=== PATIENT | male | born 1980 | race Caucasian/White ===

== ENCOUNTER → 2018-03-29 12:57 | Outpatient (REF) | payer OTHER, MEDICAID, SELFPAY | LOC: LAB 12:57 | PROVIDERS: Visit Provider Internal Medicine | DX: L08.9 Local infection of the skin and subcutaneous tissue, unspecified (principal) | CPT/HCPCS: 87070; 87075; 87186; 87205 ==

== ENCOUNTER → 2018-03-29 13:23 | Outpatient (CLI) | payer OTHER, MEDICAID, SELFPAY | PROVIDERS: Visit Provider Internal Medicine | DX: E11.621 Type 2 diabetes mellitus with foot ulcer (principal); L97.522 Non-pressure chronic ulcer of other part of left foot with fat layer exposed; L03.032 Cellulitis of left toe | CPT/HCPCS: 11042; 87070; 87186; 87205 ==

== ENCOUNTER → 2018-04-12 13:34 | Outpatient (CLI) | payer OTHER, MEDICAID, SELFPAY | PROVIDERS: Visit Provider Internal Medicine | DX: E11.621 Type 2 diabetes mellitus with foot ulcer (principal); L97.522 Non-pressure chronic ulcer of other part of left foot with fat layer exposed | CPT/HCPCS: 11042 ==

== ENCOUNTER → 2018-04-19 13:18 | Outpatient (CLI) | payer OTHER, MEDICAID, SELFPAY | PROVIDERS: Visit Provider Internal Medicine | DX: E11.621 Type 2 diabetes mellitus with foot ulcer (principal); L97.522 Non-pressure chronic ulcer of other part of left foot with fat layer exposed; L03.116 Cellulitis of left lower limb | CPT/HCPCS: 11042; 87070; 87075; 87077; 87186; 87205 ==

== ENCOUNTER → 2018-04-19 13:41 | Outpatient (REF) | payer OTHER, MEDICAID, SELFPAY | LOC: LAB 13:41 | PROVIDERS: Visit Provider Internal Medicine | DX: L08.9 Local infection of the skin and subcutaneous tissue, unspecified (principal) ==

== ENCOUNTER → 2018-04-26 10:44 | Outpatient (CLI) | payer OTHER, SELFPAY | PROVIDERS: PCP Student in an Organized Health Care Education/Training Program; Visit Provider Internal Medicine | DX: E11.621 Type 2 diabetes mellitus with foot ulcer (principal); L97.522 Non-pressure chronic ulcer of other part of left foot with fat layer exposed; L84 Corns and callosities; A49.01 Methicillin susceptible Staphylococcus aureus infection, unspecified site; Z91.19 Patient's noncompliance with other medical treatment and regimen | CPT/HCPCS: 11042 ==

== ENCOUNTER → 2018-05-03 14:38 | Outpatient (CLI) | payer OTHER, SELFPAY ==
--- NOTE | 2018-05-03 | OV.WND_ITS ---
Progress Note Details Patient Name: Baljit Mckay Patient Number: [id number] PatientPatientDate: 05/03/2018 Clinician: Yareli De León Clinician Cosigner: Geeta Mullins Physician / Basket Bottom Machine Operator: Rakesh Weathers SUBJECTIVE Chief Complaint This information was obtained from the patient Diabetic ulcer to left great toe. Allergies [facility] This information was obtained from the patient 05/03/18. Seen by Dr. Weathers. The patient states he was at a conference this past weekend and forgot his left lower leg stocking that protects from his FLANDREAU boot rubbing the short. He started to notice an abrasion so stopped wearing the FLANDREAU boot and now feels the left 1st toe diabetic ulcer may have deteriorated and also it got wet in the shower this morning. He also notes some drainage at the site of the recently healed left 1st toe diabetic ulcer. He does not report pain at either site and his blood sugars are historically well controlled over the past 6 months. 04/26/18. Seen by Dr. Weathers. The patient reports being on his feet a lot over the past week at work but he'll be taking the next week off. 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 His culture last week grew MSSA and he's completed a course of doxycycline as of yesterday. He's also not been wearing this FLANDREAU boot or using a knee scooter due to his working more. 04/19/18. Seen by Dr. Weathers. The patient does not report pain associated with the chronic left 1st toe diabetic ulcer since his last visit however he was more active on it over the holiday weekend. The staff however report drainage on the dressing and a significant increase in callus from his last visit. His blood sugars continue to be well controlled around 120 and he's been advised to use his FLANDREAU boot when mobilizing and knee scooter as much as possible. 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 04/12/18. Seen by Dr. Weathers. The patient does not report drainage or pain associated with the great left foot diabetic ulcers since his last visit. 04/05/2018. Seen by Dr. Weathers. The patient is wearing his FLANDREAU boot on the left foot as much as possible to help offload the recurrent and chronic left 1st toe diabetic ulcer. He'll complete his course of doxycycline today that was started at his last for cellulitis of the toe and he's applying topical gentamicin as well. He does not report fevers or feeling unwell nor side effects of the antibiotics. 03/29/2018. Seen by Dr. Weathers. The patient reports some pain and increased drainage as well as redness and swelling of the left 1st toe over the past few days. He does not report fevers however nor other acute issues at this time. 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 03/22/2018. Seen by Dr. Weathers. The patient does not report drainage or pain associated with the great left foot diabetic ulcers since his last visit. He states however that he is not wearing his FLANDREAU boot to offload the sites on alternate days despite my recommendations last week. 03/15/18. Seen by Dr. Weathers. The patient has returned to full-time work schedule and feels may not be wearing his FLANDREAU boots as much as she should noting a significant increase in callus associated with bilateral first toe diabetic ulcers and associated pain. He does not report drainage associated with the ulcers however and we'll extended his visits out to 10 days. . Seen by Dr. Weathers. The patient does not report significant drainage associated with chronic left and right first toe diabetic ulcers since his last visit. He's not wearing his FLANDREAU boot currently to offload the left foot and has started using new orthotic inserts for his diabetic shoe noting the heavy callus may be due to the old othotics wearing down. 02/25/18. Seen by Dr. Weathers. The patient does not report significant drainage associated with chronic left first toe diabetic ulcer since his last visit. 02/18/18. Seen by Dr. Weathers. The patient does not report drainage associated with chronic right or left first toe diabetic ulcers since his last visit and he's applying topical gentamicin as recommended to treat the left 1st toe MSSA positive wound culture taken at the last visit. 02/11/18. Seen by Dr. Weathers. The patient returns due to recurrence of the left 1st toe diabetic ulcer that he states started about 1 week ago when he developing callus fell off and the toe started to drain. He was seen by Dr. Son, podiatry, who subsequently referred the patient back to our clinic. He does not report pain in the toe or fevers and he's wearing his FLANDREAU boot to help offload the site. He's also on Keflex but states a wound culture was not drawn. Of note, he reports callus has reformed over the recently healed right 1st toe diabetic ulcer also. His blood sugars continue to be well controlled with most below 150. 01/17/18. Seen by Flaco Henley PA-C. The patient reports no drainage from his right 1st toe diabetic ulcer since his last dressing change. 01/05/18. Seen by Dr. Weathers. 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 Of note, he also has a new wound over the dorsum of the right foot that occurred following a dog fight that occurred at home where he was stepped on and the dog's claws scratch the foot. He does not report significant pain or drainage associated with this wound. 12/29/17. Seen by Dr. Weathers. The patient does not report drainage or pain associated with the right first toe diabetic ulcers since his last visit. He is wearing his FLANDREAU boot as recommended and is asking if he will be able to return to work soon. 12/22/17. Seen by Dr. Weathers. The patient does not report increased drainage associated with a chronic right first toe diabetic ulcers since his last visit. 12/14/17. Seen by Dr. Weathers. The patient does not report increased drainage associated with a chronic right first toe diabetic ulcers since his last visit and he's wearing his FLANDREAU boot as recommended to offload the ulcer. 12/08/17. Seen by Dr. Weathers. The patient does not report increased drainage associated with a chronic right first toe diabetic ulcers since his last visit. Of note, he states he accidentally wore his left shoe with a sock in the end of the which may result in some bruising at the site of the recently healed first toe diabetic ulcer. 12/01/17. Seen by Dr. Weathers. The patient does not report significant drainage or pain associated with right first toe diabetic ulcer since his last visit. Of note, he 's also stopped applying Kersal to the callus surrounding the recently healed left 1st toe diabetic ulcer despite our recommendations to do so. 11/17/17. Seen by Dr. Waethers. The patient does not report significant drainage or pain associated with right first toe diabetic ulcer since his last visit. 11/10/17. Seen by Dr. Weathers. The patient does not report significant drainage or pain associated with bilateral first toe diabetic ulcers since his last visit. He's been offloading as recommended with both his FLANDREAU boots and a knee scooter. 11/03/17. Seen by Dr. Weathers. The patient does not report increased drainage or pain associated with bilateral first toe diabetic ulcers since last visit. 10/27/17. Seen by Dr. Weathers. The patient reports some increased pain and redness associated with the chronic right first toe diabetic ulcer. 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 He is also offloading with a new scooter as recommended 10/20/17. Seen by Dr. Weathers. The patient does not report increased drainage or pain associated with bilateral first toe diabetic ulcers since last visit. 10/13/17. Seen by Dr. Weathers. The patient does not report increased drainage or pain associated with bilateral first toe diabetic ulcers since last visit. Of note, he now has a knee scooter and his left FLANDREAU boot and feels the left 1st toe ulcer has improved significantly with the added offloading measures. 10/06/17. Seen by Dr. Weathers. The patient does not report increased drainage or pain associated with bilateral first toe diabetic ulcers since last visit. Of note, he now has a knee scooter that he's been using to offload the left foot for the past 2 days and he will receive his FLANDREAU boot on Wednesday. 09/29/17. Seen by Dr. Weathers. The patient states that while wearing his left foot offloading shoe he took a fall and feels that it may have traumatized the chronic left first toe diabetic ulcer. He does not report increased pain or drainage from the site nor the right first toe diabetic ulcers since his last visit and states his blood sugars continue to be mostly below 150. He is also awaiting delivery of the left foot lower brule boot as well as his diabetic shoes. Of note, he also admits to being more active that he should be despite our recommendations to maximally offload both ulcers and has not been able to locate an offloading knee scooter as we've recommended. 09/22/17. Seen by Dr. Weathers. The patient does not report increased drainage associated with the bilateral 1st toe diabetic ulcers since his last visit and he's completed his course of doxycycline without reporting adverse side effects. He's also not yet seen his orthortist who will be fitting for at FLANDREAU boot to offload the left foot ulcer as well as providing him with a pair of diabetic shoes. 09/15/17. Seen by Dr. Weathers. The patient's on doxycycline to treat a chronic wound infection of the left 1st toe and he does not report adverse side effects. He's wearing his offloading shoe on the foot as recommended and continues to limit his walking as much as possible. He does not report significant drainage or pain associated with either 1st toe diabetic ulcers and states he's going to schedule and appointment with an hotel casino floorperson today as we've been recommending. 09/06/17. Seen by Flaco Henley PA-C. The patient reports increased drainage and continued callous formation from his 1st toe diabetic ulcers. He continues to stay off his feet as much as possible and is working with his insurance company and [facility] [employer] [employer] to obtain a FLANDREAU offloading boot. 08/31/17. Seen by Flaco Henley PA-C. The patient reports he has been staying off his feet and has been away from work as instructed. He reports decreased drainage from his bilateral diabetic toe ulcers. 08/24/17. Seen by Dr. Weathers. The patient reports being more active over the past week despite being advised to limit his walking considerably to offload the bilateral first toe diabetic ulcers. He does not report increased drainage or pain associated with these ulcers. He also states he will be able to take another month off of work to further facilitate offloading of the ulcers. 08/17/17. Seen by Dr. Weathers. The patient has been offloading both left and right first toe diabetic ulcers for the past week and has taken the entire month of July off of work to better facilitate offloading. 08/10/17. Seen by Dr. Weathers. The patient has been offloading both left and right first toe diabetic ulcers for the past week as recommended and he does not report significant associated pain or drainage from either site. 08/03/17. Seen by Dr. Weathers. The patient has been offloading both left and right first toe diabetic ulcers for the past week and has taken the entire month of July off of work to better facilitate offloading. 07/23/17. Seen by Dr. Weathers. The patient does not report significant drainage associated with chronic bilateral left and right first toe diabetic ulcers since his last visit. He does not report any drainage associated with the left 1st MTPJ diabetic ulcer. 07/20/17. Seen by Dr. Weathers. The patient does not report pain nor significant drainage associated with chronic bilateral left and right first toe diabetic ulcers since his last visit. He is applying topical gentamicin as recommended to the ulcer bases to treat the recent wound infection. He does not report any drainage associated with the left 1st MTPJ diabetic ulcer. 07/16/17. Seen by Dr. Weathers. The patient states that he had a very busy past week in terms of festival and he was on his feet for extended periods. He has increased drainage and callus formation associated with both first toe diabetic ulcers since we last saw him however he does not report any increased drainage or problems regarding the left mid plantar foot diabetic ulcer. He does not report pain in the toes nor fever or feeling unwell. His blood sugars continue to be well controlled consistently below 150. 07/06/17. Seen by Dr. Weathers. The patient does not report pain nor significant drainage associated with chronic bilateral left and right first toe diabetic ulcers since his last visit. He is applying topical gentamicin as recommended in his recent wound culture grew MSSA. He also does not report pain nor drainage associated with the chronic left plantar foot diabetic ulcer. 06/29/17. Seen by Dr. Weathers. The patient reports some pain associated with both first toe diabetic ulcers since his last visit. He does not report increased drainage associated with these nor the left plantar foot diabetic ulcer. He's been seeing us every 2 weeks and feels that the callus formation in the interim has been quite significant. 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 He states his blood sugars are well controlled with most below 150. 7. Seen by Dr. Weathers. The patient does not report pain nor significant drainage associated with the chronic bilateral first toe diabetic ulcers nor the left plantar foot diabetic ulcer since his last visit. 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 His blood sugars he states are well-controlled with most below 150. 06/01/17. Seen by Dr. Weathers. The patient does not report pain or increased drainage associated with the bilateral, chronic 1st toe diabetic ulcers since his last visit and he continues on doxycycline for the left 1st toe infection noted at his last visit. He does not report adverse side effects and states his blood sugars are mostly below 150. 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 Of note, he reports a new wound over the plantar surface of the left foot that started when he tried to remove a callus earlier this week. 05/18/17. Seen by Dr. Weathers. The patient reports some discomfort associated with the chronic left first toe diabetic ulcer over the past few days however he does not report pain nor increased drainage with the chronic right first toe diabetic ulcer. He continues to work an active job and is on his feet for extended periods however states that he may be able to decrease hours later in the summer. His blood sugars continue to be well controlled with most below 150. 05/12/17. Seen by Flaco Henley PA-C. The patient reports that his neuropathy is worse today with stabbing-type pains occurring in the arches of both feet and radiating to the lateral edges of his feet. He reports that walking on his feet exacerbate the pain and his recent medication change to Cymbalta has helped decrease the pain. He reports no increase in drainage from his bilateral 1st toe diabetic ulcers of the right and left feet. 05/05/17. Seen by Flaco Henley PA-C. The patient reports no increase in drainage from his bilateral 1st toe diabetic ulcers. 04/20/17. Seen by Dr. Weathers. The patient reports pain and drainage associated with the bilateral first toe diabetic ulcers is minimal over the past week and he'll complete his course of moxifloxacin today that's been treating a recent left 1st toe cellulitis. He continues to work a heavy schedule as on his feet for extended periods. He states his blood sugars continue to be mostly below 200. 04/14/17. Seen by Dr. Weathers. The patient feels the pain and drainage associated with the bilateral first toe diabetic ulcers has improved since starting on antibiotics last week. He continues to work a heavy schedule as on his feet for extended periods. He states his blood sugars continue to be mostly below 200. 04/07/17. Seen by Dr. Weathers. The patient reports some pain and increased drainage from the bilateral first toe diabetic ulcers over the past week. He's been working on his feet considerably more over the past few weeks and states his blood sugars are mostly below 200. 03/24/17. Seen by Flaco Henley PA-C. The patient reports good compliance with his diabetes footwear but he also notes blood sugars above 150 this week. Drainage has reportedly been decreasing from his diabetic ulcers of the right and left feet. 03/17/17. Seen by Dr. Weathers. The patient states he's stopped taking his SSRI that was treating the bilateral foot diabetic neuropathic pain as he felt it may have been contributing to his intermittent subjective fevers and chills. He does not report increased drainage or pain associated with the bilateral 1st toe diabetic ulcers since his last visit but states he's been on his feet more due to his job and an increase in tourism as the weather's improving. 02/26/17. Seen by Dr. Weathers. The patient reports increased pain and drainage associated with the left first toe diabetic ulcer but none with the right first toe diabetic ulcer. He's had some subjective fevers and chills for the last 2 weeks but states blood sugars continue to be well controlled with most below 150. 02/19/17. Seen by Dr. Weathers.The patient reports fatigue and intermittent chills but no documented fevers over the past few days. He does not report fevers nor other specific symptoms. He states that there has been no increase in drainage or pain associated with bilateral first diabetic ulcers since his last visit. His blood sugars continue to be mostly below 200. 02/05/17. Seen by Dr. Weathers. The patient does not report pain nor significant drainage associated with the chronic bilateral first toe diabetic ulcers over the past week. He continues applying topical gentamicin as recommended to treat the chronic and recurrent superficial staph infection. 01/29/17. Seen by Dr. Weathers. The patient reports minimal drainage and no pain associated with bilateral first toe diabetic ulcers since his last visit. He has completed his course of Keflex and does not report adverse side effects. He states blood sugars are mostly between 100 and 200.He continues to apply gentamicin ointment also as recommended. 01/22/17. Seen by Dr. Weathers. The patient returns to clinic for bilateral 1st toe diabetic ulcers that have become infected about a week ago and he was placed on Keflex by his PCP. He feels the drainage and redness are improving and he does not report pain in the toes. His blood sugars remain mostly below 150 and he continues to work on his feet a full-time schedule and states he wears his diabetic shoes at all times. 01/05/17. Seen by Flaco Henley PA-C. The patient reports some blood sugars this week above 150. No increase in ulcer drainage is reported today. 12/29/16 Seen by Flaco Henley PA-C. The patient reports stable drainage from his left foot non- pressure ulcer since his last evaluation. 12/22/16 Seen by Flaco Henley PA-C. The patient reports no increase in ulcer drainage from his left foot diabetic ulcer since his last visit. In addition he reports well controlled blood sugars. 12/15/16 Seen by Flaco Henley PA-C. The patient reports no increase in drainage from his left foot diabetic ulcer. His blood sugars have reportedly been below 150 this week but today is blood sugar is noted to be 152. 12/08/16. Seen by Dr. Weathers. The patient's now taking Augmentin for his recent Staph and E. coli positive wound culture taken from the chronic left 1st toe diabetic ulcer. The culture sensitivities however show intermediate sensitivity of the E. coli to Augmentin. The patient feels the toe pain and ulcer drainage have decreased considerably and he states his blood sugars are mostly below 150. He does not report fevers or adverse side effects from the Augmentin. Regarding the right 1st toe diabetic ulcer he does not report pain or significant drainage. 12/01/16 Seen by Flaco Henley PA-C. The patient reports that his left foot diabetic ulcer is much worse with a strong odor reported. 11/17/16 Seen by Flaco Henley PA-C. The patient reports that his blood sugar is likely elevated due to the holidays. He reports no increase in drainage from his DMII ulcers of the right or left 1st toes. 11/03/16. Seen by Dr. Weathers. The patient reports a new ulcer on the right 1st toe that started about one week ago following his attempt at removing a callus from the site. He states about 3 days ago the ulcer started draining fluid and the toe swelled and turned red. He 's not on antibiotics and does not report fevers or feeling unwell. Regarding his left 1st toe diabetic ulcer, he does not report significant drainage or pain. He states his blood sugars are improving with most below 150 now. 10/20/16. Seen by Dr. Weathers. The patient does not report significant drainage associated with the chronic left 1st toe diabetic ulcer since his last visit. He also states his blood sugars still tend to be over 150 and sometimes in the 200's.He also continues to apply gentamcin for the MSSA positive wound culture taken from the ulcer recently. 10/13/16. Seen by Dr. Weathers. The patient does not report significant drainage associated with the chronic left 1st toe diabetic ulcer since his last visit and he continues applyin gentamcin for the MSSA positive wound culture taken from the ulcer. His blood sugars continue to be above 150 fairly frequently however he notes since decreasing his chronic alcohol intake his glucose seems to be easier to control. 10/06/16 Seen by Flaco Henley PA-C. The patient reports that his neuropathy is severe today. It is described as an intermittent burning/shooting pain, that comes and goes but does not radiate and is centered on his left lateral foot. He does not report any associated changes to his chronic left 1st toe diabetic ulcer such as increased drainage. 09/29/16. Seen by Dr. Weathers. The patient does not report significant drainage associated with the chronic left 1st toe diabetic ulcer since his last visit and he continues on doxycycline for the MSSA positive wound culture taken from the ulcer. He feels the toe redness and swelling have improved since starting antibiotics. He also reports significant improvement in the left foot neuropathic pain since starting on a new antidepressant. 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 His blood sugar is over 200 today and he states its typically been between 100 and 200 although he's not been checking it for the past few days since his glucometer is no working. 09/15/16 Seen by Flaco Henley PA-C. The patient reports decreased neuropathic pain in his LLE and has recently started a new antidepressant medication for this issue though he does not recall the name of the medication. His ulcer drainage has been stable since his last evaluation. 09/01/16. Seen by Dr. Weathers. The patient does not report significant drainage associated with the chronic left 1st toe diabetic ulcer. He does state however his left lateral foot neuropathic pain is increasing and he's working with GAMAL Carter, pain specialist, to address this issue. He also states his blood sugars are typically between 100 to 200. 08/25/16 Seen by Flaco Henley PA-C. The patient reports continued left foot neuropathic pain. He has a pending appointment with Jethro Meehan at the pain clinic for this. His diabetic foot ulcer has resumed draining in the past few days after being closed. 08/18/16 Seen by Flaco Henley PA-C. The patient reports that he has had no drainage from his left 1st toe ulcer since his last evaluation. 08/11/16 Seen by Flaco Henley PA-C. The patient reports that he now has a prescription for lyrica and a schedule to taper off his gabapentin. He has not started taking lyrica though notes that his neuropathic pain is improved this week. His ulcer has had decreased drainage. 08/03/16 Seen by Flaco Henley PA-C. The patient reports that his left leg neuropathic pain, which has been present for months, has decreased in severity recently but still reaches 6/10. It is described as intermittent, non-radiating and stabbing/burning. His left 1st toe ulcer has had stable drainage by his report. 07/28/16 Seen by Flaco Henley PA-C. The patient reports very little drainage from his left 1st toe diabetic ulcer. He does report that his neuropathic pain has worsened and he is using alcohol at times as a painkiller. He has an upcoming appointment with Dr. Son, who has been addressing this issue and he asks about the referral to Jethro Meehan. 07/20/16. Seen by Dr. Weathers. The patient does not report significant drainage associated with the chronic left 1st toe diabetic ulcer over the past week. He states he's seen Dr. Son regarding his diabetic neuropathy in the past but has not discussed the recurrent toe ulcer. He also states he 'walks on this toes' and has been told by other providers in the past his Achilles tendon is 'short'. 07/13/[address] Weathers. The patient states he's been more active over the past few weeks with his job however does not report increased drainage or pain associated with the chronic left 1st toe diabetic ulcer. He's wearing his diabetic shoes as recommended and states his blood sugars have been a bit elevated between 150 and 200 over the past week due to non- compliance with his routine diabetic meal plan. 06/22/[address] Weathers. The patient feels the drainage and left 1st toe erythema have improved considerably since his last visit and he continues on Zyvox that was started during his recent admission for cellulitis associated with the toe ulcer. He states his blood sugars are now mostly below 150 and he's wearing diabetic shoes but not necessarily offloading the toe. 09/12/[address] Weathers. The patient has had his TCC off for the past week and he does not report drainage from the left 1st toe diabetic foot ulcer. His blood sugars are also mostly between 150 and 180. 09/06/[address] Weathers. The patient does not report any problems regarding his left diabetic foot ulcer nor the TCC he's worn since his last visit. His blood sugars are typically between 150 and 200 which is an improvement historically. 06/18/15 Seen by Flaco Henley PA-C. The patient has had no drainage from his wounds since his last visit. 06/11/15 Seen by Flaco Henley PA-C. The patient has had a particularly long work week and has been on his feet a lot. He has been using his diabetic shoes and recently modified inserts. 06/07/[address] Weathers. The patient has two new ulcers on the plantar surface of the right foot and on the left toe that were first noticed about 3 days ago after being on his feet at work for an extended period. He feels they may have occurred as a result of his orthotics not fitting properly. He does not report pain or swelling but does note some redness with clear yellow drainage from the right ulcer. He states his blood sugars are mostly below 150 with a few around 180 and he continues to try to loose weight to help manage his diabetes. 05/20/[address] Weathers. The patient does not report drainage from the left toe ulcer and tolerated the TCC without difficulties. 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 05/08/15 Seen by Flaco Henley PA-C. The patient is here today to have a TCC placed. He continues to try and stay off his feet and has not yet returned to work. 05/06/15 Seen by Flaco Henley PA-C. The patient has been off loading his feet using his off loading boots and sitting at home as well as not working. He continues on his antibiotics. 05/02/15 Seen by Flaco Henley PA-C. The patient continues to take time off work and be sedentary in order to offload his feet. He has been applying kerisol to the callouses on his right and left great toes and hydrogel to the wounds. He took his last dose of Augmentin today and reports decreased drainage from the left great toe diabetic ulcer and minimal drainage from the right great toe diabetic ulcer. His feet are sometimes painful but this has decreased since last visit. Blood sugars are running 150-180s in the AM. 04/26/[address] Weathers. The patient does not report increased drainage associated with the bilateral 1st toe diabetic ulcers. He feels the right leg cellulitis is much improved since starting Augmentin and he's been offloading with a cane and my taking time off of work to stay off his feet. His blood sugars are below 150 and he takes only metformin for diabetes. Past Medical History This information was obtained from the patient Patient has a medical history of: Type II Diabetes Diabetic foot ulcers (bilateral 1st toes; Hector grade II) Hyperlipidemia Chronic pain (neuropathic; left lateral foot) Depression Complaints and Symptoms This information was obtained from the patient Patient complains of: General Notes: I have reviewed and concur with the Review of Systems and Past Family Social History documents completed by the clinician, I have reviewed and concur with the Wound Assessment document completed by the clinician Integumentary (Hair/Skin/Nails): Open Sore Musculoskeletal: Assistive Devices, Deformities Neurological: Abnormal Gait, Loss of Protective Sensation Prior Wound History: Drainage, Erythema, Pain Patient denies complaints or symptoms related to: Cardiovascular (Central/Peripheral): Intermittent Claudication, Lower extremity (leg) resting pain, Lower extremity (leg) swelling Constitutional Symptoms (General Health): Chills, Fever Ear/Nose/Mouth/Throat: Hearing Loss / Aid Gastrointestinal (GI): Nausea / Vomiting, Stomach/abdominal pain Hematologic/Lymphatic: Bleeding / Clotting Disorders, Bleeding Tendency Prior Wound History: Bleeding, Malodor Respiratory: Oxygen Use, Shortness of Breath OBJECTIVE Constitutional Vital signs reviewed and noted. Well developed. Alert. Clean appearing.. Height/ Length: 76 in (193.04 cm), Weight: 267 lbs (121.36 kgs), BMI: 32.5, Temperature: 98.4 ?F ( 36.89 ?C), Pulse: 84 bpm, Respiratory Rate: 18 breaths/min, Blood Pressure: 121/72 mmHg, Capillary Blood Glucose: 127 mg/dl, Pulse Oximetry: 100 %. Vital Signs Notes: Glucose per patient. Ears, Nose, Mouth, and Throat: No clinically significant hearing loss on informal examination. Respiratory: No respiratory distress. Even respirations and without use of accessory muscles.. Cardiovascular: Pedal pulses 2+ on affected limb. Affected extremity exhibits no peripheral edema or cyanosis, is warm, and is well perfused. Capillary refill is less than 2 seconds. Gastrointestinal (GI): Obese. Nondistended.. Integumentary (Hair, Skin) Mild left 1st toe periwound erythema with warmth. Refer to appropriate clinician wound documentation for this visit; right and left foot ulcers extend to subcut with bases partially covered with pink granulation, remainder fibrin and slough. Maceration and callus present in the periwound areas. Wound #9 Left Great Toe is a chronic Hector Grade 2 Diabetic Ulcer and has received a status of Not Healed. Subsequent wound encounter measurements are 1cm length x 0.1cm width x 0.3cm depth, with an area of 0.1 sq cm and a volume of 0.03 cubic cm. No tunneling has been noted. No sinus tract has been noted. No undermining has been noted. There is a moderate amount of sero-sanguineous drainage noted which has no odor. The patient reports a wound pain of level 0/10. The wound margin is callus. Wound bed has Yes epithelialization, No eschar, No slough, No granulation. The periwound skin color is normal. The periwound skin exhibited: Callus, Moist. The periwound skin did not exhibit: Brawny Induration, Edema, Excoriation, Induration, Crepitus, Fluctuance, Friable, Rash, Dry/Scaly, Maceration. The temperature of the periwound skin is WNL. Periwound skin does not exhibit signs or symptoms of infection. Local Pulse is Palpable. Wound #10 Right Great Toe is a chronic Hector Grade 2 Diabetic Ulcer and has received a status of Not Healed. Initial wound encounter measurements are 0.1cm length x 0.1cm width with no measurable depth, with an area of 0.01 sq cm . No tunneling has been noted. No sinus tract has been noted. No undermining has been noted. There was no drainage noted. The patient reports a wound pain of level 0/10. The wound margin is callus. Wound bed has No epithelialization, No eschar, No slough, No granulation. The periwound skin texture is normal. The periwound skin moisture is normal. The periwound skin color is normal. The temperature of the periwound skin is WNL. Periwound skin does not exhibit signs or symptoms of infection. Local Pulse is Palpable. Neurological: Cranial nerves grossly intact with symmetric function normal by informal observation.. ASSESSMENT Active Problems ICD-10 (Encounter Diagnosis) E11.621 - Type 2 diabetes mellitus with foot ulcer (Encounter Diagnosis) L97.522 - Non-pressure chronic ulcer of other part of left foot with fat layer exposed (Encounter Diagnosis) Z91.19 - Patient's noncompliance with other medical treatment and regimen (Encounter Diagnosis) L08.9 - Local infection of the skin and subcutaneous tissue, unspecified (Encounter Diagnosis) L97.511 - Non-pressure chronic ulcer of other part of right foot limited to breakdown of skin PROCEDURES Wound #9 Wound #9 (Diabetic Ulcer) is located on the left great toe. A skin/subcutaneous tissue level surgical debridement with a total area debrided of 0.2 sq cm was performed by Rakesh Weathers MD. Subcutaneous was removed along with devitalized tissue: callus, exudate , and slough. The following instrument(s) were used: curette. Pain control was achieved using 4% Lido. A time out was conducted prior to the start of the procedure. A minimal amount of bleeding was controlled with n/a. The procedure was tolerated well with a pain level of 0 throughout and a pain level of 0 following the procedure. Post Debridement Measurements: 1cm length x 0.2cm width x 0.4cm depth; with an area of 0.2 sq cm and a volume of 0.08 cubic cm; Wound #10 Wound #10 (Diabetic Ulcer) is located on the right great toe. A skin/ subcutaneous tissue level surgical debridement with a total area debrided of 0.06 sq cm was performed by Rakesh Weathers MD. Subcutaneous was removed along with devitalized tissue: callus, exudate , and slough. The following instrument(s) were used: curette. Pain control was achieved using 4% Lido. A time out was conducted prior to the start of the procedure. A minimal amount of bleeding was controlled with n/a. The procedure was tolerated well with a pain level of 0 throughout and a pain level of 0 following the procedure. Post Debridement Measurements: 0.2cm length x 0.3cm width x 0.1cm depth; with an area of 0.06 sq cm and a volume of 0.006 cubic cm; Additional Information Muscle fascia or bone removed and sent to pathology?: No Muscle fascia or bone removed and sent to pathology?: No PLAN Wound Orders: Wound #9 Left Great Toe Anesthetic Topical Xylocaine to wound bed. - In clinic only. Cleanser Cleanse Wound: - Normal saline and gauze. May Shower. - Please cover in shower, may use cast protector or plastic bag and tape. Topical Treatments Antibiotic/Antimicrobial Ointment/Cream. - Gentamicin Dressings Cover and secure with: - Foam secured with tape. Change Dressing: - Daily. Wound #10 Right Great Toe Anesthetic Topical Xylocaine to wound bed. - In clinic only. Cleanser Cleanse Wound: - Normal saline and gauze. May Shower. - Please cover in shower, may use cast protector or plastic bag and tape. Topical Treatments Antibiotic/Antimicrobial Ointment/Cream. - Gentamicin Dressings Cover and secure with: - Foam secured with tape. Change Dressing: - Daily. Additional Orders: Off-Loading Keep weight off: - Left foot as much as possible. Use/Wear when Walking: - [place] boot, Knee scooter. Follow-Up Appointments Return Appointment: - - One week. Other information: If you develop fever, chills, increased pain, drainage, redness or swelling please call our office. If after hours, respond to the ER. Should you experience any significant changes in your wound(s) or have any questions regarding your home care instructions please contact the wound center @ [phone]. If after hours, contact your primary care physician or go to the hospital emergency room. Scribing Attestation I attest, as the nurse, that I scribed these orders for the physician. Laboratory: Bacteria identified in Wound by Culture I've reviewed the clinician's documentation and agree with the evaluation and plan as written. In addition the patient's ulcers demonstrate evidence of non-viable devitalized tissue and they will continue to benefit from sharp debridement to help promote granulation and expedite healing. Also, both 1st toe ulcers are now draining so taken a culture and started treating with topical gentamicin ointment. He'll start wearing his left [place] boot at all times again and states his work schedule will not be as busy over the next few weeks so he should be better able to offload the ulcers. Electronic Signature(s) Signed By: Date: Rakesh Weathers MD 05/03/2018 14:23:23 Entered By: Rakesh Weathers on 05/03/2018 12:22:24
== END ==
PROVIDERS: PCP Student in an Organized Health Care Education/Training Program; Visit Provider Internal Medicine
DX: E11.621 Type 2 diabetes mellitus with foot ulcer (principal); L97.522 Non-pressure chronic ulcer of other part of left foot with fat layer exposed; L97.512 Non-pressure chronic ulcer of other part of right foot with fat layer exposed; Z91.19 Patient's noncompliance with other medical treatment and regimen; L08.9 Local infection of the skin and subcutaneous tissue, unspecified
CPT/HCPCS: 11042

== ENCOUNTER → 2018-05-10 11:08 | Outpatient (CLI) | payer OTHER, SELFPAY ==
--- NOTE | 2018-05-10 | OV.WND_ITS ---
Progress Note Details Patient Name: Baljit Mckay Patient Number: [id number] PatientPatientDate: 05/10/2018 Clinician: Ryann Sultana Clinician Cosigner: Geeta Mullins Physician / Varnish Filterer: Jax Henley SUBJECTIVE Chief Complaint This information was obtained from the patient Diabetic ulcer to left great toe. Allergies NKDA HPI This information was obtained from the patient 05/10/18. Seen by Flaco Henley PA-C. The patient reports a rash has developed on his leg under his GALENA boot, but the rash has improved in the past few days as he has not been wearing the GALENA boot. Drainage from his diabetic foot ulcers has not increased. 05/03/18. Seen by Dr. Weathers. The patient states he was at a conference this past weekend and forgot his left lower leg stocking that protects from his GALENA boot rubbing the short. He started to notice an abrasion so stopped wearing the GALENA boot and now feels the left 1st toe diabetic ulcer may have deteriorated and also it got wet in the shower this morning. He also notes some drainage at the site of the recently healed left 1st toe diabetic ulcer. He does not report pain at either site and his blood sugars are historically well controlled over the past 6 months. 04/26/18. Seen by Dr. Weathers. The patient reports being on his feet a lot over the past week at work but he'll be taking the next week off. 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 His culture last week grew MSSA and he's completed a course of doxycycline as of yesterday. He's also not been wearing this GALENA boot or using a knee scooter due to his working more. 04/19/18. Seen by Dr. Weathers. The patient does not report pain associated with the chronic left 1st toe diabetic ulcer since his last visit however he was more active on it over the holiday weekend. The staff however report drainage on the dressing and a significant increase in callus from his last visit. His blood sugars continue to be well controlled around 120 and he's been advised to use his GALENA boot when mobilizing and knee scooter as much as possible. 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 04/12/18. Seen by Dr. Weathers. The patient does not report drainage or pain associated with the great left foot diabetic ulcers since his last visit. 04/05/2018. Seen by Dr. Weathers. The patient is wearing his GALENA boot on the left foot as much as possible to help offload the recurrent and chronic left 1st toe diabetic ulcer. He'll complete his course of doxycycline today that was started at his last for cellulitis of the toe and he's applying topical gentamicin as well. He does not report fevers or feeling unwell nor side effects of the antibiotics. 03/29/2018. Seen by Dr. Weathers. The patient reports some pain and increased drainage as well as redness and swelling of the left 1st toe over the past few days. He does not report fevers however nor other acute issues at this time. 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 03/22/2018. Seen by Dr. Weathers. The patient does not report drainage or pain associated with the great left foot diabetic ulcers since his last visit. He states however that he is not wearing his GALENA boot to offload the sites on alternate days despite my recommendations last week. 03/15/18. Seen by Dr. Weathers. The patient has returned to full-time work schedule and feels may not be wearing his GALENA boots as much as she should noting a significant increase in callus associated with bilateral first toe diabetic ulcers and associated pain. He does not report drainage associated with the ulcers however and we'll extended his visits out to 10 days. . Seen by Dr. Weathers. The patient does not report significant drainage associated with chronic left and right first toe diabetic ulcers since his last visit. He's not wearing his GALENA boot currently to offload the left foot and has started using new orthotic inserts for his diabetic shoe noting the heavy callus may be due to the old othotics wearing down. 02/25/18. Seen by Dr. Weathers. The patient does not report significant drainage associated with chronic left first toe diabetic ulcer since his last visit. 02/18/18. Seen by Dr. Weathers. The patient does not report drainage associated with chronic right or left first toe diabetic ulcers since his last visit and he's applying topical gentamicin as recommended to treat the left 1st toe MSSA positive wound culture taken at the last visit. 02/11/18. Seen by Dr. Weathers. The patient returns due to recurrence of the left 1st toe diabetic ulcer that he states started about 1 week ago when he developing callus fell off and the toe started to drain. He was seen by Dr. Son, podiatry, who subsequently referred the patient back to our clinic. He does not report pain in the toe or fevers and he's wearing his GALENA boot to help offload the site. He's also on Keflex but states a wound culture was not drawn. Of note, he reports callus has reformed over the recently healed right 1st toe diabetic ulcer also. His blood sugars continue to be well controlled with most below 150. 01/17/18. Seen by Flaco Henley PA-C. The patient reports no drainage from his right 1st toe diabetic ulcer since his last dressing change. 01/05/18. Seen by Dr. Weathers. 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 Of note, he also has a new wound over the dorsum of the right foot that occurred following a dog fight that occurred at home where he was stepped on and the dog's claws scratch the foot. He does not report significant pain or drainage associated with this wound. 12/29/17. Seen by Dr. Weathers. The patient does not report drainage or pain associated with the right first toe diabetic ulcers since his last visit. He is wearing his GALENA boot as recommended and is asking if he will be able to return to work soon. 12/22/17. Seen by Dr. Weathers. The patient does not report increased drainage associated with a chronic right first toe diabetic ulcers since his last visit. 12/14/17. Seen by Dr. Weathers. The patient does not report increased drainage associated with a chronic right first toe diabetic ulcers since his last visit and he's wearing his GALENA boot as recommended to offload the ulcer. 12/08/17. Seen by Dr. Weathers. The patient does not report increased drainage associated with a chronic right first toe diabetic ulcers since his last visit. Of note, he states he accidentally wore his left shoe with a sock in the end of the which may result in some bruising at the site of the recently healed first toe diabetic ulcer. 12/01/17. Seen by Dr. Weathers. The patient does not report significant drainage or pain associated with right first toe diabetic ulcer since his last visit. Of note, he 's also stopped applying Kersal to the callus surrounding the recently healed left 1st toe diabetic ulcer despite our recommendations to do so. 11/17/17. Seen by Dr. Weathers. The patient does not report significant drainage or pain associated with right first toe diabetic ulcer since his last visit. 11/10/17. Seen by Dr. Weathers. The patient does not report significant drainage or pain associated with bilateral first toe diabetic ulcers since his last visit. He's been offloading as recommended with both his GALENA boots and a knee scooter. 11/03/17. Seen by Dr. Weathers. The patient does not report increased drainage or pain associated with bilateral first toe diabetic ulcers since last visit. 10/27/17. Seen by Dr. Weathers. The patient reports some increased pain and redness associated with the chronic right first toe diabetic ulcer. He does not report any new issues regarding the left of a foot ulcer and will tile picker his right foot [place] boot in the near future. He is also offloading with a new scooter as recommended 10/20/17. Seen by Dr. Weathers. The patient does not report increased drainage or pain associated with bilateral first toe diabetic ulcers since last visit. 10/13/17. Seen by Dr. Weathers. The patient does not report increased drainage or pain associated with bilateral first toe diabetic ulcers since last visit. Of note, he now has a knee scooter and his left GALENA boot and feels the left 1st toe ulcer has improved significantly with the added offloading measures. 10/06/17. Seen by Dr. Weathers. The patient does not report increased drainage or pain associated with bilateral first toe diabetic ulcers since last visit. Of note, he now has a knee scooter that he's been using to offload the left foot for the past 2 days and he will receive his GALENA boot on Wednesday. 09/29/17. Seen by Dr. Weathers. The patient states that while wearing his left foot offloading shoe he took a fall and feels that it may have traumatized the chronic left first toe diabetic ulcer. He does not report increased pain or drainage from the site nor the right first toe diabetic ulcers since his last visit and states his blood sugars continue to be mostly below 150. He is also awaiting delivery of the left foot [place] boot as well as his diabetic shoes. Of note, he also admits to being more active that he should be despite our recommendations to maximally offload both ulcers and has not been able to locate an offloading knee scooter as we've recommended. 09/22/17. Seen by Dr. Weathers. The patient does not report increased drainage associated with the bilateral 1st toe diabetic ulcers since his last visit and he's completed his course of doxycycline without reporting adverse side effects. He's also not yet seen his orthortist who will be fitting for at GALENA boot to offload the left foot ulcer as well as providing him with a pair of diabetic shoes. 09/15/17. Seen by Dr. Weathers. The patient's on doxycycline to treat a chronic wound infection of the left 1st toe and he does not report adverse side effects. He's wearing his offloading shoe on the foot as recommended and continues to limit his walking as much as possible. He does not report significant drainage or pain associated with either 1st toe diabetic ulcers and states he's going to schedule and appointment with an senior sous chef today as we've been recommending. 09/06/17. Seen by Flaco Henley PA-C. The patient reports increased drainage and continued callous formation from his 1st toe diabetic ulcers. He continues to stay off his feet as much as possible and is working with his insurance company and [employer] to obtain a GALENA offloading boot. 08/31/17. Seen by Flaco Henley PA-C. The patient reports he has been staying off his feet and has been away from work as instructed. He reports decreased drainage from his bilateral diabetic toe ulcers. 08/24/17. Seen by Dr. Weathers. The patient reports being more active over the past week despite being advised to limit his walking considerably to offload the bilateral first toe diabetic ulcers. He does not report increased drainage or pain associated with these ulcers. He also states he will be able to take another month off of work to further facilitate offloading of the ulcers. 08/17/17. Seen by Dr. Weathers. The patient has been offloading both left and right first toe diabetic ulcers for the past week and has taken the entire month of July off of work to better facilitate offloading. 08/10/17. Seen by Dr. Weathers. The patient has been offloading both left and right first toe diabetic ulcers for the past week as recommended and he does not report significant associated pain or drainage from either site. 08/03/17. Seen by Dr. Weathers. The patient has been offloading both left and right first toe diabetic ulcers for the past week and has taken the entire month of July off of work to better facilitate offloading. 07/23/17. Seen by Dr. Weathers. The patient does not report significant drainage associated with chronic bilateral left and right first toe diabetic ulcers since his last visit. He does not report any drainage associated with the left 1st MTPJ diabetic ulcer. 07/20/17. Seen by Dr. Weathers. The patient does not report pain nor significant drainage associated with chronic bilateral left and right first toe diabetic ulcers since his last visit. He is applying topical gentamicin as recommended to the ulcer bases to treat the recent wound infection. He does not report any drainage associated with the left 1st MTPJ diabetic ulcer. 07/16/17. Seen by Dr. Weathers. The patient states that he had a very busy past week in terms of festival and he was on his feet for extended periods. He has increased drainage and callus formation associated with both first toe diabetic ulcers since we last saw him however he does not report any increased drainage or problems regarding the left mid plantar foot diabetic ulcer. He does not report pain in the toes nor fever or feeling unwell. His blood sugars continue to be well controlled consistently below 150. 07/06/17. Seen by Dr. Weathers. The patient does not report pain nor significant drainage associated with chronic bilateral left and right first toe diabetic ulcers since his last visit. He is applying topical gentamicin as recommended in his recent wound culture grew MSSA. He also does not report pain nor drainage associated with the chronic left plantar foot diabetic ulcer. 06/29/17. Seen by Dr. Weathers. The patient reports some pain associated with both first toe diabetic ulcers since his last visit. He does not report increased drainage associated with these nor the left plantar foot diabetic ulcer. He's been seeing us every 2 weeks and feels that the callus formation in the interim has been quite significant. 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 He states his blood sugars are well controlled with most below 150. 7. Seen by Dr. Weathers. The patient does not report pain nor significant drainage associated with the chronic bilateral first toe diabetic ulcers nor the left plantar foot diabetic ulcer since his last visit. 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 His blood sugars he states are well-controlled with most below 150. 06/01/17. Seen by Dr. Weathers. The patient does not report pain or increased drainage associated with the bilateral, chronic 1st toe diabetic ulcers since his last visit and he continues on doxycycline for the left 1st toe infection noted at his last visit. He does not report adverse side effects and states his blood sugars are mostly below 150. 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 Of note, he reports a new wound over the plantar surface of the left foot that started when he tried to remove a callus earlier this week. 05/18/17. Seen by Dr. Weathers. The patient reports some discomfort associated with the chronic left first toe diabetic ulcer over the past few days however he does not report pain nor increased drainage with the chronic right first toe diabetic ulcer. He continues to work an active job and is on his feet for extended periods however states that he may be able to decrease hours later in the summer. His blood sugars continue to be well controlled with most below 150. 05/12/17. Seen by Flaco Henley PA-C. The patient reports that his neuropathy is worse today with stabbing-type pains occurring in the arches of both feet and radiating to the lateral edges of his feet. He reports that walking on his feet exacerbate the pain and his recent medication change to Cymbalta has helped decrease the pain. He reports no increase in drainage from his bilateral 1st toe diabetic ulcers of the right and left feet. 05/05/17. Seen by Flaco Henley PA-C. The patient reports no increase in drainage from his bilateral 1st toe diabetic ulcers. 04/20/17. Seen by Dr. Weathers. The patient reports pain and drainage associated with the bilateral first toe diabetic ulcers is minimal over the past week and he'll complete his course of moxifloxacin today that's been treating a recent left 1st toe cellulitis. He continues to work a heavy schedule as on his feet for extended periods. He states his blood sugars continue to be mostly below 200. 04/14/17. Seen by Dr. Weathers. The patient feels the pain and drainage associated with the bilateral first toe diabetic ulcers has improved since starting on antibiotics last week. He continues to work a heavy schedule as on his feet for extended periods. He states his blood sugars continue to be mostly below 200. 04/07/17. Seen by Dr. Weathers. The patient reports some pain and increased drainage from the bilateral first toe diabetic ulcers over the past week. He's been working on his feet considerably more over the past few weeks and states his blood sugars are mostly below 200. 5. Seen by Flaco Henley PA-C. The patient reports good compliance with his diabetes footwear but he also notes blood sugars above 150 this week. Drainage has reportedly been decreasing from his diabetic ulcers of the right and left feet. 03/17/17. Seen by Dr. Weathers. The patient states he's stopped taking his SSRI that was treating the bilateral foot diabetic neuropathic pain as he felt it may have been contributing to his intermittent subjective fevers and chills. He does not report increased drainage or pain associated with the bilateral 1st toe diabetic ulcers since his last visit but states he's been on his feet more due to his job and an increase in tourism as the weather's improving. 02/26/17. Seen by Dr. Weathers. The patient reports increased pain and drainage associated with the left first toe diabetic ulcer but none with the right first toe diabetic ulcer. He's had some subjective fevers and chills for the last 2 weeks but states blood sugars continue to be well controlled with most below 150. 02/19/17. Seen by Dr. Weathers.The patient reports fatigue and intermittent chills but no documented fevers over the past few days. He does not report fevers nor other specific symptoms. He states that there has been no increase in drainage or pain associated with bilateral first diabetic ulcers since his last visit. His blood sugars continue to be mostly below 200. 3. Seen by Dr. Weathers. The patient does not report pain nor significant drainage associated with the chronic bilateral first toe diabetic ulcers over the past week. He continues applying topical gentamicin as recommended to treat the chronic and recurrent superficial staph infection. 01/29/17. Seen by Dr. Weathers. The patient reports minimal drainage and no pain associated with bilateral first toe diabetic ulcers since his last visit. He has completed his course of Keflex and does not report adverse side effects. He states blood sugars are mostly between 100 and 200.He continues to apply gentamicin ointment also as recommended. 01/22/17. Seen by Dr. Weathers. The patient returns to clinic for bilateral 1st toe diabetic ulcers that have become infected about a week ago and he was placed on Keflex by his PCP. He feels the drainage and redness are improving and he does not report pain in the toes. His blood sugars remain mostly below 150 and he continues to work on his feet a full-time schedule and states he wears his diabetic shoes at all times. 01/05/17. Seen by Flaco Henley PA-C. The patient reports some blood sugars this week above 150. No increase in ulcer drainage is reported today. 12/29/16 Seen by Flaco Henley PA-C. The patient reports stable drainage from his left foot non- pressure ulcer since his last evaluation. 12/22/16 Seen by Flaco Henley PA-C. The patient reports no increase in ulcer drainage from his left foot diabetic ulcer since his last visit. In addition he reports well controlled blood sugars. 12/15/16 Seen by Flaco Henley PA-C. The patient reports no increase in drainage from his left foot diabetic ulcer. His blood sugars have reportedly been below 150 this week but today is blood sugar is noted to be 152. 12/08/16. Seen by Dr. Weathers. The patient's now taking Augmentin for his recent Staph and E. coli positive wound culture taken from the chronic left 1st toe diabetic ulcer. The culture sensitivities however show intermediate sensitivity of the E. coli to Augmentin. The patient feels the toe pain and ulcer drainage have decreased considerably and he states his blood sugars are mostly below 150. He does not report fevers or adverse side effects from the Augmentin. Regarding the right 1st toe diabetic ulcer he does not report pain or significant drainage. 12/01/16 Seen by Flaco Henley PA-C. The patient reports that his left foot diabetic ulcer is much worse with a strong odor reported. 11/17/16 Seen by Flaco Henley PA-C. The patient reports that his blood sugar is likely elevated due to the holidays. He reports no increase in drainage from his DMII ulcers of the right or left 1st toes. 11/03/16. Seen by Dr. Weathers. The patient reports a new ulcer on the right 1st toe that started about one week ago following his attempt at removing a callus from the site. He states about 3 days ago the ulcer started draining fluid and the toe swelled and turned red. He 's not on antibiotics and does not report fevers or feeling unwell. Regarding his left 1st toe diabetic ulcer, he does not report significant drainage or pain. He states his blood sugars are improving with most below 150 now. 10/20/16. Seen by Dr. Weathers. The patient does not report significant drainage associated with the chronic left 1st toe diabetic ulcer since his last visit. He also states his blood sugars still tend to be over 150 and sometimes in the 200's.He also continues to apply gentamcin for the MSSA positive wound culture taken from the ulcer recently. 10/13/16. Seen by Dr. Weathers. The patient does not report significant drainage associated with the chronic left 1st toe diabetic ulcer since his last visit and he continues applyin gentamcin for the MSSA positive wound culture taken from the ulcer. His blood sugars continue to be above 150 fairly frequently however he notes since decreasing his chronic alcohol intake his glucose seems to be easier to control. 10/06/16 Seen by Flaco Henley PA-C. The patient reports that his neuropathy is severe today. It is described as an intermittent burning/shooting pain, that comes and goes but does not radiate and is centered on his left lateral foot. He does not report any associated changes to his chronic left 1st toe diabetic ulcer such as increased drainage. 09/29/16. Seen by Dr. Weathers. The patient does not report significant drainage associated with the chronic left 1st toe diabetic ulcer since his last visit and he continues on doxycycline for the MSSA positive wound culture taken from the ulcer. He feels the toe redness and swelling have improved since starting antibiotics. He also reports significant improvement in the left foot neuropathic pain since starting on a new antidepressant. 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 His blood sugar is over 200 today and he states its typically been between 100 and 200 although he's not been checking it for the past few days since his glucometer is no working. 09/15/16 Seen by Flaco Henley PA-C. The patient reports decreased neuropathic pain in his LLE and has recently started a new antidepressant medication for this issue though he does not recall the name of the medication. His ulcer drainage has been stable since his last evaluation. 09/01/16. Seen by Dr. Weathers. The patient does not report significant drainage associated with the chronic left 1st toe diabetic ulcer. He does state however his left lateral foot neuropathic pain is increasing and he's working with GAMAL Carter, pain specialist, to address this issue. He also states his blood sugars are typically between 100 to 200. 08/25/16 Seen by Flaco Henley PA-C. The patient reports continued left foot neuropathic pain. He has a pending appointment with Jethro Meehan at the pain clinic for this. His diabetic foot ulcer has resumed draining in the past few days after being closed. 08/18/16 Seen by Flaco Henley PA-C. The patient reports that he has had no drainage from his left 1st toe ulcer since his last evaluation. 08/11/16 Seen by Flaco Henley PA-C. The patient reports that he now has a prescription for lyrica and a schedule to taper off his gabapentin. He has not started taking lyrica though notes that his neuropathic pain is improved this week. His ulcer has had decreased drainage. 08/03/16 Seen by Flaco Henley PA-C. The patient reports that his left leg neuropathic pain, which has been present for months, has decreased in severity recently but still reaches 6/10. It is described as intermittent, non-radiating and stabbing/burning. His left 1st toe ulcer has had stable drainage by his report. 07/28/16 Seen by Flaco Henley PA-C. The patient reports very little drainage from his left 1st toe diabetic ulcer. He does report that his neuropathic pain has worsened and he is using alcohol at times as a painkiller. He has an upcoming appointment with Dr. Son, who has been addressing this issue and he asks about the referral to Jethro Meehan. 07/20/16. Seen by Dr. Weathers. The patient does not report significant drainage associated with the chronic left 1st toe diabetic ulcer over the past week. He states he's seen Dr. Son regarding his diabetic neuropathy in the past but has not discussed the recurrent toe ulcer. He also states he 'walks on this toes' and has been told by other providers in the past his Achilles tendon is 'short'. 07/13/[address] Weathers. The patient states he's been more active over the past few weeks with his job however does not report increased drainage or pain associated with the chronic left 1st toe diabetic ulcer. He's wearing his diabetic shoes as recommended and states his blood sugars have been a bit elevated between 150 and 200 over the past week due to non- compliance with his routine diabetic meal plan. 06/22/[address] Weathers. The patient feels the drainage and left 1st toe erythema have improved considerably since his last visit and he continues on Zyvox that was started during his recent admission for cellulitis associated with the toe ulcer. He states his blood sugars are now mostly below 150 and he's wearing diabetic shoes but not necessarily offloading the toe. 09/12/[address] Weathers. The patient has had his TCC off for the past week and he does not report drainage from the left 1st toe diabetic foot ulcer. His blood sugars are also mostly between 150 and 180. 09/06/[address] Weathers. The patient does not report any problems regarding his left diabetic foot ulcer nor the TCC he's worn since his last visit. His blood sugars are typically between 150 and 200 which is an improvement historically. 06/18/15 Seen by Flaco Henley PA-C. The patient has had no drainage from his wounds since his last visit. 06/11/15 Seen by Flaco Henley PA-C. The patient has had a particularly long work week and has been on his feet a lot. He has been using his diabetic shoes and recently modified inserts. 06/07/[address] Weathers. The patient has two new ulcers on the plantar surface of the right foot and on the left toe that were first noticed about 3 days ago after being on his feet at work for an extended period. He feels they may have occurred as a result of his orthotics not fitting properly. He does not report pain or swelling but does note some redness with clear yellow drainage from the right ulcer. He states his blood sugars are mostly below 150 with a few around 180 and he continues to try to loose weight to help manage his diabetes. 05/20/[address] Weathers. The patient does not report drainage from the left toe ulcer and tolerated the TCC without difficulties. 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 05/08/15 Seen by Flaco Henley PA-C. The patient is here today to have a TCC placed. He continues to try and stay off his feet and has not yet returned to work. 05/06/15 Seen by Flaco Henley PA-C. The patient has been off loading his feet using his off loading boots and sitting at home as well as not working. He continues on his antibiotics. 05/02/15 Seen by Flaco Henley PA-C. The patient continues to take time off work and be sedentary in order to offload his feet. He has been applying kerisol to the callouses on his right and left great toes and hydrogel to the wounds. He took his last dose of Augmentin today and reports decreased drainage from the left great toe diabetic ulcer and minimal drainage from the right great toe diabetic ulcer. His feet are sometimes painful but this has decreased since last visit. Blood sugars are running 150-180s in the AM. 04/26/[address] Weathers. The patient does not report increased drainage associated with the bilateral 1st toe diabetic ulcers. He feels the right leg cellulitis is much improved since starting Augmentin and he's been offloading with a cane and my taking time off of work to stay off his feet. His blood sugars are below 150 and he takes only metformin for diabetes. 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[employer] Past Medical History This information was obtained from the patient Patient has a medical history of: Type II Diabetes Diabetic foot ulcers (bilateral 1st toes; Hector grade II) Hyperlipidemia Chronic pain (neuropathic; left lateral foot) Depression Complaints and Symptoms This information was obtained from the patient Patient complains of: General Notes: I have reviewed and concur with the Review of Systems and Past Family Social History documents completed by the clinician, I have reviewed and concur with the Wound Assessment document completed by the clinician Integumentary (Hair/Skin/Nails): Open Sore Musculoskeletal: Assistive Devices, Deformities Neurological: Abnormal Gait, Loss of Protective Sensation Prior Wound History: Drainage, Erythema, Pain Patient denies complaints or symptoms related to: Cardiovascular (Central/Peripheral): Intermittent Claudication, Lower extremity (leg) resting pain, Lower extremity (leg) swelling Constitutional Symptoms (General Health): Chills, Fever Ear/Nose/Mouth/Throat: Hearing Loss / Aid Gastrointestinal (GI): Nausea / Vomiting, Stomach/abdominal pain Hematologic/Lymphatic: Bleeding / Clotting Disorders, Bleeding Tendency Prior Wound History: Bleeding, Malodor Respiratory: Oxygen Use, Shortness of Breath OBJECTIVE Constitutional Vital signs reviewed and noted. Well developed, lucid, and in no acute distress. . Height/Length: 76 in (193.04 cm), Weight: 271.9 lbs (123.59 kgs), BMI: 33.1, Temperature: 98.4 ?F (36.89 ?C), Pulse: 71 bpm, Respiratory Rate: 18 breaths/min, Blood Pressure: 113/75 mmHg, Capillary Blood Glucose: 119 mg/dl, Pulse Oximetry: 98 %. Vital Signs Notes: Glucose per patient. Eyes: Conjunctiva clear and without icterus. Pupils are equal and round; EOM's intact. Ears, Nose, Mouth, and Throat: Grossly intact. Respiratory: No respiratory distress. Even respirations and without use of accessory muscles.. Integumentary (Hair, Skin) Mild erythema in the periwound area/s without warmth. Refer to appropriate clinician wound documentation for this visit; ulcer extends to subcutaneous fat layer. . Wound #9 Left Great Toe is a chronic Hector Grade 2 Diabetic Ulcer and has received a status of Not Healed. Subsequent wound encounter measurements are 1.3cm length x 0.3cm width x 0.4cm depth, with an area of 0.39 sq cm and a volume of 0.156 cubic cm. No tunneling has been noted. No sinus tract has been noted. No undermining has been noted. There is a moderate amount of sanguineous drainage noted which has no odor. The patient reports a wound pain of level 0/10. The wound margin is callus. Wound bed has Yes epithelialization, No eschar, No slough, Yes bright red, pink, firm granulation. The periwound skin color is normal. The periwound skin exhibited: Callus, Moist. The periwound skin did not exhibit: Brawny Induration, Edema, Excoriation, Induration, Crepitus, Fluctuance, Friable, Rash, Dry/Scaly, Maceration. The temperature of the periwound skin is WNL. Periwound skin does not exhibit signs or symptoms of infection. Local Pulse is Palpable. Wound #10 Right Great Toe is a chronic Hector Grade 2 Diabetic Ulcer and has received a status of Not Healed. Subsequent wound encounter measurements are 0.5cm length x 0.5cm width with no measurable depth, with an area of 0.25 sq cm . No tunneling has been noted. No sinus tract has been noted. No undermining has been noted. There was no drainage noted. The patient reports a wound pain of level 0/10. The wound margin is callus. Wound bed has Yes epithelialization, No eschar, No slough, No granulation. The periwound skin moisture is normal. The periwound skin color is normal. The periwound skin exhibited: Callus. The periwound skin did not exhibit: Brawny Induration, Edema, Excoriation, Induration, Crepitus, Fluctuance, Friable, Rash. The temperature of the periwound skin is WNL. Periwound skin does not exhibit signs or symptoms of infection. Local Pulse is Palpable. General Notes: Dark spot under callus measured. Psychiatric: Judgement and insight: Normal affect with normal thought pattern. Alert and oriented 3/3. Memory grossly intact.. Normal affect. Mood appropriate.. ASSESSMENT Active Problems ICD-10 (Encounter Diagnosis) E11.621 - Type 2 diabetes mellitus with foot ulcer (Encounter Diagnosis) L97.522 - Non-pressure chronic ulcer of other part of left foot with fat layer exposed (Encounter Diagnosis) L97.511 - Non-pressure chronic ulcer of other part of right foot limited to breakdown of skin (Encounter Diagnosis) R21 - Rash and other nonspecific skin eruption PROCEDURES Wound #9 Wound #9 (Diabetic Ulcer) is located on the left great toe. A skin/subcutaneous tissue level surgical debridement with a total area debrided of 0.39 sq cm was performed by Jax Henley PA. Subcutaneous was removed along with devitalized tissue: callus and slough. The following instrument(s) were used: curette. Pain control was achieved using 4% Lido. A time out was conducted prior to the start of the procedure. A minimal amount of bleeding was controlled with pressure. The procedure was tolerated well with a pain level of 0 throughout and a pain level of 0 following the procedure. Post Debridement Measurements: 1.3cm length x 0.3cm width x 0.5cm depth; with an area of 0.39 sq cm and a volume of 0.195 cubic cm; Wound #10 Wound #10 (Diabetic Ulcer) is located on the right great toe. A selective debridement with a total area debrided of 0.04 sq cm was performed by Jax Henley PA. to remove devitalized tissue: callus and exudate. The following instrument(s) were used: curette. Pain control was achieved using 4% Lido. A time out was conducted prior to the start of the procedure. No bleeding occurred. The procedure was tolerated well with a pain level of 0 throughout and a pain level of 0 following the procedure. Post Debridement Measurements: 0.2cm length x 0.2cm width x 0.1cm depth; with an area of 0.04 sq cm and a volume of 0.004 cubic cm; Additional Information Muscle fascia or bone removed and sent to pathology?: No PLAN Wound Orders: Wound #9 Left Great Toe Anesthetic Topical Xylocaine to wound bed. - In clinic only. Cleanser Cleanse Wound: - Normal saline and gauze. May Shower. - Please cover in shower, may use cast protector or plastic bag and tape. Topical Treatments Antibiotic/Antimicrobial Ointment/Cream. - Gentamicin. Dressings Cover and secure with: - Foam secured with tape. Change Dressing: - Daily. Wound #10 Right Great Toe Anesthetic Topical Xylocaine to wound bed. - In clinic only. Cleanser Cleanse Wound: - Normal saline and gauze. May Shower. - Please cover in shower, may use cast protector or plastic bag and tape. Topical Treatments Antibiotic/Antimicrobial Ointment/Cream. - Gentamicin. Dressings Cover and secure with: - Foam secured with tape. Change Dressing: - Daily. Additional Orders: Off-Loading Keep weight off: - Left foot as much as possible. Use/Wear when Walking: - [place] boot, Knee scooter. Follow-Up Appointments Return Appointment: - - One week. Other information: If you develop fever, chills, increased pain, drainage, redness or swelling please call our office. If after hours, respond to the ER. Should you experience any significant changes in your wound(s) or have any questions regarding your home care instructions please contact the wound center @ [phone]. If after hours, contact your primary care physician or go to the hospital emergency room. Scribing Attestation I attest, as the nurse, that I scribed these orders for the physician. I've reviewed the clinician's documentation and agree with the evaluation and plan as written. In addition the patient's ulcers demonstrate evidence of non-viable devitalized tissue which benefits from sharp debridement. His rash appears mild at this point and I have recommended he resume use of his GALENA boot to offload his ulcer. Electronic Signature(s) Signed By: Date: Flaco Henley 05/15/2018 13:49:03 Entered By: Flaco Henley on 05/15/2018 13:12:40
== END ==
PROVIDERS: PCP Student in an Organized Health Care Education/Training Program; Visit Provider Physician Assistant
DX: E11.621 Type 2 diabetes mellitus with foot ulcer (principal); L97.522 Non-pressure chronic ulcer of other part of left foot with fat layer exposed; L97.511 Non-pressure chronic ulcer of other part of right foot limited to breakdown of skin; R21 Rash and other nonspecific skin eruption
CPT/HCPCS: 11042; 97597

== ENCOUNTER → 2018-05-20 09:55 | Outpatient (CLI) | payer OTHER, SELFPAY ==
--- NOTE | 2018-05-20 | OV.WND_ITS ---
Progress Note Details Patient Name: Baljit Mckay Patient Number: [id number] PatientPatientDate: 05/20/2018 Clinician: Geeta Mullins Clinician Cosigner: Ryann Sultana Physician / Wool Hat Forming Machine Tender: Rakesh Weathers SUBJECTIVE Chief Complaint This information was obtained from the patient Diabetic ulcer to left great toe. Allergies [facility] This information was obtained from the patient 05/20/18. Seen by Dr. Weathers. The patient does not report increased drainage or pain associated with the bilateral 1st toe diabetic ulcers since his last visit and he continues to be quite active with work and personal activities making it difficult to adequately offload the ulcers. His blood sugars remain well controlled and he's been advised to wear a [place] boot at all times on the left leg but has not been able to do this. 05/10/18. Seen by Flaco Henley PA-C. The patient reports a rash has developed on his leg under his R[place]-SPARKS boot, but the rash has improved in the past few days as he has not been wearing the RENO-SPARKS boot. Drainage from his diabetic foot ulcers has not increased. 05/03/18. Seen by Dr. Weathers. The patient states he was at a conference this past weekend and forgot his left lower leg stocking that protects from his RENO-SPARKS boot rubbing the short. He started to notice an abrasion so stopped wearing the RENO-SPARKS boot and now feels the left 1st toe diabetic ulcer may have deteriorated and also it got wet in the shower this morning. He also notes some drainage at the site of the recently healed left 1st toe diabetic ulcer. He does not report pain at either site and his blood sugars are historically well controlled over the past 6 months. 04/26/18. Seen by Dr. Weathers. The patient reports being on his feet a lot over the past week at work but he'll be taking the next week off. 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 His culture last week grew MSSA and he's completed a course of doxycycline as of yesterday. He's also not been wearing this RENO-SPARKS boot or using a knee scooter due to his working more. 04/19/18. Seen by Dr. Weathers. The patient does not report pain associated with the chronic left 1st toe diabetic ulcer since his last visit however he was more active on it over the holiday weekend. The staff however report drainage on the dressing and a significant increase in callus from his last visit. His blood sugars continue to be well controlled around 120 and he's been advised to use his RENO-SPARKS boot when mobilizing and knee scooter as much as possible. 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 04/12/18. Seen by Dr. Weathers. The patient does not report drainage or pain associated with the great left foot diabetic ulcers since his last visit. 04/05/2018. Seen by Dr. Weathers. The patient is wearing his RENO-SPARKS boot on the left foot as much as possible to help offload the recurrent and chronic left 1st toe diabetic ulcer. He'll complete his course of doxycycline today that was started at his last for cellulitis of the toe and he's applying topical gentamicin as well. He does not report fevers or feeling unwell nor side effects of the antibiotics. 03/29/2018. Seen by Dr. Weathers. The patient reports some pain and increased drainage as well as redness and swelling of the left 1st toe over the past few days. He does not report fevers however nor other acute issues at this time. 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 03/22/2018. Seen by Dr. Weathers. The patient does not report drainage or pain associated with the great left foot diabetic ulcers since his last visit. He states however that he is not wearing his RENO-SPARKS boot to offload the sites on alternate days despite my recommendations last week. 03/15/18. Seen by Dr. Weathers. The patient has returned to full-time work schedule and feels may not be wearing his RENO-SPARKS boots as much as she should noting a significant increase in callus associated with bilateral first toe diabetic ulcers and associated pain. He does not report drainage associated with the ulcers however and we'll extended his visits out to 10 days. . Seen by Dr. Weathers. The patient does not report significant drainage associated with chronic left and right first toe diabetic ulcers since his last visit. He's not wearing his RENO-SPARKS boot currently to offload the left foot and has started using new orthotic inserts for his diabetic shoe noting the heavy callus may be due to the old othotics wearing down. 02/25/18. Seen by Dr. Weathers. The patient does not report significant drainage associated with chronic left first toe diabetic ulcer since his last visit. 02/18/18. Seen by Dr. Weathers. The patient does not report drainage associated with chronic right or left first toe diabetic ulcers since his last visit and he's applying topical gentamicin as recommended to treat the left 1st toe MSSA positive wound culture taken at the last visit. 02/11/18. Seen by Dr. Weathers. The patient returns due to recurrence of the left 1st toe diabetic ulcer that he states started about 1 week ago when he developing callus fell off and the toe started to drain. He was seen by Dr. Son, podiatry, who subsequently referred the patient back to our clinic. He does not report pain in the toe or fevers and he's wearing his RENO-SPARKS boot to help offload the site. He's also on Keflex but states a wound culture was not drawn. Of note, he reports callus has reformed over the recently healed right 1st toe diabetic ulcer also. His blood sugars continue to be well controlled with most below 150. 01/17/18. Seen by Flaco Henley PA-C. The patient reports no drainage from his right 1st toe diabetic ulcer since his last dressing change. 01/05/18. Seen by Dr. Weathers. 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 Of note, he also has a new wound over the dorsum of the right foot that occurred following a dog fight that occurred at home where he was stepped on and the dog's claws scratch the foot. He does not report significant pain or drainage associated with this wound. 12/29/17. Seen by Dr. Weathers. The patient does not report drainage or pain associated with the right first toe diabetic ulcers since his last visit. He is wearing his RENO-SPARKS boot as recommended and is asking if he will be able to return to work soon. 12/22/17. Seen by Dr. Weathers. The patient does not report increased drainage associated with a chronic right first toe diabetic ulcers since his last visit. 12/14/17. Seen by Dr. Weathers. The patient does not report increased drainage associated with a chronic right first toe diabetic ulcers since his last visit and he's wearing his RENO-SPARKS boot as recommended to offload the ulcer. 12/08/17. Seen by Dr. Weathers. The patient does not report increased drainage associated with a chronic right first toe diabetic ulcers since his last visit. Of note, he states he accidentally wore his left shoe with a sock in the end of the which may result in some bruising at the site of the recently healed first toe diabetic ulcer. 12/01/17. Seen by Dr. Weathers. The patient does not report significant drainage or pain associated with right first toe diabetic ulcer since his last visit. Of note, he 's also stopped applying Kersal to the callus surrounding the recently healed left 1st toe diabetic ulcer despite our recommendations to do so. 11/17/17. Seen by Dr. Weathers. The patient does not report significant drainage or pain associated with right first toe diabetic ulcer since his last visit. 11/10/17. Seen by Dr. Weathers. The patient does not report significant drainage or pain associated with bilateral first toe diabetic ulcers since his last visit. He's been offloading as recommended with both his RENO-SPARKS boots and a knee scooter. 11/03/17. Seen by Dr. Weathers. The patient does not report increased drainage or pain associated with bilateral first toe diabetic ulcers since last visit. 10/27/17. Seen by Dr. Weathers. The patient reports some increased pain and redness associated with the chronic right first toe diabetic ulcer. He does not report any new issues regarding the left of a foot ulcer and will case picker his right foot [place] boot in the near future. He is also offloading with a new scooter as recommended 10/20/17. Seen by Dr. Weathers. The patient does not report increased drainage or pain associated with bilateral first toe diabetic ulcers since last visit. 10/13/17. Seen by Dr. Weathers. The patient does not report increased drainage or pain associated with bilateral first toe diabetic ulcers since last visit. Of note, he now has a knee scooter and his left RENO-SPARKS boot and feels the left 1st toe ulcer has improved significantly with the added offloading measures. 10/06/17. Seen by Dr. Weathers. The patient does not report increased drainage or pain associated with bilateral first toe diabetic ulcers since last visit. Of note, he now has a knee scooter that he's been using to offload the left foot for the past 2 days and he will receive his RENO-SPARKS boot on Wednesday. 09/29/17. Seen by Dr. Weathers. The patient states that while wearing his left foot offloading shoe he took a fall and feels that it may have traumatized the chronic left first toe diabetic ulcer. He does not report increased pain or drainage from the site nor the right first toe diabetic ulcers since his last visit and states his blood sugars continue to be mostly below 150. He is also awaiting delivery of the left foot [place] boot as well as his diabetic shoes. Of note, he also admits to being more active that he should be despite our recommendations to maximally offload both ulcers and has not been able to locate an offloading knee scooter as we've recommended. 09/22/17. Seen by Dr. Weathers. The patient does not report increased drainage associated with the bilateral 1st toe diabetic ulcers since his last visit and he's completed his course of doxycycline without reporting adverse side effects. He's also not yet seen his [facility] as well as providing him with a pair of diabetic shoes. 09/15/17. Seen by Dr. Weathers. The patient's on doxycycline to treat a chronic wound infection of the left 1st toe and he does not report adverse side effects. He's wearing his offloading shoe on the foot as recommended and continues to limit his walking as much as possible. He does not report significant drainage or pain associated with either 1st toe diabetic ulcers and states he's going to schedule and appointment with an smoke control supervisor today as we've been recommending. 09/06/17. Seen by Flaco Henley PA-C. The patient reports increased drainage and continued callous formation from his 1st toe diabetic ulcers. He continues to stay off his feet as much as possible and is working with his insurance company and [employer] to obtain a RENO-SPARKS offloading boot. 08/31/17. Seen by Flaco Henley PA-C. The patient reports he has been staying off his feet and has been away from work as instructed. He reports decreased drainage from his bilateral diabetic toe ulcers. 08/24/17. Seen by Dr. Weathers. The patient reports being more active over the past week despite being advised to limit his walking considerably to offload the bilateral first toe diabetic ulcers. He does not report increased drainage or pain associated with these ulcers. He also states he will be able to take another month off of work to further facilitate offloading of the ulcers. 08/17/17. Seen by Dr. Weathers. The patient has been offloading both left and right first toe diabetic ulcers for the past week and has taken the entire month of July off of work to better facilitate offloading. 08/10/17. Seen by Dr. Weathers. The patient has been offloading both left and right first toe diabetic ulcers for the past week as recommended and he does not report significant associated pain or drainage from either site. 08/03/17. Seen by Dr. Weathers. The patient has been offloading both left and right first toe diabetic ulcers for the past week and has taken the entire month of July off of work to better facilitate offloading. 07/23/17. Seen by Dr. Weathers. The patient does not report significant drainage associated with chronic bilateral left and right first toe diabetic ulcers since his last visit. He does not report any drainage associated with the left 1st MTPJ diabetic ulcer. 07/20/17. Seen by Dr. Weathers. The patient does not report pain nor significant drainage associated with chronic bilateral left and right first toe diabetic ulcers since his last visit. He is applying topical gentamicin as recommended to the ulcer bases to treat the recent wound infection. He does not report any drainage associated with the left 1st MTPJ diabetic ulcer. 07/16/17. Seen by Dr. Weathers. The patient states that he had a very busy past week in terms of festival and he was on his feet for extended periods. He has increased drainage and callus formation associated with both first toe diabetic ulcers since we last saw him however he does not report any increased drainage or problems regarding the left mid plantar foot diabetic ulcer. He does not report pain in the toes nor fever or feeling unwell. His blood sugars continue to be well controlled consistently below 150. 07/06/17. Seen by Dr. Weathers. The patient does not report pain nor significant drainage associated with chronic bilateral left and right first toe diabetic ulcers since his last visit. He is applying topical gentamicin as recommended in his recent wound culture grew MSSA. He also does not report pain nor drainage associated with the chronic left plantar foot diabetic ulcer. 06/29/17. Seen by Dr. Weathers. The patient reports some pain associated with both first toe diabetic ulcers since his last visit. He does not report increased drainage associated with these nor the left plantar foot diabetic ulcer. He's been seeing us every 2 weeks and feels that the callus formation in the interim has been quite significant. 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 He states his blood sugars are well controlled with most below 150. 06/15/17. Seen by Dr. Weathers. The patient does not report pain nor significant drainage associated with the chronic bilateral first toe diabetic ulcers nor the left plantar foot diabetic ulcer since his last visit. 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 His blood sugars he states are well-controlled with most below 150. 06/01/17. Seen by Dr. Weathers. The patient does not report pain or increased drainage associated with the bilateral, chronic 1st toe diabetic ulcers since his last visit and he continues on doxycycline for the left 1st toe infection noted at his last visit. He does not report adverse side effects and states his blood sugars are mostly below 150. 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 Of note, he reports a new wound over the plantar surface of the left foot that started when he tried to remove a callus earlier this week. 05/18/17. Seen by Dr. Weathers. The patient reports some discomfort associated with the chronic left first toe diabetic ulcer over the past few days however he does not report pain nor increased drainage with the chronic right first toe diabetic ulcer. He continues to work an active job and is on his feet for extended periods however states that he may be able to decrease hours later in the summer. His blood sugars continue to be well controlled with most below 150. 05/12/17. Seen by lFaco Henley PA-C. The patient reports that his neuropathy is worse today with stabbing-type pains occurring in the arches of both feet and radiating to the lateral edges of his feet. He reports that walking on his feet exacerbate the pain and his recent medication change to Cymbalta has helped decrease the pain. He reports no increase in drainage from his bilateral 1st toe diabetic ulcers of the right and left feet. 05/05/17. Seen by Flaco Henley PA-C. The patient reports no increase in drainage from his bilateral 1st toe diabetic ulcers. 04/20/17. Seen by Dr. Weathers. The patient reports pain and drainage associated with the bilateral first toe diabetic ulcers is minimal over the past week and he'll complete his course of moxifloxacin today that's been treating a recent left 1st toe cellulitis. He continues to work a heavy schedule as on his feet for extended periods. He states his blood sugars continue to be mostly below 200. 04/14/17. Seen by Dr. Weathers. The patient feels the pain and drainage associated with the bilateral first toe diabetic ulcers has improved since starting on antibiotics last week. He continues to work a heavy schedule as on his feet for extended periods. He states his blood sugars continue to be mostly below 200. 04/07/17. Seen by Dr. Weathers. The patient reports some pain and increased drainage from the bilateral first toe diabetic ulcers over the past week. He's been working on his feet considerably more over the past few weeks and states his blood sugars are mostly below 200. 03/24/17. Seen by Flaco Henley PA-C. The patient reports good compliance with his diabetes footwear but he also notes blood sugars above 150 this week. Drainage has reportedly been decreasing from his diabetic ulcers of the right and left feet. 03/17/17. Seen by Dr. Weathers. The patient states he's stopped taking his SSRI that was treating the bilateral foot diabetic neuropathic pain as he felt it may have been contributing to his intermittent subjective fevers and chills. He does not report increased drainage or pain associated with the bilateral 1st toe diabetic ulcers since his last visit but states he's been on his feet more due to his job and an increase in tourism as the weather's improving. 02/26/17. Seen by Dr. Weathers. The patient reports increased pain and drainage associated with the left first toe diabetic ulcer but none with the right first toe diabetic ulcer. He's had some subjective fevers and chills for the last 2 weeks but states blood sugars continue to be well controlled with most below 150. 02/19/17. Seen by Dr. Weathers.The patient reports fatigue and intermittent chills but no documented fevers over the past few days. He does not report fevers nor other specific symptoms. He states that there has been no increase in drainage or pain associated with bilateral first diabetic ulcers since his last visit. His blood sugars continue to be mostly below 200. 02/05/17. Seen by Dr. Weathers. The patient does not report pain nor significant drainage associated with the chronic bilateral first toe diabetic ulcers over the past week. He continues applying topical gentamicin as recommended to treat the chronic and recurrent superficial staph infection. 01/29/17. Seen by Dr. Weathers. The patient reports minimal drainage and no pain associated with bilateral first toe diabetic ulcers since his last visit. He has completed his course of Keflex and does not report adverse side effects. He states blood sugars are mostly between 100 and 200.He continues to apply gentamicin ointment also as recommended. 01/22/17. Seen by Dr. Weathers. The patient returns to clinic for bilateral 1st toe diabetic ulcers that have become infected about a week ago and he was placed on Keflex by his PCP. He feels the drainage and redness are improving and he does not report pain in the toes. His blood sugars remain mostly below 150 and he continues to work on his feet a full-time schedule and states he wears his diabetic shoes at all times. 01/05/17. Seen by Flaco Henley PA-C. The patient reports some blood sugars this week above 150. No increase in ulcer drainage is reported today. 12/29/16 Seen by Flaco Henley PA-C. The patient reports stable drainage from his left foot non- pressure ulcer since his last evaluation. 12/22/16 Seen by Flaco Henley PA-C. The patient reports no increase in ulcer drainage from his left foot diabetic ulcer since his last visit. In addition he reports well controlled blood sugars. 12/15/16 Seen by Flaco Henley PA-C. The patient reports no increase in drainage from his left foot diabetic ulcer. His blood sugars have reportedly been below 150 this week but today is blood sugar is noted to be 152. 12/08/16. Seen by Dr. Weathers. The patient's now taking Augmentin for his recent Staph and E. coli positive wound culture taken from the chronic left 1st toe diabetic ulcer. The culture sensitivities however show intermediate sensitivity of the E. coli to Augmentin. The patient feels the toe pain and ulcer drainage have decreased considerably and he states his blood sugars are mostly below 150. He does not report fevers or adverse side effects from the Augmentin. Regarding the right 1st toe diabetic ulcer he does not report pain or significant drainage. 12/01/16 Seen by Flaco Henley PA-C. The patient reports that his left foot diabetic ulcer is much worse with a strong odor reported. 11/17/16 Seen by Flaco Henley PA-C. The patient reports that his blood sugar is likely elevated due to the holidays. He reports no increase in drainage from his DMII ulcers of the right or left 1st toes. 11/03/16. Seen by Dr. Weathers. The patient reports a new ulcer on the right 1st toe that started about one week ago following his attempt at removing a callus from the site. He states about 3 days ago the ulcer started draining fluid and the toe swelled and turned red. He 's not on antibiotics and does not report fevers or feeling unwell. Regarding his left 1st toe diabetic ulcer, he does not report significant drainage or pain. He states his blood sugars are improving with most below 150 now. 10/20/16. Seen by Dr. Weathers. The patient does not report significant drainage associated with the chronic left 1st toe diabetic ulcer since his last visit. He also states his blood sugars still tend to be over 150 and sometimes in the 200's.He also continues to apply gentamcin for the MSSA positive wound culture taken from the ulcer recently. 10/13/16. Seen by Dr. Weathers. The patient does not report significant drainage associated with the chronic left 1st toe diabetic ulcer since his last visit and he continues applyin gentamcin for the MSSA positive wound culture taken from the ulcer. His blood sugars continue to be above 150 fairly frequently however he notes since decreasing his chronic alcohol intake his glucose seems to be easier to control. 10/06/16 Seen by Flaco Henley PA-C. The patient reports that his neuropathy is severe today. It is described as an intermittent burning/shooting pain, that comes and goes but does not radiate and is centered on his left lateral foot. He does not report any associated changes to his chronic left 1st toe diabetic ulcer such as increased drainage. 09/29/16. Seen by Dr. Weathers. The patient does not report significant drainage associated with the chronic left 1st toe diabetic ulcer since his last visit and he continues on doxycycline for the MSSA positive wound culture taken from the ulcer. He feels the toe redness and swelling have improved since starting antibiotics. He also reports significant improvement in the left foot neuropathic pain since starting on a new antidepressant. 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 His blood sugar is over 200 today and he states its typically been between 100 and 200 although he's not been checking it for the past few days since his glucometer is no working. 09/15/16 Seen by Flaco Henley PA-C. The patient reports decreased neuropathic pain in his LLE and has recently started a new antidepressant medication for this issue though he does not recall the name of the medication. His ulcer drainage has been stable since his last evaluation. 09/01/16. Seen by Dr. Weathers. The patient does not report significant drainage associated with the chronic left 1st toe diabetic ulcer. He does state however his left lateral foot neuropathic pain is increasing and he's working with GAMAL Carter, pain specialist, to address this issue. He also states his blood sugars are typically between 100 to 200. 08/25/16 Seen by Flaco Henley PA-C. The patient reports continued left foot neuropathic pain. He has a pending appointment with Jethro Meehan at the pain clinic for this. His diabetic foot ulcer has resumed draining in the past few days after being closed. 08/18/16 Seen by Flaco Henley PA-C. The patient reports that he has had no drainage from his left 1st toe ulcer since his last evaluation. 08/11/16 Seen by Flaco Henley PA-C. The patient reports that he now has a prescription for lyrica and a schedule to taper off his gabapentin. He has not started taking lyrica though notes that his neuropathic pain is improved this week. His ulcer has had decreased drainage. 08/03/16 Seen by Flaco Henley PA-C. The patient reports that his left leg neuropathic pain, which has been present for months, has decreased in severity recently but still reaches 6/10. It is described as intermittent, non-radiating and stabbing/burning. His left 1st toe ulcer has had stable drainage by his report. 07/28/16 Seen by Flaco Henley PA-C. The patient reports very little drainage from his left 1st toe diabetic ulcer. He does report that his neuropathic pain has worsened and he is using alcohol at times as a painkiller. He has an upcoming appointment with Dr. Son, who has been addressing this issue and he asks about the referral to Jethro Meehan. 07/20/16. Seen by Dr. Weathers. The patient does not report significant drainage associated with the chronic left 1st toe diabetic ulcer over the past week. He states he's seen Dr. Son regarding his diabetic neuropathy in the past but has not discussed the recurrent toe ulcer. He also states he 'walks on this toes' and has been told by other providers in the past his Achilles tendon is 'short'. 07/13/[address] Weathers. The patient states he's been more active over the past few weeks with his job however does not report increased drainage or pain associated with the chronic left 1st toe diabetic ulcer. He's wearing his diabetic shoes as recommended and states his blood sugars have been a bit elevated between 150 and 200 over the past week due to non- compliance with his routine diabetic meal plan. 06/22/[address] Weathers. The patient feels the drainage and left 1st toe erythema have improved considerably since his last visit and he continues on Zyvox that was started during his recent admission for cellulitis associated with the toe ulcer. He states his blood sugars are now mostly below 150 and he's wearing diabetic shoes but not necessarily offloading the toe. 09/12/[address] Weathers. The patient has had his TCC off for the past week and he does not report drainage from the left 1st toe diabetic foot ulcer. His blood sugars are also mostly between 150 and 180. 09/06/[address] Weathers. The patient does not report any problems regarding his left diabetic foot ulcer nor the TCC he's worn since his last visit. His blood sugars are typically between 150 and 200 which is an improvement historically. 06/18/15 Seen by Flaco Henley PA-C. The patient has had no drainage from his wounds since his last visit. 06/11/15 Seen by Flaco Henley PA-C. The patient has had a particularly long work week and has been on his feet a lot. He has been using his diabetic shoes and recently modified inserts. 06/07/[address] Weathers. The patient has two new ulcers on the plantar surface of the right foot and on the left toe that were first noticed about 3 days ago after being on his feet at work for an extended period. He feels they may have occurred as a result of his orthotics not fitting properly. He does not report pain or swelling but does note some redness with clear yellow drainage from the right ulcer. He states his blood sugars are mostly below 150 with a few around 180 and he continues to try to loose weight to help manage his diabetes. 05/20/[address] Weathers. The patient does not report drainage from the left toe ulcer and tolerated the TCC without difficulties. His blood sugars are relatively well controlled below 150 and he's ready to case picker his orthotic today. 05/08/15 Seen by Flaco Henley PA-C. The patient is here today to have a TCC placed. He continues to try and stay off his feet and has not yet returned to work. 05/06/15 Seen by Flaco Henley PA-C. The patient has been off loading his feet using his off loading boots and sitting at home as well as not working. He continues on his antibiotics. 05/02/15 Seen by Flaco Henley PA-C. The patient continues to take time off work and be sedentary in order to offload his feet. He has been applying kerisol to the callouses on his right and left great toes and hydrogel to the wounds. He took his last dose of Augmentin today and reports decreased drainage from the left great toe diabetic ulcer and minimal drainage from the right great toe diabetic ulcer. His feet are sometimes painful but this has decreased since last visit. Blood sugars are running 150-180s in the AM. 04/26/[address] Weathers. The patient does not report increased drainage associated with the bilateral 1st toe diabetic ulcers. He feels the right leg cellulitis is much improved since starting Augmentin and he's been offloading with a cane and my taking time off of work to stay off his feet. His blood sugars are below 150 and he takes only metformin for diabetes. Past Medical History This information was obtained from the patient Patient has a medical history of: Type II Diabetes Diabetic foot ulcers (bilateral 1st toes; Hector grade II) Hyperlipidemia Chronic pain (neuropathic; left lateral foot) Depression Complaints and Symptoms This information was obtained from the patient Patient complains of: General Notes: I have reviewed and concur with the Review of Systems and Past Family Social History documents completed by the clinician, I have reviewed and concur with the Wound Assessment document completed by the clinician Integumentary (Hair/Skin/Nails): Open Sore Musculoskeletal: Assistive Devices, Deformities Neurological: Abnormal Gait, Loss of Protective Sensation Prior Wound History: Drainage, Erythema, Pain Patient denies complaints or symptoms related to: Cardiovascular (Central/Peripheral): Intermittent Claudication, Lower extremity (leg) resting pain, Lower extremity (leg) swelling Constitutional Symptoms (General Health): Chills, Fever Ear/Nose/Mouth/Throat: Hearing Loss / Aid Gastrointestinal (GI): Nausea / Vomiting, Stomach/abdominal pain Hematologic/Lymphatic: Bleeding / Clotting Disorders, Bleeding Tendency Prior Wound History: Bleeding, Malodor Respiratory: Oxygen Use, Shortness of Breath OBJECTIVE Constitutional Vital signs reviewed and noted. Well developed. Alert. Clean appearing.. Height/ Length: 76 in (193.04 cm), Weight: 265.4 lbs (120.64 kgs), BMI: 32.3, Temperature: 97.3 ?F ( 36.28 ?C), Pulse: 72 bpm, Respiratory Rate: 20 breaths/min, Blood Pressure: 118/78 mmHg, Capillary Blood Glucose: 92 mg/dl, Pulse Oximetry: 96 %. Vital Signs Notes: Glucose per patient. Ears, Nose, Mouth, and Throat: No clinically significant hearing loss on informal examination. Respiratory: No respiratory distress. Even respirations and without use of accessory muscles.. Gastrointestinal (GI): Obese. Nondistended.. Integumentary (Hair, Skin) No periwound erythema, warmth, or significant drainage. No periwound rashes appreciated or noted otherwise.. Refer to appropriate clinician wound documentation for this visit; left 1st toe ulcer extends to subcut with base partially covered with pink granulation, remainder fibrin and slough; right 1st toe ulcer extends to dermis. Significant amount of callus in the periulcer areas; maceration present in left periulcer area. Wound #9 Left Great Toe is a chronic Hector Grade 2 Diabetic Ulcer and has received a status of Not Healed. Subsequent wound encounter measurements are 1.5cm length x 0.2cm width x 0.3cm depth, with an area of 0.3 sq cm and a volume of 0.09 cubic cm. No tunneling has been noted. No sinus tract has been noted. No undermining has been noted. There is a moderate amount of sanguineous drainage noted which has no odor. The patient reports a wound pain of level 0/10. The wound margin is callus. Wound bed has Yes epithelialization, No eschar, No slough, Yes bright red, pink, firm granulation. The periwound skin color is normal. The periwound skin exhibited: Callus. The periwound skin did not exhibit: Brawny Induration, Edema, Excoriation, Induration, Crepitus, Fluctuance, Friable, Rash, Dry/Scaly, Moist, Maceration. The temperature of the periwound skin is WNL. Periwound skin does not exhibit signs or symptoms of infection. Local Pulse is Palpable. Wound #10 Right Great Toe is a chronic Hector Grade 2 Diabetic Ulcer and has received a status of Not Healed. Subsequent wound encounter measurements are 0.1cm length x 0.1cm width x 0.1cm depth, with an area of 0.01 sq cm and a volume of 0.001 cubic cm. No tunneling has been noted. No sinus tract has been noted. No undermining has been noted. There was no drainage noted. The patient reports a wound pain of level 0/10. The wound margin is callus. Wound bed has Yes epithelialization, No eschar, No slough, No granulation. The periwound skin moisture is normal. The periwound skin color is normal. The periwound skin exhibited: Callus. The periwound skin did not exhibit: Brawny Induration, Edema, Excoriation, Induration, Crepitus, Fluctuance, Friable, Rash. The temperature of the periwound skin is WNL. Periwound skin does not exhibit signs or symptoms of infection. Local Pulse is Palpable. Neurological: Cranial nerves grossly intact with symmetric function normal by informal observation.. ASSESSMENT Active Problems ICD-10 (Encounter Diagnosis) E11.621 - Type 2 diabetes mellitus with foot ulcer (Encounter Diagnosis) L97.522 - Non-pressure chronic ulcer of other part of left foot with fat layer exposed (Encounter Diagnosis) L97.511 - Non-pressure chronic ulcer of other part of right foot limited to breakdown of skin (Encounter Diagnosis) Z91.19 - Patient's noncompliance with other medical treatment and regimen (Encounter Diagnosis) L84 - Corns and callosities PROCEDURES Wound #9 Wound #9 (Diabetic Ulcer) is located on the left great toe. A skin/subcutaneous tissue level surgical debridement with a total area debrided of 0.45 sq cm was performed by Rakesh Weathers MD. Subcutaneous was removed along with devitalized tissue: callus, exudate , and slough. The following instrument(s) were used: curette. Pain control was achieved using 4% Lido. A time out was conducted prior to the start of the procedure. A minimal amount of bleeding was controlled with pressure. The procedure was tolerated well with a pain level of 0 throughout and a pain level of 0 following the procedure. Post Debridement Measurements: 1.5cm length x 0.3cm width x 0.4cm depth; with an area of 0.45 sq cm and a volume of 0.18 cubic cm; Wound #10 Wound #10 (Diabetic Ulcer) is located on the right great toe. A non-selective mechanical debridement with a total area debrided of 0.01 sq cm was performed by Rakesh Weathers MD. Non-viable tissue was removed.The procedure was tolerated well with a pain level of 0 throughout and a pain level of 0 following the procedure. Post Debridement Measurements: 0.1cm length x 0.1cm width x 0.1cm depth; with an area of 0.01 sq cm and a volume of 0.001 cubic cm; General Notes: Callus removed. PLAN Wound Orders: Wound #9 Left Great Toe Anesthetic Topical Xylocaine to wound bed. - In clinic only. Cleanser Cleanse Wound: - Normal saline and gauze. May Shower. - Please cover in shower, may use cast protector or plastic bag and tape. Topical Treatments Antibiotic/Antimicrobial Ointment/Cream. - Iodosorb to wound base. Dressings Cover and secure with: - Foam secured with tape. Change Dressing: - Daily. Wound #10 Right Great Toe Anesthetic Topical Xylocaine to wound bed. - In clinic only. Cleanser Cleanse Wound: - Normal saline and gauze. May Shower. - Please cover in shower, may use cast protector or plastic bag and tape. Dressings Cover and secure with: - Foam secured with tape. Change Dressing: - Daily. Additional Orders: Off-Loading Keep weight off: - Left foot as much as possible. Use/Wear when Walking: - Knik boot, Knee scooter. Follow-Up Appointments Return Appointment: - - One week. Other information: If you develop fever, chills, increased pain, drainage, redness or swelling please call our office. If after hours, respond to the ER. Should you experience any significant changes in your wound(s) or have any questions regarding your home care instructions please contact the wound center @ [phone]. If after hours, contact your primary care physician or go to the hospital emergency room. Scribing Attestation I attest, as the nurse, that I scribed these orders for the physician. I've reviewed the clinician's documentation and agree with the evaluation and plan as written. In addition, the patient's ulcer demonstrates evidence of non-viable devitalized tissue which will continue to benefit from sharp debridement to help promote granulation and expedite healing. Also, I've reinforced the importance of offloading the diabetic foot ulcers to help minimize callus formation which is significantly impacting the refractory nature of the ulcers. Electronic Signature(s) Signed By: Date: Rakesh Weathers MD 05/22/2018 17:52:31 Entered By: Rakesh Weathers on 05/22/2018 17:47:33
== END ==
PROVIDERS: PCP Student in an Organized Health Care Education/Training Program; Visit Provider Internal Medicine
DX: E11.621 Type 2 diabetes mellitus with foot ulcer (principal); L97.522 Non-pressure chronic ulcer of other part of left foot with fat layer exposed; L97.511 Non-pressure chronic ulcer of other part of right foot limited to breakdown of skin; Z91.19 Patient's noncompliance with other medical treatment and regimen; L84 Corns and callosities
CPT/HCPCS: 11042

== ENCOUNTER → 2018-05-27 10:15 | Outpatient (CLI) | payer OTHER, SELFPAY ==
--- NOTE | 2018-05-27 | OV.WND_ITS ---
Progress Note Details Patient Name: Baljit Mckay Patient Number: [id number] PatientPatientDate: 05/27/2018 Clinician: Yareli De León Physician / Internal Medicine Nurse Practitioner: Rakesh Weathers SUBJECTIVE Chief Complaint This information was obtained from the patient Diabetic ulcer to left great toe. Allergies NKDA HPI This information was obtained from the patient 05/27/18. Seen by Dr. Weathers. The patient does not report increased drainage or pain associated with the bilateral 1st toe diabetic ulcers since his last visit and he continues to be quite active with work making it difficult to adequately offload the ulcers. He also reports a chronic rash over the distal left lower leg that's been present for about one month. 05/20/18. Seen by Dr. Weathers. The patient does not report increased drainage or pain associated with the bilateral 1st toe diabetic ulcers since his last visit and he continues to be quite active with work and personal activities making it difficult to adequately offload the ulcers. His blood sugars remain well controlled and he's been advised to wear a SHOALWATER boot at all times on the left leg but has not been able to do this. 05/10/18. Seen by Flaco Henley PA-C. The patient reports a rash has developed on his leg under his SHOALWATER boot, but the rash has improved in the past few days as he has not been wearing the SHOALWATER boot. Drainage from his diabetic foot ulcers has not increased. 05/03/18. Seen by Dr. Weathers. The patient states he was at a conference this past weekend and forgot his left lower leg stocking that protects from his SHOALWATER boot rubbing the short. He started to notice an abrasion so stopped wearing the SHOALWATER boot and now feels the left 1st toe diabetic ulcer may have deteriorated and also it got wet in the shower this morning. He also notes some drainage at the site of the recently healed left 1st toe diabetic ulcer. He does not report pain at either site and his blood sugars are historically well controlled over the past 6 months. 04/26/18. Seen by Dr. Weathers. The patient reports being on his feet a lot over the past week at work but he'll be taking the next week off. 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 His culture last week grew MSSA and he's completed a course of doxycycline as of yesterday. He's also not been wearing this SHOALWATER boot or using a knee scooter due to his working more. 04/19/18. Seen by Dr. Weathers. The patient does not report pain associated with the chronic left 1st toe diabetic ulcer since his last visit however he was more active on it over the holiday weekend. The staff however report drainage on the dressing and a significant increase in callus from his last visit. His blood sugars continue to be well controlled around 120 and he's been advised to use his SHOALWATER boot when mobilizing and knee scooter as much as possible. 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 04/12/18. Seen by Dr. Weathers. The patient does not report drainage or pain associated with the great left foot diabetic ulcers since his last visit. 04/05/2018. Seen by Dr. Weathers. The patient is wearing his SHOALWATER boot on the left foot as much as possible to help offload the recurrent and chronic left 1st toe diabetic ulcer. He'll complete his course of doxycycline today that was started at his last for cellulitis of the toe and he's applying topical gentamicin as well. He does not report fevers or feeling unwell nor side effects of the antibiotics. 03/29/2018. Seen by Dr. Weathers. The patient reports some pain and increased drainage as well as redness and swelling of the left 1st toe over the past few days. He does not report fevers however nor other acute issues at this time. 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 03/22/2018. Seen by Dr. Weathers. The patient does not report drainage or pain associated with the great left foot diabetic ulcers since his last visit. He states however that he is not wearing his SHOALWATER boot to offload the sites on alternate days despite my recommendations last week. 03/15/18. Seen by Dr. Weathers. The patient has returned to full-time work schedule and feels may not be wearing his SHOALWATER boots as much as she should noting a significant increase in callus associated with bilateral first toe diabetic ulcers and associated pain. He does not report drainage associated with the ulcers however and we'll extended his visits out to 10 days. . Seen by Dr. Weathers. The patient does not report significant drainage associated with chronic left and right first toe diabetic ulcers since his last visit. He's not wearing his SHOALWATER boot currently to offload the left foot and has started using new orthotic inserts for his diabetic shoe noting the heavy callus may be due to the old othotics wearing down. 02/25/18. Seen by Dr. Weathers. The patient does not report significant drainage associated with chronic left first toe diabetic ulcer since his last visit. 02/18/18. Seen by Dr. Weathers. The patient does not report drainage associated with chronic right or left first toe diabetic ulcers since his last visit and he's applying topical gentamicin as recommended to treat the left 1st toe MSSA positive wound culture taken at the last visit. 02/11/18. Seen by Dr. Weathers. The patient returns due to recurrence of the left 1st toe diabetic ulcer that he states started about 1 week ago when he developing callus fell off and the toe started to drain. He was seen by Dr. Son, podiatry, who subsequently referred the patient back to our clinic. He does not report pain in the toe or fevers and he's wearing his SHOALWATER boot to help offload the site. He's also on Keflex but states a wound culture was not drawn. Of note, he reports callus has reformed over the recently healed right 1st toe diabetic ulcer also. His blood sugars continue to be well controlled with most below 150. 01/17/18. Seen by Flaco Henley PA-C. The patient reports no drainage from his right 1st toe diabetic ulcer since his last dressing change. 01/05/18. Seen by Dr. Weathers. 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 Of note, he also has a new wound over the dorsum of the right foot that occurred following a dog fight that occurred at home where he was stepped on and the dog's claws scratch the foot. He does not report significant pain or drainage associated with this wound. 12/29/17. Seen by Dr. Weathers. The patient does not report drainage or pain associated with the right first toe diabetic ulcers since his last visit. He is wearing his SHOALWATER boot as recommended and is asking if he will be able to return to work soon. 12/22/17. Seen by Dr. Weathers. The patient does not report increased drainage associated with a chronic right first toe diabetic ulcers since his last visit. 12/14/17. Seen by Dr. Weathers. The patient does not report increased drainage associated with a chronic right first toe diabetic ulcers since his last visit and he's wearing his SHOALWATER boot as recommended to offload the ulcer. 12/08/17. Seen by Dr. Weathers. The patient does not report increased drainage associated with a chronic right first toe diabetic ulcers since his last visit. Of note, he states he accidentally wore his left shoe with a sock in the end of the which may result in some bruising at the site of the recently healed first toe diabetic ulcer. 12/01/17. Seen by Dr. Weathers. The patient does not report significant drainage or pain associated with right first toe diabetic ulcer since his last visit. Of note, he 's also stopped applying Kersal to the callus surrounding the recently healed left 1st toe diabetic ulcer despite our recommendations to do so. 11/17/17. Seen by Dr. Weathers. The patient does not report significant drainage or pain associated with right first toe diabetic ulcer since his last visit. 11/10/17. Seen by Dr. Weathers. The patient does not report significant drainage or pain associated with bilateral first toe diabetic ulcers since his last visit. He's been offloading as recommended with both his SHOALWATER boots and a knee scooter. 11/03/17. Seen by Dr. Weathers. The patient does not report increased drainage or pain associated with bilateral first toe diabetic ulcers since last visit. 10/27/17. Seen by Dr. Weathers. The patient reports some increased pain and redness associated with the chronic right first toe diabetic ulcer. 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 He is also offloading with a new scooter as recommended 10/20/17. Seen by Dr. Weathers. The patient does not report increased drainage or pain associated with bilateral first toe diabetic ulcers since last visit. 10/13/17. Seen by Dr. Weathers. The patient does not report increased drainage or pain associated with bilateral first toe diabetic ulcers since last visit. Of note, he now has a knee scooter and his left SHOALWATER boot and feels the left 1st toe ulcer has improved significantly with the added offloading measures. 10/06/17. Seen by Dr. Weathers. The patient does not report increased drainage or pain associated with bilateral first toe diabetic ulcers since last visit. Of note, he now has a knee scooter that he's been using to offload the left foot for the past 2 days and he will receive his SHOALWATER boot on Wednesday. 09/29/17. Seen by Dr. Weathers. The patient states that while wearing his left foot offloading shoe he took a fall and feels that it may have traumatized the chronic left first toe diabetic ulcer. He does not report increased pain or drainage from the site nor the right first toe diabetic ulcers since his last visit and states his blood sugars continue to be mostly below 150. He is also awaiting delivery of the left foot tulalip boot as well as his diabetic shoes. Of note, he also admits to being more active that he should be despite our recommendations to maximally offload both ulcers and has not been able to locate an offloading knee scooter as we've recommended. 09/22/17. Seen by Dr. Weathers. The patient does not report increased drainage associated with the bilateral 1st toe diabetic ulcers since his last visit and he's completed his course of doxycycline without reporting adverse side effects. He's also not yet seen his orthortist who will be fitting for at SHOALWATER boot to offload the left foot ulcer as well as providing him with a pair of diabetic shoes. 09/15/17. Seen by Dr. Weathers. The patient's on doxycycline to treat a chronic wound infection of the left 1st toe and he does not report adverse side effects. He's wearing his offloading shoe on the foot as recommended and continues to limit his walking as much as possible. He does not report significant drainage or pain associated with either 1st toe diabetic ulcers and states he's going to schedule and appointment with an shipping technician today as we've been recommending. 09/06/17. Seen by Flaco Henley PA-C. The patient reports increased drainage and continued callous formation from his 1st toe diabetic ulcers. He continues to stay off his feet as much as possible and is working with his insurance company and [facility] [employer] to obtain a SHOALWATER offloading boot. 08/31/17. Seen by Flaco Henley PA-C. The patient reports he has been staying off his feet and has been away from work as instructed. He reports decreased drainage from his bilateral diabetic toe ulcers. 08/24/17. Seen by Dr. Weathers. The patient reports being more active over the past week despite being advised to limit his walking considerably to offload the bilateral first toe diabetic ulcers. He does not report increased drainage or pain associated with these ulcers. He also states he will be able to take another month off of work to further facilitate offloading of the ulcers. 08/17/17. Seen by Dr. Weathers. The patient has been offloading both left and right first toe diabetic ulcers for the past week and has taken the entire month of July off of work to better facilitate offloading. 08/10/17. Seen by Dr. Weathers. The patient has been offloading both left and right first toe diabetic ulcers for the past week as recommended and he does not report significant associated pain or drainage from either site. 08/03/17. Seen by Dr. Weathers. The patient has been offloading both left and right first toe diabetic ulcers for the past week and has taken the entire month of July off of work to better facilitate offloading. 07/23/17. Seen by Dr. Weathers. The patient does not report significant drainage associated with chronic bilateral left and right first toe diabetic ulcers since his last visit. He does not report any drainage associated with the left 1st MTPJ diabetic ulcer. 07/20/17. Seen by Dr. Weathers. The patient does not report pain nor significant drainage associated with chronic bilateral left and right first toe diabetic ulcers since his last visit. He is applying topical gentamicin as recommended to the ulcer bases to treat the recent wound infection. He does not report any drainage associated with the left 1st MTPJ diabetic ulcer. 07/16/17. Seen by Dr. Weathers. The patient states that he had a very busy past week in terms of festival and he was on his feet for extended periods. He has increased drainage and callus formation associated with both first toe diabetic ulcers since we last saw him however he does not report any increased drainage or problems regarding the left mid plantar foot diabetic ulcer. He does not report pain in the toes nor fever or feeling unwell. His blood sugars continue to be well controlled consistently below 150. 07/06/17. Seen by Dr. Weathers. The patient does not report pain nor significant drainage associated with chronic bilateral left and right first toe diabetic ulcers since his last visit. He is applying topical gentamicin as recommended in his recent wound culture grew MSSA. He also does not report pain nor drainage associated with the chronic left plantar foot diabetic ulcer. 06/29/17. Seen by Dr. Weathers. The patient reports some pain associated with both first toe diabetic ulcers since his last visit. He does not report increased drainage associated with these nor the left plantar foot diabetic ulcer. He's been seeing us every 2 weeks and feels that the callus formation in the interim has been quite significant. 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 He states his blood sugars are well controlled with most below 150. 7. Seen by Dr. Weathers. The patient does not report pain nor significant drainage associated with the chronic bilateral first toe diabetic ulcers nor the left plantar foot diabetic ulcer since his last visit. 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 His blood sugars he states are well-controlled with most below 150. 7. Seen by Dr. Weathers. The patient does not report pain or increased drainage associated with the bilateral, chronic 1st toe diabetic ulcers since his last visit and he continues on doxycycline for the left 1st toe infection noted at his last visit. He does not report adverse side effects and states his blood sugars are mostly below 150. 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 Of note, he reports a new wound over the plantar surface of the left foot that started when he tried to remove a callus earlier this week. 05/18/17. Seen by Dr. Weathers. The patient reports some discomfort associated with the chronic left first toe diabetic ulcer over the past few days however he does not report pain nor increased drainage with the chronic right first toe diabetic ulcer. He continues to work an active job and is on his feet for extended periods however states that he may be able to decrease hours later in the summer. His blood sugars continue to be well controlled with most below 150. 05/12/17. Seen by Flaco Henley PA-C. The patient reports that his neuropathy is worse today with stabbing-type pains occurring in the arches of both feet and radiating to the lateral edges of his feet. He reports that walking on his feet exacerbate the pain and his recent medication change to Cymbalta has helped decrease the pain. He reports no increase in drainage from his bilateral 1st toe diabetic ulcers of the right and left feet. 05/05/17. Seen by Flaco Henley PA-C. The patient reports no increase in drainage from his bilateral 1st toe diabetic ulcers. 04/20/17. Seen by Dr. Weathers. The patient reports pain and drainage associated with the bilateral first toe diabetic ulcers is minimal over the past week and he'll complete his course of moxifloxacin today that's been treating a recent left 1st toe cellulitis. He continues to work a heavy schedule as on his feet for extended periods. He states his blood sugars continue to be mostly below 200. 04/14/17. Seen by Dr. Weathers. The patient feels the pain and drainage associated with the bilateral first toe diabetic ulcers has improved since starting on antibiotics last week. He continues to work a heavy schedule as on his feet for extended periods. He states his blood sugars continue to be mostly below 200. 04/07/17. Seen by Dr. Weathers. The patient reports some pain and increased drainage from the bilateral first toe diabetic ulcers over the past week. He's been working on his feet considerably more over the past few weeks and states his blood sugars are mostly below 200. 03/24/17. Seen by Flaco Henley PA-C. The patient reports good compliance with his diabetes footwear but he also notes blood sugars above 150 this week. Drainage has reportedly been decreasing from his diabetic ulcers of the right and left feet. 03/17/17. Seen by Dr. Weathers. The patient states he's stopped taking his SSRI that was treating the bilateral foot diabetic neuropathic pain as he felt it may have been contributing to his intermittent subjective fevers and chills. He does not report increased drainage or pain associated with the bilateral 1st toe diabetic ulcers since his last visit but states he's been on his feet more due to his job and an increase in tourism as the weather's improving. 02/26/17. Seen by Dr. Weathers. The patient reports increased pain and drainage associated with the left first toe diabetic ulcer but none with the right first toe diabetic ulcer. He's had some subjective fevers and chills for the last 2 weeks but states blood sugars continue to be well controlled with most below 150. 02/19/17. Seen by Dr. Weathers.The patient reports fatigue and intermittent chills but no documented fevers over the past few days. He does not report fevers nor other specific symptoms. He states that there has been no increase in drainage or pain associated with bilateral first diabetic ulcers since his last visit. His blood sugars continue to be mostly below 200. 02/05/17. Seen by Dr. Weathers. The patient does not report pain nor significant drainage associated with the chronic bilateral first toe diabetic ulcers over the past week. He continues applying topical gentamicin as recommended to treat the chronic and recurrent superficial staph infection. 01/29/17. Seen by Dr. Weathers. The patient reports minimal drainage and no pain associated with bilateral first toe diabetic ulcers since his last visit. He has completed his course of Keflex and does not report adverse side effects. He states blood sugars are mostly between 100 and 200.He continues to apply gentamicin ointment also as recommended. 01/22/17. Seen by Dr. Weathers. The patient returns to clinic for bilateral 1st toe diabetic ulcers that have become infected about a week ago and he was placed on Keflex by his PCP. He feels the drainage and redness are improving and he does not report pain in the toes. His blood sugars remain mostly below 150 and he continues to work on his feet a full-time schedule and states he wears his diabetic shoes at all times. 01/05/17. Seen by Flaco Henley PA-C. The patient reports some blood sugars this week above 150. No increase in ulcer drainage is reported today. 12/29/16 Seen by Flaco Henley PA-C. The patient reports stable drainage from his left foot non- pressure ulcer since his last evaluation. 12/22/16 Seen by Flaco Henley PA-C. The patient reports no increase in ulcer drainage from his left foot diabetic ulcer since his last visit. In addition he reports well controlled blood sugars. 12/15/16 Seen by Flaco Henley PA-C. The patient reports no increase in drainage from his left foot diabetic ulcer. His blood sugars have reportedly been below 150 this week but today is blood sugar is noted to be 152. 12/08/16. Seen by Dr. Weathers. The patient's now taking Augmentin for his recent Staph and E. coli positive wound culture taken from the chronic left 1st toe diabetic ulcer. The culture sensitivities however show intermediate sensitivity of the E. coli to Augmentin. The patient feels the toe pain and ulcer drainage have decreased considerably and he states his blood sugars are mostly below 150. He does not report fevers or adverse side effects from the Augmentin. Regarding the right 1st toe diabetic ulcer he does not report pain or significant drainage. 12/01/16 Seen by Flaco Henley PA-C. The patient reports that his left foot diabetic ulcer is much worse with a strong odor reported. 11/17/16 Seen by Flaco Henley PA-C. The patient reports that his blood sugar is likely elevated due to the holidays. He reports no increase in drainage from his DMII ulcers of the right or left 1st toes. 11/03/16. Seen by Dr. Weathers. The patient reports a new ulcer on the right 1st toe that started about one week ago following his attempt at removing a callus from the site. He states about 3 days ago the ulcer started draining fluid and the toe swelled and turned red. He 's not on antibiotics and does not report fevers or feeling unwell. Regarding his left 1st toe diabetic ulcer, he does not report significant drainage or pain. He states his blood sugars are improving with most below 150 now. 10/20/16. Seen by Dr. Weathers. The patient does not report significant drainage associated with the chronic left 1st toe diabetic ulcer since his last visit. He also states his blood sugars still tend to be over 150 and sometimes in the 200's.He also continues to apply gentamcin for the MSSA positive wound culture taken from the ulcer recently. 10/13/16. Seen by Dr. Weathers. The patient does not report significant drainage associated with the chronic left 1st toe diabetic ulcer since his last visit and he continues applyin gentamcin for the MSSA positive wound culture taken from the ulcer. His blood sugars continue to be above 150 fairly frequently however he notes since decreasing his chronic alcohol intake his glucose seems to be easier to control. 10/06/16 Seen by Flaco Henley PA-C. The patient reports that his neuropathy is severe today. It is described as an intermittent burning/shooting pain, that comes and goes but does not radiate and is centered on his left lateral foot. He does not report any associated changes to his chronic left 1st toe diabetic ulcer such as increased drainage. 09/29/16. Seen by Dr. Weathers. The patient does not report significant drainage associated with the chronic left 1st toe diabetic ulcer since his last visit and he continues on doxycycline for the MSSA positive wound culture taken from the ulcer. He feels the toe redness and swelling have improved since starting antibiotics. He also reports significant improvement in the left foot neuropathic pain since starting on a new antidepressant. 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 His blood sugar is over 200 today and he states its typically been between 100 and 200 although he's not been checking it for the past few days since his glucometer is no working. 09/15/16 Seen by Flaco Henley PA-C. The patient reports decreased neuropathic pain in his LLE and has recently started a new antidepressant medication for this issue though he does not recall the name of the medication. His ulcer drainage has been stable since his last evaluation. 09/01/16. Seen by Dr. Weathers. The patient does not report significant drainage associated with the chronic left 1st toe diabetic ulcer. He does state however his left lateral foot neuropathic pain is increasing and he's working with GAMAL Carter, pain specialist, to address this issue. He also states his blood sugars are typically between 100 to 200. 08/25/16 Seen by Flaco Henley PA-C. The patient reports continued left foot neuropathic pain. He has a pending appointment with Jethro Meehan at the pain clinic for this. His diabetic foot ulcer has resumed draining in the past few days after being closed. 08/18/16 Seen by Flaco Henley PA-C. The patient reports that he has had no drainage from his left 1st toe ulcer since his last evaluation. 08/11/16 Seen by Flaco Henley PA-C. The patient reports that he now has a prescription for lyrica and a schedule to taper off his gabapentin. He has not started taking lyrica though notes that his neuropathic pain is improved this week. His ulcer has had decreased drainage. 08/03/16 Seen by Flaco Henley PA-C. The patient reports that his left leg neuropathic pain, which has been present for months, has decreased in severity recently but still reaches 6/10. It is described as intermittent, non-radiating and stabbing/burning. His left 1st toe ulcer has had stable drainage by his report. 07/28/16 Seen by Flaco Henley PA-C. The patient reports very little drainage from his left 1st toe diabetic ulcer. He does report that his neuropathic pain has worsened and he is using alcohol at times as a painkiller. He has an upcoming appointment with Dr. Son, who has been addressing this issue and he asks about the referral to Jethro Meehan. 07/20/16. Seen by Dr. Weathers. The patient does not report significant drainage associated with the chronic left 1st toe diabetic ulcer over the past week. He states he's seen Dr. Son regarding his diabetic neuropathy in the past but has not discussed the recurrent toe ulcer. He also states he 'walks on this toes' and has been told by other providers in the past his Achilles tendon is 'short'. 07/13/[address] Weathers. The patient states he's been more active over the past few weeks with his job however does not report increased drainage or pain associated with the chronic left 1st toe diabetic ulcer. He's wearing his diabetic shoes as recommended and states his blood sugars have been a bit elevated between 150 and 200 over the past week due to non- compliance with his routine diabetic meal plan. 06/22/[address] Weathers. The patient feels the drainage and left 1st toe erythema have improved considerably since his last visit and he continues on Zyvox that was started during his recent admission for cellulitis associated with the toe ulcer. He states his blood sugars are now mostly below 150 and he's wearing diabetic shoes but not necessarily offloading the toe. 09/12/[address] Weathers. The patient has had his TCC off for the past week and he does not report drainage from the left 1st toe diabetic foot ulcer. His blood sugars are also mostly between 150 and 180. 09/06/[address] Weathers. The patient does not report any problems regarding his left diabetic foot ulcer nor the TCC he's worn since his last visit. His blood sugars are typically between 150 and 200 which is an improvement historically. 06/18/15 Seen by Flaco Henley PA-C. The patient has had no drainage from his wounds since his last visit. 06/11/15 Seen by Flaco Henley PA-C. The patient has had a particularly long work week and has been on his feet a lot. He has been using his diabetic shoes and recently modified inserts. 06/07/[address] Weathers. The patient has two new ulcers on the plantar surface of the right foot and on the left toe that were first noticed about 3 days ago after being on his feet at work for an extended period. He feels they may have occurred as a result of his orthotics not fitting properly. He does not report pain or swelling but does note some redness with clear yellow drainage from the right ulcer. He states his blood sugars are mostly below 150 with a few around 180 and he continues to try to loose weight to help manage his diabetes. 05/20/[address] Weathers. The patient does not report drainage from the left toe ulcer and tolerated the TCC without difficulties. 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 05/08/15 Seen by Flaco Henley PA-C. The patient is here today to have a TCC placed. He continues to try and stay off his feet and has not yet returned to work. 05/06/15 Seen by Flaco Henley PA-C. The patient has been off loading his feet using his off loading boots and sitting at home as well as not working. He continues on his antibiotics. 05/02/15 Seen by Flaco Henley PA-C. The patient continues to take time off work and be sedentary in order to offload his feet. He has been applying kerisol to the callouses on his right and left great toes and hydrogel to the wounds. He took his last dose of Augmentin today and reports decreased drainage from the left great toe diabetic ulcer and minimal drainage from the right great toe diabetic ulcer. His feet are sometimes painful but this has decreased since last visit. Blood sugars are running 150-180s in the AM. 04/26/[address] Weathers. The patient does not report increased drainage associated with the bilateral 1st toe diabetic ulcers. He feels the right leg cellulitis is much improved since starting Augmentin and he's been offloading with a cane and my taking time off of work to stay off his feet. His blood sugars are below 150 and he takes only metformin for diabetes. Past Medical History This information was obtained from the patient Patient has a medical history of: Type II Diabetes Diabetic foot ulcers (bilateral 1st toes; Hector grade II) Hyperlipidemia Chronic pain (neuropathic; left lateral foot) Depression Complaints and Symptoms This information was obtained from the patient Patient complains of: General Notes: I have reviewed and concur with the Review of Systems and Past Family Social History documents completed by the clinician, I have reviewed and concur with the Wound Assessment document completed by the clinician Integumentary (Hair/Skin/Nails): Open Sore Musculoskeletal: Assistive Devices, Deformities Neurological: Abnormal Gait, Loss of Protective Sensation Prior Wound History: Drainage, Erythema, Pain Patient denies complaints or symptoms related to: Cardiovascular (Central/Peripheral): Intermittent Claudication, Lower extremity (leg) resting pain, Lower extremity (leg) swelling Constitutional Symptoms (General Health): Chills, Fever Ear/Nose/Mouth/Throat: Hearing Loss / Aid Gastrointestinal (GI): Nausea / Vomiting, Stomach/abdominal pain Hematologic/Lymphatic: Bleeding / Clotting Disorders, Bleeding Tendency Prior Wound History: Bleeding, Malodor Respiratory: Oxygen Use, Shortness of Breath OBJECTIVE Constitutional Vital signs reviewed and noted. Well developed. Alert. Clean appearing.. Height/ Length: 76 in (193.04 cm), Weight: 264.8 lbs (120.36 kgs), BMI: 32.2, Temperature: 98.2 ?F ( 36.78 ?C), Pulse: 85 bpm, Respiratory Rate: 18 breaths/min, Blood Pressure: 116/74 mmHg, Capillary Blood Glucose: 105 mg/dl, Pulse Oximetry: 97 %. Integumentary (Hair, Skin) No periwound erythema, warmth, or significant drainage. No periwound rashes appreciated or noted otherwise.. Refer to appropriate clinician wound documentation for this visit; right and left foot ulcers extend to subcut with bases partially covered with pink granulation, remainder fibrin and slough. Significant amount of callus in the periulcer areas. Mild approx 3cm diameter confluent, erythematous rash in the affected area of distal left lower leg without appreciable drainage. Wound #9 Left Great Toe is a chronic Hector Grade 2 Diabetic Ulcer and has received a status of Not Healed. Subsequent wound encounter measurements are 1.4cm length x 0.4cm width x 0.3cm depth, with an area of 0.56 sq cm and a volume of 0.168 cubic cm. No tunneling has been noted. No sinus tract has been noted. No undermining has been noted. There is a moderate amount of sanguineous drainage noted which has no odor. The patient reports a wound pain of level 0/10. The wound margin is callus. Wound bed has Yes epithelialization, No eschar, No slough, Yes bright red, pink, firm granulation. The periwound skin color is normal. The periwound skin exhibited: Callus. The periwound skin did not exhibit: Brawny Induration, Edema, Excoriation, Induration, Crepitus, Fluctuance, Friable, Rash, Dry/Scaly, Moist, Maceration. The temperature of the periwound skin is WNL. Periwound skin does not exhibit signs or symptoms of infection. Local Pulse is Palpable. Wound #10 Right Great Toe is a chronic Hector Grade 2 Diabetic Ulcer and has received a status of Not Healed. Subsequent wound encounter measurements are 0.1cm length x 0.1cm width x 0.1cm depth, with an area of 0.01 sq cm and a volume of 0.001 cubic cm. No tunneling has been noted. No sinus tract has been noted. No undermining has been noted. There was no drainage noted. The patient reports a wound pain of level 0/10. The wound margin is callus. Wound bed has Yes epithelialization, No eschar, No slough, No granulation. The periwound skin moisture is normal. The periwound skin color is normal. The periwound skin exhibited: Callus. The periwound skin did not exhibit: Brawny Induration, Edema, Excoriation, Induration, Crepitus, Fluctuance, Friable, Rash. The temperature of the periwound skin is WNL. Periwound skin does not exhibit signs or symptoms of infection. Local Pulse is Palpable. Neurological: Cranial nerves grossly intact with symmetric function normal by informal observation.. ASSESSMENT Active Problems ICD-10 (Encounter Diagnosis) E11.621 - Type 2 diabetes mellitus with foot ulcer (Encounter Diagnosis) L97.522 - Non-pressure chronic ulcer of other part of left foot with fat layer exposed (Encounter Diagnosis) L97.511 - Non-pressure chronic ulcer of other part of right foot limited to breakdown of skin (Encounter Diagnosis) R21 - Rash and other nonspecific skin eruption PROCEDURES Wound #9 Wound #9 (Diabetic Ulcer) is located on the left great toe. A skin/subcutaneous tissue level surgical debridement with a total area debrided of 0.56 sq cm was performed by Rakesh Weathers MD. Subcutaneous was removed along with devitalized tissue: callus and slough. The following instrument(s) were used: curette. Pain control was achieved using 4% Lido. A time out was conducted prior to the start of the procedure. A minimal amount of bleeding was controlled with silver nitrate. The procedure was tolerated well with a pain level of 0 throughout and a pain level of 0 following the procedure. Post Debridement Measurements: 1.4cm length x 0.4cm width x 0.4cm depth; with an area of 0.56 sq cm and a volume of 0.224 cubic cm; Wound #10 Wound #10 (Diabetic Ulcer) is located on the right great toe. A skin/ subcutaneous tissue level surgical debridement with a total area debrided of 0.04 sq cm was performed by Rakesh Weathers MD. Subcutaneous was removed along with devitalized tissue: callus and slough. The following instrument(s) were used: curette. Pain control was achieved using 4% Lido. A time out was conducted prior to the start of the procedure. A minimal amount of bleeding was controlled with n/a. The procedure was tolerated well with a pain level of 0 throughout and a pain level of 0 following the procedure. Post Debridement Measurements: 0.2cm length x 0.2cm width x 0.2cm depth; with an area of 0.04 sq cm and a volume of 0.008 cubic cm; Additional Information Muscle fascia or bone removed and sent to pathology?: No Muscle fascia or bone removed and sent to pathology?: No PLAN Wound Orders: Wound #9 Left Great Toe Anesthetic Topical Xylocaine to wound bed. - In clinic only. Cleanser Cleanse Wound: - Normal saline and gauze. May Shower. - Please cover in shower, may use cast protector or plastic bag and tape. Topical Treatments Antibiotic/Antimicrobial Ointment/Cream. - Iodosorb to wound base. Dressings Cover and secure with: - Foam secured with tape. Change Dressing: - Daily. Wound #10 Right Great Toe Anesthetic Topical Xylocaine to wound bed. - In clinic only. Cleanser Cleanse Wound: - Normal saline and gauze. May Shower. - Please cover in shower, may use cast protector or plastic bag and tape. Dressings Cover and secure with: - Foam secured with tape. Change Dressing: - Daily. Additional Orders: Off-Loading Keep weight off: - Left foot as much as possible. Use/Wear when Walking: - [place] boot, Knee scooter. Follow-Up Appointments Return Appointment: - - One week. Other information: If you develop fever, chills, increased pain, drainage, redness or swelling please call our office. If after hours, respond to the ER. Should you experience any significant changes in your wound(s) or have any questions regarding your home care instructions please contact the wound center @ [phone]. If after hours, contact your primary care physician or go to the hospital emergency room. Scribing Attestation I attest, as the nurse, that I scribed these orders for the physician. I've reviewed the clinician's documentation and agree with the evaluation and plan as written. In addition the patient's ulcers demonstrate evidence of non-viable devitalized tissue and they will continue to benefit from sharp debridement to help promote granulation and expedite healing. Also, the patient will use an OTC topical antifungal to treat the left lower leg rash and he's been strongly encouraged to use his knee scooter whenever possible to better offload the left 1st toe diabetic ulcer. Electronic Signature(s) Signed By: Date: Rakesh Weathers MD 05/27/2018 15:59:11 Entered By: Rakesh Weathers on 05/27/2018 14:31:02
== END ==
PROVIDERS: PCP Student in an Organized Health Care Education/Training Program; Visit Provider Internal Medicine
DX: E11.621 Type 2 diabetes mellitus with foot ulcer (principal); L97.522 Non-pressure chronic ulcer of other part of left foot with fat layer exposed; L97.512 Non-pressure chronic ulcer of other part of right foot with fat layer exposed; R21 Rash and other nonspecific skin eruption
CPT/HCPCS: 11042

== ENCOUNTER → 2018-05-31 11:01 | Outpatient (CLI) | payer OTHER, SELFPAY ==
--- NOTE | 2018-05-31 | OV.WND_ITS ---
Progress Note Details Patient Name: Baljit Mckay Patient Number: [id number] PatientPatientDate: 05/31/2018 Clinician: Yareli De León Physician / Sterile Tech: Rakesh Weathers SUBJECTIVE Chief Complaint This information was obtained from the patient Diabetic ulcer to left great toe. Allergies NKDA HPI This information was obtained from the patient 05/31/18. Seen by Dr. Weathers. The patient does not report increased drainage or pain associated with the bilateral 1st toe diabetic ulcers since his last visit and he's increased is use of this [employer] boots to better facilitate offloading. 05/27/18. Seen by Dr. Weathers. The patient does not report increased drainage or pain associated with the bilateral 1st toe diabetic ulcers since his last visit and he continues to be quite active with work making it difficult to adequately offload the ulcers. He also reports a chronic rash over the distal left lower leg that's been present for about one month. 05/20/18. Seen by Dr. Weathers. The patient does not report increased drainage or pain associated with the bilateral 1st toe diabetic ulcers since his last visit and he continues to be quite active with work and personal activities making it difficult to adequately offload the ulcers. His blood sugars remain well controlled and he's been advised to wear a [employer] [place] boot at all times on the left leg but has not been able to do this. 05/10/18. Seen by Flaco Helney PA-C. The patient reports a rash has developed on his leg under his [employer] boot, but the rash has improved in the past few days as he has not been wearing the [employer] [place] boot. Drainage from his diabetic foot ulcers has not increased. 05/03/18. Seen by Dr. Weathers. The patient states he was at a conference this past weekend and forgot his left lower leg stocking that protects from his [place] [place] boot rubbing the short. He started to notice an abrasion so stopped wearing the [employer] [place] boot and now feels the left 1st toe diabetic ulcer may have deteriorated and also it got wet in the shower this morning. He also notes some drainage at the site of the recently healed left 1st toe diabetic ulcer. He does not report pain at either site and his blood sugars are historically well controlled over the past 6 months. 04/26/18. Seen by Dr. Weathers. The patient reports being on his feet a lot over the past week at work but he'll be taking the next week off. 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 His culture last week grew MSSA and he's completed a course of doxycycline as of yesterday. He's also not been wearing this [employer] boot or using a knee scooter due to his working more. 04/19/18. Seen by Dr. Weathers. The patient does not report pain associated with the chronic left 1st toe diabetic ulcer since his last visit however he was more active on it over the holiday weekend. The staff however report drainage on the dressing and a significant increase in callus from his last visit. His blood sugars continue to be well controlled around 120 and he's been advised to use his [employer] boot when mobilizing and knee scooter as much as possible. 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 04/12/18. Seen by Dr. Weathers. The patient does not report drainage or pain associated with the great left foot diabetic ulcers since his last visit. 04/05/2018. Seen by Dr. Weathers. The patient is wearing his [employer] [place] boot on the left foot as much as possible to help offload the recurrent and chronic left 1st toe diabetic ulcer. He'll complete his course of doxycycline today that was started at his last for cellulitis of the toe and he's applying topical gentamicin as well. He does not report fevers or feeling unwell nor side effects of the antibiotics. 03/29/2018. Seen by Dr. Weathers. The patient reports some pain and increased drainage as well as redness and swelling of the left 1st toe over the past few days. He does not report fevers however nor other acute issues at this time. 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 03/22/2018. Seen by Dr. Weathers. The patient does not report drainage or pain associated with the great left foot diabetic ulcers since his last visit. He states however that he is not wearing his [employer] [place] boot to offload the sites on alternate days despite my recommendations last week. 03/15/18. Seen by Dr. Weathers. The patient has returned to full-time work schedule and feels may not be wearing his [employer] [place] boots as much as she should noting a significant increase in callus associated with bilateral first toe diabetic ulcers and associated pain. He does not report drainage associated with the ulcers however and we'll extended his visits out to 10 days. . Seen by Dr. Weathers. The patient does not report significant drainage associated with chronic left and right first toe diabetic ulcers since his last visit. He's not wearing his [employer] [place] boot currently to offload the left foot and has started using new orthotic inserts for his diabetic shoe noting the heavy callus may be due to the old othotics wearing down. 02/25/18. Seen by Dr. Weathers. The patient does not report significant drainage associated with chronic left first toe diabetic ulcer since his last visit. 02/18/18. Seen by Dr. Weathers. The patient does not report drainage associated with chronic right or left first toe diabetic ulcers since his last visit and he's applying topical gentamicin as recommended to treat the left 1st toe MSSA positive wound culture taken at the last visit. 02/11/18. Seen by Dr. Weathers. The patient returns due to recurrence of the left 1st toe diabetic ulcer that he states started about 1 week ago when he developing callus fell off and the toe started to drain. He was seen by Dr. Son, podiatry, who subsequently referred the patient back to our clinic. He does not report pain in the toe or fevers and he's wearing his [employer] [place] boot to help offload the site. He's also on Keflex but states a wound culture was not drawn. Of note, he reports callus has reformed over the recently healed right 1st toe diabetic ulcer also. His blood sugars continue to be well controlled with most below 150. 01/17/18. Seen by Flaco Henley PA-C. The patient reports no drainage from his right 1st toe diabetic ulcer since his last dressing change. 01/05/18. Seen by Dr. Weathers. 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 Of note, he also has a new wound over the dorsum of the right foot that occurred following a dog fight that occurred at home where he was stepped on and the dog's claws scratch the foot. He does not report significant pain or drainage associated with this wound. 12/29/17. Seen by Dr. Weathers. The patient does not report drainage or pain associated with the right first toe diabetic ulcers since his last visit. He is wearing his [employer] boot as recommended and is asking if he will be able to return to work soon. 12/22/17. Seen by Dr. Weathers. The patient does not report increased drainage associated with a chronic right first toe diabetic ulcers since his last visit. 12/14/17. Seen by Dr. Weathers. The patient does not report increased drainage associated with a chronic right first toe diabetic ulcers since his last visit and he's wearing his [employer] boot as recommended to offload the ulcer. 12/08/17. Seen by Dr. Weathers. The patient does not report increased drainage associated with a chronic right first toe diabetic ulcers since his last visit. Of note, he states he accidentally wore his left shoe with a sock in the end of the which may result in some bruising at the site of the recently healed first toe diabetic ulcer. 12/01/17. Seen by Dr. Weathers. The patient does not report significant drainage or pain associated with right first toe diabetic ulcer since his last visit. Of note, he 's also stopped applying Kersal to the callus surrounding the recently healed left 1st toe diabetic ulcer despite our recommendations to do so. 11/17/17. Seen by Dr. Weathers. The patient does not report significant drainage or pain associated with right first toe diabetic ulcer since his last visit. 11/10/17. Seen by Dr. Weathers. The patient does not report significant drainage or pain associated with bilateral first toe diabetic ulcers since his last visit. He's been offloading as recommended with both his [employer] boots and a knee scooter. 11/03/17. Seen by Dr. Weathers. The patient does not report increased drainage or pain associated with bilateral first toe diabetic ulcers since last visit. 10/27/17. Seen by Dr. Weathers. The patient reports some increased pain and redness associated with the chronic right first toe diabetic ulcer. He does not report any new issues regarding the left of a foot ulcer and will mushroom picker his right foot kotzebue boot in the near future. He is also offloading with a new scooter as recommended 10/20/17. Seen by Dr. Weathers. The patient does not report increased drainage or pain associated with bilateral first toe diabetic ulcers since last visit. 10/13/17. Seen by Dr. Weathers. The patient does not report increased drainage or pain associated with bilateral first toe diabetic ulcers since last visit. Of note, he now has a knee scooter and his left [employer] [place] boot and feels the left 1st toe ulcer has improved significantly with the added offloading measures. 10/06/17. Seen by Dr. Weathers. The patient does not report increased drainage or pain associated with bilateral first toe diabetic ulcers since last visit. Of note, he now has a knee scooter that he's been using to offload the left foot for the past 2 days and he will receive his [employer] boot on Wednesday. 09/29/17. Seen by Dr. Weathers. The patient states that while wearing his left foot offloading shoe he took a fall and feels that it may have traumatized the chronic left first toe diabetic ulcer. He does not report increased pain or drainage from the site nor the right first toe diabetic ulcers since his last visit and states his blood sugars continue to be mostly below 150. He is also awaiting delivery of the left foot kotzebue boot as well as his diabetic shoes. Of note, he also admits to being more active that he should be despite our recommendations to maximally offload both ulcers and has not been able to locate an offloading knee scooter as we've recommended. 09/22/17. Seen by Dr. Weathers. The patient does not report increased drainage associated with the bilateral 1st toe diabetic ulcers since his last visit and he's completed his course of doxycycline without reporting adverse side effects. He's also not yet seen his orthortist who will be fitting for at [employer] boot to offload the left foot ulcer as well as providing him with a pair of diabetic shoes. 09/15/17. Seen by Dr. Weathers. The patient's on doxycycline to treat a chronic wound infection of the left 1st toe and he does not report adverse side effects. He's wearing his offloading shoe on the foot as recommended and continues to limit his walking as much as possible. He does not report significant drainage or pain associated with either 1st toe diabetic ulcers and states he's going to schedule and appointment with an expert medical writer today as we've been recommending. 09/06/17. Seen by Flaco Henley PA-C. The patient reports increased drainage and continued callous formation from his 1st toe diabetic ulcers. He continues to stay off his feet as much as possible and is working with his insurance company and [employer] to obtain a QU[employer]Z [place] offloading boot. 08/31/17. Seen by Flaco Henley PA-C. The patient reports he has been staying off his feet and has been away from work as instructed. He reports decreased drainage from his bilateral diabetic toe ulcers. 08/24/17. Seen by Dr. Weathers. The patient reports being more active over the past week despite being advised to limit his walking considerably to offload the bilateral first toe diabetic ulcers. He does not report increased drainage or pain associated with these ulcers. He also states he will be able to take another month off of work to further facilitate offloading of the ulcers. 08/17/17. Seen by Dr. Weathers. The patient has been offloading both left and right first toe diabetic ulcers for the past week and has taken the entire month of July off of work to better facilitate offloading. 08/10/17. Seen by Dr. Weathers. The patient has been offloading both left and right first toe diabetic ulcers for the past week as recommended and he does not report significant associated pain or drainage from either site. 08/03/17. Seen by Dr. Weathers. The patient has been offloading both left and right first toe diabetic ulcers for the past week and has taken the entire month of July off of work to better facilitate offloading. 07/23/17. Seen by Dr. Weathers. The patient does not report significant drainage associated with chronic bilateral left and right first toe diabetic ulcers since his last visit. He does not report any drainage associated with the left 1st MTPJ diabetic ulcer. 07/20/17. Seen by Dr. Weathers. The patient does not report pain nor significant drainage associated with chronic bilateral left and right first toe diabetic ulcers since his last visit. He is applying topical gentamicin as recommended to the ulcer bases to treat the recent wound infection. He does not report any drainage associated with the left 1st MTPJ diabetic ulcer. 07/16/17. Seen by Dr. Weathers. The patient states that he had a very busy past week in terms of festival and he was on his feet for extended periods. He has increased drainage and callus formation associated with both first toe diabetic ulcers since we last saw him however he does not report any increased drainage or problems regarding the left mid plantar foot diabetic ulcer. He does not report pain in the toes nor fever or feeling unwell. His blood sugars continue to be well controlled consistently below 150. 07/06/17. Seen by Dr. Weathers. The patient does not report pain nor significant drainage associated with chronic bilateral left and right first toe diabetic ulcers since his last visit. He is applying topical gentamicin as recommended in his recent wound culture grew MSSA. He also does not report pain nor drainage associated with the chronic left plantar foot diabetic ulcer. 06/29/17. Seen by Dr. Weathers. The patient reports some pain associated with both first toe diabetic ulcers since his last visit. He does not report increased drainage associated with these nor the left plantar foot diabetic ulcer. He's been seeing us every 2 weeks and feels that the callus formation in the interim has been quite significant. 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 He states his blood sugars are well controlled with most below 150. 06/15/17. Seen by Dr. Weathers. The patient does not report pain nor significant drainage associated with the chronic bilateral first toe diabetic ulcers nor the left plantar foot diabetic ulcer since his last visit. 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 His blood sugars he states are well-controlled with most below 150. 7. Seen by Dr. Weathers. The patient does not report pain or increased drainage associated with the bilateral, chronic 1st toe diabetic ulcers since his last visit and he continues on doxycycline for the left 1st toe infection noted at his last visit. He does not report adverse side effects and states his blood sugars are mostly below 150. 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 Of note, he reports a new wound over the plantar surface of the left foot that started when he tried to remove a callus earlier this week. 05/18/17. Seen by Dr. Weathers. The patient reports some discomfort associated with the chronic left first toe diabetic ulcer over the past few days however he does not report pain nor increased drainage with the chronic right first toe diabetic ulcer. He continues to work an active job and is on his feet for extended periods however states that he may be able to decrease hours later in the summer. His blood sugars continue to be well controlled with most below 150. 05/12/17. Seen by Flaco Henley PA-C. The patient reports that his neuropathy is worse today with stabbing-type pains occurring in the arches of both feet and radiating to the lateral edges of his feet. He reports that walking on his feet exacerbate the pain and his recent medication change to Cymbalta has helped decrease the pain. He reports no increase in drainage from his bilateral 1st toe diabetic ulcers of the right and left feet. 05/05/17. Seen by Flaco Henley PA-C. The patient reports no increase in drainage from his bilateral 1st toe diabetic ulcers. 04/20/17. Seen by Dr. Weathers. The patient reports pain and drainage associated with the bilateral first toe diabetic ulcers is minimal over the past week and he'll complete his course of moxifloxacin today that's been treating a recent left 1st toe cellulitis. He continues to work a heavy schedule as on his feet for extended periods. He states his blood sugars continue to be mostly below 200. 04/14/17. Seen by Dr. Weathers. The patient feels the pain and drainage associated with the bilateral first toe diabetic ulcers has improved since starting on antibiotics last week. He continues to work a heavy schedule as on his feet for extended periods. He states his blood sugars continue to be mostly below 200. 04/07/17. Seen by Dr. Weathers. The patient reports some pain and increased drainage from the bilateral first toe diabetic ulcers over the past week. He's been working on his feet considerably more over the past few weeks and states his blood sugars are mostly below 200. 5/02/05. Seen by Flaco Henley PA-C. The patient reports good compliance with his diabetes footwear but he also notes blood sugars above 150 this week. Drainage has reportedly been decreasing from his diabetic ulcers of the right and left feet. 03/17/17. Seen by Dr. Weathers. The patient states he's stopped taking his SSRI that was treating the bilateral foot diabetic neuropathic pain as he felt it may have been contributing to his intermittent subjective fevers and chills. He does not report increased drainage or pain associated with the bilateral 1st toe diabetic ulcers since his last visit but states he's been on his feet more due to his job and an increase in tourism as the weather's improving. 02/26/17. Seen by Dr. Weathers. The patient reports increased pain and drainage associated with the left first toe diabetic ulcer but none with the right first toe diabetic ulcer. He's had some subjective fevers and chills for the last 2 weeks but states blood sugars continue to be well controlled with most below 150. 02/19/17. Seen by Dr. Weathers.The patient reports fatigue and intermittent chills but no documented fevers over the past few days. He does not report fevers nor other specific symptoms. He states that there has been no increase in drainage or pain associated with bilateral first diabetic ulcers since his last visit. His blood sugars continue to be mostly below 200. 02/05/17. Seen by Dr. Weathers. The patient does not report pain nor significant drainage associated with the chronic bilateral first toe diabetic ulcers over the past week. He continues applying topical gentamicin as recommended to treat the chronic and recurrent superficial staph infection. 01/29/17. Seen by Dr. Weathers. The patient reports minimal drainage and no pain associated with bilateral first toe diabetic ulcers since his last visit. He has completed his course of Keflex and does not report adverse side effects. He states blood sugars are mostly between 100 and 200.He continues to apply gentamicin ointment also as recommended. 01/22/17. Seen by Dr. Weathers. The patient returns to clinic for bilateral 1st toe diabetic ulcers that have become infected about a week ago and he was placed on Keflex by his PCP. He feels the drainage and redness are improving and he does not report pain in the toes. His blood sugars remain mostly below 150 and he continues to work on his feet a full-time schedule and states he wears his diabetic shoes at all times. 01/05/17. Seen by Flaco Henley PA-C. The patient reports some blood sugars this week above 150. No increase in ulcer drainage is reported today. 12/29/16 Seen by Flaco Henley PA-C. The patient reports stable drainage from his left foot non- pressure ulcer since his last evaluation. 12/22/16 Seen by Flaco Henley PA-C. The patient reports no increase in ulcer drainage from his left foot diabetic ulcer since his last visit. In addition he reports well controlled blood sugars. 12/15/16 Seen by Flaco Henley PA-C. The patient reports no increase in drainage from his left foot diabetic ulcer. His blood sugars have reportedly been below 150 this week but today is blood sugar is noted to be 152. 12/08/16. Seen by Dr. Weathers. The patient's now taking Augmentin for his recent Staph and E. coli positive wound culture taken from the chronic left 1st toe diabetic ulcer. The culture sensitivities however show intermediate sensitivity of the E. coli to Augmentin. The patient feels the toe pain and ulcer drainage have decreased considerably and he states his blood sugars are mostly below 150. He does not report fevers or adverse side effects from the Augmentin. Regarding the right 1st toe diabetic ulcer he does not report pain or significant drainage. 12/01/16 Seen by Flaco Henley PA-C. The patient reports that his left foot diabetic ulcer is much worse with a strong odor reported. 11/17/16 Seen by Flaco Henley PA-C. The patient reports that his blood sugar is likely elevated due to the holidays. He reports no increase in drainage from his DMII ulcers of the right or left 1st toes. 11/03/16. Seen by Dr. Weathers. The patient reports a new ulcer on the right 1st toe that started about one week ago following his attempt at removing a callus from the site. He states about 3 days ago the ulcer started draining fluid and the toe swelled and turned red. He 's not on antibiotics and does not report fevers or feeling unwell. Regarding his left 1st toe diabetic ulcer, he does not report significant drainage or pain. He states his blood sugars are improving with most below 150 now. 10/20/16. Seen by Dr. Weathers. The patient does not report significant drainage associated with the chronic left 1st toe diabetic ulcer since his last visit. He also states his blood sugars still tend to be over 150 and sometimes in the 200's.He also continues to apply gentamcin for the MSSA positive wound culture taken from the ulcer recently. 10/13/16. Seen by Dr. Weathers. The patient does not report significant drainage associated with the chronic left 1st toe diabetic ulcer since his last visit and he continues applyin gentamcin for the MSSA positive wound culture taken from the ulcer. His blood sugars continue to be above 150 fairly frequently however he notes since decreasing his chronic alcohol intake his glucose seems to be easier to control. 10/06/16 Seen by Flaco Henley PA-C. The patient reports that his neuropathy is severe today. It is described as an intermittent burning/shooting pain, that comes and goes but does not radiate and is centered on his left lateral foot. He does not report any associated changes to his chronic left 1st toe diabetic ulcer such as increased drainage. 09/29/16. Seen by Dr. Weathers. The patient does not report significant drainage associated with the chronic left 1st toe diabetic ulcer since his last visit and he continues on doxycycline for the MSSA positive wound culture taken from the ulcer. He feels the toe redness and swelling have improved since starting antibiotics. He also reports significant improvement in the left foot neuropathic pain since starting on a new antidepressant. 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 His blood sugar is over 200 today and he states its typically been between 100 and 200 although he's not been checking it for the past few days since his glucometer is no working. 09/15/16 Seen by Flaco Henley PA-C. The patient reports decreased neuropathic pain in his LLE and has recently started a new antidepressant medication for this issue though he does not recall the name of the medication. His ulcer drainage has been stable since his last evaluation. 09/01/16. Seen by Dr. Weathers. The patient does not report significant drainage associated with the chronic left 1st toe diabetic ulcer. He does state however his left lateral foot neuropathic pain is increasing and he's working with GAMAL Carter, pain specialist, to address this issue. He also states his blood sugars are typically between 100 to 200. 08/25/16 Seen by Flaco Henley PA-C. The patient reports continued left foot neuropathic pain. He has a pending appointment with Jethro Meehan at the pain clinic for this. His diabetic foot ulcer has resumed draining in the past few days after being closed. 08/18/16 Seen by Flaco Henley PA-C. The patient reports that he has had no drainage from his left 1st toe ulcer since his last evaluation. 08/11/16 Seen by Flaco Henley PA-C. The patient reports that he now has a prescription for lyrica and a schedule to taper off his gabapentin. He has not started taking lyrica though notes that his neuropathic pain is improved this week. His ulcer has had decreased drainage. 08/03/16 Seen by Flaco Henley PA-C. The patient reports that his left leg neuropathic pain, which has been present for months, has decreased in severity recently but still reaches 6/10. It is described as intermittent, non-radiating and stabbing/burning. His left 1st toe ulcer has had stable drainage by his report. 07/28/16 Seen by Flaco Henley PA-C. The patient reports very little drainage from his left 1st toe diabetic ulcer. He does report that his neuropathic pain has worsened and he is using alcohol at times as a painkiller. He has an upcoming appointment with Dr. Son, who has been addressing this issue and he asks about the referral to Jethro Meehan. 07/20/16. Seen by Dr. Weathers. The patient does not report significant drainage associated with the chronic left 1st toe diabetic ulcer over the past week. He states he's seen Dr. Son regarding his diabetic neuropathy in the past but has not discussed the recurrent toe ulcer. He also states he 'walks on this toes' and has been told by other providers in the past his Achilles tendon is 'short'. 07/13/[address] Weathers. The patient states he's been more active over the past few weeks with his job however does not report increased drainage or pain associated with the chronic left 1st toe diabetic ulcer. He's wearing his diabetic shoes as recommended and states his blood sugars have been a bit elevated between 150 and 200 over the past week due to non- compliance with his routine diabetic meal plan. 06/22/[address] Weathers. The patient feels the drainage and left 1st toe erythema have improved considerably since his last visit and he continues on Zyvox that was started during his recent admission for cellulitis associated with the toe ulcer. He states his blood sugars are now mostly below 150 and he's wearing diabetic shoes but not necessarily offloading the toe. 09/12/[address] Weathers. The patient has had his TCC off for the past week and he does not report drainage from the left 1st toe diabetic foot ulcer. His blood sugars are also mostly between 150 and 180. 09/06/[address] Weathers. The patient does not report any problems regarding his left diabetic foot ulcer nor the TCC he's worn since his last visit. His blood sugars are typically between 150 and 200 which is an improvement historically. 06/18/15 Seen by Flaco Henley PA-C. The patient has had no drainage from his wounds since his last visit. 06/11/15 Seen by Flaco Henley PA-C. The patient has had a particularly long work week and has been on his feet a lot. He has been using his diabetic shoes and recently modified inserts. 06/07/[address] Weathers. The patient has two new ulcers on the plantar surface of the right foot and on the left toe that were first noticed about 3 days ago after being on his feet at work for an extended period. He feels they may have occurred as a result of his orthotics not fitting properly. He does not report pain or swelling but does note some redness with clear yellow drainage from the right ulcer. He states his blood sugars are mostly below 150 with a few around 180 and he continues to try to loose weight to help manage his diabetes. 05/20/[address] Weathers. The patient does not report drainage from the left toe ulcer and tolerated the TCC without difficulties. His blood sugars are relatively well controlled below 150 and he's ready to mushroom picker his orthotic today. 05/08/15 Seen by Flaco Henley PA-C. The patient is here today to have a TCC placed. He continues to try and stay off his feet and has not yet returned to work. 05/06/15 Seen by Flaco Henley PA-C. The patient has been off loading his feet using his off loading boots and sitting at home as well as not working. He continues on his antibiotics. 05/02/15 Seen by Flaco Henley PA-C. The patient continues to take time off work and be sedentary in order to offload his feet. He has been applying kerisol to the callouses on his right and left great toes and hydrogel to the wounds. He took his last dose of Augmentin today and reports decreased drainage from the left great toe diabetic ulcer and minimal drainage from the right great toe diabetic ulcer. His feet are sometimes painful but this has decreased since last visit. Blood sugars are running 150-180s in the AM. 04/26/[address] Weathers. The patient does not report increased drainage associated with the bilateral 1st toe diabetic ulcers. He feels the right leg cellulitis is much improved since starting Augmentin and he's been offloading with a cane and my taking time off of work to stay off his feet. His blood sugars are below 150 and he takes only metformin for diabetes. Past Medical History This information was obtained from the patient Patient has a medical history of: Type II Diabetes Diabetic foot ulcers (bilateral 1st toes; Hector grade II) Hyperlipidemia Chronic pain (neuropathic; left lateral foot) Depression Complaints and Symptoms This information was obtained from the patient Patient complains of: General Notes: I have reviewed and concur with the Review of Systems and Past Family Social History documents completed by the clinician, I have reviewed and concur with the Wound Assessment document completed by the clinician Integumentary (Hair/Skin/Nails): Open Sore Musculoskeletal: Assistive Devices, Deformities Neurological: Abnormal Gait, Loss of Protective Sensation Prior Wound History: Drainage, Erythema, Pain Patient denies complaints or symptoms related to: Cardiovascular (Central/Peripheral): Intermittent Claudication, Lower extremity (leg) resting pain, Lower extremity (leg) swelling Constitutional Symptoms (General Health): Chills, Fever Ear/Nose/Mouth/Throat: Hearing Loss / Aid Gastrointestinal (GI): Nausea / Vomiting, Stomach/abdominal pain Hematologic/Lymphatic: Bleeding / Clotting Disorders, Bleeding Tendency Prior Wound History: Bleeding, Malodor Respiratory: Oxygen Use, Shortness of Breath OBJECTIVE Constitutional Vital signs reviewed and noted. Well developed. Alert. Clean appearing.. Height/ Length: 76 in (193.04 cm), Weight: 266.9 lbs (121.32 kgs), BMI: 32.5, Temperature: 98.7 ?F ( 37.06 ?C), Pulse: 90 bpm, Respiratory Rate: 18 breaths/min, Blood Pressure: 125/79 mmHg, Capillary Blood Glucose: 102 mg/dl, Pulse Oximetry: 100 %. Ears, Nose, Mouth, and Throat: No clinically significant hearing loss on informal examination. Cardiovascular: Affected extremity exhibits no peripheral edema or cyanosis, is warm, and is well perfused. Capillary refill is less than 2 seconds. Integumentary (Hair, Skin) Refer to appropriate clinician wound documentation for this visit; right and left foot ulcers extend to subcut with bases partially covered with pink granulation, remainder fibrin and slough. Significant amount of callus in the periulcer areas. Wound #9 Left Great Toe is a chronic Hector Grade 2 Diabetic Ulcer and has received a status of Not Healed. Subsequent wound encounter measurements are 1cm length x 0.2cm width x 0.3cm depth, with an area of 0.2 sq cm and a volume of 0.06 cubic cm. No tunneling has been noted. No sinus tract has been noted. No undermining has been noted. There is a moderate amount of sanguineous drainage noted which has no odor. The patient reports a wound pain of level 0/10. The wound margin is callus. Wound bed has Yes epithelialization, No eschar, No slough, Yes bright red, pink, firm granulation. The periwound skin color is normal. The periwound skin exhibited: Callus. The periwound skin did not exhibit: Brawny Induration, Edema, Excoriation, Induration, Crepitus, Fluctuance, Friable, Rash, Dry/Scaly, Moist, Maceration. The temperature of the periwound skin is WNL. Periwound skin does not exhibit signs or symptoms of infection. Local Pulse is Palpable. Wound #10 Right Great Toe is a chronic Hector Grade 2 Diabetic Ulcer and has received a status of Not Healed. Subsequent wound encounter measurements are 0.1cm length x 0.1cm width x 0.1cm depth, with an area of 0.01 sq cm and a volume of 0.001 cubic cm. No tunneling has been noted. No sinus tract has been noted. No undermining has been noted. There was no drainage noted. The patient reports a wound pain of level 0/10. The wound margin is callus. Wound bed has Yes epithelialization, No eschar, No slough, No granulation. The periwound skin moisture is normal. The periwound skin color is normal. The periwound skin exhibited: Callus. The periwound skin did not exhibit: Brawny Induration, Edema, Excoriation, Induration, Crepitus, Fluctuance, Friable, Rash. The temperature of the periwound skin is WNL. Periwound skin does not exhibit signs or symptoms of infection. Local Pulse is Palpable. Neurological: Cranial nerves grossly intact with symmetric function normal by informal observation.. ASSESSMENT Active Problems ICD-10 (Encounter Diagnosis) E11.621 - Type 2 diabetes mellitus with foot ulcer (Encounter Diagnosis) L97.522 - Non-pressure chronic ulcer of other part of left foot with fat layer exposed (Encounter Diagnosis) L97.511 - Non-pressure chronic ulcer of other part of right foot limited to breakdown of skin PROCEDURES Wound #9 Wound #9 (Diabetic Ulcer) is located on the left great toe. A skin/subcutaneous tissue level surgical debridement with a total area debrided of 0.2 sq cm was performed by Rakesh Weathers MD. Subcutaneous was removed along with devitalized tissue: callus, exudate , and slough. The following instrument(s) were used: curette. Pain control was achieved using 4% Lido. A time out was conducted prior to the start of the procedure. A minimal amount of bleeding was controlled with n/a. The procedure was tolerated well with a pain level of 0 throughout and a pain level of 0 following the procedure. Post Debridement Measurements: 1cm length x 0.2cm width x 0.4cm depth; with an area of 0.2 sq cm and a volume of 0.08 cubic cm; Wound #10 Wound #10 (Diabetic Ulcer) is located on the right great toe. A selective debridement with a total area debrided of 0.04 sq cm was performed by Rakesh Weathers MD. Dermis and Epidermis were removed along with devitalized tissue: callus and exudate. The following instrument(s) were used: curette. Pain control was achieved using 4% Lido. A time out was conducted prior to the start of the procedure. A minimal amount of bleeding was controlled with n/a. The procedure was tolerated well with a pain level of 0 throughout and a pain level of 0 following the procedure. Post Debridement Measurements: 0.2cm length x 0.2cm width x 0.2cm depth; with an area of 0.04 sq cm and a volume of 0.008 cubic cm; Additional Information Muscle fascia or bone removed and sent to pathology?: No PLAN Wound Orders: Wound #9 Left Great Toe Anesthetic Topical Xylocaine to wound bed. - In clinic only. Cleanser Cleanse Wound: - Normal saline and gauze. May Shower. - Please cover in shower, may use cast protector or plastic bag and tape. Topical Treatments Antibiotic/Antimicrobial Ointment/Cream. - Iodosorb to wound base. Dressings Cover and secure with: - Foam secured with tape. Change Dressing: - Daily. Wound #10 Right Great Toe Anesthetic Topical Xylocaine to wound bed. - In clinic only. Cleanser Cleanse Wound: - Normal saline and gauze. May Shower. - Please cover in shower, may use cast protector or plastic bag and tape. Dressings Cover and secure with: - Foam secured with tape. Change Dressing: - Daily. Additional Orders: Off-Loading Keep weight off: - Left foot as much as possible. Use/Wear when Walking: - [place] boot, Knee scooter. Follow-Up Appointments Return Appointment: - - Wednesday Other information: If you develop fever, chills, increased pain, drainage, redness or swelling please call our office. If after hours, respond to the ER. Should you experience any significant changes in your wound(s) or have any questions regarding your home care instructions please contact the wound center @ [phone]. If after hours, contact your primary care physician or go to the hospital emergency room. Scribing Attestation I attest, as the nurse, that I scribed these orders for the physician. I've reviewed the clinician's documentation and agree with the evaluation and plan as written. In addition the patient's ulcers demonstrate evidence of non-viable devitalized tissue and they will continue to benefit from sharp debridement to help promote granulation and expedite healing. Electronic Signature(s) Signed By: Date: Rakesh Weathers MD 06/01/2018 06:43:39 Entered By: Rakesh Weathers on 05/31/2018 12:38:31
== END ==
PROVIDERS: PCP Student in an Organized Health Care Education/Training Program; Visit Provider Internal Medicine
DX: E11.621 Type 2 diabetes mellitus with foot ulcer (principal); L97.522 Non-pressure chronic ulcer of other part of left foot with fat layer exposed; L97.512 Non-pressure chronic ulcer of other part of right foot with fat layer exposed; L84 Corns and callosities
CPT/HCPCS: 11042; 97597

== ENCOUNTER → 2018-06-07 10:42 | Outpatient (CLI) | payer OTHER, SELFPAY ==
--- NOTE | 2018-06-07 | OV.WND_ITS ---
Progress Note Details Patient Name: Baljit Mckay Patient Number: [id number] PatientPatientDate: 06/07/2018 Clinician: Geeta Mullins Physician / Healthcare Liaison: Rakesh Weathers SUBJECTIVE Chief Complaint This information was obtained from the patient Diabetic ulcer to left great toe. Allergies NKDA HPI This information was obtained from the patient 06/07/18. Seen by Dr. Weathers. The patient reports he was more active over the past week at work and of note he experienced some pain in the right 1st toe upon removal of his dressing today. Otherwise he does not report increased drainage from either 1st toe diabetic ulcer and states his blood sugars continue to be well controlled. 05/31/18. Seen by Dr. Weathers. The patient does not report increased drainage or pain associated with the bilateral 1st toe diabetic ulcers since his last visit and he's increased is use of this SOUTH NAKNEK boots to better facilitate offloading. 05/27/18. Seen by Dr. Weathers. The patient does not report increased drainage or pain associated with the bilateral 1st toe diabetic ulcers since his last visit and he continues to be quite active with work making it difficult to adequately offload the ulcers. He also reports a chronic rash over the distal left lower leg that's been present for about one month. 05/20/18. Seen by Dr. Weathers. The patient does not report increased drainage or pain associated with the bilateral 1st toe diabetic ulcers since his last visit and he continues to be quite active with work and personal activities making it difficult to adequately offload the ulcers. His blood sugars remain well controlled and he's been advised to wear a SOUTH NAKNEK boot at all times on the left leg but has not been able to do this. 05/10/18. Seen by Flaco Henley PA-C. The patient reports a rash has developed on his leg under his SOUTH NAKNEK boot, but the rash has improved in the past few days as he has not been wearing the SOUTH NAKNEK boot. Drainage from his diabetic foot ulcers has not increased. 05/03/18. Seen by Dr. Weathers. The patient states he was at a conference this past weekend and forgot his left lower leg stocking that protects from his SOUTH NAKNEK boot rubbing the short. He started to notice an abrasion so stopped wearing the SOUTH NAKNEK boot and now feels the left 1st toe diabetic ulcer may have deteriorated and also it got wet in the shower this morning. He also notes some drainage at the site of the recently healed left 1st toe diabetic ulcer. He does not report pain at either site and his blood sugars are historically well controlled over the past 6 months. 04/26/18. Seen by Dr. Weathers. The patient reports being on his feet a lot over the past week at work but he'll be taking the next week off. 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 His culture last week grew MSSA and he's completed a course of doxycycline as of yesterday. He's also not been wearing this SOUTH NAKNEK boot or using a knee scooter due to his working more. 04/19/18. Seen by Dr. Weathers. The patient does not report pain associated with the chronic left 1st toe diabetic ulcer since his last visit however he was more active on it over the holiday weekend. The staff however report drainage on the dressing and a significant increase in callus from his last visit. His blood sugars continue to be well controlled around 120 and he's been advised to use his SOUTH NAKNEK boot when mobilizing and knee scooter as much as possible. 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 04/12/18. Seen by Dr. Weathers. The patient does not report drainage or pain associated with the great left foot diabetic ulcers since his last visit. 04/05/2018. Seen by Dr. Weathers. The patient is wearing his SOUTH NAKNEK boot on the left foot as much as possible to help offload the recurrent and chronic left 1st toe diabetic ulcer. He'll complete his course of doxycycline today that was started at his last for cellulitis of the toe and he's applying topical gentamicin as well. He does not report fevers or feeling unwell nor side effects of the antibiotics. 03/29/2018. Seen by Dr. Weathers. The patient reports some pain and increased drainage as well as redness and swelling of the left 1st toe over the past few days. He does not report fevers however nor other acute issues at this time. 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 03/22/2018. Seen by Dr. Weathers. The patient does not report drainage or pain associated with the great left foot diabetic ulcers since his last visit. He states however that he is not wearing his SOUTH NAKNEK boot to offload the sites on alternate days despite my recommendations last week. 03/15/18. Seen by Dr. Weathers. The patient has returned to full-time work schedule and feels may not be wearing his SOUTH NAKNEK boots as much as she should noting a significant increase in callus associated with bilateral first toe diabetic ulcers and associated pain. He does not report drainage associated with the ulcers however and we'll extended his visits out to 10 days. . Seen by Dr. Weathers. The patient does not report significant drainage associated with chronic left and right first toe diabetic ulcers since his last visit. He's not wearing his SOUTH NAKNEK boot currently to offload the left foot and has started using new orthotic inserts for his diabetic shoe noting the heavy callus may be due to the old othotics wearing down. 02/25/18. Seen by Dr. Weathers. The patient does not report significant drainage associated with chronic left first toe diabetic ulcer since his last visit. 02/18/18. Seen by Dr. Weathers. The patient does not report drainage associated with chronic right or left first toe diabetic ulcers since his last visit and he's applying topical gentamicin as recommended to treat the left 1st toe MSSA positive wound culture taken at the last visit. 02/11/18. Seen by Dr. Weathers. The patient returns due to recurrence of the left 1st toe diabetic ulcer that he states started about 1 week ago when he developing callus fell off and the toe started to drain. He was seen by Dr. Son, podiatry, who subsequently referred the patient back to our clinic. He does not report pain in the toe or fevers and he's wearing his SOUTH NAKNEK boot to help offload the site. He's also on Keflex but states a wound culture was not drawn. Of note, he reports callus has reformed over the recently healed right 1st toe diabetic ulcer also. His blood sugars continue to be well controlled with most below 150. 01/17/18. Seen by Flaco Henley PA-C. The patient reports no drainage from his right 1st toe diabetic ulcer since his last dressing change. 01/05/18. Seen by Dr. Weathers. 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 Of note, he also has a new wound over the dorsum of the right foot that occurred following a dog fight that occurred at home where he was stepped on and the dog's claws scratch the foot. He does not report significant pain or drainage associated with this wound. 12/29/17. Seen by Dr. Weathers. The patient does not report drainage or pain associated with the right first toe diabetic ulcers since his last visit. He is wearing his SOUTH NAKNEK boot as recommended and is asking if he will be able to return to work soon. 12/22/17. Seen by Dr. Weathers. The patient does not report increased drainage associated with a chronic right first toe diabetic ulcers since his last visit. 12/14/17. Seen by Dr. Weathers. The patient does not report increased drainage associated with a chronic right first toe diabetic ulcers since his last visit and he's wearing his SOUTH NAKNEK boot as recommended to offload the ulcer. 12/08/17. Seen by Dr. Weathers. The patient does not report increased drainage associated with a chronic right first toe diabetic ulcers since his last visit. Of note, he states he accidentally wore his left shoe with a sock in the end of the which may result in some bruising at the site of the recently healed first toe diabetic ulcer. 12/01/17. Seen by Dr. Weathers. The patient does not report significant drainage or pain associated with right first toe diabetic ulcer since his last visit. Of note, he 's also stopped applying Kersal to the callus surrounding the recently healed left 1st toe diabetic ulcer despite our recommendations to do so. 11/17/17. Seen by Dr. Weathers. The patient does not report significant drainage or pain associated with right first toe diabetic ulcer since his last visit. 11/10/17. Seen by Dr. Weathers. The patient does not report significant drainage or pain associated with bilateral first toe diabetic ulcers since his last visit. He's been offloading as recommended with both his SOUTH NAKNEK boots and a knee scooter. 11/03/17. Seen by Dr. Weathers. The patient does not report increased drainage or pain associated with bilateral first toe diabetic ulcers since last visit. 10/27/17. Seen by Dr. Weathers. The patient reports some increased pain and redness associated with the chronic right first toe diabetic ulcer. He does not report any new issues regarding the left of a foot ulcer and will pick pack worker his right foot point lay ira boot in the near future. He is also offloading with a new scooter as recommended 10/20/17. Seen by Dr. Weathers. The patient does not report increased drainage or pain associated with bilateral first toe diabetic ulcers since last visit. 10/13/17. Seen by Dr. Weathers. The patient does not report increased drainage or pain associated with bilateral first toe diabetic ulcers since last visit. Of note, he now has a knee scooter and his left SOUTH NAKNEK boot and feels the left 1st toe ulcer has improved significantly with the added offloading measures. 10/06/17. Seen by Dr. Weathers. The patient does not report increased drainage or pain associated with bilateral first toe diabetic ulcers since last visit. Of note, he now has a knee scooter that he's been using to offload the left foot for the past 2 days and he will receive his SOUTH NAKNEK boot on Wednesday. 09/29/17. Seen by Dr. Weathers. The patient states that while wearing his left foot offloading shoe he took a fall and feels that it may have traumatized the chronic left first toe diabetic ulcer. He does not report increased pain or drainage from the site nor the right first toe diabetic ulcers since his last visit and states his blood sugars continue to be mostly below 150. He is also awaiting delivery of the left foot point lay ira boot as well as his diabetic shoes. Of note, he also admits to being more active that he should be despite our recommendations to maximally offload both ulcers and has not been able to locate an offloading knee scooter as we've recommended. 09/22/17. Seen by Dr. Weathers. The patient does not report increased drainage associated with the bilateral 1st toe diabetic ulcers since his last visit and he's completed his course of doxycycline without reporting adverse side effects. He's also not yet seen his orthortist who will be fitting for at [employer] to offload the left foot ulcer as well as providing him with a pair of diabetic shoes. 09/15/17. Seen by Dr. Weathers. The patient's on doxycycline to treat a chronic wound infection of the left 1st toe and he does not report adverse side effects. He's wearing his offloading shoe on the foot as recommended and continues to limit his walking as much as possible. He does not report significant drainage or pain associated with either 1st toe diabetic ulcers and states he's going to schedule and appointment with an resizer operator today as we've been recommending. 09/06/17. Seen by Flaco Henley PA-C. The patient reports increased drainage and continued callous formation from his 1st toe diabetic ulcers. He continues to stay off his feet as much as possible and is working with his insurance company and [employer] to obtain a SOUTH NAKNEK offloading boot. 08/31/17. Seen by Flaco Henley PA-C. The patient reports he has been staying off his feet and has been away from work as instructed. He reports decreased drainage from his bilateral diabetic toe ulcers. 08/24/17. Seen by Dr. Weathers. The patient reports being more active over the past week despite being advised to limit his walking considerably to offload the bilateral first toe diabetic ulcers. He does not report increased drainage or pain associated with these ulcers. He also states he will be able to take another month off of work to further facilitate offloading of the ulcers. 08/17/17. Seen by Dr. Weathers. The patient has been offloading both left and right first toe diabetic ulcers for the past week and has taken the entire month of July off of work to better facilitate offloading. 08/10/17. Seen by Dr. Weathers. The patient has been offloading both left and right first toe diabetic ulcers for the past week as recommended and he does not report significant associated pain or drainage from either site. 08/03/17. Seen by Dr. Weathers. The patient has been offloading both left and right first toe diabetic ulcers for the past week and has taken the entire month of July off of work to better facilitate offloading. 07/23/17. Seen by Dr. Weathers. The patient does not report significant drainage associated with chronic bilateral left and right first toe diabetic ulcers since his last visit. He does not report any drainage associated with the left 1st MTPJ diabetic ulcer. 07/20/17. Seen by Dr. Weathers. The patient does not report pain nor significant drainage associated with chronic bilateral left and right first toe diabetic ulcers since his last visit. He is applying topical gentamicin as recommended to the ulcer bases to treat the recent wound infection. He does not report any drainage associated with the left 1st MTPJ diabetic ulcer. 07/16/17. Seen by Dr. Weathers. The patient states that he had a very busy past week in terms of festival and he was on his feet for extended periods. He has increased drainage and callus formation associated with both first toe diabetic ulcers since we last saw him however he does not report any increased drainage or problems regarding the left mid plantar foot diabetic ulcer. He does not report pain in the toes nor fever or feeling unwell. His blood sugars continue to be well controlled consistently below 150. 07/06/17. Seen by Dr. Weathers. The patient does not report pain nor significant drainage associated with chronic bilateral left and right first toe diabetic ulcers since his last visit. He is applying topical gentamicin as recommended in his recent wound culture grew MSSA. He also does not report pain nor drainage associated with the chronic left plantar foot diabetic ulcer. 06/29/17. Seen by Dr. Weathers. The patient reports some pain associated with both first toe diabetic ulcers since his last visit. He does not report increased drainage associated with these nor the left plantar foot diabetic ulcer. He's been seeing us every 2 weeks and feels that the callus formation in the interim has been quite significant. 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 He states his blood sugars are well controlled with most below 150. 7/. Seen by Dr. Weathers. The patient does not report pain nor significant drainage associated with the chronic bilateral first toe diabetic ulcers nor the left plantar foot diabetic ulcer since his last visit. 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 His blood sugars he states are well-controlled with most below 150. 7/10/08. Seen by Dr. Weathers. The patient does not report pain or increased drainage associated with the bilateral, chronic 1st toe diabetic ulcers since his last visit and he continues on doxycycline for the left 1st toe infection noted at his last visit. He does not report adverse side effects and states his blood sugars are mostly below 150. 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 Of note, he reports a new wound over the plantar surface of the left foot that started when he tried to remove a callus earlier this week. 05/18/17. Seen by Dr. Weathers. The patient reports some discomfort associated with the chronic left first toe diabetic ulcer over the past few days however he does not report pain nor increased drainage with the chronic right first toe diabetic ulcer. He continues to work an active job and is on his feet for extended periods however states that he may be able to decrease hours later in the summer. His blood sugars continue to be well controlled with most below 150. 05/12/17. Seen by Flaco Henley PA-C. The patient reports that his neuropathy is worse today with stabbing-type pains occurring in the arches of both feet and radiating to the lateral edges of his feet. He reports that walking on his feet exacerbate the pain and his recent medication change to Cymbalta has helped decrease the pain. He reports no increase in drainage from his bilateral 1st toe diabetic ulcers of the right and left feet. 05/05/17. Seen by Flaco Henley PA-C. The patient reports no increase in drainage from his bilateral 1st toe diabetic ulcers. 04/20/17. Seen by Dr. Weathers. The patient reports pain and drainage associated with the bilateral first toe diabetic ulcers is minimal over the past week and he'll complete his course of moxifloxacin today that's been treating a recent left 1st toe cellulitis. He continues to work a heavy schedule as on his feet for extended periods. He states his blood sugars continue to be mostly below 200. 5/. Seen by Dr. Weathers. The patient feels the pain and drainage associated with the bilateral first toe diabetic ulcers has improved since starting on antibiotics last week. He continues to work a heavy schedule as on his feet for extended periods. He states his blood sugars continue to be mostly below 200. 5/. Seen by Dr. Weathers. The patient reports some pain and increased drainage from the bilateral first toe diabetic ulcers over the past week. He's been working on his feet considerably more over the past few weeks and states his blood sugars are mostly below 200. 5/02/05. Seen by Flaco Henley PA-C. The patient reports good compliance with his diabetes footwear but he also notes blood sugars above 150 this week. Drainage has reportedly been decreasing from his diabetic ulcers of the right and left feet. 03/17/17. Seen by Dr. Weathers. The patient states he's stopped taking his SSRI that was treating the bilateral foot diabetic neuropathic pain as he felt it may have been contributing to his intermittent subjective fevers and chills. He does not report increased drainage or pain associated with the bilateral 1st toe diabetic ulcers since his last visit but states he's been on his feet more due to his job and an increase in tourism as the weather's improving. 02/26/17. Seen by Dr. Weathers. The patient reports increased pain and drainage associated with the left first toe diabetic ulcer but none with the right first toe diabetic ulcer. He's had some subjective fevers and chills for the last 2 weeks but states blood sugars continue to be well controlled with most below 150. 02/19/17. Seen by Dr. Weathers.The patient reports fatigue and intermittent chills but no documented fevers over the past few days. He does not report fevers nor other specific symptoms. He states that there has been no increase in drainage or pain associated with bilateral first diabetic ulcers since his last visit. His blood sugars continue to be mostly below 200. 02/05/17. Seen by Dr. Weathers. The patient does not report pain nor significant drainage associated with the chronic bilateral first toe diabetic ulcers over the past week. He continues applying topical gentamicin as recommended to treat the chronic and recurrent superficial staph infection. 01/29/17. Seen by Dr. Weathers. The patient reports minimal drainage and no pain associated with bilateral first toe diabetic ulcers since his last visit. He has completed his course of Keflex and does not report adverse side effects. He states blood sugars are mostly between 100 and 200.He continues to apply gentamicin ointment also as recommended. 01/22/17. Seen by Dr. Weathers. The patient returns to clinic for bilateral 1st toe diabetic ulcers that have become infected about a week ago and he was placed on Keflex by his PCP. He feels the drainage and redness are improving and he does not report pain in the toes. His blood sugars remain mostly below 150 and he continues to work on his feet a full-time schedule and states he wears his diabetic shoes at all times. 01/05/17. Seen by Flaco Henley PA-C. The patient reports some blood sugars this week above 150. No increase in ulcer drainage is reported today. 12/29/16 Seen by Flaco Henley PA-C. The patient reports stable drainage from his left foot non- pressure ulcer since his last evaluation. 12/22/16 Seen by Flaco Henley PA-C. The patient reports no increase in ulcer drainage from his left foot diabetic ulcer since his last visit. In addition he reports well controlled blood sugars. 12/15/16 Seen by Flaco Henley PA-C. The patient reports no increase in drainage from his left foot diabetic ulcer. His blood sugars have reportedly been below 150 this week but today is blood sugar is noted to be 152. 12/08/16. Seen by Dr. Weathers. The patient's now taking Augmentin for his recent Staph and E. coli positive wound culture taken from the chronic left 1st toe diabetic ulcer. The culture sensitivities however show intermediate sensitivity of the E. coli to Augmentin. The patient feels the toe pain and ulcer drainage have decreased considerably and he states his blood sugars are mostly below 150. He does not report fevers or adverse side effects from the Augmentin. Regarding the right 1st toe diabetic ulcer he does not report pain or significant drainage. 12/01/16 Seen by Flaco Henley PA-C. The patient reports that his left foot diabetic ulcer is much worse with a strong odor reported. 11/17/16 Seen by Flaco Henley PA-C. The patient reports that his blood sugar is likely elevated due to the holidays. He reports no increase in drainage from his DMII ulcers of the right or left 1st toes. 11/03/16. Seen by Dr. Weathers. The patient reports a new ulcer on the right 1st toe that started about one week ago following his attempt at removing a callus from the site. He states about 3 days ago the ulcer started draining fluid and the toe swelled and turned red. He 's not on antibiotics and does not report fevers or feeling unwell. Regarding his left 1st toe diabetic ulcer, he does not report significant drainage or pain. He states his blood sugars are improving with most below 150 now. 10/20/16. Seen by Dr. Weathers. The patient does not report significant drainage associated with the chronic left 1st toe diabetic ulcer since his last visit. He also states his blood sugars still tend to be over 150 and sometimes in the 200's.He also continues to apply gentamcin for the MSSA positive wound culture taken from the ulcer recently. 10/13/16. Seen by Dr. Weathers. The patient does not report significant drainage associated with the chronic left 1st toe diabetic ulcer since his last visit and he continues applyin gentamcin for the MSSA positive wound culture taken from the ulcer. His blood sugars continue to be above 150 fairly frequently however he notes since decreasing his chronic alcohol intake his glucose seems to be easier to control. 10/06/16 Seen by Flaco Henley PA-C. The patient reports that his neuropathy is severe today. It is described as an intermittent burning/shooting pain, that comes and goes but does not radiate and is centered on his left lateral foot. He does not report any associated changes to his chronic left 1st toe diabetic ulcer such as increased drainage. 09/29/16. Seen by Dr. Weathers. The patient does not report significant drainage associated with the chronic left 1st toe diabetic ulcer since his last visit and he continues on doxycycline for the MSSA positive wound culture taken from the ulcer. He feels the toe redness and swelling have improved since starting antibiotics. He also reports significant improvement in the left foot neuropathic pain since starting on a new antidepressant. 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 His blood sugar is over 200 today and he states its typically been between 100 and 200 although he's not been checking it for the past few days since his glucometer is no working. 09/15/16 Seen by Flaco Henley PA-C. The patient reports decreased neuropathic pain in his LLE and has recently started a new antidepressant medication for this issue though he does not recall the name of the medication. His ulcer drainage has been stable since his last evaluation. 09/01/16. Seen by Dr. Weathers. The patient does not report significant drainage associated with the chronic left 1st toe diabetic ulcer. He does state however his left lateral foot neuropathic pain is increasing and he's working with GAMAL Carter, pain specialist, to address this issue. He also states his blood sugars are typically between 100 to 200. 08/25/16 Seen by Flaco Henley PA-C. The patient reports continued left foot neuropathic pain. He has a pending appointment with Jethro Meehan at the pain clinic for this. His diabetic foot ulcer has resumed draining in the past few days after being closed. 08/18/16 Seen by Flaco Henley PA-C. The patient reports that he has had no drainage from his left 1st toe ulcer since his last evaluation. 08/11/16 Seen by Flaco Henley PA-C. The patient reports that he now has a prescription for lyrica and a schedule to taper off his gabapentin. He has not started taking lyrica though notes that his neuropathic pain is improved this week. His ulcer has had decreased drainage. 08/03/16 Seen by Flaco Henley PA-C. The patient reports that his left leg neuropathic pain, which has been present for months, has decreased in severity recently but still reaches 6/10. It is described as intermittent, non-radiating and stabbing/burning. His left 1st toe ulcer has had stable drainage by his report. 07/28/16 Seen by Flaco Henley PA-C. The patient reports very little drainage from his left 1st toe diabetic ulcer. He does report that his neuropathic pain has worsened and he is using alcohol at times as a painkiller. He has an upcoming appointment with Dr. Son, who has been addressing this issue and he asks about the referral to Jethro Meehan. 07/20/16. Seen by Dr. Weathers. The patient does not report significant drainage associated with the chronic left 1st toe diabetic ulcer over the past week. He states he's seen Dr. Son regarding his diabetic neuropathy in the past but has not discussed the recurrent toe ulcer. He also states he 'walks on this toes' and has been told by other providers in the past his Achilles tendon is 'short'. 07/13/[address] Weathers. The patient states he's been more active over the past few weeks with his job however does not report increased drainage or pain associated with the chronic left 1st toe diabetic ulcer. He's wearing his diabetic shoes as recommended and states his blood sugars have been a bit elevated between 150 and 200 over the past week due to non- compliance with his routine diabetic meal plan. 06/22/[address] Weathers. The patient feels the drainage and left 1st toe erythema have improved considerably since his last visit and he continues on Zyvox that was started during his recent admission for cellulitis associated with the toe ulcer. He states his blood sugars are now mostly below 150 and he's wearing diabetic shoes but not necessarily offloading the toe. 09/12/[address] Weathers. The patient has had his TCC off for the past week and he does not report drainage from the left 1st toe diabetic foot ulcer. His blood sugars are also mostly between 150 and 180. 09/06/[address] Weathers. The patient does not report any problems regarding his left diabetic foot ulcer nor the TCC he's worn since his last visit. His blood sugars are typically between 150 and 200 which is an improvement historically. 06/18/15 Seen by Flaco Henley PA-C. The patient has had no drainage from his wounds since his last visit. 06/11/15 Seen by Flaco Henley PA-C. The patient has had a particularly long work week and has been on his feet a lot. He has been using his diabetic shoes and recently modified inserts. 06/07/[address] Weathers. The patient has two new ulcers on the plantar surface of the right foot and on the left toe that were first noticed about 3 days ago after being on his feet at work for an extended period. He feels they may have occurred as a result of his orthotics not fitting properly. He does not report pain or swelling but does note some redness with clear yellow drainage from the right ulcer. He states his blood sugars are mostly below 150 with a few around 180 and he continues to try to loose weight to help manage his diabetes. 05/20/[address] Weathers. The patient does not report drainage from the left toe ulcer and tolerated the TCC without difficulties. 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 05/08/15 Seen by Flaco Henley PA-C. The patient is here today to have a TCC placed. He continues to try and stay off his feet and has not yet returned to work. 05/06/15 Seen by Flaco Henley PA-C. The patient has been off loading his feet using his off loading boots and sitting at home as well as not working. He continues on his antibiotics. 05/02/15 Seen by Flaco Henley PA-C. The patient continues to take time off work and be sedentary in order to offload his feet. He has been applying kerisol to the callouses on his right and left great toes and hydrogel to the wounds. He took his last dose of Augmentin today and reports decreased drainage from the left great toe diabetic ulcer and minimal drainage from the right great toe diabetic ulcer. His feet are sometimes painful but this has decreased since last visit. Blood sugars are running 150-180s in the AM. 04/26/[address] Weathers. The patient does not report increased drainage associated with the bilateral 1st toe diabetic ulcers. He feels the right leg cellulitis is much improved since starting Augmentin and he's been offloading with a cane and my taking time off of work to stay off his feet. His blood sugars are below 150 and he takes only metformin for diabetes. Past Medical History This information was obtained from the patient Patient has a medical history of: Type II Diabetes Diabetic foot ulcers (bilateral 1st toes; Hector grade II) Hyperlipidemia Chronic pain (neuropathic; left lateral foot) Depression Complaints and Symptoms This information was obtained from the patient Patient complains of: General Notes: I have reviewed and concur with the Review of Systems and Past Family Social History documents completed by the clinician, I have reviewed and concur with the Wound Assessment document completed by the clinician Integumentary (Hair/Skin/Nails): Open Sore Musculoskeletal: Assistive Devices, Deformities Neurological: Abnormal Gait, Loss of Protective Sensation Prior Wound History: Drainage, Erythema, Pain Patient denies complaints or symptoms related to: Cardiovascular (Central/Peripheral): Intermittent Claudication, Lower extremity (leg) resting pain, Lower extremity (leg) swelling Constitutional Symptoms (General Health): Chills, Fever Ear/Nose/Mouth/Throat: Hearing Loss / Aid Gastrointestinal (GI): Nausea / Vomiting, Stomach/abdominal pain Hematologic/Lymphatic: Bleeding / Clotting Disorders, Bleeding Tendency Prior Wound History: Bleeding, Malodor Respiratory: Oxygen Use, Shortness of Breath OBJECTIVE Constitutional Vital signs reviewed and noted. Well developed. Alert. Clean appearing.. Height/ Length: 76 in (193.04 cm), Weight: 263.5 lbs (119.77 kgs), BMI: 32.1, Temperature: 97.4 ?F ( 36.33 ?C), Pulse: 77 bpm, Respiratory Rate: 18 breaths/min, Blood Pressure: 118/79 mmHg, Capillary Blood Glucose: 107 mg/dl, Pulse Oximetry: 97 %. Vital Signs Notes: Glucose per patient. Ears, Nose, Mouth, and Throat: No clinically significant hearing loss on informal examination. Respiratory: No respiratory distress. Even respirations and without use of accessory muscles.. Cardiovascular: Affected extremity exhibits no peripheral edema or cyanosis, is warm, and is well perfused. Capillary refill is less than 2 seconds. Gastrointestinal (GI): Obese. Nondistended.. Integumentary (Hair, Skin) Mild periwound erythema without warmth. Refer to appropriate clinician wound documentation for this visit; right and left foot ulcers extend to subcut with bases partially covered with pink granulation, remainder fibrin and slough. Maceration and callus present in the periwound areas. Wound #9 Left Great Toe is a chronic Hector Grade 2 Diabetic Ulcer and has received a status of Not Healed. Subsequent wound encounter measurements are 1cm length x 0.2cm width x 0.3cm depth, with an area of 0.2 sq cm and a volume of 0.06 cubic cm. No tunneling has been noted. No sinus tract has been noted. No undermining has been noted. There is a moderate amount of sanguineous drainage noted which has no odor. The patient reports a wound pain of level 0/10. The wound margin is callus. Wound bed has No epithelialization, No eschar, No slough, Yes bright red, pink, firm granulation. The periwound skin color is normal. The periwound skin exhibited: Callus. The periwound skin did not exhibit: Brawny Induration, Edema, Excoriation, Induration, Crepitus, Fluctuance, Friable, Rash, Dry/Scaly, Moist, Maceration. The temperature of the periwound skin is WNL. Periwound skin does not exhibit signs or symptoms of infection. Local Pulse is Palpable. Wound #10 Right Great Toe is a chronic Hector Grade 2 Diabetic Ulcer and has received a status of Not Healed. Subsequent wound encounter measurements are 1.5cm length x 1cm width x 0.1cm depth, with an area of 1.5 sq cm and a volume of 0.15 cubic cm. No tunneling has been noted. No sinus tract has been noted. No undermining has been noted. There is a moderate amount of serous drainage noted which has no odor. The patient reports a wound pain of level 0/10. The wound margin is callus. Wound bed has No epithelialization, No eschar, Yes slough, No granulation. The periwound skin moisture is normal. The periwound skin color is normal. The periwound skin exhibited: Callus. The periwound skin did not exhibit: Brawny Induration, Edema, Excoriation, Induration, Crepitus, Fluctuance, Friable, Rash. The temperature of the periwound skin is WNL. Periwound skin does not exhibit signs or symptoms of infection. Local Pulse is Palpable. General Notes: Dark area of callus measured. Neurological: Cranial nerves grossly intact with symmetric function normal by informal observation.. ASSESSMENT Active Problems ICD-10 (Encounter Diagnosis) E11.621 - Type 2 diabetes mellitus with foot ulcer (Encounter Diagnosis) L97.522 - Non-pressure chronic ulcer of other part of left foot with fat layer exposed (Encounter Diagnosis) L97.511 - Non-pressure chronic ulcer of other part of right foot limited to breakdown of skin PROCEDURES Wound #9 Wound #9 (Diabetic Ulcer) is located on the left great toe. A skin/subcutaneous tissue level surgical debridement with a total area debrided of 0.2 sq cm was performed by Rakesh Weathers MD. Subcutaneous was removed along with devitalized tissue: callus and slough. The following instrument(s) were used: curette. Pain control was achieved using 4% Lido. A time out was conducted prior to the start of the procedure. A minimal amount of bleeding was controlled with silver nitrate. The procedure was tolerated well with a pain level of 0 throughout and a pain level of 0 following the procedure. Post Debridement Measurements: 1cm length x 0.2cm width x 0.4cm depth; with an area of 0.2 sq cm and a volume of 0.08 cubic cm; Wound #10 Wound #10 (Diabetic Ulcer) is located on the right great toe. A selective debridement with a total area debrided of 1.1 sq cm was performed by Rakesh Weathers MD. to remove devitalized tissue: callus and exudate. The following instrument(s) were used: curette. Pain control was achieved using 4% Lido. A time out was conducted prior to the start of the procedure. No bleeding occurred. The procedure was tolerated well with a pain level of 0 throughout and a pain level of 0 following the procedure. Post Debridement Measurements: 1cm length x 1.1cm width x 0.1cm depth; with an area of 1.1 sq cm and a volume of 0.11 cubic cm; PLAN Wound Orders: Wound #9 Left Great Toe Anesthetic Topical Xylocaine to wound bed. - In clinic only. Cleanser Cleanse Wound: - Normal saline and gauze. May Shower. - Please cover in shower, may use cast protector or plastic bag and tape. Topical Treatments Antibiotic/Antimicrobial Ointment/Cream. - Gentamicin to wound base. Dressings Cover and secure with: - Foam secured with tape. Change Dressing: - Daily. Wound #10 Right Great Toe Anesthetic Topical Xylocaine to wound bed. - In clinic only. Cleanser Cleanse Wound: - Normal saline and gauze. May Shower. - Please cover in shower, may use cast protector or plastic bag and tape. Dressings Cover and secure with: - Foam secured with tape. Change Dressing: - Daily. Additional Orders: Dressings Cover and secure with: - Foam secured with tape. Change Dressing: - Daily. Off-Loading Keep weight off: - Left foot as much as possible. Use/Wear when Walking: - Hopi boot, Knee scooter. Follow-Up Appointments Return Appointment: - - One week. Other information: If you develop fever, chills, increased pain, drainage, redness or swelling please call our office. If after hours, respond to the ER. Should you experience any significant changes in your wound(s) or have any questions regarding your home care instructions please contact the wound center @ [phone]. If after hours, contact your primary care physician or go to the hospital emergency room. Scribing Attestation I attest, as the nurse, that I scribed these orders for the physician. I've reviewed the clinician's documentation and agree with the evaluation and plan as written. In addition the patient's ulcers demonstrate evidence of non-viable devitalized tissue and they will continue to benefit from sharp debridement to help promote granulation and expedite healing. Electronic Signature(s) Signed By: Date: Rakesh Weathers MD 06/08/2018 07:05:31 Entered By: Rakesh Weathers on 06/07/2018 13:12:45
== END ==
PROVIDERS: PCP Student in an Organized Health Care Education/Training Program; Visit Provider Internal Medicine
DX: E11.621 Type 2 diabetes mellitus with foot ulcer (principal); L97.522 Non-pressure chronic ulcer of other part of left foot with fat layer exposed; L97.511 Non-pressure chronic ulcer of other part of right foot limited to breakdown of skin
CPT/HCPCS: 11042; 87070; 87075; 87077; 87147; 87186; 87205; 97597

== ENCOUNTER → 2018-06-14 10:12 | Outpatient (CLI) | payer OTHER, SELFPAY ==
--- NOTE | 2018-06-14 | OV.WND_ITS ---
Progress Note Details Patient Name: Baljit Mckay Patient Number: [id number] PatientPatientDate: 06/14/2018 Clinician: Yareli De León Clinician Cosigner: Geeta Mullins Physician / Field Insurance Sales Manager: Rakesh Weathers SUBJECTIVE Chief Complaint This information was obtained from the patient Diabetic ulcer to left great toe. Allergies [facility] This information was obtained from the patient 06/14/18. Seen by Dr. Weathers. The patient does not report increased drainage or significant pain associated with the bilateral 1st toe diabetic ulcers since his last visit. 06/07/18. Seen by Dr. Weathers. The patient reports he was more active over the past week at work and of note he experienced some pain in the right 1st toe upon removal of his dressing today. Otherwise he does not report increased drainage from either 1st toe diabetic ulcer and states his blood sugars continue to be well controlled. 05/31/18. Seen by Dr. Weathers. The patient does not report increased drainage or pain associated with the bilateral 1st toe diabetic ulcers since his last visit and he's increased is use of this POARCH boots to better facilitate offloading. 05/27/18. Seen by Dr. Weathers. The patient does not report increased drainage or pain associated with the bilateral 1st toe diabetic ulcers since his last visit and he continues to be quite active with work making it difficult to adequately offload the ulcers. He also reports a chronic rash over the distal left lower leg that's been present for about one month. 05/20/18. Seen by Dr. Weathers. The patient does not report increased drainage or pain associated with the bilateral 1st toe diabetic ulcers since his last visit and he continues to be quite active with work and personal activities making it difficult to adequately offload the ulcers. His blood sugars remain well controlled and he's been advised to wear a POARCH boot at all times on the left leg but has not been able to do this. 05/10/18. Seen by Flaco York PA-C. The patient reports a rash has developed on his leg under his POARCH boot, but the rash has improved in the past few days as he has not been wearing the POARCH boot. Drainage from his diabetic foot ulcers has not increased. 05/03/18. Seen by Dr. Weathers. The patient states he was at a conference this past weekend and forgot his left lower leg stocking that protects from his POARCH boot rubbing the short. He started to notice an abrasion so stopped wearing the POARCH boot and now feels the left 1st toe diabetic ulcer may have deteriorated and also it got wet in the shower this morning. He also notes some drainage at the site of the recently healed left 1st toe diabetic ulcer. He does not report pain at either site and his blood sugars are historically well controlled over the past 6 months. 04/26/18. Seen by Dr. Weathers. The patient reports being on his feet a lot over the past week at work but he'll be taking the next week off. 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 His culture last week grew MSSA and he's completed a course of doxycycline as of yesterday. He's also not been wearing this POARCH boot or using a knee scooter due to his working more. 04/19/18. Seen by Dr. Weathers. The patient does not report pain associated with the chronic left 1st toe diabetic ulcer since his last visit however he was more active on it over the holiday weekend. The staff however report drainage on the dressing and a significant increase in callus from his last visit. His blood sugars continue to be well controlled around 120 and he's been advised to use his POARCH boot when mobilizing and knee scooter as much as possible. 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 04/12/18. Seen by Dr. Weathers. The patient does not report drainage or pain associated with the great left foot diabetic ulcers since his last visit. 04/05/2018. Seen by Dr. Weathers. The patient is wearing his POARCH boot on the left foot as much as possible to help offload the recurrent and chronic left 1st toe diabetic ulcer. He'll complete his course of doxycycline today that was started at his last for cellulitis of the toe and he's applying topical gentamicin as well. He does not report fevers or feeling unwell nor side effects of the antibiotics. 03/29/2018. Seen by Dr. Weathers. The patient reports some pain and increased drainage as well as redness and swelling of the left 1st toe over the past few days. He does not report fevers however nor other acute issues at this time. 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 03/22/2018. Seen by Dr. Weathers. The patient does not report drainage or pain associated with the great left foot diabetic ulcers since his last visit. He states however that he is not wearing his POARCH boot to offload the sites on alternate days despite my recommendations last week. 03/15/18. Seen by Dr. Weathers. The patient has returned to full-time work schedule and feels may not be wearing his POARCH boots as much as she should noting a significant increase in callus associated with bilateral first toe diabetic ulcers and associated pain. He does not report drainage associated with the ulcers however and we'll extended his visits out to 10 days. . Seen by Dr. Weathers. The patient does not report significant drainage associated with chronic left and right first toe diabetic ulcers since his last visit. He's not wearing his POARCH boot currently to offload the left foot and has started using new orthotic inserts for his diabetic shoe noting the heavy callus may be due to the old othotics wearing down. 02/25/18. Seen by Dr. Weathers. The patient does not report significant drainage associated with chronic left first toe diabetic ulcer since his last visit. 02/18/18. Seen by Dr. Weathers. The patient does not report drainage associated with chronic right or left first toe diabetic ulcers since his last visit and he's applying topical gentamicin as recommended to treat the left 1st toe MSSA positive wound culture taken at the last visit. 02/11/18. Seen by Dr. Weathers. The patient returns due to recurrence of the left 1st toe diabetic ulcer that he states started about 1 week ago when he developing callus fell off and the toe started to drain. He was seen by Dr. Son, podiatry, who subsequently referred the patient back to our clinic. He does not report pain in the toe or fevers and he's wearing his POARCH boot to help offload the site. He's also on Keflex but states a wound culture was not drawn. Of note, he reports callus has reformed over the recently healed right 1st toe diabetic ulcer also. His blood sugars continue to be well controlled with most below 150. 01/17/18. Seen by Flaco Henley PA-C. The patient reports no drainage from his right 1st toe diabetic ulcer since his last dressing change. 01/05/18. Seen by Dr. Weathers. 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 Of note, he also has a new wound over the dorsum of the right foot that occurred following a dog fight that occurred at home where he was stepped on and the dog's claws scratch the foot. He does not report significant pain or drainage associated with this wound. 12/29/17. Seen by Dr. Weathers. The patient does not report drainage or pain associated with the right first toe diabetic ulcers since his last visit. He is wearing his POARCH boot as recommended and is asking if he will be able to return to work soon. 12/22/17. Seen by Dr. Weathers. The patient does not report increased drainage associated with a chronic right first toe diabetic ulcers since his last visit. 12/14/17. Seen by Dr. Weathers. The patient does not report increased drainage associated with a chronic right first toe diabetic ulcers since his last visit and he's wearing his POARCH boot as recommended to offload the ulcer. 12/08/17. Seen by Dr. Weathers. The patient does not report increased drainage associated with a chronic right first toe diabetic ulcers since his last visit. Of note, he states he accidentally wore his left shoe with a sock in the end of the which may result in some bruising at the site of the recently healed first toe diabetic ulcer. 12/01/17. Seen by Dr. Weathers. The patient does not report significant drainage or pain associated with right first toe diabetic ulcer since his last visit. Of note, he 's also stopped applying Kersal to the callus surrounding the recently healed left 1st toe diabetic ulcer despite our recommendations to do so. 11/17/17. Seen by Dr. Weathers. The patient does not report significant drainage or pain associated with right first toe diabetic ulcer since his last visit. 11/10/17. Seen by Dr. Weathers. The patient does not report significant drainage or pain associated with bilateral first toe diabetic ulcers since his last visit. He's been offloading as recommended with both his POARCH boots and a knee scooter. 11/03/17. Seen by Dr. Weathers. The patient does not report increased drainage or pain associated with bilateral first toe diabetic ulcers since last visit. 10/27/17. Seen by Dr. Weathers. The patient reports some increased pain and redness associated with the chronic right first toe diabetic ulcer. He does not report any new issues regarding the left of a foot ulcer and will bulk picker his right foot lac vieux boot in the near future. He is also offloading with a new scooter as recommended 10/20/17. Seen by Dr. Weathers. The patient does not report increased drainage or pain associated with bilateral first toe diabetic ulcers since last visit. 10/13/17. Seen by Dr. Weathers. The patient does not report increased drainage or pain associated with bilateral first toe diabetic ulcers since last visit. Of note, he now has a knee scooter and his left POARCH boot and feels the left 1st toe ulcer has improved significantly with the added offloading measures. 10/06/17. Seen by Dr. Weathers. The patient does not report increased drainage or pain associated with bilateral first toe diabetic ulcers since last visit. Of note, he now has a knee scooter that he's been using to offload the left foot for the past 2 days and he will receive his POARCH boot on Wednesday. 09/29/17. Seen by Dr. Weathers. The patient states that while wearing his left foot offloading shoe he took a fall and feels that it may have traumatized the chronic left first toe diabetic ulcer. He does not report increased pain or drainage from the site nor the right first toe diabetic ulcers since his last visit and states his blood sugars continue to be mostly below 150. He is also awaiting delivery of the left foot lac vieux boot as well as his diabetic shoes. Of note, he also admits to being more active that he should be despite our recommendations to maximally offload both ulcers and has not been able to locate an offloading knee scooter as we've recommended. 09/22/17. Seen by Dr. Weathers. The patient does not report increased drainage associated with the bilateral 1st toe diabetic ulcers since his last visit and he's completed his course of doxycycline without reporting adverse side effects. He's also not yet seen his orthortist who will be fitting for at POARCH boot to offload the left foot ulcer as well as providing him with a pair of diabetic shoes. 09/15/17. Seen by Dr. Weathers. The patient's on doxycycline to treat a chronic wound infection of the left 1st toe and he does not report adverse side effects. He's wearing his offloading shoe on the foot as recommended and continues to limit his walking as much as possible. He does not report significant drainage or pain associated with either 1st toe diabetic ulcers and states he's going to schedule and appointment with an hand sewer today as we've been recommending. 09/06/17. Seen by Flaco Henley PA-C. The patient reports increased drainage and continued callous formation from his 1st toe diabetic ulcers. He continues to stay off his feet as much as possible and is working with his insurance company and [employer] to obtain a POARCH offloading boot. 08/31/17. Seen by Flaco Henley PA-C. The patient reports he has been staying off his feet and has been away from work as instructed. He reports decreased drainage from his bilateral diabetic toe ulcers. 08/24/17. Seen by Dr. Weathers. The patient reports being more active over the past week despite being advised to limit his walking considerably to offload the bilateral first toe diabetic ulcers. He does not report increased drainage or pain associated with these ulcers. He also states he will be able to take another month off of work to further facilitate offloading of the ulcers. 08/17/17. Seen by Dr. Weathers. The patient has been offloading both left and right first toe diabetic ulcers for the past week and has taken the entire month of July off of work to better facilitate offloading. 08/10/17. Seen by Dr. Weathers. The patient has been offloading both left and right first toe diabetic ulcers for the past week as recommended and he does not report significant associated pain or drainage from either site. 08/03/17. Seen by Dr. Weathers. The patient has been offloading both left and right first toe diabetic ulcers for the past week and has taken the entire month of July off of work to better facilitate offloading. 07/23/17. Seen by Dr. Weathers. The patient does not report significant drainage associated with chronic bilateral left and right first toe diabetic ulcers since his last visit. He does not report any drainage associated with the left 1st MTPJ diabetic ulcer. 07/20/17. Seen by Dr. Weathers. The patient does not report pain nor significant drainage associated with chronic bilateral left and right first toe diabetic ulcers since his last visit. He is applying topical gentamicin as recommended to the ulcer bases to treat the recent wound infection. He does not report any drainage associated with the left 1st MTPJ diabetic ulcer. 07/16/17. Seen by Dr. Weathers. The patient states that he had a very busy past week in terms of festival and he was on his feet for extended periods. He has increased drainage and callus formation associated with both first toe diabetic ulcers since we last saw him however he does not report any increased drainage or problems regarding the left mid plantar foot diabetic ulcer. He does not report pain in the toes nor fever or feeling unwell. His blood sugars continue to be well controlled consistently below 150. 07/06/17. Seen by Dr. Weathers. The patient does not report pain nor significant drainage associated with chronic bilateral left and right first toe diabetic ulcers since his last visit. He is applying topical gentamicin as recommended in his recent wound culture grew MSSA. He also does not report pain nor drainage associated with the chronic left plantar foot diabetic ulcer. 06/29/17. Seen by Dr. Weathers. The patient reports some pain associated with both first toe diabetic ulcers since his last visit. He does not report increased drainage associated with these nor the left plantar foot diabetic ulcer. He's been seeing us every 2 weeks and feels that the callus formation in the interim has been quite significant. 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 He states his blood sugars are well controlled with most below 150. 7/. Seen by Dr. Weathers. The patient does not report pain nor significant drainage associated with the chronic bilateral first toe diabetic ulcers nor the left plantar foot diabetic ulcer since his last visit. 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 His blood sugars he states are well-controlled with most below 150. 7/10/08. Seen by Dr. Weathers. The patient does not report pain or increased drainage associated with the bilateral, chronic 1st toe diabetic ulcers since his last visit and he continues on doxycycline for the left 1st toe infection noted at his last visit. He does not report adverse side effects and states his blood sugars are mostly below 150. 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 Of note, he reports a new wound over the plantar surface of the left foot that started when he tried to remove a callus earlier this week. 05/18/17. Seen by Dr. Weathers. The patient reports some discomfort associated with the chronic left first toe diabetic ulcer over the past few days however he does not report pain nor increased drainage with the chronic right first toe diabetic ulcer. He continues to work an active job and is on his feet for extended periods however states that he may be able to decrease hours later in the summer. His blood sugars continue to be well controlled with most below 150. 05/12/17. Seen by Flaco Henley PA-C. The patient reports that his neuropathy is worse today with stabbing-type pains occurring in the arches of both feet and radiating to the lateral edges of his feet. He reports that walking on his feet exacerbate the pain and his recent medication change to Cymbalta has helped decrease the pain. He reports no increase in drainage from his bilateral 1st toe diabetic ulcers of the right and left feet. 05/05/17. Seen by Flaco Henley PA-C. The patient reports no increase in drainage from his bilateral 1st toe diabetic ulcers. 04/20/17. Seen by Dr. Weathers. The patient reports pain and drainage associated with the bilateral first toe diabetic ulcers is minimal over the past week and he'll complete his course of moxifloxacin today that's been treating a recent left 1st toe cellulitis. He continues to work a heavy schedule as on his feet for extended periods. He states his blood sugars continue to be mostly below 200. 04/14/17. Seen by Dr. Weathers. The patient feels the pain and drainage associated with the bilateral first toe diabetic ulcers has improved since starting on antibiotics last week. He continues to work a heavy schedule as on his feet for extended periods. He states his blood sugars continue to be mostly below 200. 04/07/17. Seen by Dr. Weathers. The patient reports some pain and increased drainage from the bilateral first toe diabetic ulcers over the past week. He's been working on his feet considerably more over the past few weeks and states his blood sugars are mostly below 200. 03/24/17. Seen by Flaco Henley PA-C. The patient reports good compliance with his diabetes footwear but he also notes blood sugars above 150 this week. Drainage has reportedly been decreasing from his diabetic ulcers of the right and left feet. 03/17/17. Seen by Dr. Weathers. The patient states he's stopped taking his SSRI that was treating the bilateral foot diabetic neuropathic pain as he felt it may have been contributing to his intermittent subjective fevers and chills. He does not report increased drainage or pain associated with the bilateral 1st toe diabetic ulcers since his last visit but states he's been on his feet more due to his job and an increase in tourism as the weather's improving. 02/26/17. Seen by Dr. Weathers. The patient reports increased pain and drainage associated with the left first toe diabetic ulcer but none with the right first toe diabetic ulcer. He's had some subjective fevers and chills for the last 2 weeks but states blood sugars continue to be well controlled with most below 150. 02/19/17. Seen by Dr. Weathers.The patient reports fatigue and intermittent chills but no documented fevers over the past few days. He does not report fevers nor other specific symptoms. He states that there has been no increase in drainage or pain associated with bilateral first diabetic ulcers since his last visit. His blood sugars continue to be mostly below 200. 02/05/17. Seen by Dr. Weathers. The patient does not report pain nor significant drainage associated with the chronic bilateral first toe diabetic ulcers over the past week. He continues applying topical gentamicin as recommended to treat the chronic and recurrent superficial staph infection. 01/29/17. Seen by Dr. Weathers. The patient reports minimal drainage and no pain associated with bilateral first toe diabetic ulcers since his last visit. He has completed his course of Keflex and does not report adverse side effects. He states blood sugars are mostly between 100 and 200.He continues to apply gentamicin ointment also as recommended. 01/22/17. Seen by Dr. Weathers. The patient returns to clinic for bilateral 1st toe diabetic ulcers that have become infected about a week ago and he was placed on Keflex by his PCP. He feels the drainage and redness are improving and he does not report pain in the toes. His blood sugars remain mostly below 150 and he continues to work on his feet a full-time schedule and states he wears his diabetic shoes at all times. 01/05/17. Seen by Flaco Henley PA-C. The patient reports some blood sugars this week above 150. No increase in ulcer drainage is reported today. 12/29/16 Seen by Flaco Henley PA-C. The patient reports stable drainage from his left foot non- pressure ulcer since his last evaluation. 12/22/16 Seen by Flaco Henley PA-C. The patient reports no increase in ulcer drainage from his left foot diabetic ulcer since his last visit. In addition he reports well controlled blood sugars. 12/15/16 Seen by Flaco Henley PA-C. The patient reports no increase in drainage from his left foot diabetic ulcer. His blood sugars have reportedly been below 150 this week but today is blood sugar is noted to be 152. 12/08/16. Seen by Dr. Weathers. The patient's now taking Augmentin for his recent Staph and E. coli positive wound culture taken from the chronic left 1st toe diabetic ulcer. The culture sensitivities however show intermediate sensitivity of the E. coli to Augmentin. The patient feels the toe pain and ulcer drainage have decreased considerably and he states his blood sugars are mostly below 150. He does not report fevers or adverse side effects from the Augmentin. Regarding the right 1st toe diabetic ulcer he does not report pain or significant drainage. 12/01/16 Seen by Flaco Henley PA-C. The patient reports that his left foot diabetic ulcer is much worse with a strong odor reported. 11/17/16 Seen by Flaco Henley PA-C. The patient reports that his blood sugar is likely elevated due to the holidays. He reports no increase in drainage from his DMII ulcers of the right or left 1st toes. 11/03/16. Seen by Dr. Weathers. The patient reports a new ulcer on the right 1st toe that started about one week ago following his attempt at removing a callus from the site. He states about 3 days ago the ulcer started draining fluid and the toe swelled and turned red. He 's not on antibiotics and does not report fevers or feeling unwell. Regarding his left 1st toe diabetic ulcer, he does not report significant drainage or pain. He states his blood sugars are improving with most below 150 now. 10/20/16. Seen by Dr. Weathers. The patient does not report significant drainage associated with the chronic left 1st toe diabetic ulcer since his last visit. He also states his blood sugars still tend to be over 150 and sometimes in the 200's.He also continues to apply gentamcin for the MSSA positive wound culture taken from the ulcer recently. 10/13/16. Seen by Dr. Weathers. The patient does not report significant drainage associated with the chronic left 1st toe diabetic ulcer since his last visit and he continues applyin gentamcin for the MSSA positive wound culture taken from the ulcer. His blood sugars continue to be above 150 fairly frequently however he notes since decreasing his chronic alcohol intake his glucose seems to be easier to control. 10/06/16 Seen by Flaco Henley PA-C. The patient reports that his neuropathy is severe today. It is described as an intermittent burning/shooting pain, that comes and goes but does not radiate and is centered on his left lateral foot. He does not report any associated changes to his chronic left 1st toe diabetic ulcer such as increased drainage. 09/29/16. Seen by Dr. Weathers. The patient does not report significant drainage associated with the chronic left 1st toe diabetic ulcer since his last visit and he continues on doxycycline for the MSSA positive wound culture taken from the ulcer. He feels the toe redness and swelling have improved since starting antibiotics. He also reports significant improvement in the left foot neuropathic pain since starting on a new antidepressant. 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 His blood sugar is over 200 today and he states its typically been between 100 and 200 although he's not been checking it for the past few days since his glucometer is no working. 09/15/16 Seen by Flaco Henley PA-C. The patient reports decreased neuropathic pain in his LLE and has recently started a new antidepressant medication for this issue though he does not recall the name of the medication. His ulcer drainage has been stable since his last evaluation. 09/01/16. Seen by Dr. Weathers. The patient does not report significant drainage associated with the chronic left 1st toe diabetic ulcer. He does state however his left lateral foot neuropathic pain is increasing and he's working with GAMAL Carter, pain specialist, to address this issue. He also states his blood sugars are typically between 100 to 200. 08/25/16 Seen by Flaco Henley PA-C. The patient reports continued left foot neuropathic pain. He has a pending appointment with Jethro Meehan at the pain clinic for this. His diabetic foot ulcer has resumed draining in the past few days after being closed. 08/18/16 Seen by Flaco Henley PA-C. The patient reports that he has had no drainage from his left 1st toe ulcer since his last evaluation. 08/11/16 Seen by Flaco Henley PA-C. The patient reports that he now has a prescription for lyrica and a schedule to taper off his gabapentin. He has not started taking lyrica though notes that his neuropathic pain is improved this week. His ulcer has had decreased drainage. 08/03/16 Seen by Flaco Henley PA-C. The patient reports that his left leg neuropathic pain, which has been present for months, has decreased in severity recently but still reaches 6/10. It is described as intermittent, non-radiating and stabbing/burning. His left 1st toe ulcer has had stable drainage by his report. 07/28/16 Seen by Flaco Henley PA-C. The patient reports very little drainage from his left 1st toe diabetic ulcer. He does report that his neuropathic pain has worsened and he is using alcohol at times as a painkiller. He has an upcoming appointment with Dr. Son, who has been addressing this issue and he asks about the referral to Jethro Meehan. 07/20/16. Seen by Dr. Weathers. The patient does not report significant drainage associated with the chronic left 1st toe diabetic ulcer over the past week. He states he's seen Dr. Son regarding his diabetic neuropathy in the past but has not discussed the recurrent toe ulcer. He also states he 'walks on this toes' and has been told by other providers in the past his Achilles tendon is 'short'. 07/13/[address] Weathers. The patient states he's been more active over the past few weeks with his job however does not report increased drainage or pain associated with the chronic left 1st toe diabetic ulcer. He's wearing his diabetic shoes as recommended and states his blood sugars have been a bit elevated between 150 and 200 over the past week due to non- compliance with his routine diabetic meal plan. 06/22/[address] Weathers. The patient feels the drainage and left 1st toe erythema have improved considerably since his last visit and he continues on Zyvox that was started during his recent admission for cellulitis associated with the toe ulcer. He states his blood sugars are now mostly below 150 and he's wearing diabetic shoes but not necessarily offloading the toe. 09/12/[address] Weathers. The patient has had his TCC off for the past week and he does not report drainage from the left 1st toe diabetic foot ulcer. His blood sugars are also mostly between 150 and 180. 09/06/[address] Weathers. The patient does not report any problems regarding his left diabetic foot ulcer nor the TCC he's worn since his last visit. His blood sugars are typically between 150 and 200 which is an improvement historically. 06/18/15 Seen by Flaco Henley PA-C. The patient has had no drainage from his wounds since his last visit. 06/11/15 Seen by Flaco Henley PA-C. The patient has had a particularly long work week and has been on his feet a lot. He has been using his diabetic shoes and recently modified inserts. 06/07/[address] Weathers. The patient has two new ulcers on the plantar surface of the right foot and on the left toe that were first noticed about 3 days ago after being on his feet at work for an extended period. He feels they may have occurred as a result of his orthotics not fitting properly. He does not report pain or swelling but does note some redness with clear yellow drainage from the right ulcer. He states his blood sugars are mostly below 150 with a few around 180 and he continues to try to loose weight to help manage his diabetes. 05/20/[address] Weathers. The patient does not report drainage from the left toe ulcer and tolerated the TCC without difficulties. His blood sugars are relatively well controlled below 150 and he's ready to bulk picker his orthotic today. 05/08/15 Seen by Flaco Henley PA-C. The patient is here today to have a TCC placed. He continues to try and stay off his feet and has not yet returned to work. 05/06/15 Seen by Flaco Henley PA-C. The patient has been off loading his feet using his off loading boots and sitting at home as well as not working. He continues on his antibiotics. 05/02/15 Seen by Flaco Henley PA-C. The patient continues to take time off work and be sedentary in order to offload his feet. He has been applying kerisol to the callouses on his right and left great toes and hydrogel to the wounds. He took his last dose of Augmentin today and reports decreased drainage from the left great toe diabetic ulcer and minimal drainage from the right great toe diabetic ulcer. His feet are sometimes painful but this has decreased since last visit. Blood sugars are running 150-180s in the AM. 04/26/[address] Weathers. The patient does not report increased drainage associated with the bilateral 1st toe diabetic ulcers. He feels the right leg cellulitis is much improved since starting Augmentin and he's been offloading with a cane and my taking time off of work to stay off his feet. His blood sugars are below 150 and he takes only metformin for diabetes. Past Medical History This information was obtained from the patient Patient has a medical history of: Type II Diabetes Diabetic foot ulcers (bilateral 1st toes; Hector grade II) Hyperlipidemia Chronic pain (neuropathic; left lateral foot) Depression Complaints and Symptoms This information was obtained from the patient Patient complains of: General Notes: I have reviewed and concur with the Review of Systems and Past Family Social History documents completed by the clinician, I have reviewed and concur with the Wound Assessment document completed by the clinician Integumentary (Hair/Skin/Nails): Open Sore Musculoskeletal: Assistive Devices, Deformities Neurological: Abnormal Gait, Loss of Protective Sensation Prior Wound History: Drainage, Erythema, Pain Patient denies complaints or symptoms related to: Cardiovascular (Central/Peripheral): Intermittent Claudication, Lower extremity (leg) resting pain, Lower extremity (leg) swelling Constitutional Symptoms (General Health): Chills, Fever Ear/Nose/Mouth/Throat: Hearing Loss / Aid Gastrointestinal (GI): Nausea / Vomiting, Stomach/abdominal pain Hematologic/Lymphatic: Bleeding / Clotting Disorders, Bleeding Tendency Prior Wound History: Bleeding, Malodor Respiratory: Oxygen Use, Shortness of Breath OBJECTIVE Constitutional Vital signs reviewed and noted. Well developed. Alert. Clean appearing.. Height/ Length: 76 in (193.04 cm), Weight: 258.3 lbs (117.41 kgs), BMI: 31.4, Temperature: 98.2 ?F ( 36.78 ?C), Pulse: 87 bpm, Respiratory Rate: 18 breaths/min, Blood Pressure: 123/76 mmHg, Capillary Blood Glucose: 109 mg/dl, Pulse Oximetry: 97 %. Ears, Nose, Mouth, and Throat: No clinically significant hearing loss on informal examination. Integumentary (Hair, Skin) No periwound erythema, warmth, or significant drainage. No periwound rashes appreciated or noted otherwise.. Refer to appropriate clinician wound documentation for this visit; right and left foot ulcers extend to subcut with bases partially covered with pink granulation, remainder fibrin and slough. Significant amount of callus in the periulcer areas. Wound #9 Left Great Toe is a chronic Hector Grade 2 Diabetic Ulcer and has received a status of Not Healed. Subsequent wound encounter measurements are 1cm length x 0.5cm width x 0.3cm depth, with an area of 0.5 sq cm and a volume of 0.15 cubic cm. No tunneling has been noted. No sinus tract has been noted. No undermining has been noted. There is a scant amount of sanguineous drainage noted which has no odor. The patient reports a wound pain of level 0/10. The wound margin is callus. Wound bed has No epithelialization, No eschar, No slough, Yes bright red, pink, firm granulation. The periwound skin color is normal. The periwound skin exhibited: Callus. The periwound skin did not exhibit: Brawny Induration, Edema, Excoriation, Induration, Crepitus, Fluctuance, Friable, Rash, Dry/Scaly, Moist, Maceration. The temperature of the periwound skin is WNL. Periwound skin does not exhibit signs or symptoms of infection. Local Pulse is Palpable. Wound #10 Right Great Toe is a chronic Hector Grade 2 Diabetic Ulcer and has received a status of Not Healed. Subsequent wound encounter measurements are 0.1cm length x 0.1cm width x 0.1cm depth, with an area of 0.01 sq cm and a volume of 0.001 cubic cm. No tunneling has been noted. No sinus tract has been noted. No undermining has been noted. There was no drainage noted. The patient reports a wound pain of level 0/10. The wound margin is callus. Wound bed has No epithelialization, No eschar, Yes slough, No granulation. The periwound skin moisture is normal. The periwound skin color is normal. The periwound skin exhibited: Callus. The periwound skin did not exhibit: Brawny Induration, Edema, Excoriation, Induration, Crepitus, Fluctuance, Friable, Rash. The temperature of the periwound skin is WNL. Periwound skin does not exhibit signs or symptoms of infection. Local Pulse is Palpable. Neurological: Cranial nerves grossly intact with symmetric function normal by informal observation.. ASSESSMENT Active Problems ICD-10 (Encounter Diagnosis) E11.621 - Type 2 diabetes mellitus with foot ulcer (Encounter Diagnosis) L97.522 - Non-pressure chronic ulcer of other part of left foot with fat layer exposed (Encounter Diagnosis) L97.511 - Non-pressure chronic ulcer of other part of right foot limited to breakdown of skin PROCEDURES Wound #9 Wound #9 (Diabetic Ulcer) is located on the left great toe. A skin/subcutaneous tissue level surgical debridement with a total area debrided of 0.5 sq cm was performed by Rakesh Weathers MD. Subcutaneous was removed along with devitalized tissue: callus and slough. The following instrument(s) were used: curette. Pain control was achieved using 4% Lido. A time out was conducted prior to the start of the procedure. A minimal amount of bleeding was controlled with n/a. The procedure was tolerated well with a pain level of 0 throughout and a pain level of 0 following the procedure. Post Debridement Measurements: 1cm length x 0.5cm width x 0.4cm depth; with an area of 0.5 sq cm and a volume of 0.2 cubic cm; Wound #10 Wound #10 (Diabetic Ulcer) is located on the right great toe. A skin/ subcutaneous tissue level surgical debridement with a total area debrided of 0.04 sq cm was performed by Rakesh Weathers MD. Subcutaneous was removed along with devitalized tissue: callus and slough. The following instrument(s) were used: curette. Pain control was achieved using 4% Lido. A time out was conducted prior to the start of the procedure. A minimal amount of bleeding was controlled with n/a. The procedure was tolerated well with a pain level of 0 throughout and a pain level of 0 following the procedure. Post Debridement Measurements: 0.2cm length x 0.2cm width x 0.2cm depth; with an area of 0.04 sq cm and a volume of 0.008 cubic cm; Additional Information Muscle fascia or bone removed and sent to pathology?: No Muscle fascia or bone removed and sent to pathology?: No PLAN Wound Orders: Wound #9 Left Great Toe Anesthetic Topical Xylocaine to wound bed. - In clinic only. Cleanser Cleanse Wound: - Normal saline and gauze. May Shower. - Please cover in shower, may use cast protector or plastic bag and tape. Topical Treatments Moisturizing lotion to surround skin. - Kerasal Dressings Cover and secure with: - Foam secured with tape. Change Dressing: - Daily. Wound #10 Right Great Toe Anesthetic Topical Xylocaine to wound bed. - In clinic only. Cleanser Cleanse Wound: - Normal saline and gauze. May Shower. - Please cover in shower, may use cast protector or plastic bag and tape. Topical Treatments Moisturizing lotion to surround skin. - Kerasal Dressings Cover and secure with: - Foam secured with tape. Change Dressing: - Daily. Additional Orders: Dressings Cover and secure with: - Foam secured with tape. Change Dressing: - Daily. Off-Loading Keep weight off: - Left foot as much as possible. Use/Wear when Walking: - [place] boot, Knee scooter. Follow-Up Appointments Return Appointment: - - One week. Other information: If you develop fever, chills, increased pain, drainage, redness or swelling please call our office. If after hours, respond to the ER. Should you experience any significant changes in your wound(s) or have any questions regarding your home care instructions please contact the wound center @ [phone]. If after hours, contact your primary care physician or go to the hospital emergency room. Scribing Attestation I attest, as the nurse, that I scribed these orders for the physician. I've reviewed the clinician's documentation and agree with the evaluation and plan as written. In addition the patient's ulcers demonstrate evidence of non-viable devitalized tissue and they will continue to benefit from sharp debridement to help promote granulation and expedite healing. Electronic Signature(s) Signed By: Date: Rakesh Weathers MD 06/15/2018 07:31:07 Entered By: Rakesh Weathers on 06/14/2018 13:15:39
== END ==
PROVIDERS: PCP Student in an Organized Health Care Education/Training Program; Visit Provider Internal Medicine
DX: E11.621 Type 2 diabetes mellitus with foot ulcer (principal); L97.522 Non-pressure chronic ulcer of other part of left foot with fat layer exposed; L97.512 Non-pressure chronic ulcer of other part of right foot with fat layer exposed
CPT/HCPCS: 11042

== ENCOUNTER → 2018-06-21 10:55 | Outpatient (CLI) | payer OTHER, SELFPAY ==
--- NOTE | 2018-06-21 | OV.WND_ITS ---
Progress Note Details Patient Name: Baljit Mckay Patient Number: [id number] PatientPatientDate: 06/21/2018 Clinician: Yareli De León Clinician Cosigner: Geeta Mullins Physician / [employer]ating [employer]: Rakesh Weathers SUBJECTIVE Chief Complaint This information was obtained from the patient Diabetic ulcer to left great toe. Allergies NKDA HPI This information was obtained from the patient 06/21/18. Seen by Dr. Weathers. The patient does not report increased drainage or significant pain associated with the bilateral 1st toe diabetic ulcers since his last visit. 06/14/18. Seen by Dr. Weathers. The patient does not report increased drainage or significant pain associated with the bilateral 1st toe diabetic ulcers since his last visit. 06/07/18. Seen by Dr. Weathers. The patient reports he was more active over the past week at work and of note he experienced some pain in the right 1st toe upon removal of his dressing today. Otherwise he does not report increased drainage from either 1st toe diabetic ulcer and states his blood sugars continue to be well controlled. 05/31/18. Seen by Dr. Weathers. The patient does not report increased drainage or pain associated with the bilateral 1st toe diabetic ulcers since his last visit and he's increased is use of this PILOT STATION boots to better facilitate offloading. 05/27/18. Seen by Dr. Weathers. The patient does not report increased drainage or pain associated with the bilateral 1st toe diabetic ulcers since his last visit and he continues to be quite active with work making it difficult to adequately offload the ulcers. He also reports a chronic rash over the distal left lower leg that's been present for about one month. 05/20/18. Seen by Dr. Weathers. The patient does not report increased drainage or pain associated with the bilateral 1st toe diabetic ulcers since his last visit and he continues to be quite active with work and personal activities making it difficult to adequately offload the ulcers. His blood sugars remain well controlled and he's been advised to wear a PILOT STATION boot at all times on the left leg but has not been able to do this. 05/10/18. Seen by Flaco Henley PA-C. The patient reports a rash has developed on his leg under his PILOT STATION boot, but the rash has improved in the past few days as he has not been wearing the PILOT STATION boot. Drainage from his diabetic foot ulcers has not increased. 05/03/18. Seen by Dr. Weathers. The patient states he was at a conference this past weekend and forgot his left lower leg stocking that protects from his PILOT STATION boot rubbing the short. He started to notice an abrasion so stopped wearing the PILOT STATION boot and now feels the left 1st toe diabetic ulcer may have deteriorated and also it got wet in the shower this morning. He also notes some drainage at the site of the recently healed left 1st toe diabetic ulcer. He does not report pain at either site and his blood sugars are historically well controlled over the past 6 months. 04/26/18. Seen by Dr. Weathers. The patient reports being on his feet a lot over the past week at work but he'll be taking the next week off. 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 His culture last week grew MSSA and he's completed a course of doxycycline as of yesterday. He's also not been wearing this PILOT STATION boot or using a knee scooter due to his working more. 04/19/18. Seen by Dr. Weathers. The patient does not report pain associated with the chronic left 1st toe diabetic ulcer since his last visit however he was more active on it over the holiday weekend. The staff however report drainage on the dressing and a significant increase in callus from his last visit. His blood sugars continue to be well controlled around 120 and he's been advised to use his PILOT STATION boot when mobilizing and knee scooter as much as possible. 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 04/12/18. Seen by Dr. Weathers. The patient does not report drainage or pain associated with the great left foot diabetic ulcers since his last visit. 04/05/2018. Seen by Dr. Weathers. The patient is wearing his PILOT STATION boot on the left foot as much as possible to help offload the recurrent and chronic left 1st toe diabetic ulcer. He'll complete his course of doxycycline today that was started at his last for cellulitis of the toe and he's applying topical gentamicin as well. He does not report fevers or feeling unwell nor side effects of the antibiotics. 03/29/2018. Seen by Dr. Weathers. The patient reports some pain and increased drainage as well as redness and swelling of the left 1st toe over the past few days. He does not report fevers however nor other acute issues at this time. 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 03/22/2018. Seen by Dr. Weathers. The patient does not report drainage or pain associated with the great left foot diabetic ulcers since his last visit. He states however that he is not wearing his PILOT STATION boot to offload the sites on alternate days despite my recommendations last week. 03/15/18. Seen by Dr. Weathers. The patient has returned to full-time work schedule and feels may not be wearing his PILOT STATION boots as much as she should noting a significant increase in callus associated with bilateral first toe diabetic ulcers and associated pain. He does not report drainage associated with the ulcers however and we'll extended his visits out to 10 days. . Seen by Dr. Weathers. The patient does not report significant drainage associated with chronic left and right first toe diabetic ulcers since his last visit. He's not wearing his PILOT STATION boot currently to offload the left foot and has started using new orthotic inserts for his diabetic shoe noting the heavy callus may be due to the old othotics wearing down. 02/25/18. Seen by Dr. Weathers. The patient does not report significant drainage associated with chronic left first toe diabetic ulcer since his last visit. 02/18/18. Seen by Dr. Weathers. The patient does not report drainage associated with chronic right or left first toe diabetic ulcers since his last visit and he's applying topical gentamicin as recommended to treat the left 1st toe MSSA positive wound culture taken at the last visit. 02/11/18. Seen by Dr. Weathers. The patient returns due to recurrence of the left 1st toe diabetic ulcer that he states started about 1 week ago when he developing callus fell off and the toe started to drain. He was seen by Dr. Son, podiatry, who subsequently referred the patient back to our clinic. He does not report pain in the toe or fevers and he's wearing his PILOT STATION boot to help offload the site. He's also on Keflex but states a wound culture was not drawn. Of note, he reports callus has reformed over the recently healed right 1st toe diabetic ulcer also. His blood sugars continue to be well controlled with most below 150. 01/17/18. Seen by Flaco Henley PA-C. The patient reports no drainage from his right 1st toe diabetic ulcer since his last dressing change. 01/05/18. Seen by Dr. Weathers. 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 Of note, he also has a new wound over the dorsum of the right foot that occurred following a dog fight that occurred at home where he was stepped on and the dog's claws scratch the foot. He does not report significant pain or drainage associated with this wound. 12/29/17. Seen by Dr. Weathers. The patient does not report drainage or pain associated with the right first toe diabetic ulcers since his last visit. He is wearing his PILOT STATION boot as recommended and is asking if he will be able to return to work soon. 12/22/17. Seen by Dr. Weathers. The patient does not report increased drainage associated with a chronic right first toe diabetic ulcers since his last visit. 12/14/17. Seen by Dr. Weathers. The patient does not report increased drainage associated with a chronic right first toe diabetic ulcers since his last visit and he's wearing his PILOT STATION boot as recommended to offload the ulcer. 12/08/17. Seen by Dr. Weathers. The patient does not report increased drainage associated with a chronic right first toe diabetic ulcers since his last visit. Of note, he states he accidentally wore his left shoe with a sock in the end of the which may result in some bruising at the site of the recently healed first toe diabetic ulcer. 12/01/17. Seen by Dr. Weathers. The patient does not report significant drainage or pain associated with right first toe diabetic ulcer since his last visit. Of note, he 's also stopped applying Kersal to the callus surrounding the recently healed left 1st toe diabetic ulcer despite our recommendations to do so. 11/17/17. Seen by Dr. Weathers. The patient does not report significant drainage or pain associated with right first toe diabetic ulcer since his last visit. 11/10/17. Seen by Dr. Weathers. The patient does not report significant drainage or pain associated with bilateral first toe diabetic ulcers since his last visit. He's been offloading as recommended with both his PILOT STATION boots and a knee scooter. 11/03/17. Seen by Dr. Weathers. The patient does not report increased drainage or pain associated with bilateral first toe diabetic ulcers since last visit. 10/27/17. Seen by Dr. Weathers. The patient reports some increased pain and redness associated with the chronic right first toe diabetic ulcer. He does not report any new issues regarding the left of a foot ulcer and will pick pulling machine tender his right foot hoopa boot in the near future. He is also offloading with a new scooter as recommended 10/20/17. Seen by Dr. Weathers. The patient does not report increased drainage or pain associated with bilateral first toe diabetic ulcers since last visit. 10/13/17. Seen by Dr. Weathers. The patient does not report increased drainage or pain associated with bilateral first toe diabetic ulcers since last visit. Of note, he now has a knee scooter and his left PILOT STATION boot and feels the left 1st toe ulcer has improved significantly with the added offloading measures. 10/06/17. Seen by Dr. Weathers. The patient does not report increased drainage or pain associated with bilateral first toe diabetic ulcers since last visit. Of note, he now has a knee scooter that he's been using to offload the left foot for the past 2 days and he will receive his PILOT STATION boot on Wednesday. 09/29/17. Seen by Dr. Weathers. The patient states that while wearing his left foot offloading shoe he took a fall and feels that it may have traumatized the chronic left first toe diabetic ulcer. He does not report increased pain or drainage from the site nor the right first toe diabetic ulcers since his last visit and states his blood sugars continue to be mostly below 150. He is also awaiting delivery of the left foot hoopa boot as well as his diabetic shoes. Of note, he also admits to being more active that he should be despite our recommendations to maximally offload both ulcers and has not been able to locate an offloading knee scooter as we've recommended. 09/22/17. Seen by Dr. Weathers. The patient does not report increased drainage associated with the bilateral 1st toe diabetic ulcers since his last visit and he's completed his course of doxycycline without reporting adverse side effects. He's also not yet seen his orthortist who will be fitting for at PILOT STATION boot to offload the left foot ulcer as well as providing him with a pair of diabetic shoes. 09/15/17. Seen by Dr. Weathers. The patient's on doxycycline to treat a chronic wound infection of the left 1st toe and he does not report adverse side effects. He's wearing his offloading shoe on the foot as recommended and continues to limit his walking as much as possible. He does not report significant drainage or pain associated with either 1st toe diabetic ulcers and states he's going to schedule and appointment with an barrel filler today as we've been recommending. 09/06/17. Seen by Flaco Henley PA-C. The patient reports increased drainage and continued callous formation from his 1st toe diabetic ulcers. He continues to stay off his feet as much as possible and is working with his insurance company and [employer] to obtain a PILOT STATION offloading boot. 08/31/17. Seen by Flaco Henley PA-C. The patient reports he has been staying off his feet and has been away from work as instructed. He reports decreased drainage from his bilateral diabetic toe ulcers. 08/24/17. Seen by Dr. Weathers. The patient reports being more active over the past week despite being advised to limit his walking considerably to offload the bilateral first toe diabetic ulcers. He does not report increased drainage or pain associated with these ulcers. He also states he will be able to take another month off of work to further facilitate offloading of the ulcers. 08/17/17. Seen by Dr. Weathers. The patient has been offloading both left and right first toe diabetic ulcers for the past week and has taken the entire month of July off of work to better facilitate offloading. 08/10/17. Seen by Dr. Weathers. The patient has been offloading both left and right first toe diabetic ulcers for the past week as recommended and he does not report significant associated pain or drainage from either site. 08/03/17. Seen by Dr. Weathers. The patient has been offloading both left and right first toe diabetic ulcers for the past week and has taken the entire month of July off of work to better facilitate offloading. 07/23/17. Seen by Dr. Weathers. The patient does not report significant drainage associated with chronic bilateral left and right first toe diabetic ulcers since his last visit. He does not report any drainage associated with the left 1st MTPJ diabetic ulcer. 07/20/17. Seen by Dr. Weathers. The patient does not report pain nor significant drainage associated with chronic bilateral left and right first toe diabetic ulcers since his last visit. He is applying topical gentamicin as recommended to the ulcer bases to treat the recent wound infection. He does not report any drainage associated with the left 1st MTPJ diabetic ulcer. 07/16/17. Seen by Dr. Weathers. The patient states that he had a very busy past week in terms of festival and he was on his feet for extended periods. He has increased drainage and callus formation associated with both first toe diabetic ulcers since we last saw him however he does not report any increased drainage or problems regarding the left mid plantar foot diabetic ulcer. He does not report pain in the toes nor fever or feeling unwell. His blood sugars continue to be well controlled consistently below 150. 07/06/17. Seen by Dr. Weathers. The patient does not report pain nor significant drainage associated with chronic bilateral left and right first toe diabetic ulcers since his last visit. He is applying topical gentamicin as recommended in his recent wound culture grew MSSA. He also does not report pain nor drainage associated with the chronic left plantar foot diabetic ulcer. 06/29/17. Seen by Dr. Weathers. The patient reports some pain associated with both first toe diabetic ulcers since his last visit. He does not report increased drainage associated with these nor the left plantar foot diabetic ulcer. He's been seeing us every 2 weeks and feels that the callus formation in the interim has been quite significant. 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 He states his blood sugars are well controlled with most below 150. 06/15/17. Seen by Dr. Weathers. The patient does not report pain nor significant drainage associated with the chronic bilateral first toe diabetic ulcers nor the left plantar foot diabetic ulcer since his last visit. 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 His blood sugars he states are well-controlled with most below 150. 06/01/17. Seen by Dr. Weathers. The patient does not report pain or increased drainage associated with the bilateral, chronic 1st toe diabetic ulcers since his last visit and he continues on doxycycline for the left 1st toe infection noted at his last visit. He does not report adverse side effects and states his blood sugars are mostly below 150. 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 Of note, he reports a new wound over the plantar surface of the left foot that started when he tried to remove a callus earlier this week. 05/18/17. Seen by Dr. Weathers. The patient reports some discomfort associated with the chronic left first toe diabetic ulcer over the past few days however he does not report pain nor increased drainage with the chronic right first toe diabetic ulcer. He continues to work an active job and is on his feet for extended periods however states that he may be able to decrease hours later in the summer. His blood sugars continue to be well controlled with most below 150. 05/12/17. Seen by Flaco Henley PA-C. The patient reports that his neuropathy is worse today with stabbing-type pains occurring in the arches of both feet and radiating to the lateral edges of his feet. He reports that walking on his feet exacerbate the pain and his recent medication change to Cymbalta has helped decrease the pain. He reports no increase in drainage from his bilateral 1st toe diabetic ulcers of the right and left feet. 05/05/17. Seen by Flaco Henley PA-C. The patient reports no increase in drainage from his bilateral 1st toe diabetic ulcers. 04/20/17. Seen by Dr. Weathers. The patient reports pain and drainage associated with the bilateral first toe diabetic ulcers is minimal over the past week and he'll complete his course of moxifloxacin today that's been treating a recent left 1st toe cellulitis. He continues to work a heavy schedule as on his feet for extended periods. He states his blood sugars continue to be mostly below 200. 04/14/17. Seen by Dr. Weathers. The patient feels the pain and drainage associated with the bilateral first toe diabetic ulcers has improved since starting on antibiotics last week. He continues to work a heavy schedule as on his feet for extended periods. He states his blood sugars continue to be mostly below 200. 04/07/17. Seen by Dr. Weathers. The patient reports some pain and increased drainage from the bilateral first toe diabetic ulcers over the past week. He's been working on his feet considerably more over the past few weeks and states his blood sugars are mostly below 200. 03/24/17. Seen by Flaco Henley PA-C. The patient reports good compliance with his diabetes footwear but he also notes blood sugars above 150 this week. Drainage has reportedly been decreasing from his diabetic ulcers of the right and left feet. 03/17/17. Seen by Dr. Weathers. The patient states he's stopped taking his SSRI that was treating the bilateral foot diabetic neuropathic pain as he felt it may have been contributing to his intermittent subjective fevers and chills. He does not report increased drainage or pain associated with the bilateral 1st toe diabetic ulcers since his last visit but states he's been on his feet more due to his job and an increase in tourism as the weather's improving. 02/26/17. Seen by Dr. Weathers. The patient reports increased pain and drainage associated with the left first toe diabetic ulcer but none with the right first toe diabetic ulcer. He's had some subjective fevers and chills for the last 2 weeks but states blood sugars continue to be well controlled with most below 150. 02/19/17. Seen by Dr. Weathers.The patient reports fatigue and intermittent chills but no documented fevers over the past few days. He does not report fevers nor other specific symptoms. He states that there has been no increase in drainage or pain associated with bilateral first diabetic ulcers since his last visit. His blood sugars continue to be mostly below 200. 02/05/17. Seen by Dr. Weathers. The patient does not report pain nor significant drainage associated with the chronic bilateral first toe diabetic ulcers over the past week. He continues applying topical gentamicin as recommended to treat the chronic and recurrent superficial staph infection. 01/29/17. Seen by Dr. Weathers. The patient reports minimal drainage and no pain associated with bilateral first toe diabetic ulcers since his last visit. He has completed his course of Keflex and does not report adverse side effects. He states blood sugars are mostly between 100 and 200.He continues to apply gentamicin ointment also as recommended. 01/22/17. Seen by Dr. Weathers. The patient returns to clinic for bilateral 1st toe diabetic ulcers that have become infected about a week ago and he was placed on Keflex by his PCP. He feels the drainage and redness are improving and he does not report pain in the toes. His blood sugars remain mostly below 150 and he continues to work on his feet a full-time schedule and states he wears his diabetic shoes at all times. 01/05/17. Seen by Flaco Henley PA-C. The patient reports some blood sugars this week above 150. No increase in ulcer drainage is reported today. 12/29/16 Seen by Flaco Henley PA-C. The patient reports stable drainage from his left foot non- pressure ulcer since his last evaluation. 12/22/16 Seen by Flaco Henley PA-C. The patient reports no increase in ulcer drainage from his left foot diabetic ulcer since his last visit. In addition he reports well controlled blood sugars. 12/15/16 Seen by Flaco Henley PA-C. The patient reports no increase in drainage from his left foot diabetic ulcer. His blood sugars have reportedly been below 150 this week but today is blood sugar is noted to be 152. 12/08/16. Seen by Dr. Weathers. The patient's now taking Augmentin for his recent Staph and E. coli positive wound culture taken from the chronic left 1st toe diabetic ulcer. The culture sensitivities however show intermediate sensitivity of the E. coli to Augmentin. The patient feels the toe pain and ulcer drainage have decreased considerably and he states his blood sugars are mostly below 150. He does not report fevers or adverse side effects from the Augmentin. Regarding the right 1st toe diabetic ulcer he does not report pain or significant drainage. 12/01/16 Seen by Flaco Henley PA-C. The patient reports that his left foot diabetic ulcer is much worse with a strong odor reported. 11/17/16 Seen by Flaco Henley PA-C. The patient reports that his blood sugar is likely elevated due to the holidays. He reports no increase in drainage from his DMII ulcers of the right or left 1st toes. 11/03/16. Seen by Dr. Weathers. The patient reports a new ulcer on the right 1st toe that started about one week ago following his attempt at removing a callus from the site. He states about 3 days ago the ulcer started draining fluid and the toe swelled and turned red. He 's not on antibiotics and does not report fevers or feeling unwell. Regarding his left 1st toe diabetic ulcer, he does not report significant drainage or pain. He states his blood sugars are improving with most below 150 now. 10/20/16. Seen by Dr. Weathers. The patient does not report significant drainage associated with the chronic left 1st toe diabetic ulcer since his last visit. He also states his blood sugars still tend to be over 150 and sometimes in the 200's.He also continues to apply gentamcin for the MSSA positive wound culture taken from the ulcer recently. 10/13/16. Seen by Dr. Weathers. The patient does not report significant drainage associated with the chronic left 1st toe diabetic ulcer since his last visit and he continues applyin gentamcin for the MSSA positive wound culture taken from the ulcer. His blood sugars continue to be above 150 fairly frequently however he notes since decreasing his chronic alcohol intake his glucose seems to be easier to control. 10/06/16 Seen by Flaco Henley PA-C. The patient reports that his neuropathy is severe today. It is described as an intermittent burning/shooting pain, that comes and goes but does not radiate and is centered on his left lateral foot. He does not report any associated changes to his chronic left 1st toe diabetic ulcer such as increased drainage. 09/29/16. Seen by Dr. Weathers. The patient does not report significant drainage associated with the chronic left 1st toe diabetic ulcer since his last visit and he continues on doxycycline for the MSSA positive wound culture taken from the ulcer. He feels the toe redness and swelling have improved since starting antibiotics. He also reports significant improvement in the left foot neuropathic pain since starting on a new antidepressant. 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 His blood sugar is over 200 today and he states its typically been between 100 and 200 although he's not been checking it for the past few days since his glucometer is no working. 09/15/16 Seen by Flaco Henley PA-C. The patient reports decreased neuropathic pain in his LLE and has recently started a new antidepressant medication for this issue though he does not recall the name of the medication. His ulcer drainage has been stable since his last evaluation. 09/01/16. Seen by Dr. Weathers. The patient does not report significant drainage associated with the chronic left 1st toe diabetic ulcer. He does state however his left lateral foot neuropathic pain is increasing and he's working with GAMAL Carter, pain specialist, to address this issue. He also states his blood sugars are typically between 100 to 200. 08/25/16 Seen by Flaco Henley PA-C. The patient reports continued left foot neuropathic pain. He has a pending appointment with Jethro Meeahn at the pain clinic for this. His diabetic foot ulcer has resumed draining in the past few days after being closed. 08/18/16 Seen by Flaco Henley PA-C. The patient reports that he has had no drainage from his left 1st toe ulcer since his last evaluation. 08/11/16 Seen by Flaco Henley PA-C. The patient reports that he now has a prescription for lyrica and a schedule to taper off his gabapentin. He has not started taking lyrica though notes that his neuropathic pain is improved this week. His ulcer has had decreased drainage. 08/03/16 Seen by Flaco Henley PA-C. The patient reports that his left leg neuropathic pain, which has been present for months, has decreased in severity recently but still reaches 6/10. It is described as intermittent, non-radiating and stabbing/burning. His left 1st toe ulcer has had stable drainage by his report. 07/28/16 Seen by Flaco Henley PA-C. The patient reports very little drainage from his left 1st toe diabetic ulcer. He does report that his neuropathic pain has worsened and he is using alcohol at times as a painkiller. He has an upcoming appointment with Dr. Son, who has been addressing this issue and he asks about the referral to Jethro Meehan. 07/20/16. Seen by Dr. Weathers. The patient does not report significant drainage associated with the chronic left 1st toe diabetic ulcer over the past week. He states he's seen Dr. Son regarding his diabetic neuropathy in the past but has not discussed the recurrent toe ulcer. He also states he 'walks on this toes' and has been told by other providers in the past his Achilles tendon is 'short'. 07/13/[address] Weathers. The patient states he's been more active over the past few weeks with his job however does not report increased drainage or pain associated with the chronic left 1st toe diabetic ulcer. He's wearing his diabetic shoes as recommended and states his blood sugars have been a bit elevated between 150 and 200 over the past week due to non- compliance with his routine diabetic meal plan. 06/22/[address] Weathers. The patient feels the drainage and left 1st toe erythema have improved considerably since his last visit and he continues on Zyvox that was started during his recent admission for cellulitis associated with the toe ulcer. He states his blood sugars are now mostly below 150 and he's wearing diabetic shoes but not necessarily offloading the toe. 09/12/[address] Weathers. The patient has had his TCC off for the past week and he does not report drainage from the left 1st toe diabetic foot ulcer. His blood sugars are also mostly between 150 and 180. 09/06/[address] Weathers. The patient does not report any problems regarding his left diabetic foot ulcer nor the TCC he's worn since his last visit. His blood sugars are typically between 150 and 200 which is an improvement historically. 06/18/15 Seen by Flaco Henley PA-C. The patient has had no drainage from his wounds since his last visit. 06/11/15 Seen by Flaco Henley PA-C. The patient has had a particularly long work week and has been on his feet a lot. He has been using his diabetic shoes and recently modified inserts. 06/07/[address] Weathers. The patient has two new ulcers on the plantar surface of the right foot and on the left toe that were first noticed about 3 days ago after being on his feet at work for an extended period. He feels they may have occurred as a result of his orthotics not fitting properly. He does not report pain or swelling but does note some redness with clear yellow drainage from the right ulcer. He states his blood sugars are mostly below 150 with a few around 180 and he continues to try to loose weight to help manage his diabetes. 05/20/[address] Weathers. The patient does not report drainage from the left toe ulcer and tolerated the TCC without difficulties. His blood sugars are relatively well controlled below 150 and he's ready to pick pulling machine tender his orthotic today. 05/08/15 Seen by Flaco Henley PA-C. The patient is here today to have a TCC placed. He continues to try and stay off his feet and has not yet returned to work. 05/06/15 Seen by Flaco Henley PA-C. The patient has been off loading his feet using his off loading boots and sitting at home as well as not working. He continues on his antibiotics. 05/02/15 Seen by Flaco Henley PA-C. The patient continues to take time off work and be sedentary in order to offload his feet. He has been applying kerisol to the callouses on his right and left great toes and hydrogel to the wounds. He took his last dose of Augmentin today and reports decreased drainage from the left great toe diabetic ulcer and minimal drainage from the right great toe diabetic ulcer. His feet are sometimes painful but this has decreased since last visit. Blood sugars are running 150-180s in the AM. 04/26/[address] Weathers. The patient does not report increased drainage associated with the bilateral 1st toe diabetic ulcers. He feels the right leg cellulitis is much improved since starting Augmentin and he's been offloading with a cane and my taking time off of work to stay off his feet. His blood sugars are below 150 and he takes only metformin for diabetes. 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 Past Medical History This information was obtained from the patient Patient has a medical history of: Type II Diabetes Diabetic foot ulcers (bilateral 1st toes; Hector grade II) Hyperlipidemia Chronic pain (neuropathic; left lateral foot) Depression Complaints and Symptoms This information was obtained from the patient Patient complains of: General Notes: I have reviewed and concur with the Review of Systems and Past Family Social History documents completed by the clinician, I have reviewed and concur with the Wound Assessment document completed by the clinician Integumentary (Hair/Skin/Nails): Open Sore Musculoskeletal: Assistive Devices, Deformities Neurological: Abnormal Gait, Loss of Protective Sensation Prior Wound History: Drainage, Erythema, Pain Patient denies complaints or symptoms related to: Cardiovascular (Central/Peripheral): Intermittent Claudication, Lower extremity (leg) resting pain, Lower extremity (leg) swelling Constitutional Symptoms (General Health): Chills, Fever Ear/Nose/Mouth/Throat: Hearing Loss / Aid Gastrointestinal (GI): Nausea / Vomiting, Stomach/abdominal pain Hematologic/Lymphatic: Bleeding / Clotting Disorders, Bleeding Tendency Prior Wound History: Bleeding, Malodor Respiratory: Oxygen Use, Shortness of Breath OBJECTIVE Constitutional Vital signs reviewed and noted. Well developed. Alert. Clean appearing.. Height/ Length: 76 in (193.04 cm), Weight: 266 lbs (120.91 kgs), BMI: 32.4, Temperature: 98.7 ?F ( 37.06 ?C), Pulse: 74 bpm, Respiratory Rate: 18 breaths/min, Blood Pressure: 106/73 mmHg, Capillary Blood Glucose: 103 mg/dl, Pulse Oximetry: 98 %. Ears, Nose, Mouth, and Throat: No clinically significant hearing loss on informal examination. Respiratory: No respiratory distress. Even respirations and without use of accessory muscles.. Integumentary (Hair, Skin) No periwound erythema, warmth, or significant drainage. No periwound rashes appreciated or noted otherwise.. Refer to appropriate clinician wound documentation for this visit; left foot ulcer extends to subcut with base partially covered with pink granulation, remainder fibrin and slough; right foot ulcer extends to dermis. Significant amount of callus in the periulcer areas. Wound #9 Left Great Toe is a chronic Hector Grade 2 Diabetic Ulcer and has received a status of Not Healed. Subsequent wound encounter measurements are 0.6cm length x 0.3cm width x 0.1cm depth, with an area of 0.18 sq cm and a volume of 0.018 cubic cm. No tunneling has been noted. No sinus tract has been noted. No undermining has been noted. There is a scant amount of sanguineous drainage noted which has no odor. The patient reports a wound pain of level 0/10. The wound margin is callus. Wound bed has No epithelialization, No eschar, No slough, Yes bright red, pink, firm granulation. The periwound skin color is normal. The periwound skin exhibited: Callus. The periwound skin did not exhibit: Brawny Induration, Edema, Excoriation, Induration, Crepitus, Fluctuance, Friable, Rash, Dry/Scaly, Moist, Maceration. The temperature of the periwound skin is WNL. Periwound skin does not exhibit signs or symptoms of infection. Local Pulse is Palpable. Wound #10 Right Great Toe is a chronic Hector Grade 2 Diabetic Ulcer and has received a status of Not Healed. Subsequent wound encounter measurements are 0.1cm length x 0.1cm width x 0.1cm depth, with an area of 0.01 sq cm and a volume of 0.001 cubic cm. No tunneling has been noted. No sinus tract has been noted. No undermining has been noted. There was no drainage noted. The patient reports a wound pain of level 0/10. The wound margin is callus. Wound bed has No epithelialization, No eschar, Yes slough, No granulation. The periwound skin moisture is normal. The periwound skin color is normal. The periwound skin exhibited: Callus. The periwound skin did not exhibit: Brawny Induration, Edema, Excoriation, Induration, Crepitus, Fluctuance, Friable, Rash. The temperature of the periwound skin is WNL. Periwound skin does not exhibit signs or symptoms of infection. Local Pulse is Palpable. Neurological: Cranial nerves grossly intact with symmetric function normal by informal observation.. ASSESSMENT Active Problems ICD-10 (Encounter Diagnosis) E11.621 - Type 2 diabetes mellitus with foot ulcer (Encounter Diagnosis) L97.522 - Non-pressure chronic ulcer of other part of left foot with fat layer exposed (Encounter Diagnosis) L97.511 - Non-pressure chronic ulcer of other part of right foot limited to breakdown of skin PROCEDURES Wound #9 Wound #9 (Diabetic Ulcer) is located on the left great toe. A skin/subcutaneous tissue level surgical debridement with a total area debrided of 0.18 sq cm was performed by Rakesh Weathers MD. Subcutaneous was removed along with devitalized tissue: callus and slough. The following instrument(s) were used: curette. Pain control was achieved using 4% Lido. A time out was conducted prior to the start of the procedure. A minimal amount of bleeding was controlled with n/a. The procedure was tolerated well with a pain level of 0 throughout and a pain level of 0 following the procedure. Post Debridement Measurements: 0.6cm length x 0.3cm width x 0.2cm depth; with an area of 0.18 sq cm and a volume of 0.036 cubic cm; Wound #10 Wound #10 (Diabetic Ulcer) is located on the right great toe. A selective debridement with a total area debrided of 0.04 sq cm was performed by Rakesh Weathers MD. Dermis and Epidermis were removed along with devitalized tissue: callus and exudate. The following instrument(s) were used: curette. Pain control was achieved using 4% Lido. A time out was conducted prior to the start of the procedure. A minimal amount of bleeding was controlled with n/a. The procedure was tolerated well with a pain level of 0 throughout and a pain level of 0 following the procedure. Post Debridement Measurements: 0.2cm length x 0.2cm width x 0.2cm depth; with an area of 0.04 sq cm and a volume of 0.008 cubic cm; Additional Information Muscle fascia or bone removed and sent to pathology?: No PLAN Wound Orders: Wound #9 Left Great Toe Anesthetic Topical Xylocaine to wound bed. - In clinic only. Cleanser Cleanse Wound: - Normal saline and gauze. May Shower. - Please cover in shower, may use cast protector or plastic bag and tape. Topical Treatments Moisturizing lotion to surround skin. - Kerasal Dressings Cover and secure with: - Foam secured with tape. Change Dressing: - Daily. Wound #10 Right Great Toe Anesthetic Topical Xylocaine to wound bed. - In clinic only. Cleanser Cleanse Wound: - Normal saline and gauze. May Shower. - Please cover in shower, may use cast protector or plastic bag and tape. Topical Treatments Moisturizing lotion to surround skin. - Kerasal Dressings Cover and secure with: - Foam secured with tape. Change Dressing: - Daily. Additional Orders: Dressings Cover and secure with: - Foam secured with tape. Change Dressing: - Daily. Off-Loading Keep weight off: - Left foot as much as possible. Use/Wear when Walking: - [place] boot, Knee scooter. Follow-Up Appointments Return Appointment: - - One week. Other information: If you develop fever, chills, increased pain, drainage, redness or swelling please call our office. If after hours, respond to the ER. Should you experience any significant changes in your wound(s) or have any questions regarding your home care instructions please contact the wound center @ [phone]. If after hours, contact your primary care physician or go to the hospital emergency room. Scribing Attestation I attest, as the nurse, that I scribed these orders for the physician. I've reviewed the clinician's documentation and agree with the evaluation and plan as written. In addition the patient's ulcers demonstrate evidence of non-viable devitalized tissue and they will continue to benefit from sharp debridement to help promote granulation and expedite healing. Electronic Signature(s) Signed By: Date: Rakesh Weathers MD 06/22/2018 07:32:51 Entered By: Rakesh Weathers on 06/21/2018 11:34:38
== END ==
PROVIDERS: PCP Student in an Organized Health Care Education/Training Program; Visit Provider Internal Medicine
DX: E11.621 Type 2 diabetes mellitus with foot ulcer (principal); L97.522 Non-pressure chronic ulcer of other part of left foot with fat layer exposed; L97.511 Non-pressure chronic ulcer of other part of right foot limited to breakdown of skin
CPT/HCPCS: 11042; 97597

== ENCOUNTER → 2018-06-28 09:52 | Outpatient (CLI) | payer OTHER, SELFPAY ==
--- NOTE | 2018-06-28 | OV.WND_ITS ---
Progress Note Details Patient Name: Baljit Mckay Patient Number: [id number] PatientPatientDate: 06/28/2018 Clinician: Ryann Sultana Clinician Cosigner: Snow Smith Physician / Director Business Development: Rakesh Weathers SUBJECTIVE Chief Complaint This information was obtained from the patient Diabetic ulcers to left and right great toe. Allergies NKDA HPI This information was obtained from the patient 06/28/18. Seen by Dr. Weathers. The patient does not report increased drainage or significant pain associated with the bilateral 1st toe diabetic ulcers since his last visit. He notes he's been using Kerasal ointment to treat the periulcer calluses less frequently and he's had an orthotic added to the right shoe to help 'even the leg length' and possibly relieve some lower back pain he's been having. 06/21/18. Seen by Dr. Weathers. The patient does not report increased drainage or significant pain associated with the bilateral 1st toe diabetic ulcers since his last visit. 06/14/18. Seen by Dr. Weathers. The patient does not report increased drainage or significant pain associated with the bilateral 1st toe diabetic ulcers since his last visit. 06/07/18. Seen by Dr. Weathers. The patient reports he was more active over the past week at work and of note he experienced some pain in the right 1st toe upon removal of his dressing today. Otherwise he does not report increased drainage from either 1st toe diabetic ulcer and states his blood sugars continue to be well controlled. 05/31/18. Seen by Dr. Weathers. The patient does not report increased drainage or pain associated with the bilateral 1st toe diabetic ulcers since his last visit and he's increased is use of this [place]AM boots to better facilitate offloading. 05/27/18. Seen by Dr. Weathers. The patient does not report increased drainage or pain associated with the bilateral 1st toe diabetic ulcers since his last visit and he continues to be quite active with work making it difficult to adequately offload the ulcers. He also reports a chronic rash over the distal left lower leg that's been present for about one month. 05/20/18. Seen by Dr. Weathers. The patient does not report increased drainage or pain associated with the bilateral 1st toe diabetic ulcers since his last visit and he continues to be quite active with work and personal activities making it difficult to adequately offload the ulcers. His blood sugars remain well controlled and he's been advised to wear a [place]AM boot at all times on the left leg but has not been able to do this. 05/10/18. Seen by Flaco Henley PA-C. The patient reports a rash has developed on his leg under his [place] G[place]AM boot, but the rash has improved in the past few days as he has not been wearing the [place] G[place]AM boot. Drainage from his diabetic foot ulcers has not increased. 05/03/18. Seen by Dr. Weathers. The patient states he was at a conference this past weekend and forgot his left lower leg stocking that protects from his [place] G[place]AM boot rubbing the short. He started to notice an abrasion so stopped wearing the [place] boot and now feels the left 1st toe diabetic ulcer may have deteriorated and also it got wet in the shower this morning. He also notes some drainage at the site of the recently healed left 1st toe diabetic ulcer. He does not report pain at either site and his blood sugars are historically well controlled over the past 6 months. 04/26/18. Seen by Dr. Weathers. The patient reports being on his feet a lot over the past week at work but he'll be taking the next week off. 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 His culture last week grew MSSA and he's completed a course of doxycycline as of yesterday. He's also not been wearing this [place] boot or using a knee scooter due to his working more. 04/19/18. Seen by Dr. Weathers. The patient does not report pain associated with the chronic left 1st toe diabetic ulcer since his last visit however he was more active on it over the holiday weekend. The staff however report drainage on the dressing and a significant increase in callus from his last visit. His blood sugars continue to be well controlled around 120 and he's been advised to use his [place] boot when mobilizing and knee scooter as much as possible. 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 04/12/18. Seen by Dr. Weathers. The patient does not report drainage or pain associated with the great left foot diabetic ulcers since his last visit. 04/05/2018. Seen by Dr. eWathers. The patient is wearing his [place] boot on the left foot as much as possible to help offload the recurrent and chronic left 1st toe diabetic ulcer. He'll complete his course of doxycycline today that was started at his last for cellulitis of the toe and he's applying topical gentamicin as well. He does not report fevers or feeling unwell nor side effects of the antibiotics. 03/29/2018. Seen by Dr. Weathers. The patient reports some pain and increased drainage as well as redness and swelling of the left 1st toe over the past few days. He does not report fevers however nor other acute issues at this time. 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 03/22/2018. Seen by Dr. Weathers. The patient does not report drainage or pain associated with the great left foot diabetic ulcers since his last visit. He states however that he is not wearing his [place] boot to offload the sites on alternate days despite my recommendations last week. 03/15/18. Seen by Dr. Weathers. The patient has returned to full-time work schedule and feels may not be wearing his [place] boots as much as she should noting a significant increase in callus associated with bilateral first toe diabetic ulcers and associated pain. He does not report drainage associated with the ulcers however and we'll extended his visits out to 10 days. . Seen by Dr. Weathers. The patient does not report significant drainage associated with chronic left and right first toe diabetic ulcers since his last visit. He's not wearing his [place] boot currently to offload the left foot and has started using new orthotic inserts for his diabetic shoe noting the heavy callus may be due to the old othotics wearing down. 02/25/18. Seen by Dr. Weathers. The patient does not report significant drainage associated with chronic left first toe diabetic ulcer since his last visit. 02/18/18. Seen by Dr. Weathers. The patient does not report drainage associated with chronic right or left first toe diabetic ulcers since his last visit and he's applying topical gentamicin as recommended to treat the left 1st toe MSSA positive wound culture taken at the last visit. 02/11/18. Seen by Dr. Weathers. The patient returns due to recurrence of the left 1st toe diabetic ulcer that he states started about 1 week ago when he developing callus fell off and the toe started to drain. He was seen by Dr. Son, podiatry, who subsequently referred the patient back to our clinic. He does not report pain in the toe or fevers and he's wearing his [place] boot to help offload the site. He's also on Keflex but states a wound culture was not drawn. Of note, he reports callus has reformed over the recently healed right 1st toe diabetic ulcer also. His blood sugars continue to be well controlled with most below 150. 01/17/18. Seen by Flaco Henley PA-C. The patient reports no drainage from his right 1st toe diabetic ulcer since his last dressing change. 01/05/18. Seen by Dr. Weathers. 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 Of note, he also has a new wound over the dorsum of the right foot that occurred following a dog fight that occurred at home where he was stepped on and the dog's claws scratch the foot. He does not report significant pain or drainage associated with this wound. 12/29/17. Seen by Dr. Weathers. The patient does not report drainage or pain associated with the right first toe diabetic ulcers since his last visit. He is wearing his [place] boot as recommended and is asking if he will be able to return to work soon. 12/22/17. Seen by Dr. Weathers. The patient does not report increased drainage associated with a chronic right first toe diabetic ulcers since his last visit. 12/14/17. Seen by Dr. Weathers. The patient does not report increased drainage associated with a chronic right first toe diabetic ulcers since his last visit and he's wearing his [place] boot as recommended to offload the ulcer. 12/08/17. Seen by Dr. Weathers. The patient does not report increased drainage associated with a chronic right first toe diabetic ulcers since his last visit. Of note, he states he accidentally wore his left shoe with a sock in the end of the which may result in some bruising at the site of the recently healed first toe diabetic ulcer. 12/01/17. Seen by Dr. Weathers. The patient does not report significant drainage or pain associated with right first toe diabetic ulcer since his last visit. Of note, he 's also stopped applying Kersal to the callus surrounding the recently healed left 1st toe diabetic ulcer despite our recommendations to do so. 11/17/17. Seen by Dr. Weathers. The patient does not report significant drainage or pain associated with right first toe diabetic ulcer since his last visit. 11/10/17. Seen by Dr. Weathers. The patient does not report significant drainage or pain associated with bilateral first toe diabetic ulcers since his last visit. He's been offloading as recommended with both his [place] boots and a knee scooter. 11/03/17. Seen by Dr. Weathers. The patient does not report increased drainage or pain associated with bilateral first toe diabetic ulcers since last visit. 10/27/17. Seen by Dr. Weathers. The patient reports some increased pain and redness associated with the chronic right first toe diabetic ulcer. He does not report any new issues regarding the left of a foot ulcer and will pepper picker his right foot chalkyitsik boot in the near future. He is also offloading with a new scooter as recommended 10/20/17. Seen by Dr. Weathers. The patient does not report increased drainage or pain associated with bilateral first toe diabetic ulcers since last visit. 10/13/17. Seen by Dr. Weathers. The patient does not report increased drainage or pain associated with bilateral first toe diabetic ulcers since last visit. Of note, he now has a knee scooter and his left [place] G[place] boot and feels the left 1st toe ulcer has improved significantly with the added offloading measures. 10/06/17. Seen by Dr. Weathers. The patient does not report increased drainage or pain associated with bilateral first toe diabetic ulcers since last visit. Of note, he now has a knee scooter that he's been using to offload the left foot for the past 2 days and he will receive his [place] G[place] boot on Wednesday. 09/29/17. Seen by Dr. Weathers. The patient states that while wearing his left foot offloading shoe he took a fall and feels that it may have traumatized the chronic left first toe diabetic ulcer. He does not report increased pain or drainage from the site nor the right first toe diabetic ulcers since his last visit and states his blood sugars continue to be mostly below 150. He is also awaiting delivery of the left foot chalkyitsik boot as well as his diabetic shoes. Of note, he also admits to being more active that he should be despite our recommendations to maximally offload both ulcers and has not been able to locate an offloading knee scooter as we've recommended. 09/22/17. Seen by Dr. Weathers. The patient does not report increased drainage associated with the bilateral 1st toe diabetic ulcers since his last visit and he's completed his course of doxycycline without reporting adverse side effects. He's also not yet seen his orthortist who will be fitting for at [place] boot to offload the left foot ulcer as well as providing him with a pair of diabetic shoes. 09/15/17. Seen by Dr. Weathers. The patient's on doxycycline to treat a chronic wound infection of the left 1st toe and he does not report adverse side effects. He's wearing his offloading shoe on the foot as recommended and continues to limit his walking as much as possible. He does not report significant drainage or pain associated with either 1st toe diabetic ulcers and states he's going to schedule and appointment with an hood maker today as we've been recommending. 09/06/17. Seen by Flaco Henley PA-C. The patient reports increased drainage and continued callous formation from his 1st toe diabetic ulcers. He continues to stay off his feet as much as possible and is working with his insurance company and [employer] to obtain a [place] G[place]AM offloading boot. 08/31/17. Seen by Flaco Henley PA-C. The patient reports he has been staying off his feet and has been away from work as instructed. He reports decreased drainage from his bilateral diabetic toe ulcers. 08/24/17. Seen by Dr. Weathers. The patient reports being more active over the past week despite being advised to limit his walking considerably to offload the bilateral first toe diabetic ulcers. He does not report increased drainage or pain associated with these ulcers. He also states he will be able to take another month off of work to further facilitate offloading of the ulcers. 08/17/17. Seen by Dr. Weathers. The patient has been offloading both left and right first toe diabetic ulcers for the past week and has taken the entire month of July off of work to better facilitate offloading. 08/10/17. Seen by Dr. Weathers. The patient has been offloading both left and right first toe diabetic ulcers for the past week as recommended and he does not report significant associated pain or drainage from either site. 08/03/17. Seen by Dr. Weathers. The patient has been offloading both left and right first toe diabetic ulcers for the past week and has taken the entire month of July off of work to better facilitate offloading. 07/23/17. Seen by Dr. Weathers. The patient does not report significant drainage associated with chronic bilateral left and right first toe diabetic ulcers since his last visit. He does not report any drainage associated with the left 1st MTPJ diabetic ulcer. 07/20/17. Seen by Dr. Weathers. The patient does not report pain nor significant drainage associated with chronic bilateral left and right first toe diabetic ulcers since his last visit. He is applying topical gentamicin as recommended to the ulcer bases to treat the recent wound infection. He does not report any drainage associated with the left 1st MTPJ diabetic ulcer. 07/16/17. Seen by Dr. Weathers. The patient states that he had a very busy past week in terms of festival and he was on his feet for extended periods. He has increased drainage and callus formation associated with both first toe diabetic ulcers since we last saw him however he does not report any increased drainage or problems regarding the left mid plantar foot diabetic ulcer. He does not report pain in the toes nor fever or feeling unwell. His blood sugars continue to be well controlled consistently below 150. 07/06/17. Seen by Dr. Weathers. The patient does not report pain nor significant drainage associated with chronic bilateral left and right first toe diabetic ulcers since his last visit. He is applying topical gentamicin as recommended in his recent wound culture grew MSSA. He also does not report pain nor drainage associated with the chronic left plantar foot diabetic ulcer. 06/29/17. Seen by Dr. Weathers. The patient reports some pain associated with both first toe diabetic ulcers since his last visit. He does not report increased drainage associated with these nor the left plantar foot diabetic ulcer. He's been seeing us every 2 weeks and feels that the callus formation in the interim has been quite significant. 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 He states his blood sugars are well controlled with most below 150. 7. Seen by Dr. Weathers. The patient does not report pain nor significant drainage associated with the chronic bilateral first toe diabetic ulcers nor the left plantar foot diabetic ulcer since his last visit. 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 His blood sugars he states are well-controlled with most below 150. 06/01/17. Seen by Dr. Weathers. The patient does not report pain or increased drainage associated with the bilateral, chronic 1st toe diabetic ulcers since his last visit and he continues on doxycycline for the left 1st toe infection noted at his last visit. He does not report adverse side effects and states his blood sugars are mostly below 150. 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 Of note, he reports a new wound over the plantar surface of the left foot that started when he tried to remove a callus earlier this week. 05/18/17. Seen by Dr. Weathers. The patient reports some discomfort associated with the chronic left first toe diabetic ulcer over the past few days however he does not report pain nor increased drainage with the chronic right first toe diabetic ulcer. He continues to work an active job and is on his feet for extended periods however states that he may be able to decrease hours later in the summer. His blood sugars continue to be well controlled with most below 150. 05/12/17. Seen by Flaco Henley PA-C. The patient reports that his neuropathy is worse today with stabbing-type pains occurring in the arches of both feet and radiating to the lateral edges of his feet. He reports that walking on his feet exacerbate the pain and his recent medication change to Cymbalta has helped decrease the pain. He reports no increase in drainage from his bilateral 1st toe diabetic ulcers of the right and left feet. 05/05/17. Seen by Flaco Henley PA-C. The patient reports no increase in drainage from his bilateral 1st toe diabetic ulcers. 04/20/17. Seen by Dr. Weathers. The patient reports pain and drainage associated with the bilateral first toe diabetic ulcers is minimal over the past week and he'll complete his course of moxifloxacin today that's been treating a recent left 1st toe cellulitis. He continues to work a heavy schedule as on his feet for extended periods. He states his blood sugars continue to be mostly below 200. 04/14/17. Seen by Dr. Weathers. The patient feels the pain and drainage associated with the bilateral first toe diabetic ulcers has improved since starting on antibiotics last week. He continues to work a heavy schedule as on his feet for extended periods. He states his blood sugars continue to be mostly below 200. 04/07/17. Seen by Dr. Weathers. The patient reports some pain and increased drainage from the bilateral first toe diabetic ulcers over the past week. He's been working on his feet considerably more over the past few weeks and states his blood sugars are mostly below 200. 03/24/17. Seen by Flaco Henley PA-C. The patient reports good compliance with his diabetes footwear but he also notes blood sugars above 150 this week. Drainage has reportedly been decreasing from his diabetic ulcers of the right and left feet. 03/17/17. Seen by Dr. Weathers. The patient states he's stopped taking his SSRI that was treating the bilateral foot diabetic neuropathic pain as he felt it may have been contributing to his intermittent subjective fevers and chills. He does not report increased drainage or pain associated with the bilateral 1st toe diabetic ulcers since his last visit but states he's been on his feet more due to his job and an increase in tourism as the weather's improving. 02/26/17. Seen by Dr. Weathers. The patient reports increased pain and drainage associated with the left first toe diabetic ulcer but none with the right first toe diabetic ulcer. He's had some subjective fevers and chills for the last 2 weeks but states blood sugars continue to be well controlled with most below 150. 02/19/17. Seen by Dr. Weathers.The patient reports fatigue and intermittent chills but no documented fevers over the past few days. He does not report fevers nor other specific symptoms. He states that there has been no increase in drainage or pain associated with bilateral first diabetic ulcers since his last visit. His blood sugars continue to be mostly below 200. 02/05/17. Seen by Dr. Weathers. The patient does not report pain nor significant drainage associated with the chronic bilateral first toe diabetic ulcers over the past week. He continues applying topical gentamicin as recommended to treat the chronic and recurrent superficial staph infection. 01/29/17. Seen by Dr. Weathers. The patient reports minimal drainage and no pain associated with bilateral first toe diabetic ulcers since his last visit. He has completed his course of Keflex and does not report adverse side effects. He states blood sugars are mostly between 100 and 200.He continues to apply gentamicin ointment also as recommended. 01/22/17. Seen by Dr. Weathers. The patient returns to clinic for bilateral 1st toe diabetic ulcers that have become infected about a week ago and he was placed on Keflex by his PCP. He feels the drainage and redness are improving and he does not report pain in the toes. His blood sugars remain mostly below 150 and he continues to work on his feet a full-time schedule and states he wears his diabetic shoes at all times. 01/05/17. Seen by Flaco Henley PA-C. The patient reports some blood sugars this week above 150. No increase in ulcer drainage is reported today. 12/29/16 Seen by Flaco Henley PA-C. The patient reports stable drainage from his left foot non- pressure ulcer since his last evaluation. 12/22/16 Seen by Flaco Henley PA-C. The patient reports no increase in ulcer drainage from his left foot diabetic ulcer since his last visit. In addition he reports well controlled blood sugars. 12/15/16 Seen by Flaco Henley PA-C. The patient reports no increase in drainage from his left foot diabetic ulcer. His blood sugars have reportedly been below 150 this week but today is blood sugar is noted to be 152. 12/08/16. Seen by Dr. Weathers. The patient's now taking Augmentin for his recent Staph and E. coli positive wound culture taken from the chronic left 1st toe diabetic ulcer. The culture sensitivities however show intermediate sensitivity of the E. coli to Augmentin. The patient feels the toe pain and ulcer drainage have decreased considerably and he states his blood sugars are mostly below 150. He does not report fevers or adverse side effects from the Augmentin. Regarding the right 1st toe diabetic ulcer he does not report pain or significant drainage. 12/01/16 Seen by Flaco Henley PA-C. The patient reports that his left foot diabetic ulcer is much worse with a strong odor reported. 11/17/16 Seen by Flaco Henley PA-C. The patient reports that his blood sugar is likely elevated due to the holidays. He reports no increase in drainage from his DMII ulcers of the right or left 1st toes. 11/03/16. Seen by Dr. Weathers. The patient reports a new ulcer on the right 1st toe that started about one week ago following his attempt at removing a callus from the site. He states about 3 days ago the ulcer started draining fluid and the toe swelled and turned red. He 's not on antibiotics and does not report fevers or feeling unwell. Regarding his left 1st toe diabetic ulcer, he does not report significant drainage or pain. He states his blood sugars are improving with most below 150 now. 10/20/16. Seen by Dr. Weathers. The patient does not report significant drainage associated with the chronic left 1st toe diabetic ulcer since his last visit. He also states his blood sugars still tend to be over 150 and sometimes in the 200's.He also continues to apply gentamcin for the MSSA positive wound culture taken from the ulcer recently. 10/13/16. Seen by Dr. Weathers. The patient does not report significant drainage associated with the chronic left 1st toe diabetic ulcer since his last visit and he continues applyin gentamcin for the MSSA positive wound culture taken from the ulcer. His blood sugars continue to be above 150 fairly frequently however he notes since decreasing his chronic alcohol intake his glucose seems to be easier to control. 10/06/16 Seen by Flaco Henley PA-C. The patient reports that his neuropathy is severe today. It is described as an intermittent burning/shooting pain, that comes and goes but does not radiate and is centered on his left lateral foot. He does not report any associated changes to his chronic left 1st toe diabetic ulcer such as increased drainage. 09/29/16. Seen by Dr. Weathers. The patient does not report significant drainage associated with the chronic left 1st toe diabetic ulcer since his last visit and he continues on doxycycline for the MSSA positive wound culture taken from the ulcer. He feels the toe redness and swelling have improved since starting antibiotics. He also reports significant improvement in the left foot neuropathic pain since starting on a new antidepressant. 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 His blood sugar is over 200 today and he states its typically been between 100 and 200 although he's not been checking it for the past few days since his glucometer is no working. 09/15/16 Seen by Flaco Henley PA-C. The patient reports decreased neuropathic pain in his LLE and has recently started a new antidepressant medication for this issue though he does not recall the name of the medication. His ulcer drainage has been stable since his last evaluation. 09/01/16. Seen by Dr. Weathers. The patient does not report significant drainage associated with the chronic left 1st toe diabetic ulcer. He does state however his left lateral foot neuropathic pain is increasing and he's working with GAMAL Carter, pain specialist, to address this issue. He also states his blood sugars are typically between 100 to 200. 08/25/16 Seen by Flaco Henley PA-C. The patient reports continued left foot neuropathic pain. He has a pending appointment with Jethro Meehan at the pain clinic for this. His diabetic foot ulcer has resumed draining in the past few days after being closed. 08/18/16 Seen by Flaco Henley PA-C. The patient reports that he has had no drainage from his left 1st toe ulcer since his last evaluation. 08/11/16 Seen by Flaco Henley PA-C. The patient reports that he now has a prescription for lyrica and a schedule to taper off his gabapentin. He has not started taking lyrica though notes that his neuropathic pain is improved this week. His ulcer has had decreased drainage. 08/03/16 Seen by Flaco Henley PA-C. The patient reports that his left leg neuropathic pain, which has been present for months, has decreased in severity recently but still reaches 6/10. It is described as intermittent, non-radiating and stabbing/burning. His left 1st toe ulcer has had stable drainage by his report. 07/28/16 Seen by Flaco Henley PA-C. The patient reports very little drainage from his left 1st toe diabetic ulcer. He does report that his neuropathic pain has worsened and he is using alcohol at times as a painkiller. He has an upcoming appointment with Dr. Son, who has been addressing this issue and he asks about the referral to Jethro Meehan. 07/20/16. Seen by Dr. Weathers. The patient does not report significant drainage associated with the chronic left 1st toe diabetic ulcer over the past week. He states he's seen Dr. Son regarding his diabetic neuropathy in the past but has not discussed the recurrent toe ulcer. He also states he 'walks on this toes' and has been told by other providers in the past his Achilles tendon is 'short'. 07/13/[address] Weathers. The patient states he's been more active over the past few weeks with his job however does not report increased drainage or pain associated with the chronic left 1st toe diabetic ulcer. He's wearing his diabetic shoes as recommended and states his blood sugars have been a bit elevated between 150 and 200 over the past week due to non- compliance with his routine diabetic meal plan. 06/22/[address] Weathers. The patient feels the drainage and left 1st toe erythema have improved considerably since his last visit and he continues on Zyvox that was started during his recent admission for cellulitis associated with the toe ulcer. He states his blood sugars are now mostly below 150 and he's wearing diabetic shoes but not necessarily offloading the toe. 09/12/[address] Weathers. The patient has had his TCC off for the past week and he does not report drainage from the left 1st toe diabetic foot ulcer. His blood sugars are also mostly between 150 and 180. 09/06/[address] Weathers. The patient does not report any problems regarding his left diabetic foot ulcer nor the TCC he's worn since his last visit. His blood sugars are typically between 150 and 200 which is an improvement historically. 06/18/15 Seen by Flaco Henley PA-C. The patient has had no drainage from his wounds since his last visit. 06/11/15 Seen by Flaco Henley PA-C. The patient has had a particularly long work week and has been on his feet a lot. He has been using his diabetic shoes and recently modified inserts. 06/07/[address] Weathers. The patient has two new ulcers on the plantar surface of the right foot and on the left toe that were first noticed about 3 days ago after being on his feet at work for an extended period. He feels they may have occurred as a result of his orthotics not fitting properly. He does not report pain or swelling but does note some redness with clear yellow drainage from the right ulcer. He states his blood sugars are mostly below 150 with a few around 180 and he continues to try to loose weight to help manage his diabetes. 05/20/[address] Weathers. The patient does not report drainage from the left toe ulcer and tolerated the TCC without difficulties. His blood sugars are relatively well controlled below 150 and he's ready to pepper picker his orthotic today. 05/08/15 Seen by Flaco Henley PA-C. The patient is here today to have a TCC placed. He continues to try and stay off his feet and has not yet returned to work. 05/06/15 Seen by Flaco Henley PA-C. The patient has been off loading his feet using his off loading boots and sitting at home as well as not working. He continues on his antibiotics. 05/02/15 Seen by Flaco Henley PA-C. The patient continues to take time off work and be sedentary in order to offload his feet. He has been applying kerisol to the callouses on his right and left great toes and hydrogel to the wounds. He took his last dose of Augmentin today and reports decreased drainage from the left great toe diabetic ulcer and minimal drainage from the right great toe diabetic ulcer. His feet are sometimes painful but this has decreased since last visit. Blood sugars are running 150-180s in the AM. 04/26/[address] Weathers. The patient does not report increased drainage associated with the bilateral 1st toe diabetic ulcers. He feels the right leg cellulitis is much improved since starting Augmentin and he's been offloading with a cane and my taking time off of work to stay off his feet. His blood sugars are below 150 and he takes only metformin for diabetes. Past Medical History This information was obtained from the patient Patient has a medical history of: Type II Diabetes Diabetic foot ulcers (bilateral 1st toes; Hector grade II) Hyperlipidemia Chronic pain (neuropathic; left lateral foot) Depression Complaints and Symptoms This information was obtained from the patient Patient complains of: General Notes: I have reviewed and concur with the Review of Systems and Past Family Social History documents completed by the clinician, I have reviewed and concur with the Wound Assessment document completed by the clinician Integumentary (Hair/Skin/Nails): Open Sore Musculoskeletal: Assistive Devices, Deformities Neurological: Abnormal Gait, Loss of Protective Sensation Prior Wound History: Drainage, Erythema, Pain Patient denies complaints or symptoms related to: Cardiovascular (Central/Peripheral): Intermittent Claudication, Lower extremity (leg) resting pain, Lower extremity (leg) swelling Constitutional Symptoms (General Health): Chills, Fever Ear/Nose/Mouth/Throat: Hearing Loss / Aid Gastrointestinal (GI): Nausea / Vomiting, Stomach/abdominal pain Hematologic/Lymphatic: Bleeding / Clotting Disorders, Bleeding Tendency Prior Wound History: Bleeding, Malodor Respiratory: Oxygen Use, Shortness of Breath OBJECTIVE Constitutional Vital signs reviewed and noted. Well developed. Alert. Clean appearing.. Height/ Length: 76 in (193.04 cm), Weight: 260.6 lbs (118.45 kgs), BMI: 31.7, Temperature: 98.6 ?F ( 37 ?C), Pulse: 81 bpm, Respiratory Rate: 18 breaths/min, Blood Pressure: 115/74 mmHg, Capillary Blood Glucose: 92 mg/dl, Pulse Oximetry: 98 %. Vital Signs Notes: Glucose taken in clinic. Ears, Nose, Mouth, and Throat: No clinically significant hearing loss on informal examination. Cardiovascular: Affected extremity exhibits no peripheral edema or cyanosis, is warm, and is well perfused. Capillary refill is less than 2 seconds. Integumentary (Hair, Skin) No periwound erythema, warmth, or significant drainage. No periwound rashes appreciated or noted otherwise.. Refer to appropriate clinician wound documentation for this visit; left foot ulcer extends to subcut with base partially covered with pink granulation, remainder fibrin and slough; right foot ulcer extends to dermis. Significant amount of callus in the periulcer areas; increased from previous review. Wound #9 Left Great Toe is a chronic Hector Grade 2 Diabetic Ulcer and has received a status of Not Healed. Subsequent wound encounter measurements are 1.1cm length x 0.3cm width x 0.4cm depth, with an area of 0.33 sq cm and a volume of 0.132 cubic cm. No tunneling has been noted. No sinus tract has been noted. No undermining has been noted. There is a moderate amount of sero-sanguineous drainage noted which has no odor. The patient reports a wound pain of level 0/10. The wound margin is callus. Wound bed has No epithelialization, No eschar, No slough, Yes bright red, pink, spongy granulation. The periwound skin color is normal. The periwound skin exhibited: Callus, Moist , Maceration. The periwound skin did not exhibit: Brawny Induration, Edema, Excoriation, Induration, Crepitus, Fluctuance, Friable, Rash, Dry/Scaly. The temperature of the periwound skin is WNL. Periwound skin does not exhibit signs or symptoms of infection. Local Pulse is Palpable. Wound #10 Right Great Toe is a chronic Hector Grade 2 Diabetic Ulcer and has received a status of Not Healed. Subsequent wound encounter measurements are 0cm length x 0cm width with no measurable depth, with an area of 0 sq cm . No tunneling has been noted. No sinus tract has been noted. No undermining has been noted. There is a small amount of sero- sanguineous drainage noted which has no odor. The patient reports a wound pain of level 0/10. The wound margin is callus. Wound bed has No epithelialization, No eschar , No slough, No granulation. The periwound skin moisture is normal. The periwound skin color is normal. The periwound skin exhibited: Callus. The periwound skin did not exhibit: Brawny Induration, Edema, Excoriation, Induration, Crepitus, Fluctuance, Friable, Rash. The temperature of the periwound skin is WNL. Periwound skin does not exhibit signs or symptoms of infection. Local Pulse is Palpable. General Notes: Wound completely covered in callus. Neurological: Cranial nerves grossly intact with symmetric function normal by informal observation.. ASSESSMENT Active Problems ICD-10 (Encounter Diagnosis) E11.621 - Type 2 diabetes mellitus with foot ulcer (Encounter Diagnosis) L97.522 - Non-pressure chronic ulcer of other part of left foot with fat layer exposed (Encounter Diagnosis) L97.511 - Non-pressure chronic ulcer of other part of right foot limited to breakdown of skin (Encounter Diagnosis) M54.5 - Low back pain PROCEDURES Wound #9 Wound #9 (Diabetic Ulcer) is located on the left great toe. A skin/subcutaneous tissue level surgical debridement with a total area debrided of 0.44 sq cm was performed by Rakesh Weathers MD. Subcutaneous was removed along with devitalized tissue: callus, exudate , and slough. The following instrument(s) were used: curette. Pain control was achieved using 4% Lido. A time out was conducted prior to the start of the procedure. A moderate amount of bleeding was controlled with pressure. The procedure was tolerated well with a pain level of 0 throughout and a pain level of 0 following the procedure. Post Debridement Measurements: 1.1cm length x 0.4cm width x 0.4cm depth; with an area of 0.44 sq cm and a volume of 0.176 cubic cm; Wound #10 Wound #10 (Diabetic Ulcer) is located on the right great toe. A selective debridement with a total area debrided of 0.04 sq cm was performed by Rakesh Weathers MD. to remove devitalized tissue: callus and exudate. The following instrument(s) were used: curette. Pain control was achieved using 4% Lido. A time out was conducted prior to the start of the procedure. No bleeding occurred. The procedure was tolerated well with a pain level of 0 throughout and a pain level of 0 following the procedure. Post Debridement Measurements: 0.2cm length x 0.2cm width x 0.1cm depth; with an area of 0.04 sq cm and a volume of 0.004 cubic cm; Additional Information Muscle fascia or bone removed and sent to pathology?: No PLAN Wound Orders: Wound #9 Left Great Toe Anesthetic Topical Xylocaine to wound bed. - In clinic only. Cleanser Cleanse Wound: - Normal saline and gauze. May Shower. - Please cover in shower, may use cast protector or plastic bag and tape. Topical Treatments Moisturizing lotion to surround skin. - Kerasal. Dressings Cover and secure with: - Foam secured with tape. Change Dressing: - Daily. Wound #10 Right Great Toe Anesthetic Topical Xylocaine to wound bed. - In clinic only. Cleanser Cleanse Wound: - Normal saline and gauze. May Shower. - Please cover in shower, may use cast protector or plastic bag and tape. Topical Treatments Moisturizing lotion to surround skin. - Kerasal. Dressings Cover and secure with: - Foam secured with tape. Change Dressing: - Daily. Additional Orders: Off-Loading Keep weight off: - Left foot as much as possible. Use/Wear when Walking: - Lime boot, Knee scooter. Follow-Up Appointments Return Appointment: - - One week. Other information: If you develop fever, chills, increased pain, drainage, redness or swelling please call our office. If after hours, respond to the ER. Should you experience any significant changes in your wound(s) or have any questions regarding your home care instructions please contact the wound center @ [phone]. If after hours, contact your primary care physician or go to the hospital emergency room. Scribing Attestation I attest, as the nurse, that I scribed these orders for the physician. I've reviewed the clinician's documentation and agree with the evaluation and plan as written. In addition the patient's ulcers demonstrate evidence of non-viable devitalized tissue and they will continue to benefit from sharp debridement to help promote granulation and expedite healing. Also, the patient's been advised to restart applying Kerasal to the periulcer calluses daily due to the significant amount present today. We'll monitor for changes in the calluses and/or ulcers also now that his orthotic has been adjusted. Electronic Signature(s) Signed By: Date: Rakesh Weathers MD 06/29/2018 08:37:45 Entered By: Rakesh Weathers on 06/28/2018 10:49:50
== END ==
PROVIDERS: PCP Student in an Organized Health Care Education/Training Program; Visit Provider Internal Medicine
DX: E11.621 Type 2 diabetes mellitus with foot ulcer (principal); L97.522 Non-pressure chronic ulcer of other part of left foot with fat layer exposed; L97.511 Non-pressure chronic ulcer of other part of right foot limited to breakdown of skin; M54.5 Low back pain; L84 Corns and callosities
CPT/HCPCS: 11042; 97597

== ENCOUNTER → 2018-07-05 13:19 | Outpatient (CLI) | payer OTHER, SELFPAY ==
--- NOTE | 2018-07-05 | OV.WND_ITS ---
Progress Note Details Patient Name: Baljit Mckay Patient Number: [id number] PatientPatientDate: 07/05/2018 Clinician: Yareli De León Physician / Sleep Lab Technician: Rakesh Weathers SUBJECTIVE Chief Complaint This information was obtained from the patient Diabetic ulcers to left and right great toe. Allergies NKDA HPI This information was obtained from the patient 07/05/18. Seen by Dr. Weathers. The patient does not report increased drainage or significant pain associated with the bilateral 1st toe diabetic ulcers since his last visit. 06/28/18. Seen by Dr. Weathers. The patient does not report increased drainage or significant pain associated with the bilateral 1st toe diabetic ulcers since his last visit. He notes he's been using Kerasal ointment to treat the periulcer calluses less frequently and he's had an orthotic added to the right shoe to help 'even the leg length' and possibly relieve some lower back pain he's been having. 06/21/18. Seen by Dr. Weathers. The patient does not report increased drainage or significant pain associated with the bilateral 1st toe diabetic ulcers since his last visit. 06/14/18. Seen by Dr. Weathers. The patient does not report increased drainage or significant pain associated with the bilateral 1st toe diabetic ulcers since his last visit. 06/07/18. Seen by Dr. Weathers. The patient reports he was more active over the past week at work and of note he experienced some pain in the right 1st toe upon removal of his dressing today. Otherwise he does not report increased drainage from either 1st toe diabetic ulcer and states his blood sugars continue to be well controlled. 05/31/18. Seen by Dr. Weathers. The patient does not report increased drainage or pain associated with the bilateral 1st toe diabetic ulcers since his last visit and he's increased is use of this NEWHALEN boots to better facilitate offloading. 05/27/18. Seen by Dr. Weathers. The patient does not report increased drainage or pain associated with the bilateral 1st toe diabetic ulcers since his last visit and he continues to be quite active with work making it difficult to adequately offload the ulcers. He also reports a chronic rash over the distal left lower leg that's been present for about one month. 05/20/18. Seen by Dr. Weathers. The patient does not report increased drainage or pain associated with the bilateral 1st toe diabetic ulcers since his last visit and he continues to be quite active with work and personal activities making it difficult to adequately offload the ulcers. His blood sugars remain well controlled and he's been advised to wear a NEWHALEN boot at all times on the left leg but has not been able to do this. 05/10/18. Seen by Flaco Henley PA-C. The patient reports a rash has developed on his leg under his NEWHALEN boot, but the rash has improved in the past few days as he has not been wearing the NEWHALEN boot. Drainage from his diabetic foot ulcers has not increased. 05/03/18. Seen by Dr. Weathers. The patient states he was at a conference this past weekend and forgot his left lower leg stocking that protects from his NEWHALEN boot rubbing the short. He started to notice an abrasion so stopped wearing the NEWHALEN boot and now feels the left 1st toe diabetic ulcer may have deteriorated and also it got wet in the shower this morning. He also notes some drainage at the site of the recently healed left 1st toe diabetic ulcer. He does not report pain at either site and his blood sugars are historically well controlled over the past 6 months. 04/26/18. Seen by Dr. Weathers. The patient reports being on his feet a lot over the past week at work but he'll be taking the next week off. 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 His culture last week grew MSSA and he's completed a course of doxycycline as of yesterday. He's also not been wearing this NEWHALEN boot or using a knee scooter due to his working more. 04/19/18. Seen by Dr. Weathers. The patient does not report pain associated with the chronic left 1st toe diabetic ulcer since his last visit however he was more active on it over the holiday weekend. The staff however report drainage on the dressing and a significant increase in callus from his last visit. His blood sugars continue to be well controlled around 120 and he's been advised to use his NEWHALEN boot when mobilizing and knee scooter as much as possible. 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 04/12/18. Seen by Dr. Weathers. The patient does not report drainage or pain associated with the great left foot diabetic ulcers since his last visit. 04/05/2018. Seen by Dr. Weathers. The patient is wearing his NEWHALEN boot on the left foot as much as possible to help offload the recurrent and chronic left 1st toe diabetic ulcer. He'll complete his course of doxycycline today that was started at his last for cellulitis of the toe and he's applying topical gentamicin as well. He does not report fevers or feeling unwell nor side effects of the antibiotics. 03/29/2018. Seen by Dr. Weathers. The patient reports some pain and increased drainage as well as redness and swelling of the left 1st toe over the past few days. He does not report fevers however nor other acute issues at this time. 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 03/22/2018. Seen by Dr. Weathers. The patient does not report drainage or pain associated with the great left foot diabetic ulcers since his last visit. He states however that he is not wearing his NEWHALEN boot to offload the sites on alternate days despite my recommendations last week. 03/15/18. Seen by Dr. Weathers. The patient has returned to full-time work schedule and feels may not be wearing his NEWHALEN boots as much as she should noting a significant increase in callus associated with bilateral first toe diabetic ulcers and associated pain. He does not report drainage associated with the ulcers however and we'll extended his visits out to 10 days. . Seen by Dr. Weathers. The patient does not report significant drainage associated with chronic left and right first toe diabetic ulcers since his last visit. He's not wearing his NEWHALEN boot currently to offload the left foot and has started using new orthotic inserts for his diabetic shoe noting the heavy callus may be due to the old othotics wearing down. 02/25/18. Seen by Dr. Weathers. The patient does not report significant drainage associated with chronic left first toe diabetic ulcer since his last visit. 02/18/18. Seen by Dr. Weathers. The patient does not report drainage associated with chronic right or left first toe diabetic ulcers since his last visit and he's applying topical gentamicin as recommended to treat the left 1st toe MSSA positive wound culture taken at the last visit. 02/11/18. Seen by Dr. Weathers. The patient returns due to recurrence of the left 1st toe diabetic ulcer that he states started about 1 week ago when he developing callus fell off and the toe started to drain. He was seen by Dr. Son, podiatry, who subsequently referred the patient back to our clinic. He does not report pain in the toe or fevers and he's wearing his NEWHALEN boot to help offload the site. He's also on Keflex but states a wound culture was not drawn. Of note, he reports callus has reformed over the recently healed right 1st toe diabetic ulcer also. His blood sugars continue to be well controlled with most below 150. 01/17/18. Seen by Flaco Henley PA-C. The patient reports no drainage from his right 1st toe diabetic ulcer since his last dressing change. 01/05/18. Seen by Dr. Weathers. 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 Of note, he also has a new wound over the dorsum of the right foot that occurred following a dog fight that occurred at home where he was stepped on and the dog's claws scratch the foot. He does not report significant pain or drainage associated with this wound. 12/29/17. Seen by Dr. Weathers. The patient does not report drainage or pain associated with the right first toe diabetic ulcers since his last visit. He is wearing his NEWHALEN boot as recommended and is asking if he will be able to return to work soon. 12/22/17. Seen by Dr. Weathers. The patient does not report increased drainage associated with a chronic right first toe diabetic ulcers since his last visit. 12/14/17. Seen by Dr. Weathers. The patient does not report increased drainage associated with a chronic right first toe diabetic ulcers since his last visit and he's wearing his NEWHALEN boot as recommended to offload the ulcer. 12/08/17. Seen by Dr. Weathers. The patient does not report increased drainage associated with a chronic right first toe diabetic ulcers since his last visit. Of note, he states he accidentally wore his left shoe with a sock in the end of the which may result in some bruising at the site of the recently healed first toe diabetic ulcer. 12/01/17. Seen by Dr. Weathers. The patient does not report significant drainage or pain associated with right first toe diabetic ulcer since his last visit. Of note, he 's also stopped applying Kersal to the callus surrounding the recently healed left 1st toe diabetic ulcer despite our recommendations to do so. 11/17/17. Seen by Dr. Weathers. The patient does not report significant drainage or pain associated with right first toe diabetic ulcer since his last visit. 11/10/17. Seen by Dr. Weathers. The patient does not report significant drainage or pain associated with bilateral first toe diabetic ulcers since his last visit. He's been offloading as recommended with both his NEWHALEN boots and a knee scooter. 11/03/17. Seen by Dr. Weathers. The patient does not report increased drainage or pain associated with bilateral first toe diabetic ulcers since last visit. 10/27/17. Seen by Dr. Weathers. The patient reports some increased pain and redness associated with the chronic right first toe diabetic ulcer. 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 He is also offloading with a new scooter as recommended 10/20/17. Seen by Dr. Weathers. The patient does not report increased drainage or pain associated with bilateral first toe diabetic ulcers since last visit. 10/13/17. Seen by Dr. Weathers. The patient does not report increased drainage or pain associated with bilateral first toe diabetic ulcers since last visit. Of note, he now has a knee scooter and his left NEWHALEN boot and feels the left 1st toe ulcer has improved significantly with the added offloading measures. 10/06/17. Seen by Dr. Weathers. The patient does not report increased drainage or pain associated with bilateral first toe diabetic ulcers since last visit. Of note, he now has a knee scooter that he's been using to offload the left foot for the past 2 days and he will receive his NEWHALEN boot on Wednesday. 09/29/17. Seen by Dr. Weathers. The patient states that while wearing his left foot offloading shoe he took a fall and feels that it may have traumatized the chronic left first toe diabetic ulcer. He does not report increased pain or drainage from the site nor the right first toe diabetic ulcers since his last visit and states his blood sugars continue to be mostly below 150. He is also awaiting delivery of the left foot [employer] boot as well as his diabetic shoes. Of note, he also admits to being more active that he should be despite our recommendations to maximally offload both ulcers and has not been able to locate an offloading knee scooter as we've recommended. 09/22/17. Seen by Dr. Weathers. The patient does not report increased drainage associated with the bilateral 1st toe diabetic ulcers since his last visit and he's completed his course of doxycycline without reporting adverse side effects. He's also not yet seen his orthortist who will be fitting for at NEWHALEN boot to offload the left foot ulcer as well as providing him with a pair of diabetic shoes. 09/15/17. Seen by Dr. Weathers. The patient's on doxycycline to treat a chronic wound infection of the left 1st toe and he does not report adverse side effects. He's wearing his offloading shoe on the foot as recommended and continues to limit his walking as much as possible. He does not report significant drainage or pain associated with either 1st toe diabetic ulcers and states he's going to schedule and appointment with an buttonhole tacker today as we've been recommending. 09/06/17. Seen by Flaco Henley PA-C. The patient reports increased drainage and continued callous formation from his 1st toe diabetic ulcers. He continues to stay off his feet as much as possible and is working with his insurance company and [employer] to obtain a NEWHALEN offloading boot. 08/31/17. Seen by Flaco Henley PA-C. The patient reports he has been staying off his feet and has been away from work as instructed. He reports decreased drainage from his bilateral diabetic toe ulcers. 08/24/17. Seen by Dr. Weathers. The patient reports being more active over the past week despite being advised to limit his walking considerably to offload the bilateral first toe diabetic ulcers. He does not report increased drainage or pain associated with these ulcers. He also states he will be able to take another month off of work to further facilitate offloading of the ulcers. 08/17/17. Seen by Dr. Weathers. The patient has been offloading both left and right first toe diabetic ulcers for the past week and has taken the entire month of July off of work to better facilitate offloading. 08/10/17. Seen by Dr. Weathers. The patient has been offloading both left and right first toe diabetic ulcers for the past week as recommended and he does not report significant associated pain or drainage from either site. 08/03/17. Seen by Dr. Weathers. The patient has been offloading both left and right first toe diabetic ulcers for the past week and has taken the entire month of July off of work to better facilitate offloading. 07/23/17. Seen by Dr. Weathers. The patient does not report significant drainage associated with chronic bilateral left and right first toe diabetic ulcers since his last visit. He does not report any drainage associated with the left 1st MTPJ diabetic ulcer. 07/20/17. Seen by Dr. Weathers. The patient does not report pain nor significant drainage associated with chronic bilateral left and right first toe diabetic ulcers since his last visit. He is applying topical gentamicin as recommended to the ulcer bases to treat the recent wound infection. He does not report any drainage associated with the left 1st MTPJ diabetic ulcer. 07/16/17. Seen by Dr. Weathers. The patient states that he had a very busy past week in terms of festival and he was on his feet for extended periods. He has increased drainage and callus formation associated with both first toe diabetic ulcers since we last saw him however he does not report any increased drainage or problems regarding the left mid plantar foot diabetic ulcer. He does not report pain in the toes nor fever or feeling unwell. His blood sugars continue to be well controlled consistently below 150. 07/06/17. Seen by Dr. Weathers. The patient does not report pain nor significant drainage associated with chronic bilateral left and right first toe diabetic ulcers since his last visit. He is applying topical gentamicin as recommended in his recent wound culture grew MSSA. He also does not report pain nor drainage associated with the chronic left plantar foot diabetic ulcer. 06/29/17. Seen by Dr. Weathers. The patient reports some pain associated with both first toe diabetic ulcers since his last visit. He does not report increased drainage associated with these nor the left plantar foot diabetic ulcer. He's been seeing us every 2 weeks and feels that the callus formation in the interim has been quite significant. 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 He states his blood sugars are well controlled with most below 150. 7/. Seen by Dr. Weathers. The patient does not report pain nor significant drainage associated with the chronic bilateral first toe diabetic ulcers nor the left plantar foot diabetic ulcer since his last visit. 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 His blood sugars he states are well-controlled with most below 150. 7/10/08. Seen by Dr. Weathers. The patient does not report pain or increased drainage associated with the bilateral, chronic 1st toe diabetic ulcers since his last visit and he continues on doxycycline for the left 1st toe infection noted at his last visit. He does not report adverse side effects and states his blood sugars are mostly below 150. 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 Of note, he reports a new wound over the plantar surface of the left foot that started when he tried to remove a callus earlier this week. 05/18/17. Seen by Dr. Weathers. The patient reports some discomfort associated with the chronic left first toe diabetic ulcer over the past few days however he does not report pain nor increased drainage with the chronic right first toe diabetic ulcer. He continues to work an active job and is on his feet for extended periods however states that he may be able to decrease hours later in the summer. His blood sugars continue to be well controlled with most below 150. 05/12/17. Seen by Flaco Henley PA-C. The patient reports that his neuropathy is worse today with stabbing-type pains occurring in the arches of both feet and radiating to the lateral edges of his feet. He reports that walking on his feet exacerbate the pain and his recent medication change to Cymbalta has helped decrease the pain. He reports no increase in drainage from his bilateral 1st toe diabetic ulcers of the right and left feet. 05/05/17. Seen by Flaco Henley PA-C. The patient reports no increase in drainage from his bilateral 1st toe diabetic ulcers. 04/20/17. Seen by Dr. Weathers. The patient reports pain and drainage associated with the bilateral first toe diabetic ulcers is minimal over the past week and he'll complete his course of moxifloxacin today that's been treating a recent left 1st toe cellulitis. He continues to work a heavy schedule as on his feet for extended periods. He states his blood sugars continue to be mostly below 200. 5. Seen by Dr. Weathers. The patient feels the pain and drainage associated with the bilateral first toe diabetic ulcers has improved since starting on antibiotics last week. He continues to work a heavy schedule as on his feet for extended periods. He states his blood sugars continue to be mostly below 200. 5. Seen by Dr. Weathers. The patient reports some pain and increased drainage from the bilateral first toe diabetic ulcers over the past week. He's been working on his feet considerably more over the past few weeks and states his blood sugars are mostly below 200. 5. Seen by Flaco Henley PA-C. The patient reports good compliance with his diabetes footwear but he also notes blood sugars above 150 this week. Drainage has reportedly been decreasing from his diabetic ulcers of the right and left feet. 03/17/17. Seen by Dr. Weathers. The patient states he's stopped taking his SSRI that was treating the bilateral foot diabetic neuropathic pain as he felt it may have been contributing to his intermittent subjective fevers and chills. He does not report increased drainage or pain associated with the bilateral 1st toe diabetic ulcers since his last visit but states he's been on his feet more due to his job and an increase in tourism as the weather's improving. 02/26/17. Seen by Dr. Weathers. The patient reports increased pain and drainage associated with the left first toe diabetic ulcer but none with the right first toe diabetic ulcer. He's had some subjective fevers and chills for the last 2 weeks but states blood sugars continue to be well controlled with most below 150. 02/19/17. Seen by Dr. Weathers.The patient reports fatigue and intermittent chills but no documented fevers over the past few days. He does not report fevers nor other specific symptoms. He states that there has been no increase in drainage or pain associated with bilateral first diabetic ulcers since his last visit. His blood sugars continue to be mostly below 200. 3. Seen by Dr. Weathers. The patient does not report pain nor significant drainage associated with the chronic bilateral first toe diabetic ulcers over the past week. He continues applying topical gentamicin as recommended to treat the chronic and recurrent superficial staph infection. 01/29/17. Seen by Dr. Weathers. The patient reports minimal drainage and no pain associated with bilateral first toe diabetic ulcers since his last visit. He has completed his course of Keflex and does not report adverse side effects. He states blood sugars are mostly between 100 and 200.He continues to apply gentamicin ointment also as recommended. 01/22/17. Seen by Dr. Weathers. The patient returns to clinic for bilateral 1st toe diabetic ulcers that have become infected about a week ago and he was placed on Keflex by his PCP. He feels the drainage and redness are improving and he does not report pain in the toes. His blood sugars remain mostly below 150 and he continues to work on his feet a full-time schedule and states he wears his diabetic shoes at all times. 01/05/17. Seen by Flaco Henley PA-C. The patient reports some blood sugars this week above 150. No increase in ulcer drainage is reported today. 12/29/16 Seen by Flaco Henley PA-C. The patient reports stable drainage from his left foot non- pressure ulcer since his last evaluation. 12/22/16 Seen by Flaco Henley PA-C. The patient reports no increase in ulcer drainage from his left foot diabetic ulcer since his last visit. In addition he reports well controlled blood sugars. 12/15/16 Seen by Flaco Henley PA-C. The patient reports no increase in drainage from his left foot diabetic ulcer. His blood sugars have reportedly been below 150 this week but today is blood sugar is noted to be 152. 12/08/16. Seen by Dr. Weathers. The patient's now taking Augmentin for his recent Staph and E. coli positive wound culture taken from the chronic left 1st toe diabetic ulcer. The culture sensitivities however show intermediate sensitivity of the E. coli to Augmentin. The patient feels the toe pain and ulcer drainage have decreased considerably and he states his blood sugars are mostly below 150. He does not report fevers or adverse side effects from the Augmentin. Regarding the right 1st toe diabetic ulcer he does not report pain or significant drainage. 12/01/16 Seen by Flaco Henley PA-C. The patient reports that his left foot diabetic ulcer is much worse with a strong odor reported. 11/17/16 Seen by Flaco Henley PA-C. The patient reports that his blood sugar is likely elevated due to the holidays. He reports no increase in drainage from his DMII ulcers of the right or left 1st toes. 11/03/16. Seen by Dr. Weathers. The patient reports a new ulcer on the right 1st toe that started about one week ago following his attempt at removing a callus from the site. He states about 3 days ago the ulcer started draining fluid and the toe swelled and turned red. He 's not on antibiotics and does not report fevers or feeling unwell. Regarding his left 1st toe diabetic ulcer, he does not report significant drainage or pain. He states his blood sugars are improving with most below 150 now. 10/20/16. Seen by Dr. Weathers. The patient does not report significant drainage associated with the chronic left 1st toe diabetic ulcer since his last visit. He also states his blood sugars still tend to be over 150 and sometimes in the 200's.He also continues to apply gentamcin for the MSSA positive wound culture taken from the ulcer recently. 10/13/16. Seen by Dr. Weathers. The patient does not report significant drainage associated with the chronic left 1st toe diabetic ulcer since his last visit and he continues applyin gentamcin for the MSSA positive wound culture taken from the ulcer. His blood sugars continue to be above 150 fairly frequently however he notes since decreasing his chronic alcohol intake his glucose seems to be easier to control. 10/06/16 Seen by Flaco Henley PA-C. The patient reports that his neuropathy is severe today. It is described as an intermittent burning/shooting pain, that comes and goes but does not radiate and is centered on his left lateral foot. He does not report any associated changes to his chronic left 1st toe diabetic ulcer such as increased drainage. 09/29/16. Seen by Dr. Weathers. The patient does not report significant drainage associated with the chronic left 1st toe diabetic ulcer since his last visit and he continues on doxycycline for the MSSA positive wound culture taken from the ulcer. He feels the toe redness and swelling have improved since starting antibiotics. He also reports significant improvement in the left foot neuropathic pain since starting on a new antidepressant. 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 His blood sugar is over 200 today and he states its typically been between 100 and 200 although he's not been checking it for the past few days since his glucometer is no working. 09/15/16 Seen by Flaco Henley PA-C. The patient reports decreased neuropathic pain in his LLE and has recently started a new antidepressant medication for this issue though he does not recall the name of the medication. His ulcer drainage has been stable since his last evaluation. 09/01/16. Seen by Dr. Weathers. The patient does not report significant drainage associated with the chronic left 1st toe diabetic ulcer. He does state however his left lateral foot neuropathic pain is increasing and he's working with GAMAL Carter, pain specialist, to address this issue. He also states his blood sugars are typically between 100 to 200. 08/25/16 Seen by Flaco Henley PA-C. The patient reports continued left foot neuropathic pain. He has a pending appointment with Jethro Meehan at the pain clinic for this. His diabetic foot ulcer has resumed draining in the past few days after being closed. 08/18/16 Seen by Flaco Henley PA-C. The patient reports that he has had no drainage from his left 1st toe ulcer since his last evaluation. 08/11/16 Seen by Flaco Henley PA-C. The patient reports that he now has a prescription for lyrica and a schedule to taper off his gabapentin. He has not started taking lyrica though notes that his neuropathic pain is improved this week. His ulcer has had decreased drainage. 08/03/16 Seen by Flaco Henley PA-C. The patient reports that his left leg neuropathic pain, which has been present for months, has decreased in severity recently but still reaches 6/10. It is described as intermittent, non-radiating and stabbing/burning. His left 1st toe ulcer has had stable drainage by his report. 07/28/16 Seen by Flaco Henley PA-C. The patient reports very little drainage from his left 1st toe diabetic ulcer. He does report that his neuropathic pain has worsened and he is using alcohol at times as a painkiller. He has an upcoming appointment with Dr. Son, who has been addressing this issue and he asks about the referral to Jethro Meehan. 07/20/16. Seen by Dr. Weathers. The patient does not report significant drainage associated with the chronic left 1st toe diabetic ulcer over the past week. He states he's seen Dr. Son regarding his diabetic neuropathy in the past but has not discussed the recurrent toe ulcer. He also states he 'walks on this toes' and has been told by other providers in the past his Achilles tendon is 'short'. 07/13/[address] Weathers. The patient states he's been more active over the past few weeks with his job however does not report increased drainage or pain associated with the chronic left 1st toe diabetic ulcer. He's wearing his diabetic shoes as recommended and states his blood sugars have been a bit elevated between 150 and 200 over the past week due to non- compliance with his routine diabetic meal plan. 06/22/[address] Weathers. The patient feels the drainage and left 1st toe erythema have improved considerably since his last visit and he continues on Zyvox that was started during his recent admission for cellulitis associated with the toe ulcer. He states his blood sugars are now mostly below 150 and he's wearing diabetic shoes but not necessarily offloading the toe. 09/12/[address] Weathers. The patient has had his TCC off for the past week and he does not report drainage from the left 1st toe diabetic foot ulcer. His blood sugars are also mostly between 150 and 180. 09/06/[address] Weathers. The patient does not report any problems regarding his left diabetic foot ulcer nor the TCC he's worn since his last visit. His blood sugars are typically between 150 and 200 which is an improvement historically. 06/18/15 Seen by Flaco Henley PA-C. The patient has had no drainage from his wounds since his last visit. 06/11/15 Seen by Flaco Henley PA-C. The patient has had a particularly long work week and has been on his feet a lot. He has been using his diabetic shoes and recently modified inserts. 06/07/[address] Weathers. The patient has two new ulcers on the plantar surface of the right foot and on the left toe that were first noticed about 3 days ago after being on his feet at work for an extended period. He feels they may have occurred as a result of his orthotics not fitting properly. He does not report pain or swelling but does note some redness with clear yellow drainage from the right ulcer. He states his blood sugars are mostly below 150 with a few around 180 and he continues to try to loose weight to help manage his diabetes. 05/20/[address] Weathers. The patient does not report drainage from the left toe ulcer and tolerated the TCC without difficulties. 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 05/08/15 Seen by Flaco Henley PA-C. The patient is here today to have a TCC placed. He continues to try and stay off his feet and has not yet returned to work. 05/06/15 Seen by Flaco Henley PA-C. The patient has been off loading his feet using his off loading boots and sitting at home as well as not working. He continues on his antibiotics. 05/02/15 Seen by Flaco Henley PA-C. The patient continues to take time off work and be sedentary in order to offload his feet. He has been applying kerisol to the callouses on his right and left great toes and hydrogel to the wounds. He took his last dose of Augmentin today and reports decreased drainage from the left great toe diabetic ulcer and minimal drainage from the right great toe diabetic ulcer. His feet are sometimes painful but this has decreased since last visit. Blood sugars are running 150-180s in the AM. 04/26/[address] Weathers. The patient does not report increased drainage associated with the bilateral 1st toe diabetic ulcers. He feels the right leg cellulitis is much improved since starting Augmentin and he's been offloading with a cane and my taking time off of work to stay off his feet. His blood sugars are below 150 and he takes only metformin for diabetes. Past Medical History This information was obtained from the patient Patient has a medical history of: Type II Diabetes Diabetic foot ulcers (bilateral 1st toes; Hector grade II) Hyperlipidemia Chronic pain (neuropathic; left lateral foot) Depression Complaints and Symptoms This information was obtained from the patient Patient complains of: General Notes: I have reviewed and concur with the Review of Systems and Past Family Social History documents completed by the clinician, I have reviewed and concur with the Wound Assessment document completed by the clinician Integumentary (Hair/Skin/Nails): Open Sore Musculoskeletal: Assistive Devices, Deformities Neurological: Abnormal Gait, Loss of Protective Sensation Prior Wound History: Drainage, Erythema, Pain Patient denies complaints or symptoms related to: Cardiovascular (Central/Peripheral): Intermittent Claudication, Lower extremity (leg) resting pain, Lower extremity (leg) swelling Constitutional Symptoms (General Health): Chills, Fever Ear/Nose/Mouth/Throat: Hearing Loss / Aid Gastrointestinal (GI): Nausea / Vomiting, Stomach/abdominal pain Hematologic/Lymphatic: Bleeding / Clotting Disorders, Bleeding Tendency Prior Wound History: Bleeding, Malodor Respiratory: Oxygen Use, Shortness of Breath OBJECTIVE Constitutional Vital signs reviewed and noted. Well developed. Alert. Clean appearing.. Height/ Length: 76 in (193.04 cm), Weight: 266.5 lbs (121.14 kgs), BMI: 32.4, Temperature: 98.8 ?F ( 37.11 ?C), Pulse: 68 bpm, Respiratory Rate: 18 breaths/min, Blood Pressure: 108/69 mmHg, Capillary Blood Glucose: 109 mg/dl, Pulse Oximetry: 98 %. Vital Signs Notes: Glucose per patient Ears, Nose, Mouth, and Throat: No clinically significant hearing loss on informal examination. Respiratory: No respiratory distress. Even respirations and without use of accessory muscles.. Integumentary (Hair, Skin) No periwound erythema, warmth, or significant drainage. No periwound rashes appreciated or noted otherwise.. Refer to appropriate clinician wound documentation for this visit; right and left foot ulcers extend to subcut with bases partially covered with pink granulation, remainder fibrin and slough. Significant amount of callus in the periulcer areas. Wound #9 Left Great Toe is a chronic Hector Grade 2 Diabetic Ulcer and has received a status of Not Healed. Subsequent wound encounter measurements are 0.1cm length x 0.1cm width x 0.1cm depth, with an area of 0.01 sq cm and a volume of 0.001 cubic cm. No tunneling has been noted. No sinus tract has been noted. No undermining has been noted. There is a scant amount of sero-sanguineous drainage noted which has no odor. The patient reports a wound pain of level 0/10. The wound margin is callus. Wound bed has No epithelialization, No eschar, No slough, Yes bright red, pink, spongy granulation. The periwound skin color is normal. The periwound skin exhibited: Callus, Moist , Maceration. The periwound skin did not exhibit: Brawny Induration, Edema, Excoriation, Induration, Crepitus, Fluctuance, Friable, Rash, Dry/Scaly. The temperature of the periwound skin is WNL. Periwound skin does not exhibit signs or symptoms of infection. Local Pulse is Palpable. Wound #10 Right Great Toe is a chronic Hector Grade 2 Diabetic Ulcer and has received a status of Not Healed. Subsequent wound encounter measurements are 0cm length x 0cm width with no measurable depth, with an area of 0 sq cm . No tunneling has been noted. No sinus tract has been noted. No undermining has been noted. There was no drainage noted. The patient reports a wound pain of level 0/10. The wound margin is callus. Wound bed has No epithelialization, No eschar, No slough, No granulation. The periwound skin moisture is normal. The periwound skin color is normal. The periwound skin exhibited: Callus. The periwound skin did not exhibit: Brawny Induration, Edema, Excoriation, Induration, Crepitus, Fluctuance, Friable, Rash. The temperature of the periwound skin is WNL. Periwound skin does not exhibit signs or symptoms of infection. Local Pulse is Palpable. Neurological: Cranial nerves grossly intact with symmetric function normal by informal observation.. ASSESSMENT Active Problems ICD-10 (Encounter Diagnosis) E11.621 - Type 2 diabetes mellitus with foot ulcer (Encounter Diagnosis) L97.522 - Non-pressure chronic ulcer of other part of left foot with fat layer exposed (Encounter Diagnosis) L97.512 - Non-pressure chronic ulcer of other part of right foot with fat layer exposed PROCEDURES Wound #9 Wound #9 (Diabetic Ulcer) is located on the left great toe. A skin/subcutaneous tissue level surgical debridement with a total area debrided of 0.08 sq cm was performed by Rakesh Weathers MD. Subcutaneous was removed along with devitalized tissue: callus and slough. The following instrument(s) were used: curette. Pain control was achieved using 4% Lido. A time out was conducted prior to the start of the procedure. A minimal amount of bleeding was controlled with n/a. The procedure was tolerated well with a pain level of 0 throughout and a pain level of 0 following the procedure. Post Debridement Measurements: 0.4cm length x 0.2cm width x 0.2cm depth; with an area of 0.08 sq cm and a volume of 0.016 cubic cm; Wound #10 Wound #10 (Diabetic Ulcer) is located on the right great toe. A skin/ subcutaneous tissue level surgical debridement with a total area debrided of 0.04 sq cm was performed by Rakesh Weathers MD. Subcutaneous was removed along with devitalized tissue: callus, exudate , and slough. The following instrument(s) were used: curette. Pain control was achieved using 4% Lido. A time out was conducted prior to the start of the procedure. A minimal amount of bleeding was controlled with n/a. The procedure was tolerated well with a pain level of 0 throughout and a pain level of 0 following the procedure. Post Debridement Measurements: 0.2cm length x 0.2cm width x 0.1cm depth; with an area of 0.04 sq cm and a volume of 0.004 cubic cm; Additional Information Muscle fascia or bone removed and sent to pathology?: No Muscle fascia or bone removed and sent to pathology?: No PLAN Wound Orders: Wound #9 Left Great Toe Anesthetic Topical Xylocaine to wound bed. - In clinic only. Cleanser Cleanse Wound: - Normal saline and gauze. May Shower. - Please cover in shower, may use cast protector or plastic bag and tape. Topical Treatments Moisturizing lotion to surround skin. - Kerasal. Dressings Cover and secure with: - Foam secured with tape. Change Dressing: - Daily. Wound #10 Right Great Toe Anesthetic Topical Xylocaine to wound bed. - In clinic only. Cleanser Cleanse Wound: - Normal saline and gauze. May Shower. - Please cover in shower, may use cast protector or plastic bag and tape. Topical Treatments Moisturizing lotion to surround skin. - Kerasal. Antibiotic/Antimicrobial Ointment/Cream. - gentamicin Dressings Cover and secure with: - Foam secured with tape. Change Dressing: - Daily. Additional Orders: Off-Loading Keep weight off: - Left foot as much as possible. Use/Wear when Walking: - [place] boot, Knee scooter. Follow-Up Appointments Return Appointment: - - One week. Other information: If you develop fever, chills, increased pain, drainage, redness or swelling please call our office. If after hours, respond to the ER. Should you experience any significant changes in your wound(s) or have any questions regarding your home care instructions please contact the wound center @ [phone]. If after hours, contact your primary care physician or go to the hospital emergency room. Scribing Attestation I attest, as the nurse, that I scribed these orders for the physician. Laboratory: Culture Wound I've reviewed the clinician's documentation and agree with the evaluation and plan as written. In addition the patient's ulcers demonstrate evidence of non-viable devitalized tissue and they will continue to benefit from sharp debridement to help promote granulation and expedite healing. Also, I've cultured drainage from the right 1st toe ulcer and he'll start treating what appears to be a superficial infection with topical gentamicin. Electronic Signature(s) Signed By: Date: Rakesh Weathers MD 07/05/2018 16:47:11 Entered By: Rakesh Weathers on 07/05/2018 13:41:22
== END ==
PROVIDERS: PCP Student in an Organized Health Care Education/Training Program; Visit Provider Internal Medicine
DX: E11.621 Type 2 diabetes mellitus with foot ulcer (principal); L97.522 Non-pressure chronic ulcer of other part of left foot with fat layer exposed; L97.512 Non-pressure chronic ulcer of other part of right foot with fat layer exposed; L08.9 Local infection of the skin and subcutaneous tissue, unspecified
CPT/HCPCS: 11042; 87070; 87075; 87077; 87147; 87186; 87205

== ENCOUNTER → 2018-07-12 09:32 | Outpatient (CLI) | payer OTHER, SELFPAY | PROVIDERS: PCP Student in an Organized Health Care Education/Training Program; Visit Provider Internal Medicine | DX: E11.621 Type 2 diabetes mellitus with foot ulcer (principal); L97.522 Non-pressure chronic ulcer of other part of left foot with fat layer exposed; L97.512 Non-pressure chronic ulcer of other part of right foot with fat layer exposed | CPT/HCPCS: 11042 ==

== ENCOUNTER → 2018-07-19 10:05 | Outpatient (CLI) | payer OTHER, SELFPAY ==
--- NOTE | 2018-07-19 | OV.WND_ITS ---
Progress Note Details Patient Name: Baljit Mckay Patient Number: [id number] PatientPatientDate: 07/19/2018 Clinician: Yareli De León Clinician Cosigner: Geeta Mullins Physician / Support Group Manager: Rakesh Weathers SUBJECTIVE Chief Complaint This information was obtained from the patient Diabetic ulcers to left and right great toe. Allergies NKDA HPI This information was obtained from the patient 07/19/18. Seen by Dr. Weathers. The patient does not report increased drainage or significant pain associated with the bilateral 1st toe diabetic ulcers since his last visit and he's applying topical gentamicin to treat the recent MSSA positive wound culture. 07/12/18. Seen by Dr. Weathers. The patient does not report increased drainage or significant pain associated with the bilateral 1st toe diabetic ulcers since his last visit. He continues to work 6 days per week which keeps him on his feet for extended periods. 07/05/18. Seen by Dr. Weathers. The patient does not report increased drainage or significant pain associated with the bilateral 1st toe diabetic ulcers since his last visit. 06/28/18. Seen by Dr. Weathers. The patient does not report increased drainage or significant pain associated with the bilateral 1st toe diabetic ulcers since his last visit. He notes he's been using Kerasal ointment to treat the periulcer calluses less frequently and he's had an orthotic added to the right shoe to help 'even the leg length' and possibly relieve some lower back pain he's been having. 06/21/18. Seen by Dr. Weathers. The patient does not report increased drainage or significant pain associated with the bilateral 1st toe diabetic ulcers since his last visit. 06/14/18. Seen by Dr. Weathers. The patient does not report increased drainage or significant pain associated with the bilateral 1st toe diabetic ulcers since his last visit. 06/07/18. Seen by Dr. Weathers. The patient reports he was more active over the past week at work and of note he experienced some pain in the right 1st toe upon removal of his dressing today. Otherwise he does not report increased drainage from either 1st toe diabetic ulcer and states his blood sugars continue to be well controlled. 05/31/18. Seen by Dr. Weathers. The patient does not report increased drainage or pain associated with the bilateral 1st toe diabetic ulcers since his last visit and he's increased is use of this BLACKFEET boots to better facilitate offloading. 05/27/18. Seen by Dr. Weathers. The patient does not report increased drainage or pain associated with the bilateral 1st toe diabetic ulcers since his last visit and he continues to be quite active with work making it difficult to adequately offload the ulcers. He also reports a chronic rash over the distal left lower leg that's been present for about one month. 05/20/18. Seen by Dr. Weathers. The patient does not report increased drainage or pain associated with the bilateral 1st toe diabetic ulcers since his last visit and he continues to be quite active with work and personal activities making it difficult to adequately offload the ulcers. His blood sugars remain well controlled and he's been advised to wear a BLACKFEET boot at all times on the left leg but has not been able to do this. 05/10/18. Seen by Flaco Henley PA-C. The patient reports a rash has developed on his leg under his BLACKFEET boot, but the rash has improved in the past few days as he has not been wearing the BLACKFEET boot. Drainage from his diabetic foot ulcers has not increased. 05/03/18. Seen by Dr. Weathers. The patient states he was at a conference this past weekend and forgot his left lower leg stocking that protects from his BLACKFEET boot rubbing the short. He started to notice an abrasion so stopped wearing the BLACKFEET boot and now feels the left 1st toe diabetic ulcer may have deteriorated and also it got wet in the shower this morning. He also notes some drainage at the site of the recently healed left 1st toe diabetic ulcer. He does not report pain at either site and his blood sugars are historically well controlled over the past 6 months. 04/26/18. Seen by Dr. Weathers. The patient reports being on his feet a lot over the past week at work but he'll be taking the next week off. 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 His culture last week grew MSSA and he's completed a course of doxycycline as of yesterday. He's also not been wearing this BLACKFEET boot or using a knee scooter due to his working more. 04/19/18. Seen by Dr. Weathers. The patient does not report pain associated with the chronic left 1st toe diabetic ulcer since his last visit however he was more active on it over the holiday weekend. The staff however report drainage on the dressing and a significant increase in callus from his last visit. His blood sugars continue to be well controlled around 120 and he's been advised to use his BLACKFEET boot when mobilizing and knee scooter as much as possible. 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 04/12/18. Seen by Dr. Weathers. The patient does not report drainage or pain associated with the great left foot diabetic ulcers since his last visit. 04/05/2018. Seen by Dr. Weathers. The patient is wearing his BLACKFEET boot on the left foot as much as possible to help offload the recurrent and chronic left 1st toe diabetic ulcer. He'll complete his course of doxycycline today that was started at his last for cellulitis of the toe and he's applying topical gentamicin as well. He does not report fevers or feeling unwell nor side effects of the antibiotics. 03/29/2018. Seen by Dr. Weathers. The patient reports some pain and increased drainage as well as redness and swelling of the left 1st toe over the past few days. He does not report fevers however nor other acute issues at this time. 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 03/22/2018. Seen by Dr. Weathers. The patient does not report drainage or pain associated with the great left foot diabetic ulcers since his last visit. He states however that he is not wearing his BLACKFEET boot to offload the sites on alternate days despite my recommendations last week. 03/15/18. Seen by Dr. Weathers. The patient has returned to full-time work schedule and feels may not be wearing his BLACKFEET boots as much as she should noting a significant increase in callus associated with bilateral first toe diabetic ulcers and associated pain. He does not report drainage associated with the ulcers however and we'll extended his visits out to 10 days. . Seen by Dr. Weathers. The patient does not report significant drainage associated with chronic left and right first toe diabetic ulcers since his last visit. He's not wearing his BLACKFEET boot currently to offload the left foot and has started using new orthotic inserts for his diabetic shoe noting the heavy callus may be due to the old othotics wearing down. 02/25/18. Seen by Dr. Weathers. The patient does not report significant drainage associated with chronic left first toe diabetic ulcer since his last visit. 02/18/18. Seen by Dr. Weathers. The patient does not report drainage associated with chronic right or left first toe diabetic ulcers since his last visit and he's applying topical gentamicin as recommended to treat the left 1st toe MSSA positive wound culture taken at the last visit. 02/11/18. Seen by Dr. Weathers. The patient returns due to recurrence of the left 1st toe diabetic ulcer that he states started about 1 week ago when he developing callus fell off and the toe started to drain. He was seen by Dr. Son, podiatry, who subsequently referred the patient back to our clinic. He does not report pain in the toe or fevers and he's wearing his BLACKFEET boot to help offload the site. He's also on Keflex but states a wound culture was not drawn. Of note, he reports callus has reformed over the recently healed right 1st toe diabetic ulcer also. His blood sugars continue to be well controlled with most below 150. 01/17/18. Seen by Flaco Henley PA-C. The patient reports no drainage from his right 1st toe diabetic ulcer since his last dressing change. 01/05/18. Seen by Dr. Weathers. 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 Of note, he also has a new wound over the dorsum of the right foot that occurred following a dog fight that occurred at home where he was stepped on and the dog's claws scratch the foot. He does not report significant pain or drainage associated with this wound. 12/29/17. Seen by Dr. Weathers. The patient does not report drainage or pain associated with the right first toe diabetic ulcers since his last visit. He is wearing his BLACKFEET boot as recommended and is asking if he will be able to return to work soon. 12/22/17. Seen by Dr. Weathers. The patient does not report increased drainage associated with a chronic right first toe diabetic ulcers since his last visit. 12/14/17. Seen by Dr. Weathers. The patient does not report increased drainage associated with a chronic right first toe diabetic ulcers since his last visit and he's wearing his BLACKFEET boot as recommended to offload the ulcer. 12/08/17. Seen by Dr. Weathers. The patient does not report increased drainage associated with a chronic right first toe diabetic ulcers since his last visit. Of note, he states he accidentally wore his left shoe with a sock in the end of the which may result in some bruising at the site of the recently healed first toe diabetic ulcer. 12/01/17. Seen by Dr. Weathers. The patient does not report significant drainage or pain associated with right first toe diabetic ulcer since his last visit. Of note, he 's also stopped applying Kersal to the callus surrounding the recently healed left 1st toe diabetic ulcer despite our recommendations to do so. 11/17/17. Seen by Dr. Weathers. The patient does not report significant drainage or pain associated with right first toe diabetic ulcer since his last visit. 11/10/17. Seen by Dr. Weathers. The patient does not report significant drainage or pain associated with bilateral first toe diabetic ulcers since his last visit. He's been offloading as recommended with both his BLACKFEET boots and a knee scooter. 11/03/17. Seen by Dr. Weathers. The patient does not report increased drainage or pain associated with bilateral first toe diabetic ulcers since last visit. 10/27/17. Seen by Dr. Weathers. The patient reports some increased pain and redness associated with the chronic right first toe diabetic ulcer. 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 He is also offloading with a new scooter as recommended 10/20/17. Seen by Dr. Weathers. The patient does not report increased drainage or pain associated with bilateral first toe diabetic ulcers since last visit. 10/13/17. Seen by Dr. Weathers. The patient does not report increased drainage or pain associated with bilateral first toe diabetic ulcers since last visit. Of note, he now has a knee scooter and his left BLACKFEET boot and feels the left 1st toe ulcer has improved significantly with the added offloading measures. 10/06/17. Seen by Dr. Weathers. The patient does not report increased drainage or pain associated with bilateral first toe diabetic ulcers since last visit. Of note, he now has a knee scooter that he's been using to offload the left foot for the past 2 days and he will receive his BLACKFEET boot on Wednesday. 09/29/17. Seen by Dr. Weathers. The patient states that while wearing his left foot offloading shoe he took a fall and feels that it may have traumatized the chronic left first toe diabetic ulcer. He does not report increased pain or drainage from the site nor the right first toe diabetic ulcers since his last visit and states his blood sugars continue to be mostly below 150. He is also awaiting delivery of the left foot elim ira boot as well as his diabetic shoes. Of note, he also admits to being more active that he should be despite our recommendations to maximally offload both ulcers and has not been able to locate an offloading knee scooter as we've recommended. 09/22/17. Seen by Dr. Weathers. The patient does not report increased drainage associated with the bilateral 1st toe diabetic ulcers since his last visit and he's completed his course of doxycycline without reporting adverse side effects. He's also not yet seen his orthortist who will be fitting for at BLACKFEET boot to offload the left foot ulcer as well as providing him with a pair of diabetic shoes. 09/15/17. Seen by Dr. Weathers. The patient's on doxycycline to treat a chronic wound infection of the left 1st toe and he does not report adverse side effects. He's wearing his offloading shoe on the foot as recommended and continues to limit his walking as much as possible. He does not report significant drainage or pain associated with either 1st toe diabetic ulcers and states he's going to schedule and appointment with an associate professor of media arts today as we've been recommending. 09/06/17. Seen by Flaco Henley PA-C. The patient reports increased drainage and continued callous formation from his 1st toe diabetic ulcers. He continues to stay off his feet as much as possible and is working with his insurance company and [employer] to obtain a BLACKFEET offloading boot. 08/31/17. Seen by Flaco Henley PA-C. The patient reports he has been staying off his feet and has been away from work as instructed. He reports decreased drainage from his bilateral diabetic toe ulcers. 08/24/17. Seen by Dr. Weathers. The patient reports being more active over the past week despite being advised to limit his walking considerably to offload the bilateral first toe diabetic ulcers. He does not report increased drainage or pain associated with these ulcers. He also states he will be able to take another month off of work to further facilitate offloading of the ulcers. 08/17/17. Seen by Dr. Weathers. The patient has been offloading both left and right first toe diabetic ulcers for the past week and has taken the entire month of July off of work to better facilitate offloading. 08/10/17. Seen by Dr. Weathers. The patient has been offloading both left and right first toe diabetic ulcers for the past week as recommended and he does not report significant associated pain or drainage from either site. 08/03/17. Seen by Dr. Weathers. The patient has been offloading both left and right first toe diabetic ulcers for the past week and has taken the entire month of July off of work to better facilitate offloading. 07/23/17. Seen by Dr. Weathers. The patient does not report significant drainage associated with chronic bilateral left and right first toe diabetic ulcers since his last visit. He does not report any drainage associated with the left 1st MTPJ diabetic ulcer. 07/20/17. Seen by Dr. Weathers. The patient does not report pain nor significant drainage associated with chronic bilateral left and right first toe diabetic ulcers since his last visit. He is applying topical gentamicin as recommended to the ulcer bases to treat the recent wound infection. He does not report any drainage associated with the left 1st MTPJ diabetic ulcer. 07/16/17. Seen by Dr. Weathers. The patient states that he had a very busy past week in terms of festival and he was on his feet for extended periods. He has increased drainage and callus formation associated with both first toe diabetic ulcers since we last saw him however he does not report any increased drainage or problems regarding the left mid plantar foot diabetic ulcer. He does not report pain in the toes nor fever or feeling unwell. His blood sugars continue to be well controlled consistently below 150. 07/06/17. Seen by Dr. Weathers. The patient does not report pain nor significant drainage associated with chronic bilateral left and right first toe diabetic ulcers since his last visit. He is applying topical gentamicin as recommended in his recent wound culture grew MSSA. He also does not report pain nor drainage associated with the chronic left plantar foot diabetic ulcer. 06/29/17. Seen by Dr. Weathers. The patient reports some pain associated with both first toe diabetic ulcers since his last visit. He does not report increased drainage associated with these nor the left plantar foot diabetic ulcer. He's been seeing us every 2 weeks and feels that the callus formation in the interim has been quite significant. 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 He states his blood sugars are well controlled with most below 150. 06/15/17. Seen by Dr. Weathers. The patient does not report pain nor significant drainage associated with the chronic bilateral first toe diabetic ulcers nor the left plantar foot diabetic ulcer since his last visit. 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 His blood sugars he states are well-controlled with most below 150. 06/01/17. Seen by Dr. Weathers. The patient does not report pain or increased drainage associated with the bilateral, chronic 1st toe diabetic ulcers since his last visit and he continues on doxycycline for the left 1st toe infection noted at his last visit. He does not report adverse side effects and states his blood sugars are mostly below 150. 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 Of note, he reports a new wound over the plantar surface of the left foot that started when he tried to remove a callus earlier this week. 05/18/17. Seen by Dr. Weathers. The patient reports some discomfort associated with the chronic left first toe diabetic ulcer over the past few days however he does not report pain nor increased drainage with the chronic right first toe diabetic ulcer. He continues to work an active job and is on his feet for extended periods however states that he may be able to decrease hours later in the summer. His blood sugars continue to be well controlled with most below 150. 05/12/17. Seen by Flaco Henley PA-C. The patient reports that his neuropathy is worse today with stabbing-type pains occurring in the arches of both feet and radiating to the lateral edges of his feet. He reports that walking on his feet exacerbate the pain and his recent medication change to Cymbalta has helped decrease the pain. He reports no increase in drainage from his bilateral 1st toe diabetic ulcers of the right and left feet. 05/05/17. Seen by Flaco Henley PA-C. The patient reports no increase in drainage from his bilateral 1st toe diabetic ulcers. 04/20/17. Seen by Dr. Weathers. The patient reports pain and drainage associated with the bilateral first toe diabetic ulcers is minimal over the past week and he'll complete his course of moxifloxacin today that's been treating a recent left 1st toe cellulitis. He continues to work a heavy schedule as on his feet for extended periods. He states his blood sugars continue to be mostly below 200. 04/14/17. Seen by Dr. Weathers. The patient feels the pain and drainage associated with the bilateral first toe diabetic ulcers has improved since starting on antibiotics last week. He continues to work a heavy schedule as on his feet for extended periods. He states his blood sugars continue to be mostly below 200. 04/07/17. Seen by Dr. Weathers. The patient reports some pain and increased drainage from the bilateral first toe diabetic ulcers over the past week. He's been working on his feet considerably more over the past few weeks and states his blood sugars are mostly below 200. 03/24/17. Seen by Flaco Henley PA-C. The patient reports good compliance with his diabetes footwear but he also notes blood sugars above 150 this week. Drainage has reportedly been decreasing from his diabetic ulcers of the right and left feet. 03/17/17. Seen by Dr. Weathers. The patient states he's stopped taking his SSRI that was treating the bilateral foot diabetic neuropathic pain as he felt it may have been contributing to his intermittent subjective fevers and chills. He does not report increased drainage or pain associated with the bilateral 1st toe diabetic ulcers since his last visit but states he's been on his feet more due to his job and an increase in tourism as the weather's improving. 02/26/17. Seen by Dr. Weathers. The patient reports increased pain and drainage associated with the left first toe diabetic ulcer but none with the right first toe diabetic ulcer. He's had some subjective fevers and chills for the last 2 weeks but states blood sugars continue to be well controlled with most below 150. 02/19/17. Seen by Dr. Weathers.The patient reports fatigue and intermittent chills but no documented fevers over the past few days. He does not report fevers nor other specific symptoms. He states that there has been no increase in drainage or pain associated with bilateral first diabetic ulcers since his last visit. His blood sugars continue to be mostly below 200. 02/05/17. Seen by Dr. Weathers. The patient does not report pain nor significant drainage associated with the chronic bilateral first toe diabetic ulcers over the past week. He continues applying topical gentamicin as recommended to treat the chronic and recurrent superficial staph infection. 01/29/17. Seen by Dr. Weathers. The patient reports minimal drainage and no pain associated with bilateral first toe diabetic ulcers since his last visit. He has completed his course of Keflex and does not report adverse side effects. He states blood sugars are mostly between 100 and 200.He continues to apply gentamicin ointment also as recommended. 01/22/17. Seen by Dr. Weathers. The patient returns to clinic for bilateral 1st toe diabetic ulcers that have become infected about a week ago and he was placed on Keflex by his PCP. He feels the drainage and redness are improving and he does not report pain in the toes. His blood sugars remain mostly below 150 and he continues to work on his feet a full-time schedule and states he wears his diabetic shoes at all times. 01/05/17. Seen by Flaco Henley PA-C. The patient reports some blood sugars this week above 150. No increase in ulcer drainage is reported today. 12/29/16 Seen by Flaco Henley PA-C. The patient reports stable drainage from his left foot non- pressure ulcer since his last evaluation. 12/22/16 Seen by Flaco Henley PA-C. The patient reports no increase in ulcer drainage from his left foot diabetic ulcer since his last visit. In addition he reports well controlled blood sugars. 12/15/16 Seen by Flaco Henley PA-C. The patient reports no increase in drainage from his left foot diabetic ulcer. His blood sugars have reportedly been below 150 this week but today is blood sugar is noted to be 152. 12/08/16. Seen by Dr. Weathers. The patient's now taking Augmentin for his recent Staph and E. coli positive wound culture taken from the chronic left 1st toe diabetic ulcer. The culture sensitivities however show intermediate sensitivity of the E. coli to Augmentin. The patient feels the toe pain and ulcer drainage have decreased considerably and he states his blood sugars are mostly below 150. He does not report fevers or adverse side effects from the Augmentin. Regarding the right 1st toe diabetic ulcer he does not report pain or significant drainage. 12/01/16 Seen by Flaco Henley PA-C. The patient reports that his left foot diabetic ulcer is much worse with a strong odor reported. 11/17/16 Seen by Flaco Henley PA-C. The patient reports that his blood sugar is likely elevated due to the holidays. He reports no increase in drainage from his DMII ulcers of the right or left 1st toes. 11/03/16. Seen by Dr. Weathers. The patient reports a new ulcer on the right 1st toe that started about one week ago following his attempt at removing a callus from the site. He states about 3 days ago the ulcer started draining fluid and the toe swelled and turned red. He 's not on antibiotics and does not report fevers or feeling unwell. Regarding his left 1st toe diabetic ulcer, he does not report significant drainage or pain. He states his blood sugars are improving with most below 150 now. 10/20/16. Seen by Dr. Weathers. The patient does not report significant drainage associated with the chronic left 1st toe diabetic ulcer since his last visit. He also states his blood sugars still tend to be over 150 and sometimes in the 200's.He also continues to apply gentamcin for the MSSA positive wound culture taken from the ulcer recently. 10/13/16. Seen by Dr. Weathers. The patient does not report significant drainage associated with the chronic left 1st toe diabetic ulcer since his last visit and he continues applyin gentamcin for the MSSA positive wound culture taken from the ulcer. His blood sugars continue to be above 150 fairly frequently however he notes since decreasing his chronic alcohol intake his glucose seems to be easier to control. 10/06/16 Seen by Flaco Henley PA-C. The patient reports that his neuropathy is severe today. It is described as an intermittent burning/shooting pain, that comes and goes but does not radiate and is centered on his left lateral foot. He does not report any associated changes to his chronic left 1st toe diabetic ulcer such as increased drainage. 09/29/16. Seen by Dr. Weathers. The patient does not report significant drainage associated with the chronic left 1st toe diabetic ulcer since his last visit and he continues on doxycycline for the MSSA positive wound culture taken from the ulcer. He feels the toe redness and swelling have improved since starting antibiotics. He also reports significant improvement in the left foot neuropathic pain since starting on a new antidepressant. 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 His blood sugar is over 200 today and he states its typically been between 100 and 200 although he's not been checking it for the past few days since his glucometer is no working. 09/15/16 Seen by Flaco Henley PA-C. The patient reports decreased neuropathic pain in his LLE and has recently started a new antidepressant medication for this issue though he does not recall the name of the medication. His ulcer drainage has been stable since his last evaluation. 09/01/16. Seen by Dr. Weathers. The patient does not report significant drainage associated with the chronic left 1st toe diabetic ulcer. He does state however his left lateral foot neuropathic pain is increasing and he's working with GAMAL Carter, pain specialist, to address this issue. He also states his blood sugars are typically between 100 to 200. 08/25/16 Seen by Flaco Henley PA-C. The patient reports continued left foot neuropathic pain. He has a pending appointment with Jethro Meehan at the pain clinic for this. His diabetic foot ulcer has resumed draining in the past few days after being closed. 08/18/16 Seen by Flaco Henley PA-C. The patient reports that he has had no drainage from his left 1st toe ulcer since his last evaluation. 08/11/16 Seen by Flaco Henley PA-C. The patient reports that he now has a prescription for lyrica and a schedule to taper off his gabapentin. He has not started taking lyrica though notes that his neuropathic pain is improved this week. His ulcer has had decreased drainage. 08/03/16 Seen by Flaco Henley PA-C. The patient reports that his left leg neuropathic pain, which has been present for months, has decreased in severity recently but still reaches 6/10. It is described as intermittent, non-radiating and stabbing/burning. His left 1st toe ulcer has had stable drainage by his report. 07/28/16 Seen by Flaco Henley PA-C. The patient reports very little drainage from his left 1st toe diabetic ulcer. He does report that his neuropathic pain has worsened and he is using alcohol at times as a painkiller. He has an upcoming appointment with Dr. Son, who has been addressing this issue and he asks about the referral to Jethro Meehan. 07/20/16. Seen by Dr. Weathers. The patient does not report significant drainage associated with the chronic left 1st toe diabetic ulcer over the past week. He states he's seen Dr. Son regarding his diabetic neuropathy in the past but has not discussed the recurrent toe ulcer. He also states he 'walks on this toes' and has been told by other providers in the past his Achilles tendon is 'short'. 07/13/[address] Weathers. The patient states he's been more active over the past few weeks with his job however does not report increased drainage or pain associated with the chronic left 1st toe diabetic ulcer. He's wearing his diabetic shoes as recommended and states his blood sugars have been a bit elevated between 150 and 200 over the past week due to non- compliance with his routine diabetic meal plan. 06/22/[address] Weathers. The patient feels the drainage and left 1st toe erythema have improved considerably since his last visit and he continues on Zyvox that was started during his recent admission for cellulitis associated with the toe ulcer. He states his blood sugars are now mostly below 150 and he's wearing diabetic shoes but not necessarily offloading the toe. 09/12/[address] Weathers. The patient has had his TCC off for the past week and he does not report drainage from the left 1st toe diabetic foot ulcer. His blood sugars are also mostly between 150 and 180. 09/06/[address] Weathers. The patient does not report any problems regarding his left diabetic foot ulcer nor the TCC he's worn since his last visit. His blood sugars are typically between 150 and 200 which is an improvement historically. 06/18/15 Seen by Flaco Henley PA-C. The patient has had no drainage from his wounds since his last visit. 06/11/15 Seen by Flaco Henley PA-C. The patient has had a particularly long work week and has been on his feet a lot. He has been using his diabetic shoes and recently modified inserts. 06/07/[address] Weathers. The patient has two new ulcers on the plantar surface of the right foot and on the left toe that were first noticed about 3 days ago after being on his feet at work for an extended period. He feels they may have occurred as a result of his orthotics not fitting properly. He does not report pain or swelling but does note some redness with clear yellow drainage from the right ulcer. He states his blood sugars are mostly below 150 with a few around 180 and he continues to try to loose weight to help manage his diabetes. 05/20/[address] Weathers. The patient does not report drainage from the left toe ulcer and tolerated the TCC without difficulties. 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 05/08/15 Seen by Flaco Henley PA-C. The patient is here today to have a TCC placed. He continues to try and stay off his feet and has not yet returned to work. 05/06/15 Seen by Flaco Henley PA-C. The patient has been off loading his feet using his off loading boots and sitting at home as well as not working. He continues on his antibiotics. 05/02/15 Seen by Flaco Henley PA-C. The patient continues to take time off work and be sedentary in order to offload his feet. He has been applying kerisol to the callouses on his right and left great toes and hydrogel to the wounds. He took his last dose of Augmentin today and reports decreased drainage from the left great toe diabetic ulcer and minimal drainage from the right great toe diabetic ulcer. His feet are sometimes painful but this has decreased since last visit. Blood sugars are running 150-180s in the AM. 04/26/[address] Weathers. The patient does not report increased drainage associated with the bilateral 1st toe diabetic ulcers. He feels the right leg cellulitis is much improved since starting Augmentin and he's been offloading with a cane and my taking time off of work to stay off his feet. His blood sugars are below 150 and he takes only metformin for diabetes. Past Medical History This information was obtained from the patient Patient has a medical history of: Type II Diabetes Diabetic foot ulcers (bilateral 1st toes; Hector grade II) Hyperlipidemia Chronic pain (neuropathic; left lateral foot) Depression Complaints and Symptoms This information was obtained from the patient Patient complains of: General Notes: I have reviewed and concur with the Review of Systems and Past Family Social History documents completed by the clinician, I have reviewed and concur with the Wound Assessment document completed by the clinician Integumentary (Hair/Skin/Nails): Open Sore Musculoskeletal: Assistive Devices, Deformities Neurological: Abnormal Gait, Loss of Protective Sensation Prior Wound History: Drainage, Erythema, Pain Patient denies complaints or symptoms related to: Cardiovascular (Central/Peripheral): Intermittent Claudication, Lower extremity (leg) resting pain, Lower extremity (leg) swelling Constitutional Symptoms (General Health): Chills, Fever Ear/Nose/Mouth/Throat: Hearing Loss / Aid Gastrointestinal (GI): Nausea / Vomiting, Stomach/abdominal pain Hematologic/Lymphatic: Bleeding / Clotting Disorders, Bleeding Tendency Prior Wound History: Bleeding, Malodor Respiratory: Oxygen Use, Shortness of Breath OBJECTIVE Constitutional Vital signs reviewed and noted. Well developed. Alert. Clean appearing.. Height/ Length: 76 in (193.04 cm), Weight: 262.2 lbs (119.18 kgs), BMI: 31.9, Temperature: 97.7 ?F ( 36.5 ?C), Pulse: 91 bpm, Respiratory Rate: 18 breaths/min, Blood Pressure: 123/78 mmHg, Capillary Blood Glucose: 176 mg/dl, Pulse Oximetry: 96 %. Vital Signs Notes: Glucose taken in clinic. Ears, Nose, Mouth, and Throat: No clinically significant hearing loss on informal examination. Respiratory: No respiratory distress. Even respirations and without use of accessory muscles.. Integumentary (Hair, Skin) No periwound erythema, warmth, or significant drainage. No periwound rashes appreciated or noted otherwise.. Refer to appropriate clinician wound documentation for this visit; right and left foot ulcers extend to subcut with bases partially covered with pink granulation, remainder fibrin and slough. Moderate amount of callus in the periulcer areas. Wound #9 Left Great Toe is a chronic Hector Grade 2 Diabetic Ulcer and has received a status of Not Healed. Subsequent wound encounter measurements are 0.6cm length x 0.5cm width x 0.3cm depth, with an area of 0.3 sq cm and a volume of 0.09 cubic cm. No tunneling has been noted. No sinus tract has been noted. No undermining has been noted. There is a scant amount of serous drainage noted which has no odor. The patient reports a wound pain of level 0/10. The wound margin is callus. Wound bed has No epithelialization, No eschar , No slough, Yes bright red, pink, spongy granulation. The periwound skin moisture is normal. The periwound skin color is normal. The periwound skin exhibited: Callus. The periwound skin did not exhibit: Brawny Induration, Edema, Excoriation, Induration, Crepitus, Fluctuance, Friable, Rash. The temperature of the periwound skin is WNL. Periwound skin does not exhibit signs or symptoms of infection. Local Pulse is Palpable. Wound #10 Right Great Toe is a chronic Hector Grade 2 Diabetic Ulcer and has received a status of Not Healed. Subsequent wound encounter measurements are 0.1cm length x 0.1cm width x 0.1cm depth, with an area of 0.01 sq cm and a volume of 0.001 cubic cm. No tunneling has been noted. No sinus tract has been noted. No undermining has been noted. There is a scant amount of serous drainage noted which has no odor. The patient reports a wound pain of level 0/10. The wound margin is callus. Wound bed has No epithelialization, No eschar, No slough, No granulation. The periwound skin moisture is normal. The periwound skin color is normal. The periwound skin exhibited: Callus. The periwound skin did not exhibit: Brawny Induration, Edema, Excoriation, Induration, Crepitus, Fluctuance, Friable, Rash. The temperature of the periwound skin is WNL. Periwound skin does not exhibit signs or symptoms of infection. Local Pulse is Palpable. Neurological: Cranial nerves grossly intact with symmetric function normal by informal observation.. ASSESSMENT Active Problems ICD-10 (Encounter Diagnosis) E11.621 - Type 2 diabetes mellitus with foot ulcer (Encounter Diagnosis) L97.522 - Non-pressure chronic ulcer of other part of left foot with fat layer exposed (Encounter Diagnosis) L97.512 - Non-pressure chronic ulcer of other part of right foot with fat layer exposed (Encounter Diagnosis) B95.61 - Methicillin susceptible Staphylococcus aureus infection as the cause of diseases classified elsewhere PROCEDURES Wound #9 Wound #9 (Diabetic Ulcer) is located on the left great toe. A skin/subcutaneous tissue level surgical debridement with a total area debrided of 0.3 sq cm was performed by Rakesh Weathers MD. Subcutaneous was removed along with devitalized tissue: callus, exudate , and slough. The following instrument(s) were used: curette. Pain control was achieved using 4% Lido. A time out was conducted prior to the start of the procedure. A minimal amount of bleeding was controlled with n/a. The procedure was tolerated well with a pain level of 0 throughout and a pain level of 0 following the procedure. Post Debridement Measurements: 0.6cm length x 0.5cm width x 0.4cm depth; with an area of 0.3 sq cm and a volume of 0.12 cubic cm; Wound #10 Wound #10 (Diabetic Ulcer) is located on the right great toe. A skin/ subcutaneous tissue level surgical debridement with a total area debrided of 0.01 sq cm was performed by Rakesh Weathers MD. Subcutaneous was removed along with devitalized tissue: callus, exudate , and slough. The following instrument(s) were used: curette. Pain control was achieved using 4% Lido. A time out was conducted prior to the start of the procedure. A minimal amount of bleeding was controlled with n/a. The procedure was tolerated well with a pain level of 0 throughout and a pain level of 0 following the procedure. Post Debridement Measurements: 0.1cm length x 0.1cm width x 0.2cm depth; with an area of 0.01 sq cm and a volume of 0.002 cubic cm; Additional Information Muscle fascia or bone removed and sent to pathology?: No Muscle fascia or bone removed and sent to pathology?: No PLAN Wound Orders: Wound #9 Left Great Toe Anesthetic Topical Xylocaine to wound bed. - In clinic only. Cleanser Cleanse Wound: - Normal saline and gauze. May Shower. - Please cover in shower, may use cast protector or plastic bag and tape. Topical Treatments Moisturizing lotion to surround skin. - Kerasal. Antibiotic/Antimicrobial Ointment/Cream. - Gentamicin ointment. Dressings Cover and secure with: - Foam secured with tape. Change Dressing: - Daily. Wound #10 Right Great Toe Anesthetic Topical Xylocaine to wound bed. - In clinic only. Cleanser Cleanse Wound: - Normal saline and gauze. May Shower. - Please cover in shower, may use cast protector or plastic bag and tape. Topical Treatments Moisturizing lotion to surround skin. - Kerasal. Antibiotic/Antimicrobial Ointment/Cream. - Gentamicin ointment. Dressings Cover and secure with: - Foam secured with tape. Change Dressing: - Daily. Additional Orders: Off-Loading Keep weight off: - Left foot as much as possible. Use/Wear when Walking: - Ton ocampo Knee scooter. Follow-Up Appointments Return Appointment: - - One week. Other information: If you develop fever, chills, increased pain, drainage, redness or swelling please call our office. If after hours, respond to the ER. Should you experience any significant changes in your wound(s) or have any questions regarding your home care instructions please contact the wound center @ [phone]. If after hours, contact your primary care physician or go to the hospital emergency room. Scribing Attestation I attest, as the nurse, that I scribed these orders for the physician. I've reviewed the clinician's documentation and agree with the evaluation and plan as written. In addition the patient's ulcers demonstrate evidence of non-viable devitalized tissue and they will continue to benefit from sharp debridement to help promote granulation and expedite healing. Electronic Signature(s) Signed By: Date: Rakesh Weathers MD 07/20/2018 07:48:36 Entered By: Rakesh Weathers on 07/20/2018 07:41:09
== END ==
PROVIDERS: PCP Student in an Organized Health Care Education/Training Program; Visit Provider Internal Medicine
DX: E11.621 Type 2 diabetes mellitus with foot ulcer (principal); L97.522 Non-pressure chronic ulcer of other part of left foot with fat layer exposed; L97.512 Non-pressure chronic ulcer of other part of right foot with fat layer exposed; B95.61 Methicillin susceptible Staphylococcus aureus infection as the cause of diseases classified elsewhere
CPT/HCPCS: 11042

== ENCOUNTER → 2018-07-27 10:24 | Outpatient (CLI) | payer OTHER, SELFPAY ==
--- NOTE | 2018-07-27 | OV.WND_ITS ---
Progress Note Details Patient Name: Baljit Mckay Patient Number: [id number] PatientPatientDate: 07/27/2018 Clinician: Snow Smith Clinician Cosigner: Geeta Mullins Physician / Reed Fixer: Rakesh Weathers SUBJECTIVE Chief Complaint This information was obtained from the patient Diabetic ulcers to left and right great toe. Allergies NKDA HPI This information was obtained from the patient 07/27/18. Seen by Dr. Weathers. The patient reports pain in the right 1st toe associated with the chronic diabetic foot ulcer. He does not report increased drainage however at the site nor the left 1st toe DFU since his last visit. 07/19/18. Seen by Dr. Weathers. The patient does not report increased drainage or significant pain associated with the bilateral 1st toe diabetic ulcers since his last visit and he's applying topical gentamicin to treat the recent MSSA positive wound culture. 07/12/18. Seen by Dr. Weathers. The patient does not report increased drainage or significant pain associated with the bilateral 1st toe diabetic ulcers since his last visit. He continues to work 6 days per week which keeps him on his feet for extended periods. 07/05/18. Seen by Dr. Weathers. The patient does not report increased drainage or significant pain associated with the bilateral 1st toe diabetic ulcers since his last visit. 06/28/18. Seen by Dr. Weathers. The patient does not report increased drainage or significant pain associated with the bilateral 1st toe diabetic ulcers since his last visit. He notes he's been using Kerasal ointment to treat the periulcer calluses less frequently and he's had an orthotic added to the right shoe to help 'even the leg length' and possibly relieve some lower back pain he's been having. 06/21/18. Seen by Dr. Weathers. The patient does not report increased drainage or significant pain associated with the bilateral 1st toe diabetic ulcers since his last visit. 06/14/18. Seen by Dr. Weathers. The patient does not report increased drainage or significant pain associated with the bilateral 1st toe diabetic ulcers since his last visit. 06/07/18. Seen by Dr. Weathers. The patient reports he was more active over the past week at work and of note he experienced some pain in the right 1st toe upon removal of his dressing today. Otherwise he does not report increased drainage from either 1st toe diabetic ulcer and states his blood sugars continue to be well controlled. 05/31/18. Seen by Dr. Weathers. The patient does not report increased drainage or pain associated with the bilateral 1st toe diabetic ulcers since his last visit and he's increased is use of this IGIUGIG boots to better facilitate offloading. 05/27/18. Seen by Dr. Weathers. The patient does not report increased drainage or pain associated with the bilateral 1st toe diabetic ulcers since his last visit and he continues to be quite active with work making it difficult to adequately offload the ulcers. He also reports a chronic rash over the distal left lower leg that's been present for about one month. 05/20/18. Seen by Dr. Weathers. The patient does not report increased drainage or pain associated with the bilateral 1st toe diabetic ulcers since his last visit and he continues to be quite active with work and personal activities making it difficult to adequately offload the ulcers. His blood sugars remain well controlled and he's been advised to wear a IGIUGIG boot at all times on the left leg but has not been able to do this. 05/10/18. Seen by Flaco Henley PA-C. The patient reports a rash has developed on his leg under his IGIUGIG boot, but the rash has improved in the past few days as he has not been wearing the IGIUGIG boot. Drainage from his diabetic foot ulcers has not increased. 05/03/18. Seen by Dr. Weathers. The patient states he was at a conference this past weekend and forgot his left lower leg stocking that protects from his IGIUGIG boot rubbing the short. He started to notice an abrasion so stopped wearing the IGIUGIG boot and now feels the left 1st toe diabetic ulcer may have deteriorated and also it got wet in the shower this morning. He also notes some drainage at the site of the recently healed left 1st toe diabetic ulcer. He does not report pain at either site and his blood sugars are historically well controlled over the past 6 months. 04/26/18. Seen by Dr. Weathers. The patient reports being on his feet a lot over the past week at work but he'll be taking the next week off. 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 His culture last week grew MSSA and he's completed a course of doxycycline as of yesterday. He's also not been wearing this IGIUGIG boot or using a knee scooter due to his working more. 04/19/18. Seen by Dr. Weathers. The patient does not report pain associated with the chronic left 1st toe diabetic ulcer since his last visit however he was more active on it over the holiday weekend. The staff however report drainage on the dressing and a significant increase in callus from his last visit. His blood sugars continue to be well controlled around 120 and he's been advised to use his IGIUGIG boot when mobilizing and knee scooter as much as possible. 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 04/12/18. Seen by Dr. Weathers. The patient does not report drainage or pain associated with the great left foot diabetic ulcers since his last visit. 04/05/2018. Seen by Dr. Weathers. The patient is wearing his IGIUGIG boot on the left foot as much as possible to help offload the recurrent and chronic left 1st toe diabetic ulcer. He'll complete his course of doxycycline today that was started at his last for cellulitis of the toe and he's applying topical gentamicin as well. He does not report fevers or feeling unwell nor side effects of the antibiotics. 03/29/2018. Seen by Dr. Weathers. The patient reports some pain and increased drainage as well as redness and swelling of the left 1st toe over the past few days. He does not report fevers however nor other acute issues at this time. 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 03/22/2018. Seen by Dr. Weathers. The patient does not report drainage or pain associated with the great left foot diabetic ulcers since his last visit. He states however that he is not wearing his IGIUGIG boot to offload the sites on alternate days despite my recommendations last week. 03/15/18. Seen by Dr. Weathers. The patient has returned to full-time work schedule and feels may not be wearing his IGIUGIG boots as much as she should noting a significant increase in callus associated with bilateral first toe diabetic ulcers and associated pain. He does not report drainage associated with the ulcers however and we'll extended his visits out to 10 days. . Seen by Dr. Weathers. The patient does not report significant drainage associated with chronic left and right first toe diabetic ulcers since his last visit. He's not wearing his IGIUGIG boot currently to offload the left foot and has started using new orthotic inserts for his diabetic shoe noting the heavy callus may be due to the old othotics wearing down. 02/25/18. Seen by Dr. Weathers. The patient does not report significant drainage associated with chronic left first toe diabetic ulcer since his last visit. 02/18/18. Seen by Dr. Weathers. The patient does not report drainage associated with chronic right or left first toe diabetic ulcers since his last visit and he's applying topical gentamicin as recommended to treat the left 1st toe MSSA positive wound culture taken at the last visit. 02/11/18. Seen by Dr. Weathers. The patient returns due to recurrence of the left 1st toe diabetic ulcer that he states started about 1 week ago when he developing callus fell off and the toe started to drain. He was seen by Dr. Son, podiatry, who subsequently referred the patient back to our clinic. He does not report pain in the toe or fevers and he's wearing his IGIUGIG boot to help offload the site. He's also on Keflex but states a wound culture was not drawn. Of note, he reports callus has reformed over the recently healed right 1st toe diabetic ulcer also. His blood sugars continue to be well controlled with most below 150. 01/17/18. Seen by Flaco Henley PA-C. The patient reports no drainage from his right 1st toe diabetic ulcer since his last dressing change. 01/05/18. Seen by Dr. Weathers. 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 Of note, he also has a new wound over the dorsum of the right foot that occurred following a dog fight that occurred at home where he was stepped on and the dog's claws scratch the foot. He does not report significant pain or drainage associated with this wound. 12/29/17. Seen by Dr. Weathers. The patient does not report drainage or pain associated with the right first toe diabetic ulcers since his last visit. He is wearing his IGIUGIG boot as recommended and is asking if he will be able to return to work soon. 12/22/17. Seen by Dr. Weathers. The patient does not report increased drainage associated with a chronic right first toe diabetic ulcers since his last visit. 12/14/17. Seen by Dr. Weathers. The patient does not report increased drainage associated with a chronic right first toe diabetic ulcers since his last visit and he's wearing his IGIUGIG boot as recommended to offload the ulcer. 12/08/17. Seen by Dr. Weathers. The patient does not report increased drainage associated with a chronic right first toe diabetic ulcers since his last visit. Of note, he states he accidentally wore his left shoe with a sock in the end of the which may result in some bruising at the site of the recently healed first toe diabetic ulcer. 12/01/17. Seen by Dr. Weathers. The patient does not report significant drainage or pain associated with right first toe diabetic ulcer since his last visit. Of note, he 's also stopped applying Kersal to the callus surrounding the recently healed left 1st toe diabetic ulcer despite our recommendations to do so. 11/17/17. Seen by Dr. Weathers. The patient does not report significant drainage or pain associated with right first toe diabetic ulcer since his last visit. 11/10/17. Seen by Dr. Weathers. The patient does not report significant drainage or pain associated with bilateral first toe diabetic ulcers since his last visit. He's been offloading as recommended with both his IGIUGIG boots and a knee scooter. 11/03/17. Seen by Dr. Weathers. The patient does not report increased drainage or pain associated with bilateral first toe diabetic ulcers since last visit. 10/27/17. Seen by Dr. Weathers. The patient reports some increased pain and redness associated with the chronic right first toe diabetic ulcer. He does not report any new issues regarding the left of a foot ulcer and will order picker his right foot cold springs boot in the near future. He is also offloading with a new scooter as recommended 10/20/17. Seen by Dr. Weathers. The patient does not report increased drainage or pain associated with bilateral first toe diabetic ulcers since last visit. 10/13/17. Seen by Dr. Weathers. The patient does not report increased drainage or pain associated with bilateral first toe diabetic ulcers since last visit. Of note, he now has a knee scooter and his left IGIUGIG boot and feels the left 1st toe ulcer has improved significantly with the added offloading measures. 10/06/17. Seen by Dr. Weathers. The patient does not report increased drainage or pain associated with bilateral first toe diabetic ulcers since last visit. Of note, he now has a knee scooter that he's been using to offload the left foot for the past 2 days and he will receive his IGIUGIG boot on Wednesday. 09/29/17. Seen by Dr. Weathers. The patient states that while wearing his left foot offloading shoe he took a fall and feels that it may have traumatized the chronic left first toe diabetic ulcer. He does not report increased pain or drainage from the site nor the right first toe diabetic ulcers since his last visit and states his blood sugars continue to be mostly below 150. He is also awaiting delivery of the left foot cold springs boot as well as his diabetic shoes. Of note, he also admits to being more active that he should be despite our recommendations to maximally offload both ulcers and has not been able to locate an offloading knee scooter as we've recommended. 09/22/17. Seen by Dr. Weathers. The patient does not report increased drainage associated with the bilateral 1st toe diabetic ulcers since his last visit and he's completed his course of doxycycline without reporting adverse side effects. He's also not yet seen [facility] as well as providing him with a pair of diabetic shoes. 09/15/17. Seen by Dr. Weathers. The patient's on doxycycline to treat a chronic wound infection of the left 1st toe and he does not report adverse side effects. He's wearing his offloading shoe on the foot as recommended and continues to limit his walking as much as possible. He does not report significant drainage or pain associated with either 1st toe diabetic ulcers and states he's going to schedule and appointment with an rn resource nurse today as we've been recommending. 09/06/17. Seen by Flaco Henley PA-C. The patient reports increased drainage and continued callous formation from his 1st toe diabetic ulcers. He continues to stay off his feet as much as possible and is working with his insurance company and [employer] to obtain a IGIUGIG offloading boot. 08/31/17. Seen by Flaco Henley PA-C. The patient reports he has been staying off his feet and has been away from work as instructed. He reports decreased drainage from his bilateral diabetic toe ulcers. 08/24/17. Seen by Dr. Weathers. The patient reports being more active over the past week despite being advised to limit his walking considerably to offload the bilateral first toe diabetic ulcers. He does not report increased drainage or pain associated with these ulcers. He also states he will be able to take another month off of work to further facilitate offloading of the ulcers. 08/17/17. Seen by Dr. Weathers. The patient has been offloading both left and right first toe diabetic ulcers for the past week and has taken the entire month of July off of work to better facilitate offloading. 08/10/17. Seen by Dr. Weathers. The patient has been offloading both left and right first toe diabetic ulcers for the past week as recommended and he does not report significant associated pain or drainage from either site. 08/03/17. Seen by Dr. Weathers. The patient has been offloading both left and right first toe diabetic ulcers for the past week and has taken the entire month of July off of work to better facilitate offloading. 07/23/17. Seen by Dr. Weathers. The patient does not report significant drainage associated with chronic bilateral left and right first toe diabetic ulcers since his last visit. He does not report any drainage associated with the left 1st MTPJ diabetic ulcer. 07/20/17. Seen by Dr. Weathers. The patient does not report pain nor significant drainage associated with chronic bilateral left and right first toe diabetic ulcers since his last visit. He is applying topical gentamicin as recommended to the ulcer bases to treat the recent wound infection. He does not report any drainage associated with the left 1st MTPJ diabetic ulcer. 07/16/17. Seen by Dr. Weathers. The patient states that he had a very busy past week in terms of festival and he was on his feet for extended periods. He has increased drainage and callus formation associated with both first toe diabetic ulcers since we last saw him however he does not report any increased drainage or problems regarding the left mid plantar foot diabetic ulcer. He does not report pain in the toes nor fever or feeling unwell. His blood sugars continue to be well controlled consistently below 150. 07/06/17. Seen by Dr. Weathers. The patient does not report pain nor significant drainage associated with chronic bilateral left and right first toe diabetic ulcers since his last visit. He is applying topical gentamicin as recommended in his recent wound culture grew MSSA. He also does not report pain nor drainage associated with the chronic left plantar foot diabetic ulcer. 06/29/17. Seen by Dr. Weathers. The patient reports some pain associated with both first toe diabetic ulcers since his last visit. He does not report increased drainage associated with these nor the left plantar foot diabetic ulcer. He's been seeing us every 2 weeks and feels that the callus formation in the interim has been quite significant. 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 He states his blood sugars are well controlled with most below 150. 7. Seen by Dr. Weathers. The patient does not report pain nor significant drainage associated with the chronic bilateral first toe diabetic ulcers nor the left plantar foot diabetic ulcer since his last visit. 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 His blood sugars he states are well-controlled with most below 150. 7. Seen by Dr. Weathers. The patient does not report pain or increased drainage associated with the bilateral, chronic 1st toe diabetic ulcers since his last visit and he continues on doxycycline for the left 1st toe infection noted at his last visit. He does not report adverse side effects and states his blood sugars are mostly below 150. 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 Of note, he reports a new wound over the plantar surface of the left foot that started when he tried to remove a callus earlier this week. 05/18/17. Seen by Dr. Weathers. The patient reports some discomfort associated with the chronic left first toe diabetic ulcer over the past few days however he does not report pain nor increased drainage with the chronic right first toe diabetic ulcer. He continues to work an active job and is on his feet for extended periods however states that he may be able to decrease hours later in the summer. His blood sugars continue to be well controlled with most below 150. 05/12/17. Seen by Flaco Henley PA-C. The patient reports that his neuropathy is worse today with stabbing-type pains occurring in the arches of both feet and radiating to the lateral edges of his feet. He reports that walking on his feet exacerbate the pain and his recent medication change to Cymbalta has helped decrease the pain. He reports no increase in drainage from his bilateral 1st toe diabetic ulcers of the right and left feet. 05/05/17. Seen by Flaco Henley PA-C. The patient reports no increase in drainage from his bilateral 1st toe diabetic ulcers. 04/20/17. Seen by Dr. Weathers. The patient reports pain and drainage associated with the bilateral first toe diabetic ulcers is minimal over the past week and he'll complete his course of moxifloxacin today that's been treating a recent left 1st toe cellulitis. He continues to work a heavy schedule as on his feet for extended periods. He states his blood sugars continue to be mostly below 200. 04/14/17. Seen by Dr. Weathers. The patient feels the pain and drainage associated with the bilateral first toe diabetic ulcers has improved since starting on antibiotics last week. He continues to work a heavy schedule as on his feet for extended periods. He states his blood sugars continue to be mostly below 200. 04/07/17. Seen by Dr. Weathers. The patient reports some pain and increased drainage from the bilateral first toe diabetic ulcers over the past week. He's been working on his feet considerably more over the past few weeks and states his blood sugars are mostly below 200. 03/24/17. Seen by Flaco Henley PA-C. The patient reports good compliance with his diabetes footwear but he also notes blood sugars above 150 this week. Drainage has reportedly been decreasing from his diabetic ulcers of the right and left feet. 03/17/17. Seen by Dr. Weathers. The patient states he's stopped taking his SSRI that was treating the bilateral foot diabetic neuropathic pain as he felt it may have been contributing to his intermittent subjective fevers and chills. He does not report increased drainage or pain associated with the bilateral 1st toe diabetic ulcers since his last visit but states he's been on his feet more due to his job and an increase in tourism as the weather's improving. 02/26/17. Seen by Dr. Weathers. The patient reports increased pain and drainage associated with the left first toe diabetic ulcer but none with the right first toe diabetic ulcer. He's had some subjective fevers and chills for the last 2 weeks but states blood sugars continue to be well controlled with most below 150. 02/19/17. Seen by Dr. Weathers.The patient reports fatigue and intermittent chills but no documented fevers over the past few days. He does not report fevers nor other specific symptoms. He states that there has been no increase in drainage or pain associated with bilateral first diabetic ulcers since his last visit. His blood sugars continue to be mostly below 200. 02/05/17. Seen by Dr. Weathers. The patient does not report pain nor significant drainage associated with the chronic bilateral first toe diabetic ulcers over the past week. He continues applying topical gentamicin as recommended to treat the chronic and recurrent superficial staph infection. 01/29/17. Seen by Dr. Weathers. The patient reports minimal drainage and no pain associated with bilateral first toe diabetic ulcers since his last visit. He has completed his course of Keflex and does not report adverse side effects. He states blood sugars are mostly between 100 and 200.He continues to apply gentamicin ointment also as recommended. 01/22/17. Seen by Dr. Weathers. The patient returns to clinic for bilateral 1st toe diabetic ulcers that have become infected about a week ago and he was placed on Keflex by his PCP. He feels the drainage and redness are improving and he does not report pain in the toes. His blood sugars remain mostly below 150 and he continues to work on his feet a full-time schedule and states he wears his diabetic shoes at all times. 01/05/17. Seen by Flaco Henley PA-C. The patient reports some blood sugars this week above 150. No increase in ulcer drainage is reported today. 12/29/16 Seen by Flaco Henley PA-C. The patient reports stable drainage from his left foot non- pressure ulcer since his last evaluation. 12/22/16 Seen by Flaco Henley PA-C. The patient reports no increase in ulcer drainage from his left foot diabetic ulcer since his last visit. In addition he reports well controlled blood sugars. 12/15/16 Seen by Flaco Henley PA-C. The patient reports no increase in drainage from his left foot diabetic ulcer. His blood sugars have reportedly been below 150 this week but today is blood sugar is noted to be 152. 12/08/16. Seen by Dr. Weathers. The patient's now taking Augmentin for his recent Staph and E. coli positive wound culture taken from the chronic left 1st toe diabetic ulcer. The culture sensitivities however show intermediate sensitivity of the E. coli to Augmentin. The patient feels the toe pain and ulcer drainage have decreased considerably and he states his blood sugars are mostly below 150. He does not report fevers or adverse side effects from the Augmentin. Regarding the right 1st toe diabetic ulcer he does not report pain or significant drainage. 12/01/16 Seen by Flaco Henley PA-C. The patient reports that his left foot diabetic ulcer is much worse with a strong odor reported. 11/17/16 Seen by Flaco Henley PA-C. The patient reports that his blood sugar is likely elevated due to the holidays. He reports no increase in drainage from his DMII ulcers of the right or left 1st toes. 11/03/16. Seen by Dr. Weathers. The patient reports a new ulcer on the right 1st toe that started about one week ago following his attempt at removing a callus from the site. He states about 3 days ago the ulcer started draining fluid and the toe swelled and turned red. He 's not on antibiotics and does not report fevers or feeling unwell. Regarding his left 1st toe diabetic ulcer, he does not report significant drainage or pain. He states his blood sugars are improving with most below 150 now. 10/20/16. Seen by Dr. Weathers. The patient does not report significant drainage associated with the chronic left 1st toe diabetic ulcer since his last visit. He also states his blood sugars still tend to be over 150 and sometimes in the 200's.He also continues to apply gentamcin for the MSSA positive wound culture taken from the ulcer recently. 10/13/16. Seen by Dr. Weathers. The patient does not report significant drainage associated with the chronic left 1st toe diabetic ulcer since his last visit and he continues applyin gentamcin for the MSSA positive wound culture taken from the ulcer. His blood sugars continue to be above 150 fairly frequently however he notes since decreasing his chronic alcohol intake his glucose seems to be easier to control. 10/06/16 Seen by Flaco Henley PA-C. The patient reports that his neuropathy is severe today. It is described as an intermittent burning/shooting pain, that comes and goes but does not radiate and is centered on his left lateral foot. He does not report any associated changes to his chronic left 1st toe diabetic ulcer such as increased drainage. 09/29/16. Seen by Dr. Weathers. The patient does not report significant drainage associated with the chronic left 1st toe diabetic ulcer since his last visit and he continues on doxycycline for the MSSA positive wound culture taken from the ulcer. He feels the toe redness and swelling have improved since starting antibiotics. He also reports significant improvement in the left foot neuropathic pain since starting on a new antidepressant. 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 His blood sugar is over 200 today and he states its typically been between 100 and 200 although he's not been checking it for the past few days since his glucometer is no working. 09/15/16 Seen by Flaco Henley PA-C. The patient reports decreased neuropathic pain in his LLE and has recently started a new antidepressant medication for this issue though he does not recall the name of the medication. His ulcer drainage has been stable since his last evaluation. 09/01/16. Seen by Dr. Weathers. The patient does not report significant drainage associated with the chronic left 1st toe diabetic ulcer. He does state however his left lateral foot neuropathic pain is increasing and he's working with GAMAL Carter, pain specialist, to address this issue. He also states his blood sugars are typically between 100 to 200. 08/25/16 Seen by Flaco Henley PA-C. The patient reports continued left foot neuropathic pain. He has a pending appointment with Jethro Meehan at the pain clinic for this. His diabetic foot ulcer has resumed draining in the past few days after being closed. 08/18/16 Seen by Flaco Henley PA-C. The patient reports that he has had no drainage from his left 1st toe ulcer since his last evaluation. 08/11/16 Seen by Flaco Henley PA-C. The patient reports that he now has a prescription for lyrica and a schedule to taper off his gabapentin. He has not started taking lyrica though notes that his neuropathic pain is improved this week. His ulcer has had decreased drainage. 08/03/16 Seen by Flaco Henley PA-C. The patient reports that his left leg neuropathic pain, which has been present for months, has decreased in severity recently but still reaches 6/10. It is described as intermittent, non-radiating and stabbing/burning. His left 1st toe ulcer has had stable drainage by his report. 07/28/16 Seen by Flaco Henley PA-C. The patient reports very little drainage from his left 1st toe diabetic ulcer. He does report that his neuropathic pain has worsened and he is using alcohol at times as a painkiller. He has an upcoming appointment with Dr. Son, who has been addressing this issue and he asks about the referral to Jethro Meehan. 07/20/16. Seen by Dr. Weathers. The patient does not report significant drainage associated with the chronic left 1st toe diabetic ulcer over the past week. He states he's seen Dr. Son regarding his diabetic neuropathy in the past but has not discussed the recurrent toe ulcer. He also states he 'walks on this toes' and has been told by other providers in the past his Achilles tendon is 'short'. 07/13/[address] Weathers. The patient states he's been more active over the past few weeks with his job however does not report increased drainage or pain associated with the chronic left 1st toe diabetic ulcer. He's wearing his diabetic shoes as recommended and states his blood sugars have been a bit elevated between 150 and 200 over the past week due to non- compliance with his routine diabetic meal plan. 06/22/[address] Weathers. The patient feels the drainage and left 1st toe erythema have improved considerably since his last visit and he continues on Zyvox that was started during his recent admission for cellulitis associated with the toe ulcer. He states his blood sugars are now mostly below 150 and he's wearing diabetic shoes but not necessarily offloading the toe. 09/12/[address] Weathers. The patient has had his TCC off for the past week and he does not report drainage from the left 1st toe diabetic foot ulcer. His blood sugars are also mostly between 150 and 180. 09/06/[address] Weathers. The patient does not report any problems regarding his left diabetic foot ulcer nor the TCC he's worn since his last visit. His blood sugars are typically between 150 and 200 which is an improvement historically. 06/18/15 Seen by Flaco Henley PA-C. The patient has had no drainage from his wounds since his last visit. 06/11/15 Seen by Flaco Henley PA-C. The patient has had a particularly long work week and has been on his feet a lot. He has been using his diabetic shoes and recently modified inserts. 06/07/[address] Weathers. The patient has two new ulcers on the plantar surface of the right foot and on the left toe that were first noticed about 3 days ago after being on his feet at work for an extended period. He feels they may have occurred as a result of his orthotics not fitting properly. He does not report pain or swelling but does note some redness with clear yellow drainage from the right ulcer. He states his blood sugars are mostly below 150 with a few around 180 and he continues to try to loose weight to help manage his diabetes. 05/20/[address] Weathers. The patient does not report drainage from the left toe ulcer and tolerated the TCC without difficulties. His blood sugars are relatively well controlled below 150 and he's ready to order picker his orthotic today. 05/08/15 Seen by Flaco Henley PA-C. The patient is here today to have a TCC placed. He continues to try and stay off his feet and has not yet returned to work. 05/06/15 Seen by Flaco Henley PA-C. The patient has been off loading his feet using his off loading boots and sitting at home as well as not working. He continues on his antibiotics. 05/02/15 Seen by Flaco Henley PA-C. The patient continues to take time off work and be sedentary in order to offload his feet. He has been applying kerisol to the callouses on his right and left great toes and hydrogel to the wounds. He took his last dose of Augmentin today and reports decreased drainage from the left great toe diabetic ulcer and minimal drainage from the right great toe diabetic ulcer. His feet are sometimes painful but this has decreased since last visit. Blood sugars are running 150-180s in the AM. 04/26/[address] Weathers. The patient does not report increased drainage associated with the bilateral 1st toe diabetic ulcers. He feels the right leg cellulitis is much improved since starting Augmentin and he's been offloading with a cane and my taking time off of work to stay off his feet. His blood sugars are below 150 and he takes only metformin for diabetes. Past Medical History This information was obtained from the patient Patient has a medical history of: Type II Diabetes Diabetic foot ulcers (bilateral 1st toes; Hector grade II) Hyperlipidemia Chronic pain (neuropathic; left lateral foot) Depression Complaints and Symptoms This information was obtained from the patient Patient complains of: General Notes: I have reviewed and concur with the Review of Systems and Past Family Social History documents completed by the clinician, I have reviewed and concur with the Wound Assessment document completed by the clinician Integumentary (Hair/Skin/Nails): Open Sore Musculoskeletal: Assistive Devices, Deformities Neurological: Abnormal Gait, Loss of Protective Sensation Prior Wound History: Drainage, Erythema, Pain Patient denies complaints or symptoms related to: Cardiovascular (Central/Peripheral): Intermittent Claudication, Lower extremity (leg) resting pain, Lower extremity (leg) swelling Constitutional Symptoms (General Health): Chills, Fever Ear/Nose/Mouth/Throat: Hearing Loss / Aid Gastrointestinal (GI): Nausea / Vomiting, Stomach/abdominal pain Hematologic/Lymphatic: Bleeding / Clotting Disorders, Bleeding Tendency Prior Wound History: Bleeding, Malodor Respiratory: Oxygen Use, Shortness of Breath OBJECTIVE Constitutional BP elevated; Afebrile; Alert and in no distress. Well developed. Alert. Clean appearing.. Height/Length: 76 in (193.04 cm), Weight: 262.2 lbs (119.18 kgs), BMI: 31.9, Temperature: 98.8 ?F (37.11 ?C), Pulse: 96 bpm, Respiratory Rate: 18 breaths/min, Blood Pressure: 137/80 mmHg, Capillary Blood Glucose: 119 mg/dl, Pulse Oximetry: 96 %. Vital Signs Notes: Glucose per patient Ears, Nose, Mouth, and Throat: No clinically significant hearing loss on informal examination. Respiratory: No respiratory distress. Even respirations and without use of accessory muscles.. Integumentary (Hair, Skin) Mild right 1st toe periwound erythema with warmth. Refer to appropriate clinician wound documentation for this visit; right and left foot ulcers extend to subcut with bases partially covered with pink granulation, remainder fibrin and slough; right deeper than last review with increased drainage beneath callus. Wound #9 Left Great Toe is a chronic Hector Grade 2 Diabetic Ulcer and has received a status of Not Healed. Subsequent wound encounter measurements are 0.8cm length x 0.2cm width x 0.3cm depth, with an area of 0.16 sq cm and a volume of 0.048 cubic cm. No tunneling has been noted. No sinus tract has been noted. No undermining has been noted. There is a scant amount of serous drainage noted which has no odor. The patient reports a wound pain of level 0/10. The wound margin is callus. Wound bed has No epithelialization, No eschar , No slough, Yes bright red, pink, spongy granulation. The periwound skin moisture is normal. The periwound skin color is normal. The periwound skin exhibited: Callus. The periwound skin did not exhibit: Brawny Induration, Edema, Excoriation, Induration, Crepitus, Fluctuance, Friable, Rash. The temperature of the periwound skin is WNL. Periwound skin does not exhibit signs or symptoms of infection. Local Pulse is Palpable. Wound #10 Right Great Toe is a chronic Hector Grade 2 Diabetic Ulcer and has received a status of Not Healed. Subsequent wound encounter measurements are 0.2cm length x 0.2cm width x 0.2cm depth, with an area of 0.04 sq cm and a volume of 0.008 cubic cm. No tunneling has been noted. No sinus tract has been noted. No undermining has been noted. There is a scant amount of serous drainage noted which has no odor. The patient reports a wound pain of level 0/10. The wound margin is callus. Wound bed has No epithelialization, No eschar, No slough, No granulation. The periwound skin moisture is normal. The periwound skin color is normal. The periwound skin exhibited: Callus. The periwound skin did not exhibit: Brawny Induration, Edema, Excoriation, Induration, Crepitus, Fluctuance, Friable, Rash. The temperature of the periwound skin is WNL. Periwound skin does not exhibit signs or symptoms of infection. Local Pulse is Palpable. Neurological: Cranial nerves grossly intact with symmetric function normal by informal observation.. ASSESSMENT Active Problems ICD-10 (Encounter Diagnosis) E11.621 - Type 2 diabetes mellitus with foot ulcer (Encounter Diagnosis) L97.522 - Non-pressure chronic ulcer of other part of left foot with fat layer exposed (Encounter Diagnosis) L97.512 - Non-pressure chronic ulcer of other part of right foot with fat layer exposed (Encounter Diagnosis) L03.115 - Cellulitis of right lower limb PROCEDURES Wound #9 Wound #9 (Diabetic Ulcer) is located on the left great toe. A skin/subcutaneous tissue level surgical debridement with a total area debrided of 0.27 sq cm was performed by Rakesh Weathers MD. Subcutaneous was removed along with devitalized tissue: callus and exudate. The following instrument(s) were used: curette. Pain control was achieved using 4% Lido. A time out was conducted prior to the start of the procedure. A minimal amount of bleeding was controlled with pressure. The procedure was tolerated well with a pain level of 0 throughout and a pain level of 0 following the procedure. Post Debridement Measurements: 0.9cm length x 0.3cm width x 0.3cm depth; with an area of 0.27 sq cm and a volume of 0.081 cubic cm; Wound #10 Wound #10 (Diabetic Ulcer) is located on the right great toe. A skin/ subcutaneous tissue level surgical debridement with a total area debrided of 0.12 sq cm was performed by Rakesh Weathers MD. to remove devitalized tissue: callus, exudate, and slough. The following instrument(s) were used: curette. Pain control was achieved using 4% Lido. A time out was conducted prior to the start of the procedure. A minimal amount of bleeding was controlled with pressure. The procedure was tolerated well with a pain level of 0 throughout and a pain level of 0 following the procedure. Post Debridement Measurements: 0.4cm length x 0.3cm width x 0.3cm depth; with an area of 0.12 sq cm and a volume of 0.036 cubic cm; General Notes: Culture taken Additional Information Muscle fascia or bone removed and sent to pathology?: No Muscle fascia or bone removed and sent to pathology?: No PLAN Wound Orders: Wound #9 Left Great Toe Cleanser Cleanse Wound: - With Normal Saline May Shower. - Keep dressings dry. Topical Treatments Antibiotic/Antimicrobial Ointment/Cream. - Gentamicin to wound beds Dressings Primary dressing: - Opti foam cut to fit. Cover and secure with: - Hypafix Change Dressing: - Every other day. Off-Loading Keep weight off: - [place] boots. Follow-Up Appointments Return Appointment: - - In one week. Other information: If you develop fever, chills, increased pain, drainage, redness or swelling please call our office. If after hours, respond to the ER. Should you experience any significant changes in your wound(s) or have any questions regarding your home care instructions please contact the wound center @ [phone]. If after hours, contact your primary care physician or go to the hospital emergency room. Wound #10 Right Great Toe Cleanser Cleanse Wound: - With Normal Saline May Shower. - Keep dressings dry. Topical Treatments Antibiotic/Antimicrobial Ointment/Cream. - Gentamicin to wound beds Dressings Primary dressing: - Opti foam cut to fit. Cover and secure with: - Hypafix Change Dressing: - Every other day. Off-Loading Keep weight off: - [place] boots. Follow-Up Appointments Return Appointment: - - In one week. Other information: If you develop fever, chills, increased pain, drainage, redness or swelling please call our office. If after hours, respond to the ER. Should you experience any significant changes in your wound(s) or have any questions regarding your home care instructions please contact the wound center @ [phone]. If after hours, contact your primary care physician or go to the hospital emergency room. Laboratory: Culture Wound - Right Great toe. Medications prescribed: doxycycline hyclate - oral 100 mg capsule twice daily for 5 days for infected ulcer starting 07/27/2018 gentamicin - topical 0.1 % ointment once daily for 5 day for infected ulcer starting 07/27/2018 General Notes: Take antibiotics. I've reviewed the clinician's documentation and agree with the evaluation and plan as written. In addition the patient's ulcers demonstrate evidence of non-viable devitalized tissue and they will continue to benefit from sharp debridement to help promote granulation and expedite healing. Also, I've started the patient on doxycycline for cellulitis of the right toe and I'll adjust antibiotics pending the culture results. Electronic Signature(s) Signed By: Date: Rakesh Weathers MD 07/28/2018 14:31:14 Rakesh Weathers MD 07/28/2018 14:31:14 Entered By: Rakesh Weathers on 07/28/2018 14:27:24
== END ==
PROVIDERS: PCP Student in an Organized Health Care Education/Training Program; Visit Provider Internal Medicine
DX: E11.621 Type 2 diabetes mellitus with foot ulcer (principal); L97.522 Non-pressure chronic ulcer of other part of left foot with fat layer exposed; L97.512 Non-pressure chronic ulcer of other part of right foot with fat layer exposed; L03.115 Cellulitis of right lower limb
CPT/HCPCS: 11042; 87070; 87075; 87077; 87147; 87186; 87205

== ENCOUNTER → 2018-08-02 09:41 | Outpatient (CLI) | payer OTHER, SELFPAY ==
--- NOTE | 2018-08-02 | OV.WND_ITS ---
Progress Note Details Patient Name: Baljit Mckay Patient Number: [id number] PatientPatientDate: 08/02/2018 Clinician: Yareli De León Clinician Cosigner: Geeta Mullins Physician / Sales Specialist: Rakesh Weathers SUBJECTIVE Chief Complaint This information was obtained from the patient Diabetic ulcers to left and right great toe. Allergies NKDA HPI This information was obtained from the patient 08/02/18. Seen by Dr. Weathers. The patient does not report increased drainage or significant pain associated with the bilateral 1st toe diabetic ulcers since his last visit. He states he did not receive his Rx for doxycycline that was started at the last visit for cellulitis of the right toe and to treat the recent coag negative Staph culture however. 07/27/18. Seen by Dr. Weathers. The patient reports pain in the right 1st toe associated with the chronic diabetic foot ulcer. He does not report increased drainage however at the site nor the left 1st toe DFU since his last visit. 07/19/18. Seen by Dr. Weathers. The patient does not report increased drainage or significant pain associated with the bilateral 1st toe diabetic ulcers since his last visit and he's applying topical gentamicin to treat the recent MSSA positive wound culture. 07/12/18. Seen by Dr. Weathers. The patient does not report increased drainage or significant pain associated with the bilateral 1st toe diabetic ulcers since his last visit. He continues to work 6 days per week which keeps him on his feet for extended periods. 07/05/18. Seen by Dr. Weathers. The patient does not report increased drainage or significant pain associated with the bilateral 1st toe diabetic ulcers since his last visit. 06/28/18. Seen by Dr. Weathers. The patient does not report increased drainage or significant pain associated with the bilateral 1st toe diabetic ulcers since his last visit. He notes he's been using Kerasal ointment to treat the periulcer calluses less frequently and he's had an orthotic added to the right shoe to help 'even the leg length' and possibly relieve some lower back pain he's been having. 06/21/18. Seen by Dr. Weathers. The patient does not report increased drainage or significant pain associated with the bilateral 1st toe diabetic ulcers since his last visit. 06/14/18. Seen by Dr. Weathers. The patient does not report increased drainage or significant pain associated with the bilateral 1st toe diabetic ulcers since his last visit. 06/07/18. Seen by Dr. Weathers. The patient reports he was more active over the past week at work and of note he experienced some pain in the right 1st toe upon removal of his dressing today. Otherwise he does not report increased drainage from either 1st toe diabetic ulcer and states his blood sugars continue to be well controlled. 05/31/18. Seen by Dr. Weathers. The patient does not report increased drainage or pain associated with the bilateral 1st toe diabetic ulcers since his last visit and he's increased is use of this CAMPO boots to better facilitate offloading. 05/27/18. Seen by Dr. Weathers. The patient does not report increased drainage or pain associated with the bilateral 1st toe diabetic ulcers since his last visit and he continues to be quite active with work making it difficult to adequately offload the ulcers. He also reports a chronic rash over the distal left lower leg that's been present for about one month. 05/20/18. Seen by Dr. Weathers. The patient does not report increased drainage or pain associated with the bilateral 1st toe diabetic ulcers since his last visit and he continues to be quite active with work and personal activities making it difficult to adequately offload the ulcers. His blood sugars remain well controlled and he's been advised to wear a CAMPO boot at all times on the left leg but has not been able to do this. 05/10/18. Seen by Flaco Henley PA-C. The patient reports a rash has developed on his leg under his CAMPO boot, but the rash has improved in the past few days as he has not been wearing the CAMPO boot. Drainage from his diabetic foot ulcers has not increased. 05/03/18. Seen by Dr. Weathers. The patient states he was at a conference this past weekend and forgot his left lower leg stocking that protects from his CAMPO boot rubbing the short. He started to notice an abrasion so stopped wearing the CAMPO boot and now feels the left 1st toe diabetic ulcer may have deteriorated and also it got wet in the shower this morning. He also notes some drainage at the site of the recently healed left 1st toe diabetic ulcer. He does not report pain at either site and his blood sugars are historically well controlled over the past 6 months. 04/26/18. Seen by Dr. Weathers. The patient reports being on his feet a lot over the past week at work but he'll be taking the next week off. 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 His culture last week grew MSSA and he's completed a course of doxycycline as of yesterday. He's also not been wearing this CAMPO boot or using a knee scooter due to his working more. 04/19/18. Seen by Dr. Weathers. The patient does not report pain associated with the chronic left 1st toe diabetic ulcer since his last visit however he was more active on it over the holiday weekend. The staff however report drainage on the dressing and a significant increase in callus from his last visit. His blood sugars continue to be well controlled around 120 and he's been advised to use his CAMPO boot when mobilizing and knee scooter as much as possible. 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 04/12/18. Seen by Dr. Weathers. The patient does not report drainage or pain associated with the great left foot diabetic ulcers since his last visit. 04/05/2018. Seen by Dr. Weathers. The patient is wearing his CAMPO boot on the left foot as much as possible to help offload the recurrent and chronic left 1st toe diabetic ulcer. He'll complete his course of doxycycline today that was started at his last for cellulitis of the toe and he's applying topical gentamicin as well. He does not report fevers or feeling unwell nor side effects of the antibiotics. 03/29/2018. Seen by Dr. Weathers. The patient reports some pain and increased drainage as well as redness and swelling of the left 1st toe over the past few days. He does not report fevers however nor other acute issues at this time. 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 03/22/2018. Seen by Dr. Weathers. The patient does not report drainage or pain associated with the great left foot diabetic ulcers since his last visit. He states however that he is not wearing his CAMPO boot to offload the sites on alternate days despite my recommendations last week. 03/15/18. Seen by Dr. Weathers. The patient has returned to full-time work schedule and feels may not be wearing his CAMPO boots as much as she should noting a significant increase in callus associated with bilateral first toe diabetic ulcers and associated pain. He does not report drainage associated with the ulcers however and we'll extended his visits out to 10 days. . Seen by Dr. Weathers. The patient does not report significant drainage associated with chronic left and right first toe diabetic ulcers since his last visit. He's not wearing his CAMPO boot currently to offload the left foot and has started using new orthotic inserts for his diabetic shoe noting the heavy callus may be due to the old othotics wearing down. 02/25/18. Seen by Dr. Weathers. The patient does not report significant drainage associated with chronic left first toe diabetic ulcer since his last visit. 02/18/18. Seen by Dr. Weathers. The patient does not report drainage associated with chronic right or left first toe diabetic ulcers since his last visit and he's applying topical gentamicin as recommended to treat the left 1st toe MSSA positive wound culture taken at the last visit. 02/11/18. Seen by Dr. Weathers. The patient returns due to recurrence of the left 1st toe diabetic ulcer that he states started about 1 week ago when he developing callus fell off and the toe started to drain. He was seen by Dr. Son, podiatry, who subsequently referred the patient back to our clinic. He does not report pain in the toe or fevers and he's wearing his CAMPO boot to help offload the site. He's also on Keflex but states a wound culture was not drawn. Of note, he reports callus has reformed over the recently healed right 1st toe diabetic ulcer also. His blood sugars continue to be well controlled with most below 150. 01/17/18. Seen by Flaco Henley PA-C. The patient reports no drainage from his right 1st toe diabetic ulcer since his last dressing change. 01/05/18. Seen by Dr. Weathers. 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 Of note, he also has a new wound over the dorsum of the right foot that occurred following a dog fight that occurred at home where he was stepped on and the dog's claws scratch the foot. He does not report significant pain or drainage associated with this wound. 12/29/17. Seen by Dr. Weathers. The patient does not report drainage or pain associated with the right first toe diabetic ulcers since his last visit. He is wearing his CAMPO boot as recommended and is asking if he will be able to return to work soon. 12/22/17. Seen by Dr. Weathers. The patient does not report increased drainage associated with a chronic right first toe diabetic ulcers since his last visit. 12/14/17. Seen by Dr. Weathers. The patient does not report increased drainage associated with a chronic right first toe diabetic ulcers since his last visit and he's wearing his CAMPO boot as recommended to offload the ulcer. 12/08/17. Seen by Dr. Weathers. The patient does not report increased drainage associated with a chronic right first toe diabetic ulcers since his last visit. Of note, he states he accidentally wore his left shoe with a sock in the end of the which may result in some bruising at the site of the recently healed first toe diabetic ulcer. 12/01/17. Seen by Dr. Weathers. The patient does not report significant drainage or pain associated with right first toe diabetic ulcer since his last visit. Of note, he 's also stopped applying Kersal to the callus surrounding the recently healed left 1st toe diabetic ulcer despite our recommendations to do so. 11/17/17. Seen by Dr. Weathers. The patient does not report significant drainage or pain associated with right first toe diabetic ulcer since his last visit. 11/10/17. Seen by Dr. Weathers. The patient does not report significant drainage or pain associated with bilateral first toe diabetic ulcers since his last visit. He's been offloading as recommended with both his CAMPO boots and a knee scooter. 11/03/17. Seen by Dr. Weathers. The patient does not report increased drainage or pain associated with bilateral first toe diabetic ulcers since last visit. 10/27/17. Seen by Dr. Weathers. The patient reports some increased pain and redness associated with the chronic right first toe diabetic ulcer. 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 He is also offloading with a new scooter as recommended 10/20/17. Seen by Dr. Weathers. The patient does not report increased drainage or pain associated with bilateral first toe diabetic ulcers since last visit. 10/13/17. Seen by Dr. Weathers. The patient does not report increased drainage or pain associated with bilateral first toe diabetic ulcers since last visit. Of note, he now has a knee scooter and his left CAMPO boot and feels the left 1st toe ulcer has improved significantly with the added offloading measures. 10/06/17. Seen by Dr. Weathers. The patient does not report increased drainage or pain associated with bilateral first toe diabetic ulcers since last visit. Of note, he now has a knee scooter that he's been using to offload the left foot for the past 2 days and he will receive his CAMPO boot on Wednesday. 09/29/17. Seen by Dr. Weathers. The patient states that while wearing his left foot offloading shoe he took a fall and feels that it may have traumatized the chronic left first toe diabetic ulcer. He does not report increased pain or drainage from the site nor the right first toe diabetic ulcers since his last visit and states his blood sugars continue to be mostly below 150. He is also awaiting delivery of the left foot [place] boot as well as his diabetic shoes. Of note, he also admits to being more active that he should be despite our recommendations to maximally offload both ulcers and has not been able to locate an offloading knee scooter as we've recommended. 09/22/17. Seen by Dr. Weathers. The patient does not report increased drainage associated with the bilateral 1st toe diabetic ulcers since his last visit and he's completed his course of doxycycline without reporting adverse side effects. He's also not yet seen his orthortist who will be fitting for at CAMPO boot to offload the left foot ulcer as well as providing him with a pair of diabetic shoes. 09/15/17. Seen by Dr. Weathers. The patient's on doxycycline to treat a chronic wound infection of the left 1st toe and he does not report adverse side effects. He's wearing his offloading shoe on the foot as recommended and continues to limit his walking as much as possible. He does not report significant drainage or pain associated with either 1st toe diabetic ulcers and states he's going to schedule and appointment with an account review specialist today as we've been recommending. 09/06/17. Seen by Flaco Henley PA-C. The patient reports increased drainage and continued callous formation from his 1st toe diabetic ulcers. He continues to stay off his feet as much as possible and is working with his insurance company and [employer] to obtain a CAMPO offloading boot. 08/31/17. Seen by Flaco Henley PA-C. The patient reports he has been staying off his feet and has been away from work as instructed. He reports decreased drainage from his bilateral diabetic toe ulcers. 08/24/17. Seen by Dr. Weathers. The patient reports being more active over the past week despite being advised to limit his walking considerably to offload the bilateral first toe diabetic ulcers. He does not report increased drainage or pain associated with these ulcers. He also states he will be able to take another month off of work to further facilitate offloading of the ulcers. 08/17/17. Seen by Dr. Weathers. The patient has been offloading both left and right first toe diabetic ulcers for the past week and has taken the entire month of July off of work to better facilitate offloading. 08/10/17. Seen by Dr. Weathers. The patient has been offloading both left and right first toe diabetic ulcers for the past week as recommended and he does not report significant associated pain or drainage from either site. 08/03/17. Seen by Dr. Weathers. The patient has been offloading both left and right first toe diabetic ulcers for the past week and has taken the entire month of July off of work to better facilitate offloading. 07/23/17. Seen by Dr. Weathers. The patient does not report significant drainage associated with chronic bilateral left and right first toe diabetic ulcers since his last visit. He does not report any drainage associated with the left 1st MTPJ diabetic ulcer. 07/20/17. Seen by Dr. Weathers. The patient does not report pain nor significant drainage associated with chronic bilateral left and right first toe diabetic ulcers since his last visit. He is applying topical gentamicin as recommended to the ulcer bases to treat the recent wound infection. He does not report any drainage associated with the left 1st MTPJ diabetic ulcer. 07/16/17. Seen by Dr. Weathers. The patient states that he had a very busy past week in terms of festival and he was on his feet for extended periods. He has increased drainage and callus formation associated with both first toe diabetic ulcers since we last saw him however he does not report any increased drainage or problems regarding the left mid plantar foot diabetic ulcer. He does not report pain in the toes nor fever or feeling unwell. His blood sugars continue to be well controlled consistently below 150. 07/06/17. Seen by Dr. Weathers. The patient does not report pain nor significant drainage associated with chronic bilateral left and right first toe diabetic ulcers since his last visit. He is applying topical gentamicin as recommended in his recent wound culture grew MSSA. He also does not report pain nor drainage associated with the chronic left plantar foot diabetic ulcer. 06/29/17. Seen by Dr. Weathers. The patient reports some pain associated with both first toe diabetic ulcers since his last visit. He does not report increased drainage associated with these nor the left plantar foot diabetic ulcer. He's been seeing us every 2 weeks and feels that the callus formation in the interim has been quite significant. 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 He states his blood sugars are well controlled with most below 150. 06/15/17. Seen by Dr. Weathers. The patient does not report pain nor significant drainage associated with the chronic bilateral first toe diabetic ulcers nor the left plantar foot diabetic ulcer since his last visit. 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 His blood sugars he states are well-controlled with most below 150. 06/01/17. Seen by Dr. Weathers. The patient does not report pain or increased drainage associated with the bilateral, chronic 1st toe diabetic ulcers since his last visit and he continues on doxycycline for the left 1st toe infection noted at his last visit. He does not report adverse side effects and states his blood sugars are mostly below 150. 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 Of note, he reports a new wound over the plantar surface of the left foot that started when he tried to remove a callus earlier this week. 05/18/17. Seen by Dr. Weathers. The patient reports some discomfort associated with the chronic left first toe diabetic ulcer over the past few days however he does not report pain nor increased drainage with the chronic right first toe diabetic ulcer. He continues to work an active job and is on his feet for extended periods however states that he may be able to decrease hours later in the summer. His blood sugars continue to be well controlled with most below 150. 05/12/17. Seen by Flaco Henley PA-C. The patient reports that his neuropathy is worse today with stabbing-type pains occurring in the arches of both feet and radiating to the lateral edges of his feet. He reports that walking on his feet exacerbate the pain and his recent medication change to Cymbalta has helped decrease the pain. He reports no increase in drainage from his bilateral 1st toe diabetic ulcers of the right and left feet. 05/05/17. Seen by Flaco Henley PA-C. The patient reports no increase in drainage from his bilateral 1st toe diabetic ulcers. 04/20/17. Seen by Dr. Weathers. The patient reports pain and drainage associated with the bilateral first toe diabetic ulcers is minimal over the past week and he'll complete his course of moxifloxacin today that's been treating a recent left 1st toe cellulitis. He continues to work a heavy schedule as on his feet for extended periods. He states his blood sugars continue to be mostly below 200. 04/14/17. Seen by Dr. Weathers. The patient feels the pain and drainage associated with the bilateral first toe diabetic ulcers has improved since starting on antibiotics last week. He continues to work a heavy schedule as on his feet for extended periods. He states his blood sugars continue to be mostly below 200. 5. Seen by Dr. Weathers. The patient reports some pain and increased drainage from the bilateral first toe diabetic ulcers over the past week. He's been working on his feet considerably more over the past few weeks and states his blood sugars are mostly below 200. 5/02/05. Seen by Flaco Henley PA-C. The patient reports good compliance with his diabetes footwear but he also notes blood sugars above 150 this week. Drainage has reportedly been decreasing from his diabetic ulcers of the right and left feet. 03/17/17. Seen by Dr. Weathers. The patient states he's stopped taking his SSRI that was treating the bilateral foot diabetic neuropathic pain as he felt it may have been contributing to his intermittent subjective fevers and chills. He does not report increased drainage or pain associated with the bilateral 1st toe diabetic ulcers since his last visit but states he's been on his feet more due to his job and an increase in tourism as the weather's improving. 02/26/17. Seen by Dr. Weathers. The patient reports increased pain and drainage associated with the left first toe diabetic ulcer but none with the right first toe diabetic ulcer. He's had some subjective fevers and chills for the last 2 weeks but states blood sugars continue to be well controlled with most below 150. 02/19/17. Seen by Dr. Weathers.The patient reports fatigue and intermittent chills but no documented fevers over the past few days. He does not report fevers nor other specific symptoms. He states that there has been no increase in drainage or pain associated with bilateral first diabetic ulcers since his last visit. His blood sugars continue to be mostly below 200. 02/05/17. Seen by Dr. Weathers. The patient does not report pain nor significant drainage associated with the chronic bilateral first toe diabetic ulcers over the past week. He continues applying topical gentamicin as recommended to treat the chronic and recurrent superficial staph infection. 01/29/17. Seen by Dr. Weathers. The patient reports minimal drainage and no pain associated with bilateral first toe diabetic ulcers since his last visit. He has completed his course of Keflex and does not report adverse side effects. He states blood sugars are mostly between 100 and 200.He continues to apply gentamicin ointment also as recommended. 01/22/17. Seen by Dr. Weathers. The patient returns to clinic for bilateral 1st toe diabetic ulcers that have become infected about a week ago and he was placed on Keflex by his PCP. He feels the drainage and redness are improving and he does not report pain in the toes. His blood sugars remain mostly below 150 and he continues to work on his feet a full-time schedule and states he wears his diabetic shoes at all times. 01/05/17. Seen by Flaco Henley PA-C. The patient reports some blood sugars this week above 150. No increase in ulcer drainage is reported today. 12/29/16 Seen by Flaco Henley PA-C. The patient reports stable drainage from his left foot non- pressure ulcer since his last evaluation. 12/22/16 Seen by Flaco Henley PA-C. The patient reports no increase in ulcer drainage from his left foot diabetic ulcer since his last visit. In addition he reports well controlled blood sugars. 12/15/16 Seen by Flaco Henley PA-C. The patient reports no increase in drainage from his left foot diabetic ulcer. His blood sugars have reportedly been below 150 this week but today is blood sugar is noted to be 152. 12/08/16. Seen by Dr. Weathers. The patient's now taking Augmentin for his recent Staph and E. coli positive wound culture taken from the chronic left 1st toe diabetic ulcer. The culture sensitivities however show intermediate sensitivity of the E. coli to Augmentin. The patient feels the toe pain and ulcer drainage have decreased considerably and he states his blood sugars are mostly below 150. He does not report fevers or adverse side effects from the Augmentin. Regarding the right 1st toe diabetic ulcer he does not report pain or significant drainage. 12/01/16 Seen by Flaco Henley PA-C. The patient reports that his left foot diabetic ulcer is much worse with a strong odor reported. 11/17/16 Seen by Flaco Henley PA-C. The patient reports that his blood sugar is likely elevated due to the holidays. He reports no increase in drainage from his DMII ulcers of the right or left 1st toes. 11/03/16. Seen by Dr. Weathers. The patient reports a new ulcer on the right 1st toe that started about one week ago following his attempt at removing a callus from the site. He states about 3 days ago the ulcer started draining fluid and the toe swelled and turned red. He 's not on antibiotics and does not report fevers or feeling unwell. Regarding his left 1st toe diabetic ulcer, he does not report significant drainage or pain. He states his blood sugars are improving with most below 150 now. 10/20/16. Seen by Dr. Weathers. The patient does not report significant drainage associated with the chronic left 1st toe diabetic ulcer since his last visit. He also states his blood sugars still tend to be over 150 and sometimes in the 200's.He also continues to apply gentamcin for the MSSA positive wound culture taken from the ulcer recently. 10/13/16. Seen by Dr. Weathers. The patient does not report significant drainage associated with the chronic left 1st toe diabetic ulcer since his last visit and he continues applyin gentamcin for the MSSA positive wound culture taken from the ulcer. His blood sugars continue to be above 150 fairly frequently however he notes since decreasing his chronic alcohol intake his glucose seems to be easier to control. 10/06/16 Seen by Flaco Henley PA-C. The patient reports that his neuropathy is severe today. It is described as an intermittent burning/shooting pain, that comes and goes but does not radiate and is centered on his left lateral foot. He does not report any associated changes to his chronic left 1st toe diabetic ulcer such as increased drainage. 09/29/16. Seen by Dr. Weathers. The patient does not report significant drainage associated with the chronic left 1st toe diabetic ulcer since his last visit and he continues on doxycycline for the MSSA positive wound culture taken from the ulcer. He feels the toe redness and swelling have improved since starting antibiotics. He also reports significant improvement in the left foot neuropathic pain since starting on a new antidepressant. 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 His blood sugar is over 200 today and he states its typically been between 100 and 200 although he's not been checking it for the past few days since his glucometer is no working. 09/15/16 Seen by Flaco Henley PA-C. The patient reports decreased neuropathic pain in his LLE and has recently started a new antidepressant medication for this issue though he does not recall the name of the medication. His ulcer drainage has been stable since his last evaluation. 09/01/16. Seen by Dr. Weathers. The patient does not report significant drainage associated with the chronic left 1st toe diabetic ulcer. He does state however his left lateral foot neuropathic pain is increasing and he's working with GAMAL Carter, pain specialist, to address this issue. He also states his blood sugars are typically between 100 to 200. 08/25/16 Seen by Flaco Henley PA-C. The patient reports continued left foot neuropathic pain. He has a pending appointment with Jethro Meehan at the pain clinic for this. His diabetic foot ulcer has resumed draining in the past few days after being closed. 08/18/16 Seen by Flaco Henley PA-C. The patient reports that he has had no drainage from his left 1st toe ulcer since his last evaluation. 08/11/16 Seen by Flaco Henley PA-C. The patient reports that he now has a prescription for lyrica and a schedule to taper off his gabapentin. He has not started taking lyrica though notes that his neuropathic pain is improved this week. His ulcer has had decreased drainage. 08/03/16 Seen by Flaco Henley PA-C. The patient reports that his left leg neuropathic pain, which has been present for months, has decreased in severity recently but still reaches 6/10. It is described as intermittent, non-radiating and stabbing/burning. His left 1st toe ulcer has had stable drainage by his report. 07/28/16 Seen by Flaco Henley PA-C. The patient reports very little drainage from his left 1st toe diabetic ulcer. He does report that his neuropathic pain has worsened and he is using alcohol at times as a painkiller. He has an upcoming appointment with Dr. Son, who has been addressing this issue and he asks about the referral to Jethro Meehan. 07/20/16. Seen by Dr. Weathers. The patient does not report significant drainage associated with the chronic left 1st toe diabetic ulcer over the past week. He states he's seen Dr. Son regarding his diabetic neuropathy in the past but has not discussed the recurrent toe ulcer. He also states he 'walks on this toes' and has been told by other providers in the past his Achilles tendon is 'short'. 07/13/[address] Weathers. The patient states he's been more active over the past few weeks with his job however does not report increased drainage or pain associated with the chronic left 1st toe diabetic ulcer. He's wearing his diabetic shoes as recommended and states his blood sugars have been a bit elevated between 150 and 200 over the past week due to non- compliance with his routine diabetic meal plan. 06/22/[address] Weathers. The patient feels the drainage and left 1st toe erythema have improved considerably since his last visit and he continues on Zyvox that was started during his recent admission for cellulitis associated with the toe ulcer. He states his blood sugars are now mostly below 150 and he's wearing diabetic shoes but not necessarily offloading the toe. 09/12/[address] Weathers. The patient has had his TCC off for the past week and he does not report drainage from the left 1st toe diabetic foot ulcer. His blood sugars are also mostly between 150 and 180. 09/06/[address] Weathers. The patient does not report any problems regarding his left diabetic foot ulcer nor the TCC he's worn since his last visit. His blood sugars are typically between 150 and 200 which is an improvement historically. 06/18/15 Seen by Flaco Henley PA-C. The patient has had no drainage from his wounds since his last visit. 06/11/15 Seen by Flaco Henley PA-C. The patient has had a particularly long work week and has been on his feet a lot. He has been using his diabetic shoes and recently modified inserts. 06/07/[address] Weathers. The patient has two new ulcers on the plantar surface of the right foot and on the left toe that were first noticed about 3 days ago after being on his feet at work for an extended period. He feels they may have occurred as a result of his orthotics not fitting properly. He does not report pain or swelling but does note some redness with clear yellow drainage from the right ulcer. He states his blood sugars are mostly below 150 with a few around 180 and he continues to try to loose weight to help manage his diabetes. 05/20/[address] Weathers. The patient does not report drainage from the left toe ulcer and tolerated the TCC without difficulties. 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 05/08/15 Seen by Flaco Henley PA-C. The patient is here today to have a TCC placed. He continues to try and stay off his feet and has not yet returned to work. 05/06/15 Seen by Falco Henley PA-C. The patient has been off loading his feet using his off loading boots and sitting at home as well as not working. He continues on his antibiotics. 05/02/15 Seen by Flaco Henley PA-C. The patient continues to take time off work and be sedentary in order to offload his feet. He has been applying kerisol to the callouses on his right and left great toes and hydrogel to the wounds. He took his last dose of Augmentin today and reports decreased drainage from the left great toe diabetic ulcer and minimal drainage from the right great toe diabetic ulcer. His feet are sometimes painful but this has decreased since last visit. Blood sugars are running 150-180s in the AM. 04/26/[address] Weathers. The patient does not report increased drainage associated with the bilateral 1st toe diabetic ulcers. He feels the right leg cellulitis is much improved since starting Augmentin and he's been offloading with a cane and my taking time off of work to stay off his feet. His blood sugars are below 150 and he takes only metformin for diabetes. Past Medical History This information was obtained from the patient Patient has a medical history of: Type II Diabetes Diabetic foot ulcers (bilateral 1st toes; Hector grade II) Hyperlipidemia Chronic pain (neuropathic; left lateral foot) Depression Complaints and Symptoms This information was obtained from the patient Patient complains of: General Notes: I have reviewed and concur with the Review of Systems and Past Family Social History documents completed by the clinician, I have reviewed and concur with the Wound Assessment document completed by the clinician Integumentary (Hair/Skin/Nails): Open Sore Musculoskeletal: Assistive Devices, Deformities Neurological: Abnormal Gait, Loss of Protective Sensation Prior Wound History: Drainage, Erythema, Pain Patient denies complaints or symptoms related to: Cardiovascular (Central/Peripheral): Intermittent Claudication, Lower extremity (leg) resting pain, Lower extremity (leg) swelling Constitutional Symptoms (General Health): Chills, Fever Ear/Nose/Mouth/Throat: Hearing Loss / Aid Gastrointestinal (GI): Nausea / Vomiting, Stomach/abdominal pain Hematologic/Lymphatic: Bleeding / Clotting Disorders, Bleeding Tendency Prior Wound History: Bleeding, Malodor Respiratory: Oxygen Use, Shortness of Breath OBJECTIVE Constitutional Vital signs reviewed and noted. Well developed. Alert. Clean appearing.. Height/ Length: 76 in (193.04 cm), Weight: 267 lbs (121.36 kgs), BMI: 32.5, Temperature: 97.3 ?F ( 36.28 ?C), Pulse: 67 bpm, Respiratory Rate: 18 breaths/min, Blood Pressure: 114/76 mmHg, Capillary Blood Glucose: 87 mg/dl, Pulse Oximetry: 98 %. Vital Signs Notes: Glucose per patient Respiratory: No respiratory distress. Even respirations and without use of accessory muscles.. Cardiovascular: Affected extremity exhibits no peripheral edema or cyanosis, is warm, and is well perfused. Capillary refill is less than 2 seconds. Integumentary (Hair, Skin) No periwound erythema, warmth, or significant drainage. No periwound rashes appreciated or noted otherwise.. Refer to appropriate clinician wound documentation for this visit; right and left foot ulcers extend to subcut with bases partially covered with pink granulation, remainder fibrin and slough. Moderate amount of callus in the periulcer areas. Wound #9 Left Great Toe is a chronic Hector Grade 2 Diabetic Ulcer and has received a status of Not Healed. Subsequent wound encounter measurements are 0.8cm length x 0.4cm width x 0.2cm depth, with an area of 0.32 sq cm and a volume of 0.064 cubic cm. No tunneling has been noted. No sinus tract has been noted. No undermining has been noted. There is a scant amount of serous drainage noted which has no odor. The patient reports a wound pain of level 0/10. The wound margin is callus. Wound bed has No epithelialization, No eschar , No slough, Yes bright red, pink, spongy granulation. The periwound skin moisture is normal. The periwound skin color is normal. The periwound skin exhibited: Callus. The periwound skin did not exhibit: Brawny Induration, Edema, Excoriation, Induration, Crepitus, Fluctuance, Friable, Rash. The temperature of the periwound skin is WNL. Periwound skin does not exhibit signs or symptoms of infection. Local Pulse is Palpable. Wound #10 Right Great Toe is a chronic Hector Grade 2 Diabetic Ulcer and has received a status of Not Healed. Subsequent wound encounter measurements are 0.2cm length x 0.2cm width x 0.2cm depth, with an area of 0.04 sq cm and a volume of 0.008 cubic cm. No tunneling has been noted. No sinus tract has been noted. No undermining has been noted. There is a scant amount of serous drainage noted which has no odor. The patient reports a wound pain of level 0/10. The wound margin is callus. Wound bed has No epithelialization, No eschar, No slough, No granulation. The periwound skin moisture is normal. The periwound skin color is normal. The periwound skin exhibited: Callus. The periwound skin did not exhibit: Brawny Induration, Edema, Excoriation, Induration, Crepitus, Fluctuance, Friable, Rash. The temperature of the periwound skin is WNL. Periwound skin does not exhibit signs or symptoms of infection. Local Pulse is Palpable. Neurological: Cranial nerves grossly intact with symmetric function normal by informal observation.. ASSESSMENT Active Problems ICD-10 (Encounter Diagnosis) E11.621 - Type 2 diabetes mellitus with foot ulcer (Encounter Diagnosis) L97.522 - Non-pressure chronic ulcer of other part of left foot with fat layer exposed (Encounter Diagnosis) L97.512 - Non-pressure chronic ulcer of other part of right foot with fat layer exposed (Encounter Diagnosis) B95.7 - Other staphylococcus as the cause of diseases classified elsewhere PROCEDURES Wound #9 Wound #9 (Diabetic Ulcer) is located on the left great toe. A skin/subcutaneous tissue level surgical debridement with a total area debrided of 0.32 sq cm was performed by Rakesh Weathers MD. Subcutaneous was removed along with devitalized tissue: callus and slough. The following instrument(s) were used: curette. Pain control was achieved using 4% Lido. A time out was conducted prior to the start of the procedure. A minimal amount of bleeding was controlled with n/a. The procedure was tolerated well with a pain level of 0 throughout and a pain level of 0 following the procedure. Post Debridement Measurements: 0.8cm length x 0.4cm width x 0.3cm depth; with an area of 0.32 sq cm and a volume of 0.096 cubic cm; Wound #10 Wound #10 (Diabetic Ulcer) is located on the right great toe. A skin/ subcutaneous tissue level surgical debridement with a total area debrided of 0.04 sq cm was performed by Rakesh Weathers MD. Subcutaneous was removed along with devitalized tissue: callus and slough. The following instrument(s) were used: curette. Pain control was achieved using 4% Lido. A time out was conducted prior to the start of the procedure. A minimal amount of bleeding was controlled with n/a. The procedure was tolerated well with a pain level of 0 throughout and a pain level of 0 following the procedure. Post Debridement Measurements: 0.2cm length x 0.2cm width x 0.3cm depth; with an area of 0.04 sq cm and a volume of 0.012 cubic cm; Additional Information Muscle fascia or bone removed and sent to pathology?: No Muscle fascia or bone removed and sent to pathology?: No PLAN Wound Orders: Wound #9 Left Great Toe Cleanser Cleanse Wound: - With Normal Saline May Shower. - Keep dressings dry. Topical Treatments Antibiotic/Antimicrobial Ointment/Cream. - Gentamicin to wound beds Dressings Primary dressing: - Opti foam cut to fit. Cover and secure with: - Hypafix Change Dressing: - Every other day. 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 Wound #10 Right Great Toe Cleanser Cleanse Wound: - With Normal Saline May Shower. - Keep dressings dry. Topical Treatments Antibiotic/Antimicrobial Ointment/Cream. - Gentamicin to wound beds Dressings Primary dressing: - Opti foam cut to fit. Cover and secure with: - Hypafix Change Dressing: - Every other day. 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 Additional Orders: Follow-Up Appointments Return Appointment: - - In one week. Other information: If you develop fever, chills, increased pain, drainage, redness or swelling please call our office. If after hours, respond to the ER. Should you experience any significant changes in your wound(s) or have any questions regarding your home care instructions please contact the wound center @ [phone]. If after hours, contact your primary care physician or go to the hospital emergency room. Scribing Attestation I attest, as the nurse, that I scribed these orders for the physician. I've reviewed the clinician's documentation and agree with the evaluation and plan as written. In addition the patient's ulcers demonstrate evidence of non-viable devitalized tissue and they will continue to benefit from sharp debridement to help promote granulation and expedite healing. Also, I've deferred he doxycycline for now as the previously described right toe cellulitis has resolved. He'll continue to apply topical gentamicin to the site however. Electronic Signature(s) Signed By: Date: Rakesh Weathers MD 08/03/2018 08:39:26 Entered By: Rakesh Weathers on 08/03/2018 07:16:30
== END ==
PROVIDERS: PCP Student in an Organized Health Care Education/Training Program; Visit Provider Internal Medicine
DX: E11.621 Type 2 diabetes mellitus with foot ulcer (principal); L97.522 Non-pressure chronic ulcer of other part of left foot with fat layer exposed; L97.512 Non-pressure chronic ulcer of other part of right foot with fat layer exposed; B95.7 Other staphylococcus as the cause of diseases classified elsewhere
CPT/HCPCS: 11042

== ENCOUNTER → 2018-08-09 10:18 | Outpatient (CLI) | payer OTHER, SELFPAY ==
--- NOTE | 2018-08-09 | OV.WND_ITS ---
Progress Note Details Patient Name: Baljit Mckay Patient Number: [id number] PatientPatientDate: 08/09/2018 Clinician: Ryann Sultana Clinician Cosigner: Geeta Mullins Physician / Corporate Associate Attorney: Rakesh Weathers SUBJECTIVE Chief Complaint This information was obtained from the patient Diabetic ulcers to left and right great toe. Allergies NKDA HPI This information was obtained from the patient 08/09/18. Seen by Dr. Weathers. The patient does not report increased drainage or significant pain associated with the bilateral 1st toe diabetic ulcers since his last visit and he's applying topical gentacmicin as recommended to treat the recent coag negative Staph culture. 08/02/18. Seen by Dr. Weathers. The patient does not report increased drainage or significant pain associated with the bilateral 1st toe diabetic ulcers since his last visit. He states he did not receive his Rx for doxycycline that was started at the last visit for cellulitis of the right toe and to treat the recent coag negative Staph culture however. 07/27/18. Seen by Dr. Weathers. The patient reports pain in the right 1st toe associated with the chronic diabetic foot ulcer. He does not report increased drainage however at the site nor the left 1st toe DFU since his last visit. 07/19/18. Seen by Dr. Weathers. The patient does not report increased drainage or significant pain associated with the bilateral 1st toe diabetic ulcers since his last visit and he's applying topical gentamicin to treat the recent MSSA positive wound culture. 07/12/18. Seen by Dr. Weathers. The patient does not report increased drainage or significant pain associated with the bilateral 1st toe diabetic ulcers since his last visit. He continues to work 6 days per week which keeps him on his feet for extended periods. 07/05/18. Seen by Dr. Weathers. The patient does not report increased drainage or significant pain associated with the bilateral 1st toe diabetic ulcers since his last visit. 06/28/18. Seen by Dr. Weathers. The patient does not report increased drainage or significant pain associated with the bilateral 1st toe diabetic ulcers since his last visit. He notes he's been using Kerasal ointment to treat the periulcer calluses less frequently and he's had an orthotic added to the right shoe to help 'even the leg length' and possibly relieve some lower back pain he's been having. 06/21/18. Seen by Dr. Weathers. The patient does not report increased drainage or significant pain associated with the bilateral 1st toe diabetic ulcers since his last visit. 06/14/18. Seen by Dr. Weathers. The patient does not report increased drainage or significant pain associated with the bilateral 1st toe diabetic ulcers since his last visit. 06/07/18. Seen by Dr. Weathers. The patient reports he was more active over the past week at work and of note he experienced some pain in the right 1st toe upon removal of his dressing today. Otherwise he does not report increased drainage from either 1st toe diabetic ulcer and states his blood sugars continue to be well controlled. 05/31/18. Seen by Dr. Weathers. The patient does not report increased drainage or pain associated with the bilateral 1st toe diabetic ulcers since his last visit and he's increased is use of this CHILKAT boots to better facilitate offloading. 05/27/18. Seen by Dr. Weathers. The patient does not report increased drainage or pain associated with the bilateral 1st toe diabetic ulcers since his last visit and he continues to be quite active with work making it difficult to adequately offload the ulcers. He also reports a chronic rash over the distal left lower leg that's been present for about one month. 05/20/18. Seen by Dr. Weathers. The patient does not report increased drainage or pain associated with the bilateral 1st toe diabetic ulcers since his last visit and he continues to be quite active with work and personal activities making it difficult to adequately offload the ulcers. His blood sugars remain well controlled and he's been advised to wear a CHILKAT boot at all times on the left leg but has not been able to do this. 05/10/18. Seen by Flaco Henley PA-C. The patient reports a rash has developed on his leg under his CHILKAT boot, but the rash has improved in the past few days as he has not been wearing the CHILKAT boot. Drainage from his diabetic foot ulcers has not increased. 05/03/18. Seen by Dr. Weathers. The patient states he was at a conference this past weekend and forgot his left lower leg stocking that protects from his CHILKAT boot rubbing the short. He started to notice an abrasion so stopped wearing the CHILKAT boot and now feels the left 1st toe diabetic ulcer may have deteriorated and also it got wet in the shower this morning. He also notes some drainage at the site of the recently healed left 1st toe diabetic ulcer. He does not report pain at either site and his blood sugars are historically well controlled over the past 6 months. 04/26/18. Seen by Dr. Weathers. The patient reports being on his feet a lot over the past week at work but he'll be taking the next week off. 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 His culture last week grew MSSA and he's completed a course of doxycycline as of yesterday. He's also not been wearing this CHILKAT boot or using a knee scooter due to his working more. 04/19/18. Seen by Dr. Weathers. The patient does not report pain associated with the chronic left 1st toe diabetic ulcer since his last visit however he was more active on it over the holiday weekend. The staff however report drainage on the dressing and a significant increase in callus from his last visit. His blood sugars continue to be well controlled around 120 and he's been advised to use his CHILKAT boot when mobilizing and knee scooter as much as possible. 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 04/12/18. Seen by Dr. Weathers. The patient does not report drainage or pain associated with the great left foot diabetic ulcers since his last visit. 04/05/2018. Seen by Dr. Weathers. The patient is wearing his CHILKAT boot on the left foot as much as possible to help offload the recurrent and chronic left 1st toe diabetic ulcer. He'll complete his course of doxycycline today that was started at his last for cellulitis of the toe and he's applying topical gentamicin as well. He does not report fevers or feeling unwell nor side effects of the antibiotics. 03/29/2018. Seen by Dr. Weathers. The patient reports some pain and increased drainage as well as redness and swelling of the left 1st toe over the past few days. He does not report fevers however nor other acute issues at this time. 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 03/22/2018. Seen by Dr. Weathers. The patient does not report drainage or pain associated with the great left foot diabetic ulcers since his last visit. He states however that he is not wearing his CHILKAT boot to offload the sites on alternate days despite my recommendations last week. 03/15/18. Seen by Dr. Weathers. The patient has returned to full-time work schedule and feels may not be wearing his CHILKAT boots as much as she should noting a significant increase in callus associated with bilateral first toe diabetic ulcers and associated pain. He does not report drainage associated with the ulcers however and we'll extended his visits out to 10 days. . Seen by Dr. Weathers. The patient does not report significant drainage associated with chronic left and right first toe diabetic ulcers since his last visit. He's not wearing his CHILKAT boot currently to offload the left foot and has started using new orthotic inserts for his diabetic shoe noting the heavy callus may be due to the old othotics wearing down. 02/25/18. Seen by Dr. Weathers. The patient does not report significant drainage associated with chronic left first toe diabetic ulcer since his last visit. 02/18/18. Seen by Dr. Weathers. The patient does not report drainage associated with chronic right or left first toe diabetic ulcers since his last visit and he's applying topical gentamicin as recommended to treat the left 1st toe MSSA positive wound culture taken at the last visit. 02/11/18. Seen by Dr. Weathers. The patient returns due to recurrence of the left 1st toe diabetic ulcer that he states started about 1 week ago when he developing callus fell off and the toe started to drain. He was seen by Dr. Son, podiatry, who subsequently referred the patient back to our clinic. He does not report pain in the toe or fevers and he's wearing his CHILKAT boot to help offload the site. He's also on Keflex but states a wound culture was not drawn. Of note, he reports callus has reformed over the recently healed right 1st toe diabetic ulcer also. His blood sugars continue to be well controlled with most below 150. 01/17/18. Seen by Flaco Henley PA-C. The patient reports no drainage from his right 1st toe diabetic ulcer since his last dressing change. 01/05/18. Seen by Dr. Weathers. 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 Of note, he also has a new wound over the dorsum of the right foot that occurred following a dog fight that occurred at home where he was stepped on and the dog's claws scratch the foot. He does not report significant pain or drainage associated with this wound. 12/29/17. Seen by Dr. Weathers. The patient does not report drainage or pain associated with the right first toe diabetic ulcers since his last visit. He is wearing his CHILKAT boot as recommended and is asking if he will be able to return to work soon. 12/22/17. Seen by Dr. Weathers. The patient does not report increased drainage associated with a chronic right first toe diabetic ulcers since his last visit. 12/14/17. Seen by Dr. Weathers. The patient does not report increased drainage associated with a chronic right first toe diabetic ulcers since his last visit and he's wearing his CHILKAT boot as recommended to offload the ulcer. 12/08/17. Seen by Dr. Weathers. The patient does not report increased drainage associated with a chronic right first toe diabetic ulcers since his last visit. Of note, he states he accidentally wore his left shoe with a sock in the end of the which may result in some bruising at the site of the recently healed first toe diabetic ulcer. 12/01/17. Seen by Dr. Weathers. The patient does not report significant drainage or pain associated with right first toe diabetic ulcer since his last visit. Of note, he 's also stopped applying Kersal to the callus surrounding the recently healed left 1st toe diabetic ulcer despite our recommendations to do so. 11/17/17. Seen by Dr. Weathers. The patient does not report significant drainage or pain associated with right first toe diabetic ulcer since his last visit. 11/10/17. Seen by Dr. Weathers. The patient does not report significant drainage or pain associated with bilateral first toe diabetic ulcers since his last visit. He's been offloading as recommended with both his CHILKAT boots and a knee scooter. 11/03/17. Seen by Dr. Weathers. The patient does not report increased drainage or pain associated with bilateral first toe diabetic ulcers since last visit. 10/27/17. Seen by Dr. Weathers. The patient reports some increased pain and redness associated with the chronic right first toe diabetic ulcer. He does not report any new issues regarding the left of a foot ulcer and will pickle maker his right foot [place] boot in the near future. He is also offloading with a new scooter as recommended 10/20/17. Seen by Dr. Weathers. The patient does not report increased drainage or pain associated with bilateral first toe diabetic ulcers since last visit. 10/13/17. Seen by Dr. Weathers. The patient does not report increased drainage or pain associated with bilateral first toe diabetic ulcers since last visit. Of note, he now has a knee scooter and his left CHILKAT boot and feels the left 1st toe ulcer has improved significantly with the added offloading measures. 10/06/17. Seen by Dr. Weathers. The patient does not report increased drainage or pain associated with bilateral first toe diabetic ulcers since last visit. Of note, he now has a knee scooter that he's been using to offload the left foot for the past 2 days and he will receive his CHILKAT boot on Wednesday. 09/29/17. Seen by Dr. Weathers. The patient states that while wearing his left foot offloading shoe he took a fall and feels that it may have traumatized the chronic left first toe diabetic ulcer. He does not report increased pain or drainage from the site nor the right first toe diabetic ulcers since his last visit and states his blood sugars continue to be mostly below 150. He is also awaiting delivery of the left foot [place] boot as well as his diabetic shoes. Of note, he also admits to being more active that he should be despite our recommendations to maximally offload both ulcers and has not been able to locate an offloading knee scooter as we've recommended. 09/22/17. Seen by Dr. Weathers. The patient does not report increased drainage associated with the bilateral 1st toe diabetic ulcers since his last visit and he's completed his course of doxycycline without reporting adverse side effects. He's also not yet seen his orthortist who will be fitting for at CHILKAT boot to offload the left foot ulcer as well as providing him with a pair of diabetic shoes. 09/15/17. Seen by Dr. Weathers. The patient's on doxycycline to treat a chronic wound infection of the left 1st toe and he does not report adverse side effects. He's wearing his offloading shoe on the foot as recommended and continues to limit his walking as much as possible. He does not report significant drainage or pain associated with either 1st toe diabetic ulcers and states he's going to schedule and appointment with an custom bike builder today as we've been recommending. 09/06/17. Seen by Flaco Henley PA-C. The patient reports increased drainage and continued callous formation from his 1st toe diabetic ulcers. He continues to stay off his feet as much as possible and is working with his insurance company and [employer] to obtain a CHILKAT offloading boot. 08/31/17. Seen by Flaco Henley PA-C. The patient reports he has been staying off his feet and has been away from work as instructed. He reports decreased drainage from his bilateral diabetic toe ulcers. 08/24/17. Seen by Dr. Weathers. The patient reports being more active over the past week despite being advised to limit his walking considerably to offload the bilateral first toe diabetic ulcers. He does not report increased drainage or pain associated with these ulcers. He also states he will be able to take another month off of work to further facilitate offloading of the ulcers. 08/17/17. Seen by Dr. Weathers. The patient has been offloading both left and right first toe diabetic ulcers for the past week and has taken the entire month of July off of work to better facilitate offloading. 08/10/17. Seen by Dr. Weathers. The patient has been offloading both left and right first toe diabetic ulcers for the past week as recommended and he does not report significant associated pain or drainage from either site. 08/03/17. Seen by Dr. Weathers. The patient has been offloading both left and right first toe diabetic ulcers for the past week and has taken the entire month of July off of work to better facilitate offloading. 07/23/17. Seen by Dr. Weathers. The patient does not report significant drainage associated with chronic bilateral left and right first toe diabetic ulcers since his last visit. He does not report any drainage associated with the left 1st MTPJ diabetic ulcer. 07/20/17. Seen by Dr. Weathers. The patient does not report pain nor significant drainage associated with chronic bilateral left and right first toe diabetic ulcers since his last visit. He is applying topical gentamicin as recommended to the ulcer bases to treat the recent wound infection. He does not report any drainage associated with the left 1st MTPJ diabetic ulcer. 07/16/17. Seen by Dr. Weathers. The patient states that he had a very busy past week in terms of festival and he was on his feet for extended periods. He has increased drainage and callus formation associated with both first toe diabetic ulcers since we last saw him however he does not report any increased drainage or problems regarding the left mid plantar foot diabetic ulcer. He does not report pain in the toes nor fever or feeling unwell. His blood sugars continue to be well controlled consistently below 150. 07/06/17. Seen by Dr. Weathers. The patient does not report pain nor significant drainage associated with chronic bilateral left and right first toe diabetic ulcers since his last visit. He is applying topical gentamicin as recommended in his recent wound culture grew MSSA. He also does not report pain nor drainage associated with the chronic left plantar foot diabetic ulcer. 06/29/17. Seen by Dr. Weathers. The patient reports some pain associated with both first toe diabetic ulcers since his last visit. He does not report increased drainage associated with these nor the left plantar foot diabetic ulcer. He's been seeing us every 2 weeks and feels that the callus formation in the interim has been quite significant. 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 He states his blood sugars are well controlled with most below 150. 7. Seen by Dr. Weathers. The patient does not report pain nor significant drainage associated with the chronic bilateral first toe diabetic ulcers nor the left plantar foot diabetic ulcer since his last visit. 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 His blood sugars he states are well-controlled with most below 150. 7/10/08. Seen by Dr. Weathers. The patient does not report pain or increased drainage associated with the bilateral, chronic 1st toe diabetic ulcers since his last visit and he continues on doxycycline for the left 1st toe infection noted at his last visit. He does not report adverse side effects and states his blood sugars are mostly below 150. 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 Of note, he reports a new wound over the plantar surface of the left foot that started when he tried to remove a callus earlier this week. 05/18/17. Seen by Dr. Weathers. The patient reports some discomfort associated with the chronic left first toe diabetic ulcer over the past few days however he does not report pain nor increased drainage with the chronic right first toe diabetic ulcer. He continues to work an active job and is on his feet for extended periods however states that he may be able to decrease hours later in the summer. His blood sugars continue to be well controlled with most below 150. 05/12/17. Seen by Flaco Henley PA-C. The patient reports that his neuropathy is worse today with stabbing-type pains occurring in the arches of both feet and radiating to the lateral edges of his feet. He reports that walking on his feet exacerbate the pain and his recent medication change to Cymbalta has helped decrease the pain. He reports no increase in drainage from his bilateral 1st toe diabetic ulcers of the right and left feet. 05/05/17. Seen by Flaco Henley PA-C. The patient reports no increase in drainage from his bilateral 1st toe diabetic ulcers. 04/20/17. Seen by Dr. Weathers. The patient reports pain and drainage associated with the bilateral first toe diabetic ulcers is minimal over the past week and he'll complete his course of moxifloxacin today that's been treating a recent left 1st toe cellulitis. He continues to work a heavy schedule as on his feet for extended periods. He states his blood sugars continue to be mostly below 200. 5. Seen by Dr. Weathesr. The patient feels the pain and drainage associated with the bilateral first toe diabetic ulcers has improved since starting on antibiotics last week. He continues to work a heavy schedule as on his feet for extended periods. He states his blood sugars continue to be mostly below 200. 5. Seen by Dr. Weathers. The patient reports some pain and increased drainage from the bilateral first toe diabetic ulcers over the past week. He's been working on his feet considerably more over the past few weeks and states his blood sugars are mostly below 200. 5/02/05. Seen by Flaco Henley PA-C. The patient reports good compliance with his diabetes footwear but he also notes blood sugars above 150 this week. Drainage has reportedly been decreasing from his diabetic ulcers of the right and left feet. 03/17/17. Seen by Dr. Weathers. The patient states he's stopped taking his SSRI that was treating the bilateral foot diabetic neuropathic pain as he felt it may have been contributing to his intermittent subjective fevers and chills. He does not report increased drainage or pain associated with the bilateral 1st toe diabetic ulcers since his last visit but states he's been on his feet more due to his job and an increase in tourism as the weather's improving. 02/26/17. Seen by Dr. Weathers. The patient reports increased pain and drainage associated with the left first toe diabetic ulcer but none with the right first toe diabetic ulcer. He's had some subjective fevers and chills for the last 2 weeks but states blood sugars continue to be well controlled with most below 150. 02/19/17. Seen by Dr. Weathers.The patient reports fatigue and intermittent chills but no documented fevers over the past few days. He does not report fevers nor other specific symptoms. He states that there has been no increase in drainage or pain associated with bilateral first diabetic ulcers since his last visit. His blood sugars continue to be mostly below 200. 02/05/17. Seen by Dr. Weathers. The patient does not report pain nor significant drainage associated with the chronic bilateral first toe diabetic ulcers over the past week. He continues applying topical gentamicin as recommended to treat the chronic and recurrent superficial staph infection. 01/29/17. Seen by Dr. Weathers. The patient reports minimal drainage and no pain associated with bilateral first toe diabetic ulcers since his last visit. He has completed his course of Keflex and does not report adverse side effects. He states blood sugars are mostly between 100 and 200.He continues to apply gentamicin ointment also as recommended. 01/22/17. Seen by Dr. Weathers. The patient returns to clinic for bilateral 1st toe diabetic ulcers that have become infected about a week ago and he was placed on Keflex by his PCP. He feels the drainage and redness are improving and he does not report pain in the toes. His blood sugars remain mostly below 150 and he continues to work on his feet a full-time schedule and states he wears his diabetic shoes at all times. 01/05/17. Seen by Flaco Henley PA-C. The patient reports some blood sugars this week above 150. No increase in ulcer drainage is reported today. 12/29/16 Seen by Flaco Henley PA-C. The patient reports stable drainage from his left foot non- pressure ulcer since his last evaluation. 12/22/16 Seen by Flaco Henley PA-C. The patient reports no increase in ulcer drainage from his left foot diabetic ulcer since his last visit. In addition he reports well controlled blood sugars. 12/15/16 Seen by Flaco Henley PA-C. The patient reports no increase in drainage from his left foot diabetic ulcer. His blood sugars have reportedly been below 150 this week but today is blood sugar is noted to be 152. 12/08/16. Seen by Dr. Weathers. The patient's now taking Augmentin for his recent Staph and E. coli positive wound culture taken from the chronic left 1st toe diabetic ulcer. The culture sensitivities however show intermediate sensitivity of the E. coli to Augmentin. The patient feels the toe pain and ulcer drainage have decreased considerably and he states his blood sugars are mostly below 150. He does not report fevers or adverse side effects from the Augmentin. Regarding the right 1st toe diabetic ulcer he does not report pain or significant drainage. 12/01/16 Seen by Flaco Henley PA-C. The patient reports that his left foot diabetic ulcer is much worse with a strong odor reported. 11/17/16 Seen by Flaco Henley PA-C. The patient reports that his blood sugar is likely elevated due to the holidays. He reports no increase in drainage from his DMII ulcers of the right or left 1st toes. 11/03/16. Seen by Dr. Weathers. The patient reports a new ulcer on the right 1st toe that started about one week ago following his attempt at removing a callus from the site. He states about 3 days ago the ulcer started draining fluid and the toe swelled and turned red. He 's not on antibiotics and does not report fevers or feeling unwell. Regarding his left 1st toe diabetic ulcer, he does not report significant drainage or pain. He states his blood sugars are improving with most below 150 now. 10/20/16. Seen by Dr. Weathers. The patient does not report significant drainage associated with the chronic left 1st toe diabetic ulcer since his last visit. He also states his blood sugars still tend to be over 150 and sometimes in the 200's.He also continues to apply gentamcin for the MSSA positive wound culture taken from the ulcer recently. 10/13/16. Seen by Dr. Weathers. The patient does not report significant drainage associated with the chronic left 1st toe diabetic ulcer since his last visit and he continues applyin gentamcin for the MSSA positive wound culture taken from the ulcer. His blood sugars continue to be above 150 fairly frequently however he notes since decreasing his chronic alcohol intake his glucose seems to be easier to control. 10/06/16 Seen by Flaco Henley PA-C. The patient reports that his neuropathy is severe today. It is described as an intermittent burning/shooting pain, that comes and goes but does not radiate and is centered on his left lateral foot. He does not report any associated changes to his chronic left 1st toe diabetic ulcer such as increased drainage. 09/29/16. Seen by Dr. Weathers. The patient does not report significant drainage associated with the chronic left 1st toe diabetic ulcer since his last visit and he continues on doxycycline for the MSSA positive wound culture taken from the ulcer. He feels the toe redness and swelling have improved since starting antibiotics. He also reports significant improvement in the left foot neuropathic pain since starting on a new antidepressant. 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 His blood sugar is over 200 today and he states its typically been between 100 and 200 although he's not been checking it for the past few days since his glucometer is no working. 09/15/16 Seen by Flaco Henley PA-C. The patient reports decreased neuropathic pain in his LLE and has recently started a new antidepressant medication for this issue though he does not recall the name of the medication. His ulcer drainage has been stable since his last evaluation. 09/01/16. Seen by Dr. Weathers. The patient does not report significant drainage associated with the chronic left 1st toe diabetic ulcer. He does state however his left lateral foot neuropathic pain is increasing and he's working with GAMAL Carter, pain specialist, to address this issue. He also states his blood sugars are typically between 100 to 200. 08/25/16 Seen by Flaco Henley PA-C. The patient reports continued left foot neuropathic pain. He has a pending appointment with Jethro Meehan at the pain clinic for this. His diabetic foot ulcer has resumed draining in the past few days after being closed. 08/18/16 Seen by Flaco Henley PA-C. The patient reports that he has had no drainage from his left 1st toe ulcer since his last evaluation. 08/11/16 Seen by Flaco Henley PA-C. The patient reports that he now has a prescription for lyrica and a schedule to taper off his gabapentin. He has not started taking lyrica though notes that his neuropathic pain is improved this week. His ulcer has had decreased drainage. 08/03/16 Seen by Flaco Henley PA-C. The patient reports that his left leg neuropathic pain, which has been present for months, has decreased in severity recently but still reaches 6/10. It is described as intermittent, non-radiating and stabbing/burning. His left 1st toe ulcer has had stable drainage by his report. 07/28/16 Seen by Flaco Henley PA-C. The patient reports very little drainage from his left 1st toe diabetic ulcer. He does report that his neuropathic pain has worsened and he is using alcohol at times as a painkiller. He has an upcoming appointment with Dr. Son, who has been addressing this issue and he asks about the referral to Jethro Meehan. 07/20/16. Seen by Dr. Weathers. The patient does not report significant drainage associated with the chronic left 1st toe diabetic ulcer over the past week. He states he's seen Dr. Son regarding his diabetic neuropathy in the past but has not discussed the recurrent toe ulcer. He also states he 'walks on this toes' and has been told by other providers in the past his Achilles tendon is 'short'. 07/13/[address] Weathers. The patient states he's been more active over the past few weeks with his job however does not report increased drainage or pain associated with the chronic left 1st toe diabetic ulcer. He's wearing his diabetic shoes as recommended and states his blood sugars have been a bit elevated between 150 and 200 over the past week due to non- compliance with his routine diabetic meal plan. 06/22/[address] Weathers. The patient feels the drainage and left 1st toe erythema have improved considerably since his last visit and he continues on Zyvox that was started during his recent admission for cellulitis associated with the toe ulcer. He states his blood sugars are now mostly below 150 and he's wearing diabetic shoes but not necessarily offloading the toe. 09/12/[address] Weathers. The patient has had his TCC off for the past week and he does not report drainage from the left 1st toe diabetic foot ulcer. His blood sugars are also mostly between 150 and 180. 09/06/[address] Weathers. The patient does not report any problems regarding his left diabetic foot ulcer nor the TCC he's worn since his last visit. His blood sugars are typically between 150 and 200 which is an improvement historically. 06/18/15 Seen by Flaco Henley PA-C. The patient has had no drainage from his wounds since his last visit. 06/11/15 Seen by lFaco Henley PA-C. The patient has had a particularly long work week and has been on his feet a lot. He has been using his diabetic shoes and recently modified inserts. 06/07/[address] Weathers. The patient has two new ulcers on the plantar surface of the right foot and on the left toe that were first noticed about 3 days ago after being on his feet at work for an extended period. He feels they may have occurred as a result of his orthotics not fitting properly. He does not report pain or swelling but does note some redness with clear yellow drainage from the right ulcer. He states his blood sugars are mostly below 150 with a few around 180 and he continues to try to loose weight to help manage his diabetes. 05/20/[address] Weathers. The patient does not report drainage from the left toe ulcer and tolerated the TCC without difficulties. His blood sugars are relatively well controlled below 150 and he's ready to pickle maker his orthotic today. 05/08/15 Seen by Flaco Henley PA-C. The patient is here today to have a TCC placed. He continues to try and stay off his feet and has not yet returned to work. 05/06/15 Seen by Flaco Henley PA-C. The patient has been off loading his feet using his off loading boots and sitting at home as well as not working. He continues on his antibiotics. 05/02/15 Seen by Flaco Henley PA-C. The patient continues to take time off work and be sedentary in order to offload his feet. He has been applying kerisol to the callouses on his right and left great toes and hydrogel to the wounds. He took his last dose of Augmentin today and reports decreased drainage from the left great toe diabetic ulcer and minimal drainage from the right great toe diabetic ulcer. His feet are sometimes painful but this has decreased since last visit. Blood sugars are running 150-180s in the AM. 04/26/[address] Weathers. The patient does not report increased drainage associated with the bilateral 1st toe diabetic ulcers. He feels the right leg cellulitis is much improved since starting Augmentin and he's been offloading with a cane and my taking time off of work to stay off his feet. His blood sugars are below 150 and he takes only metformin for diabetes. Past Medical History This information was obtained from the patient Patient has a medical history of: Type II Diabetes Diabetic foot ulcers (bilateral 1st toes; Hector grade II) Hyperlipidemia Chronic pain (neuropathic; left lateral foot) Depression Complaints and Symptoms This information was obtained from the patient Patient complains of: General Notes: I have reviewed and concur with the Review of Systems and Past Family Social History documents completed by the clinician, I have reviewed and concur with the Wound Assessment document completed by the clinician Integumentary (Hair/Skin/Nails): Open Sore Musculoskeletal: Assistive Devices, Deformities Neurological: Abnormal Gait, Loss of Protective Sensation Prior Wound History: Drainage, Erythema, Pain Patient denies complaints or symptoms related to: Cardiovascular (Central/Peripheral): Intermittent Claudication, Lower extremity (leg) resting pain, Lower extremity (leg) swelling Constitutional Symptoms (General Health): Chills, Fever Ear/Nose/Mouth/Throat: Hearing Loss / Aid Gastrointestinal (GI): Nausea / Vomiting, Stomach/abdominal pain Hematologic/Lymphatic: Bleeding / Clotting Disorders, Bleeding Tendency Prior Wound History: Bleeding, Malodor Respiratory: Oxygen Use, Shortness of Breath OBJECTIVE Constitutional Vital signs reviewed and noted. Well developed. Alert. Clean appearing.. Height/ Length: 76 in (193.04 cm), Weight: 264.8 lbs (120.36 kgs), BMI: 32.2, Temperature: 98.7 ?F ( 37.06 ?C), Pulse: 86 bpm, Respiratory Rate: 18 breaths/min, Blood Pressure: 134/76 mmHg, Capillary Blood Glucose: 102 mg/dl, Pulse Oximetry: 98 %. Vital Signs Notes: Glucose per patient. Ears, Nose, Mouth, and Throat: No clinically significant hearing loss on informal examination. Cardiovascular: Affected extremity exhibits no peripheral edema or cyanosis, is warm, and is well perfused. Capillary refill is less than 2 seconds. Integumentary (Hair, Skin) No periwound erythema, warmth, or significant drainage. No periwound rashes appreciated or noted otherwise.. Refer to appropriate clinician wound documentation for this visit; right and left 1st toe ulcers extend to subcut with bases partially covered with pink granulation, remainder fibrin and slough. Significant amount of callus in the periulcer areas. Wound #9 Left Great Toe is a chronic Hector Grade 2 Diabetic Ulcer and has received a status of Not Healed. Subsequent wound encounter measurements are 0.5cm length x 0.1cm width x 0.2cm depth, with an area of 0.05 sq cm and a volume of 0.01 cubic cm. No tunneling has been noted. No sinus tract has been noted. No undermining has been noted. There is a scant amount of serosanguineous drainage noted which has no odor. The patient reports a wound pain of level 0/10. The wound margin is callus. Wound bed has No epithelialization, No eschar, No slough, Yes bright red, pink, spongy granulation. The periwound skin moisture is normal. The periwound skin color is normal. The periwound skin exhibited: Callus. The periwound skin did not exhibit: Brawny Induration, Edema, Excoriation, Induration, Crepitus, Fluctuance, Friable, Rash. The temperature of the periwound skin is WNL. Periwound skin does not exhibit signs or symptoms of infection. Local Pulse is Palpable. Wound #10 Right Great Toe is a chronic Hector Grade 2 Diabetic Ulcer and has received a status of Not Healed. Subsequent wound encounter measurements are 0.1cm length x 0.1cm width x 0.1cm depth, with an area of 0.01 sq cm and a volume of 0.001 cubic cm. No tunneling has been noted. No sinus tract has been noted. No undermining has been noted. There is a scant amount of serous drainage noted which has no odor. The patient reports a wound pain of level 0/10. The wound margin is callus. Wound bed has Yes epithelialization, No eschar, No slough, No granulation. The periwound skin moisture is normal. The periwound skin color is normal. The periwound skin exhibited: Callus. The periwound skin did not exhibit: Brawny Induration, Edema, Excoriation, Induration, Crepitus, Fluctuance, Friable, Rash. The temperature of the periwound skin is WNL. Periwound skin does not exhibit signs or symptoms of infection. Local Pulse is Palpable. Neurological: Cranial nerves grossly intact with symmetric function normal by informal observation.. ASSESSMENT Active Problems ICD-10 (Encounter Diagnosis) E11.621 - Type 2 diabetes mellitus with foot ulcer (Encounter Diagnosis) L97.522 - Non-pressure chronic ulcer of other part of left foot with fat layer exposed (Encounter Diagnosis) L97.512 - Non-pressure chronic ulcer of other part of right foot with fat layer exposed (Encounter Diagnosis) B95.7 - Other staphylococcus as the cause of diseases classified elsewhere PROCEDURES Wound #9 Wound #9 (Diabetic Ulcer) is located on the left great toe. A skin/subcutaneous tissue level surgical debridement with a total area debrided of 0.05 sq cm was performed by Rakesh Weathers MD. Subcutaneous was removed along with devitalized tissue: callus and exudate. The following instrument(s) were used: curette. Pain control was achieved using 4% Lido. A time out was conducted prior to the start of the procedure. A minimal amount of bleeding was controlled with n/a. The procedure was tolerated well with a pain level of 0 throughout and a pain level of 0 following the procedure. Post Debridement Measurements: 0.5cm length x 0.1cm width x 0.3cm depth; with an area of 0.05 sq cm and a volume of 0.015 cubic cm; Wound #10 Wound #10 (Diabetic Ulcer) is located on the right great toe. A skin/ subcutaneous tissue level surgical debridement with a total area debrided of 0.04 sq cm was performed by Rakesh Weathers MD. Subcutaneous was removed along with devitalized tissue: callus and exudate. The following instrument(s) were used: curette. Pain control was achieved using 4% Lido. A time out was conducted prior to the start of the procedure. A minimal amount of bleeding was controlled with n/a. The procedure was tolerated well with a pain level of 0 throughout and a pain level of 0 following the procedure. Post Debridement Measurements: 0.2cm length x 0.2cm width x 0.2cm depth; with an area of 0.04 sq cm and a volume of 0.008 cubic cm; Additional Information Muscle fascia or bone removed and sent to pathology?: No Muscle fascia or bone removed and sent to pathology?: No PLAN Wound Orders: Wound #9 Left Great Toe Cleanser Cleanse Wound: - With Normal Saline. May Shower. - Keep dressings dry. Topical Treatments Moisturizing lotion to surround skin. - Kerasal to callus. Antibiotic/Antimicrobial Ointment/Cream. - Gentamicin to wound beds. Dressings Primary dressing: - Opti foam cut to fit. Cover and secure with: - Hypafix tape. Change Dressing: - Every other day. Off-Loading Keep weight off: - Left foot as much as possible. Use/Wear when Walking: - [place] boot. Wound #10 Right Great Toe Cleanser Cleanse Wound: - With Normal Saline. May Shower. - Keep dressings dry. Topical Treatments Moisturizing lotion to surround skin. - Kerasal to callus. Antibiotic/Antimicrobial Ointment/Cream. - Gentamicin to wound beds. Dressings Primary dressing: - Opti foam cut to fit. Cover and secure with: - Hypafix tape. Change Dressing: - Every other day. Off-Loading Keep weight off: - Right foot as much as possible. Use/Wear when Walking: - Custom diabetic shoes. Additional Orders: Follow-Up Appointments Return Appointment: - - One week. Other information: If you develop fever, chills, increased pain, drainage, redness or swelling please call our office. If after hours, respond to the ER. Should you experience any significant changes in your wound(s) or have any questions regarding your home care instructions please contact the wound center @ [phone]. If after hours, contact your primary care physician or go to the hospital emergency room. Scribing Attestation I attest, as the nurse, that I scribed these orders for the physician. I've reviewed the clinician's documentation and agree with the evaluation and plan as written. In addition the patient's ulcers demonstrate evidence of non-viable devitalized tissue and they will continue to benefit from sharp debridement to help promote granulation and expedite healing. Also, the patient will continue to apply topical gentamicin to the ulcer bases to treat the coag negative Staph culture. Electronic Signature(s) Signed By: Date: Rakesh Weathers MD 08/30/2018 08:43:34 Entered By: Rakesh Weathers on 08/09/2018 12:05:57
== END ==
PROVIDERS: PCP Student in an Organized Health Care Education/Training Program; Visit Provider Internal Medicine
DX: E11.621 Type 2 diabetes mellitus with foot ulcer (principal); L97.522 Non-pressure chronic ulcer of other part of left foot with fat layer exposed; L97.512 Non-pressure chronic ulcer of other part of right foot with fat layer exposed; B95.7 Other staphylococcus as the cause of diseases classified elsewhere
CPT/HCPCS: 11042

== ENCOUNTER → 2018-08-16 09:43 | Outpatient (CLI) | payer OTHER, SELFPAY ==
--- NOTE | 2018-08-16 | OV.WND_ITS ---
Progress Note Details Patient Name: Baljit Mckay Patient Number: [id number] PatientPatientDate: 08/16/2018 Clinician: Ryann Sultana Clinician Cosigner: Geeta Mullins Physician / Associate Sales: Rakesh Weathers SUBJECTIVE Chief Complaint This information was obtained from the patient Diabetic ulcers to left and right great toe. Allergies NKDA HPI This information was obtained from the patient 08/16/18. Seen by Dr. Weathers. The patient does not report increased drainage or significant pain associated with the bilateral 1st toe diabetic ulcers since his last visit and he's applying topical gentacmicin as recommended to treat the recent coag negative Staph culture. 08/09/18. Seen by Dr. Weathers. The patient does not report increased drainage or significant pain associated with the bilateral 1st toe diabetic ulcers since his last visit and he's applying topical gentacmicin as recommended to treat the recent coag negative Staph culture. 08/02/18. Seen by Dr. Weathers. The patient does not report increased drainage or significant pain associated with the bilateral 1st toe diabetic ulcers since his last visit. He states he did not receive his Rx for doxycycline that was started at the last visit for cellulitis of the right toe and to treat the recent coag negative Staph culture however. 07/27/18. Seen by Dr. Weathers. The patient reports pain in the right 1st toe associated with the chronic diabetic foot ulcer. He does not report increased drainage however at the site nor the left 1st toe DFU since his last visit. 07/19/18. Seen by Dr. Weathers. The patient does not report increased drainage or significant pain associated with the bilateral 1st toe diabetic ulcers since his last visit and he's applying topical gentamicin to treat the recent MSSA positive wound culture. 07/12/18. Seen by Dr. Weathers. The patient does not report increased drainage or significant pain associated with the bilateral 1st toe diabetic ulcers since his last visit. He continues to work 6 days per week which keeps him on his feet for extended periods. 07/05/18. Seen by Dr. Weathers. The patient does not report increased drainage or significant pain associated with the bilateral 1st toe diabetic ulcers since his last visit. 06/28/18. Seen by Dr. Weathers. The patient does not report increased drainage or significant pain associated with the bilateral 1st toe diabetic ulcers since his last visit. He notes he's been using Kerasal ointment to treat the periulcer calluses less frequently and he's had an orthotic added to the right shoe to help 'even the leg length' and possibly relieve some lower back pain he's been having. 06/21/18. Seen by Dr. Weathers. The patient does not report increased drainage or significant pain associated with the bilateral 1st toe diabetic ulcers since his last visit. 06/14/18. Seen by Dr. Weathers. The patient does not report increased drainage or significant pain associated with the bilateral 1st toe diabetic ulcers since his last visit. 06/07/18. Seen by Dr. Weathers. The patient reports he was more active over the past week at work and of note he experienced some pain in the right 1st toe upon removal of his dressing today. Otherwise he does not report increased drainage from either 1st toe diabetic ulcer and states his blood sugars continue to be well controlled. 05/31/18. Seen by Dr. Weathers. The patient does not report increased drainage or pain associated with the bilateral 1st toe diabetic ulcers since his last visit and he's increased is use of this [place] boots to better facilitate offloading. 05/27/18. Seen by Dr. Weathers. The patient does not report increased drainage or pain associated with the bilateral 1st toe diabetic ulcers since his last visit and he continues to be quite active with work making it difficult to adequately offload the ulcers. He also reports a chronic rash over the distal left lower leg that's been present for about one month. 05/20/18. Seen by Dr. Weathers. The patient does not report increased drainage or pain associated with the bilateral 1st toe diabetic ulcers since his last visit and he continues to be quite active with work and personal activities making it difficult to adequately offload the ulcers. His blood sugars remain well controlled and he's been advised to wear a [place] boot at all times on the left leg but has not been able to do this. 05/10/18. Seen by Flaco Henley PA-C. The patient reports a rash has developed on his leg under his [place] boot, but the rash has improved in the past few days as he has not been wearing the [place] boot. Drainage from his diabetic foot ulcers has not increased. 05/03/18. Seen by Dr. Weathers. The patient states he was at a conference this past weekend and forgot his left lower leg stocking that protects from his [place] boot rubbing the short. He started to notice an abrasion so stopped wearing the [place] boot and now feels the left 1st toe diabetic ulcer may have deteriorated and also it got wet in the shower this morning. He also notes some drainage at the site of the recently healed left 1st toe diabetic ulcer. He does not report pain at either site and his blood sugars are historically well controlled over the past 6 months. 04/26/18. Seen by Dr. Weathers. The patient reports being on his feet a lot over the past week at work but he'll be taking the next week off. 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 His culture last week grew MSSA and he's completed a course of doxycycline as of yesterday. He's also not been wearing this [place] boot or using a knee scooter due to his working more. 04/19/18. Seen by Dr. Weathers. The patient does not report pain associated with the chronic left 1st toe diabetic ulcer since his last visit however he was more active on it over the holiday weekend. The staff however report drainage on the dressing and a significant increase in callus from his last visit. His blood sugars continue to be well controlled around 120 and he's been advised to use his [place] boot when mobilizing and knee scooter as much as possible. 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 04/12/18. Seen by Dr. Weathers. The patient does not report drainage or pain associated with the great left foot diabetic ulcers since his last visit. 04/05/2018. Seen by Dr. Weathers. The patient is wearing his [place] boot on the left foot as much as possible to help offload the recurrent and chronic left 1st toe diabetic ulcer. He'll complete his course of doxycycline today that was started at his last for cellulitis of the toe and he's applying topical gentamicin as well. He does not report fevers or feeling unwell nor side effects of the antibiotics. 03/29/2018. Seen by Dr. Weathers. The patient reports some pain and increased drainage as well as redness and swelling of the left 1st toe over the past few days. He does not report fevers however nor other acute issues at this time. 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 03/22/2018. Seen by Dr. Weathers. The patient does not report drainage or pain associated with the great left foot diabetic ulcers since his last visit. He states however that he is not wearing his [place] boot to offload the sites on alternate days despite my recommendations last week. 03/15/18. Seen by Dr. Weathers. The patient has returned to full-time work schedule and feels may not be wearing his [place] boots as much as she should noting a significant increase in callus associated with bilateral first toe diabetic ulcers and associated pain. He does not report drainage associated with the ulcers however and we'll extended his visits out to 10 days. . Seen by Dr. Weathers. The patient does not report significant drainage associated with chronic left and right first toe diabetic ulcers since his last visit. He's not wearing his [place] boot currently to offload the left foot and has started using new orthotic inserts for his diabetic shoe noting the heavy callus may be due to the old othotics wearing down. 02/25/18. Seen by Dr. Weathers. The patient does not report significant drainage associated with chronic left first toe diabetic ulcer since his last visit. 02/18/18. Seen by Dr. Weathers. The patient does not report drainage associated with chronic right or left first toe diabetic ulcers since his last visit and he's applying topical gentamicin as recommended to treat the left 1st toe MSSA positive wound culture taken at the last visit. 02/11/18. Seen by Dr. Weathers. The patient returns due to recurrence of the left 1st toe diabetic ulcer that he states started about 1 week ago when he developing callus fell off and the toe started to drain. He was seen by Dr. Son, podiatry, who subsequently referred the patient back to our clinic. He does not report pain in the toe or fevers and he's wearing his [place] boot to help offload the site. He's also on Keflex but states a wound culture was not drawn. Of note, he reports callus has reformed over the recently healed right 1st toe diabetic ulcer also. His blood sugars continue to be well controlled with most below 150. 01/17/18. Seen by Flaco Henley PA-C. The patient reports no drainage from his right 1st toe diabetic ulcer since his last dressing change. 01/05/18. Seen by Dr. Weathers. 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 Of note, he also has a new wound over the dorsum of the right foot that occurred following a dog fight that occurred at home where he was stepped on and the dog's claws scratch the foot. He does not report significant pain or drainage associated with this wound. 12/29/17. Seen by Dr. Weathers. The patient does not report drainage or pain associated with the right first toe diabetic ulcers since his last visit. He is wearing his [place] boot as recommended and is asking if he will be able to return to work soon. 12/22/17. Seen by Dr. Weathers. The patient does not report increased drainage associated with a chronic right first toe diabetic ulcers since his last visit. 12/14/17. Seen by Dr. Weathers. The patient does not report increased drainage associated with a chronic right first toe diabetic ulcers since his last visit and he's wearing his [place] boot as recommended to offload the ulcer. 12/08/17. Seen by Dr. Weathers. The patient does not report increased drainage associated with a chronic right first toe diabetic ulcers since his last visit. Of note, he states he accidentally wore his left shoe with a sock in the end of the which may result in some bruising at the site of the recently healed first toe diabetic ulcer. 12/01/17. Seen by Dr. Weathers. The patient does not report significant drainage or pain associated with right first toe diabetic ulcer since his last visit. Of note, he 's also stopped applying Kersal to the callus surrounding the recently healed left 1st toe diabetic ulcer despite our recommendations to do so. 11/17/17. Seen by Dr. Weathers. The patient does not report significant drainage or pain associated with right first toe diabetic ulcer since his last visit. 11/10/17. Seen by Dr. Weathers. The patient does not report significant drainage or pain associated with bilateral first toe diabetic ulcers since his last visit. He's been offloading as recommended with both his [place] boots and a knee scooter. 11/03/17. Seen by Dr. Weathers. The patient does not report increased drainage or pain associated with bilateral first toe diabetic ulcers since last visit. 10/27/17. Seen by Dr. Weathers. The patient reports some increased pain and redness associated with the chronic right first toe diabetic ulcer. 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 He is also offloading with a new scooter as recommended 10/20/17. Seen by Dr. Weathers. The patient does not report increased drainage or pain associated with bilateral first toe diabetic ulcers since last visit. 10/13/17. Seen by Dr. Weathers. The patient does not report increased drainage or pain associated with bilateral first toe diabetic ulcers since last visit. Of note, he now has a knee scooter and his left [place] boot and feels the left 1st toe ulcer has improved significantly with the added offloading measures. 10/06/17. Seen by Dr. Weathers. The patient does not report increased drainage or pain associated with bilateral first toe diabetic ulcers since last visit. Of note, he now has a knee scooter that he's been using to offload the left foot for the past 2 days and he will receive his [place] boot on Wednesday. 09/29/17. Seen by Dr. Weathers. The patient states that while wearing his left foot offloading shoe he took a fall and feels that it may have traumatized the chronic left first toe diabetic ulcer. He does not report increased pain or drainage from the site nor the right first toe diabetic ulcers since his last visit and states his blood sugars continue to be mostly below 150. He is also awaiting delivery of the left foot new [place] boot as well as his diabetic shoes. Of note, he also admits to being more active that he should be despite our recommendations to maximally offload both ulcers and has not been able to locate an offloading knee scooter as we've recommended. 09/22/17. Seen by Dr. Weathers. The patient does not report increased drainage associated with the bilateral 1st toe diabetic ulcers since his last visit and he's completed his course of doxycycline without reporting adverse side effects. He's also not yet seen his orthortist who will be fitting for at [place] boot to offload the left foot ulcer as well as providing him with a pair of diabetic shoes. 09/15/17. Seen by Dr. Weathers. The patient's on doxycycline to treat a chronic wound infection of the left 1st toe and he does not report adverse side effects. He's wearing his offloading shoe on the foot as recommended and continues to limit his walking as much as possible. He does not report significant drainage or pain associated with either 1st toe diabetic ulcers and states he's going to schedule and appointment with an publications inspector today as we've been recommending. 09/06/17. Seen by Flaco Henley PA-C. The patient reports increased drainage and continued callous formation from his 1st toe diabetic ulcers. He continues to stay off his feet as much as possible and is working with his insurance company and [employer] to obtain a [place] offloading boot. 08/31/17. Seen by Flaco Henley PA-C. The patient reports he has been staying off his feet and has been away from work as instructed. He reports decreased drainage from his bilateral diabetic toe ulcers. 08/24/17. Seen by Dr. Weathers. The patient reports being more active over the past week despite being advised to limit his walking considerably to offload the bilateral first toe diabetic ulcers. He does not report increased drainage or pain associated with these ulcers. He also states he will be able to take another month off of work to further facilitate offloading of the ulcers. 08/17/17. Seen by Dr. Weathers. The patient has been offloading both left and right first toe diabetic ulcers for the past week and has taken the entire month of July off of work to better facilitate offloading. 08/10/17. Seen by Dr. Weathers. The patient has been offloading both left and right first toe diabetic ulcers for the past week as recommended and he does not report significant associated pain or drainage from either site. 08/03/17. Seen by Dr. Weathers. The patient has been offloading both left and right first toe diabetic ulcers for the past week and has taken the entire month of July off of work to better facilitate offloading. 07/23/17. Seen by Dr. Weathers. The patient does not report significant drainage associated with chronic bilateral left and right first toe diabetic ulcers since his last visit. He does not report any drainage associated with the left 1st MTPJ diabetic ulcer. 07/20/17. Seen by Dr. Weathers. The patient does not report pain nor significant drainage associated with chronic bilateral left and right first toe diabetic ulcers since his last visit. He is applying topical gentamicin as recommended to the ulcer bases to treat the recent wound infection. He does not report any drainage associated with the left 1st MTPJ diabetic ulcer. 07/16/17. Seen by Dr. Weathers. The patient states that he had a very busy past week in terms of festival and he was on his feet for extended periods. He has increased drainage and callus formation associated with both first toe diabetic ulcers since we last saw him however he does not report any increased drainage or problems regarding the left mid plantar foot diabetic ulcer. He does not report pain in the toes nor fever or feeling unwell. His blood sugars continue to be well controlled consistently below 150. 07/06/17. Seen by Dr. Waethers. The patient does not report pain nor significant drainage associated with chronic bilateral left and right first toe diabetic ulcers since his last visit. He is applying topical gentamicin as recommended in his recent wound culture grew MSSA. He also does not report pain nor drainage associated with the chronic left plantar foot diabetic ulcer. 06/29/17. Seen by Dr. Weathers. The patient reports some pain associated with both first toe diabetic ulcers since his last visit. He does not report increased drainage associated with these nor the left plantar foot diabetic ulcer. He's been seeing us every 2 weeks and feels that the callus formation in the interim has been quite significant. 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 He states his blood sugars are well controlled with most below 150. 7. Seen by Dr. Weathers. The patient does not report pain nor significant drainage associated with the chronic bilateral first toe diabetic ulcers nor the left plantar foot diabetic ulcer since his last visit. 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 His blood sugars he states are well-controlled with most below 150. 7. Seen by Dr. Weathers. The patient does not report pain or increased drainage associated with the bilateral, chronic 1st toe diabetic ulcers since his last visit and he continues on doxycycline for the left 1st toe infection noted at his last visit. He does not report adverse side effects and states his blood sugars are mostly below 150. 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 Of note, he reports a new wound over the plantar surface of the left foot that started when he tried to remove a callus earlier this week. 05/18/17. Seen by Dr. Weathers. The patient reports some discomfort associated with the chronic left first toe diabetic ulcer over the past few days however he does not report pain nor increased drainage with the chronic right first toe diabetic ulcer. He continues to work an active job and is on his feet for extended periods however states that he may be able to decrease hours later in the summer. His blood sugars continue to be well controlled with most below 150. 05/12/17. Seen by Flaco Henley PA-C. The patient reports that his neuropathy is worse today with stabbing-type pains occurring in the arches of both feet and radiating to the lateral edges of his feet. He reports that walking on his feet exacerbate the pain and his recent medication change to Cymbalta has helped decrease the pain. He reports no increase in drainage from his bilateral 1st toe diabetic ulcers of the right and left feet. 05/05/17. Seen by Flaco Henley PA-C. The patient reports no increase in drainage from his bilateral 1st toe diabetic ulcers. 04/20/17. Seen by Dr. Weathers. The patient reports pain and drainage associated with the bilateral first toe diabetic ulcers is minimal over the past week and he'll complete his course of moxifloxacin today that's been treating a recent left 1st toe cellulitis. He continues to work a heavy schedule as on his feet for extended periods. He states his blood sugars continue to be mostly below 200. 04/14/17. Seen by Dr. Weathers. The patient feels the pain and drainage associated with the bilateral first toe diabetic ulcers has improved since starting on antibiotics last week. He continues to work a heavy schedule as on his feet for extended periods. He states his blood sugars continue to be mostly below 200. 04/07/17. Seen by Dr. Weathers. The patient reports some pain and increased drainage from the bilateral first toe diabetic ulcers over the past week. He's been working on his feet considerably more over the past few weeks and states his blood sugars are mostly below 200. 03/24/17. Seen by Flaco Henley PA-C. The patient reports good compliance with his diabetes footwear but he also notes blood sugars above 150 this week. Drainage has reportedly been decreasing from his diabetic ulcers of the right and left feet. 03/17/17. Seen by Dr. Weathers. The patient states he's stopped taking his SSRI that was treating the bilateral foot diabetic neuropathic pain as he felt it may have been contributing to his intermittent subjective fevers and chills. He does not report increased drainage or pain associated with the bilateral 1st toe diabetic ulcers since his last visit but states he's been on his feet more due to his job and an increase in tourism as the weather's improving. 02/26/17. Seen by Dr. Weathers. The patient reports increased pain and drainage associated with the left first toe diabetic ulcer but none with the right first toe diabetic ulcer. He's had some subjective fevers and chills for the last 2 weeks but states blood sugars continue to be well controlled with most below 150. 02/19/17. Seen by Dr. Weathers.The patient reports fatigue and intermittent chills but no documented fevers over the past few days. He does not report fevers nor other specific symptoms. He states that there has been no increase in drainage or pain associated with bilateral first diabetic ulcers since his last visit. His blood sugars continue to be mostly below 200. 02/05/17. Seen by Dr. Weathers. The patient does not report pain nor significant drainage associated with the chronic bilateral first toe diabetic ulcers over the past week. He continues applying topical gentamicin as recommended to treat the chronic and recurrent superficial staph infection. 01/29/17. Seen by Dr. Weathers. The patient reports minimal drainage and no pain associated with bilateral first toe diabetic ulcers since his last visit. He has completed his course of Keflex and does not report adverse side effects. He states blood sugars are mostly between 100 and 200.He continues to apply gentamicin ointment also as recommended. 01/22/17. Seen by Dr. Weathers. The patient returns to clinic for bilateral 1st toe diabetic ulcers that have become infected about a week ago and he was placed on Keflex by his PCP. He feels the drainage and redness are improving and he does not report pain in the toes. His blood sugars remain mostly below 150 and he continues to work on his feet a full-time schedule and states he wears his diabetic shoes at all times. 01/05/17. Seen by Flaco Henley PA-C. The patient reports some blood sugars this week above 150. No increase in ulcer drainage is reported today. 12/29/16 Seen by Flaco Henley PA-C. The patient reports stable drainage from his left foot non- pressure ulcer since his last evaluation. 12/22/16 Seen by Flaco Henley PA-C. The patient reports no increase in ulcer drainage from his left foot diabetic ulcer since his last visit. In addition he reports well controlled blood sugars. 12/15/16 Seen by Flaco Henley PA-C. The patient reports no increase in drainage from his left foot diabetic ulcer. His blood sugars have reportedly been below 150 this week but today is blood sugar is noted to be 152. 12/08/16. Seen by Dr. Weathers. The patient's now taking Augmentin for his recent Staph and E. coli positive wound culture taken from the chronic left 1st toe diabetic ulcer. The culture sensitivities however show intermediate sensitivity of the E. coli to Augmentin. The patient feels the toe pain and ulcer drainage have decreased considerably and he states his blood sugars are mostly below 150. He does not report fevers or adverse side effects from the Augmentin. Regarding the right 1st toe diabetic ulcer he does not report pain or significant drainage. 12/01/16 Seen by Flaco Henley PA-C. The patient reports that his left foot diabetic ulcer is much worse with a strong odor reported. 11/17/16 Seen by Flaco Henley PA-C. The patient reports that his blood sugar is likely elevated due to the holidays. He reports no increase in drainage from his DMII ulcers of the right or left 1st toes. 11/03/16. Seen by Dr. Weathers. The patient reports a new ulcer on the right 1st toe that started about one week ago following his attempt at removing a callus from the site. He states about 3 days ago the ulcer started draining fluid and the toe swelled and turned red. He 's not on antibiotics and does not report fevers or feeling unwell. Regarding his left 1st toe diabetic ulcer, he does not report significant drainage or pain. He states his blood sugars are improving with most below 150 now. 10/20/16. Seen by Dr. Weathers. The patient does not report significant drainage associated with the chronic left 1st toe diabetic ulcer since his last visit. He also states his blood sugars still tend to be over 150 and sometimes in the 200's.He also continues to apply gentamcin for the MSSA positive wound culture taken from the ulcer recently. 10/13/16. Seen by Dr. Weathers. The patient does not report significant drainage associated with the chronic left 1st toe diabetic ulcer since his last visit and he continues applyin gentamcin for the MSSA positive wound culture taken from the ulcer. His blood sugars continue to be above 150 fairly frequently however he notes since decreasing his chronic alcohol intake his glucose seems to be easier to control. 10/06/16 Seen by Flaco Henley PA-C. The patient reports that his neuropathy is severe today. It is described as an intermittent burning/shooting pain, that comes and goes but does not radiate and is centered on his left lateral foot. He does not report any associated changes to his chronic left 1st toe diabetic ulcer such as increased drainage. 09/29/16. Seen by Dr. Weathers. The patient does not report significant drainage associated with the chronic left 1st toe diabetic ulcer since his last visit and he continues on doxycycline for the MSSA positive wound culture taken from the ulcer. He feels the toe redness and swelling have improved since starting antibiotics. He also reports significant improvement in the left foot neuropathic pain since starting on a new antidepressant. 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 His blood sugar is over 200 today and he states its typically been between 100 and 200 although he's not been checking it for the past few days since his glucometer is no working. 09/15/16 Seen by Flaco Henley PA-C. The patient reports decreased neuropathic pain in his LLE and has recently started a new antidepressant medication for this issue though he does not recall the name of the medication. His ulcer drainage has been stable since his last evaluation. 09/01/16. Seen by Dr. Weathers. The patient does not report significant drainage associated with the chronic left 1st toe diabetic ulcer. He does state however his left lateral foot neuropathic pain is increasing and he's working with GAMAL Carter, pain specialist, to address this issue. He also states his blood sugars are typically between 100 to 200. 08/25/16 Seen by Flaco Henley PA-C. The patient reports continued left foot neuropathic pain. He has a pending appointment with Jethro Meehan at the pain clinic for this. His diabetic foot ulcer has resumed draining in the past few days after being closed. 08/18/16 Seen by Flaco Henley PA-C. The patient reports that he has had no drainage from his left 1st toe ulcer since his last evaluation. 08/11/16 Seen by Flaco Henley PA-C. The patient reports that he now has a prescription for lyrica and a schedule to taper off his gabapentin. He has not started taking lyrica though notes that his neuropathic pain is improved this week. His ulcer has had decreased drainage. 08/03/16 Seen by Flaco Henley PA-C. The patient reports that his left leg neuropathic pain, which has been present for months, has decreased in severity recently but still reaches 6/10. It is described as intermittent, non-radiating and stabbing/burning. His left 1st toe ulcer has had stable drainage by his report. 07/28/16 Seen by Flaco Henley PA-C. The patient reports very little drainage from his left 1st toe diabetic ulcer. He does report that his neuropathic pain has worsened and he is using alcohol at times as a painkiller. He has an upcoming appointment with Dr. Son, who has been addressing this issue and he asks about the referral to Jethro Meehan. 07/20/16. Seen by Dr. Weathers. The patient does not report significant drainage associated with the chronic left 1st toe diabetic ulcer over the past week. He states he's seen Dr. Son regarding his diabetic neuropathy in the past but has not discussed the recurrent toe ulcer. He also states he 'walks on this toes' and has been told by other providers in the past his Achilles tendon is 'short'. 07/13/[address] Weathers. The patient states he's been more active over the past few weeks with his job however does not report increased drainage or pain associated with the chronic left 1st toe diabetic ulcer. He's wearing his diabetic shoes as recommended and states his blood sugars have been a bit elevated between 150 and 200 over the past week due to non- compliance with his routine diabetic meal plan. 06/22/[address] Weathers. The patient feels the drainage and left 1st toe erythema have improved considerably since his last visit and he continues on Zyvox that was started during his recent admission for cellulitis associated with the toe ulcer. He states his blood sugars are now mostly below 150 and he's wearing diabetic shoes but not necessarily offloading the toe. 09/12/[address] Weathers. The patient has had his TCC off for the past week and he does not report drainage from the left 1st toe diabetic foot ulcer. His blood sugars are also mostly between 150 and 180. 09/06/[address] Weathers. The patient does not report any problems regarding his left diabetic foot ulcer nor the TCC he's worn since his last visit. His blood sugars are typically between 150 and 200 which is an improvement historically. 06/18/15 Seen by Flaco Henley PA-C. The patient has had no drainage from his wounds since his last visit. 06/11/15 Seen by Flaco Henley PA-C. The patient has had a particularly long work week and has been on his feet a lot. He has been using his diabetic shoes and recently modified inserts. 06/07/[address] Weathers. The patient has two new ulcers on the plantar surface of the right foot and on the left toe that were first noticed about 3 days ago after being on his feet at work for an extended period. He feels they may have occurred as a result of his orthotics not fitting properly. He does not report pain or swelling but does note some redness with clear yellow drainage from the right ulcer. He states his blood sugars are mostly below 150 with a few around 180 and he continues to try to loose weight to help manage his diabetes. 05/20/[address] Weathers. The patient does not report drainage from the left toe ulcer and tolerated the TCC without difficulties. 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 05/08/15 Seen by Flaco Henley PA-C. The patient is here today to have a TCC placed. He continues to try and stay off his feet and has not yet returned to work. 05/06/15 Seen by Flaco Henley PA-C. The patient has been off loading his feet using his off loading boots and sitting at home as well as not working. He continues on his antibiotics. 05/02/15 Seen by Flaco Henley PA-C. The patient continues to take time off work and be sedentary in order to offload his feet. He has been applying kerisol to the callouses on his right and left great toes and hydrogel to the wounds. He took his last dose of Augmentin today and reports decreased drainage from the left great toe diabetic ulcer and minimal drainage from the right great toe diabetic ulcer. His feet are sometimes painful but this has decreased since last visit. Blood sugars are running 150-180s in the AM. 04/26/[address] Weathers. The patient does not report increased drainage associated with the bilateral 1st toe diabetic ulcers. He feels the right leg cellulitis is much improved since starting Augmentin and he's been offloading with a cane and my taking time off of work to stay off his feet. His blood sugars are below 150 and he takes only metformin for diabetes. Past Medical History This information was obtained from the patient Patient has a medical history of: Type II Diabetes Diabetic foot ulcers (bilateral 1st toes; Hector grade II) Hyperlipidemia Chronic pain (neuropathic; left lateral foot) Depression Complaints and Symptoms This information was obtained from the patient Patient complains of: General Notes: I have reviewed and concur with the Review of Systems and Past Family Social History documents completed by the clinician, I have reviewed and concur with the Wound Assessment document completed by the clinician Integumentary (Hair/Skin/Nails): Open Sore Musculoskeletal: Assistive Devices, Deformities Neurological: Abnormal Gait, Loss of Protective Sensation Prior Wound History: Drainage, Erythema, Pain Patient denies complaints or symptoms related to: Cardiovascular (Central/Peripheral): Intermittent Claudication, Lower extremity (leg) resting pain, Lower extremity (leg) swelling Constitutional Symptoms (General Health): Chills, Fever Ear/Nose/Mouth/Throat: Hearing Loss / Aid Gastrointestinal (GI): Nausea / Vomiting, Stomach/abdominal pain Hematologic/Lymphatic: Bleeding / Clotting Disorders, Bleeding Tendency Prior Wound History: Bleeding, Malodor Respiratory: Oxygen Use, Shortness of Breath OBJECTIVE Constitutional Vital signs reviewed and noted. Well developed. Alert. Clean appearing.. Height/ Length: 76 in (193.04 cm), Weight: 265.3 lbs (120.59 kgs), BMI: 32.3, Temperature: 98.5 ?F ( 36.94 ?C), Pulse: 74 bpm, Respiratory Rate: 18 breaths/min, Blood Pressure: 109/73 mmHg, Capillary Blood Glucose: 84 mg/dl, Pulse Oximetry: 98 %. Vital Signs Notes: Glucose per patient. Ears, Nose, Mouth, and Throat: No clinically significant hearing loss on informal examination. Respiratory: No respiratory distress. Even respirations and without use of accessory muscles.. Integumentary (Hair, Skin) No periwound erythema, warmth, or significant drainage. No periwound rashes appreciated or noted otherwise.. Refer to appropriate clinician wound documentation for this visit; right and left foot ulcers extend to subcut with bases partially covered with pink granulation, remainder fibrin and slough. Significant amount of callus in the periulcer areas. Wound #9 Left Great Toe is a chronic Hector Grade 2 Diabetic Ulcer and has received a status of Not Healed. Subsequent wound encounter measurements are 0.5cm length x 0.1cm width x 0.2cm depth, with an area of 0.05 sq cm and a volume of 0.01 cubic cm. No tunneling has been noted. No sinus tract has been noted. No undermining has been noted. There is a small amount of serosanguineous drainage noted which has no odor. The patient reports a wound pain of level 0/10. The wound margin is callus. Wound bed has No epithelialization, No eschar, No slough, Yes bright red, pink, firm granulation. The periwound skin moisture is normal. The periwound skin color is normal. The periwound skin exhibited: Callus. The periwound skin did not exhibit: Brawny Induration, Edema, Excoriation, Induration, Crepitus, Fluctuance, Friable, Rash. The temperature of the periwound skin is WNL. Periwound skin does not exhibit signs or symptoms of infection. Local Pulse is Palpable. Wound #10 Right Great Toe is a chronic Hector Grade 2 Diabetic Ulcer and has received a status of Not Healed. Subsequent wound encounter measurements are 0.5cm length x 0.1cm width with no measurable depth, with an area of 0.05 sq cm . No tunneling has been noted. No sinus tract has been noted. No undermining has been noted. There was no drainage noted. The patient reports a wound pain of level 0/10. The wound margin is callus. Wound bed has Yes epithelialization, No eschar, No slough, No granulation. The periwound skin moisture is normal. The periwound skin color is normal. The periwound skin exhibited: Callus. The periwound skin did not exhibit: Brawny Induration, Edema, Excoriation, Induration, Crepitus, Fluctuance, Friable, Rash. The temperature of the periwound skin is WNL. Periwound skin does not exhibit signs or symptoms of infection. Local Pulse is Palpable. Neurological: Cranial nerves grossly intact with symmetric function normal by informal observation.. ASSESSMENT Active Problems ICD-10 (Encounter Diagnosis) E11.621 - Type 2 diabetes mellitus with foot ulcer (Encounter Diagnosis) L97.522 - Non-pressure chronic ulcer of other part of left foot with fat layer exposed (Encounter Diagnosis) L97.512 - Non-pressure chronic ulcer of other part of right foot with fat layer exposed (Encounter Diagnosis) B95.7 - Other staphylococcus as the cause of diseases classified elsewhere PROCEDURES Wound #9 Wound #9 (Diabetic Ulcer) is located on the left great toe. A skin/subcutaneous tissue level surgical debridement with a total area debrided of 0.18 sq cm was performed by Rakesh Weathers MD. Subcutaneous was removed along with devitalized tissue: callus and exudate. The following instrument(s) were used: curette. Pain control was achieved using 4% Lido. A time out was conducted prior to the start of the procedure. A moderate amount of bleeding was controlled with silver nitrate. The procedure was tolerated well with a pain level of 0 throughout and a pain level of 0 following the procedure. Post Debridement Measurements: 0.6cm length x 0.3cm width x 0.2cm depth; with an area of 0.18 sq cm and a volume of 0.036 cubic cm; Wound #10 Wound #10 (Diabetic Ulcer) is located on the right great toe. A skin/ subcutaneous tissue level surgical debridement with a total area debrided of 0.05 sq cm was performed by Rakesh Weathers MD. Subcutaneous was removed along with devitalized tissue: callus and slough. The following instrument(s) were used: curette. Pain control was achieved using 4% Lido. A time out was conducted prior to the start of the procedure. A minimal amount of bleeding was controlled with pressure. The procedure was tolerated well with a pain level of 0 throughout and a pain level of 1 following the procedure. Post Debridement Measurements: 0.5cm length x 0.1cm width x 0.1cm depth; with an area of 0.05 sq cm and a volume of 0.005 cubic cm; Additional Information Muscle fascia or bone removed and sent to pathology?: No Muscle fascia or bone removed and sent to pathology?: No PLAN Wound Orders: Wound #9 Left Great Toe Cleanser Cleanse Wound: - Normal saline and gauze, may use distilled water at home. May Shower. - Keep dressings dry. Topical Treatments Antibiotic/Antimicrobial Ointment/Cream. - Iodosorb. Dressings Primary dressing: - [place] donut pad surrounding wound. Cover and secure with: - Optifoam cut to fit, hypafix tape. Change Dressing: - Every other day. Off-Loading Keep weight off: - Left foot as much as possible. Use/Wear when Walking: - [place] boot. Wound #10 Right Great Toe Topical Treatments Antibiotic/Antimicrobial Ointment/Cream. - Iodosorb. Dressings Primary dressing: - [place] donut pad surrounding wound. Cover and secure with: - Optifoam cut to fit, hypafix tape. Change Dressing: - Every other day. Off-Loading Keep weight off: - Right foot as much as possible. Use/Wear when Walking: - Custom diabetic shoes. Additional Orders: Follow-Up Appointments Return Appointment: - - One week. Other information: If you develop fever, chills, increased pain, drainage, redness or swelling please call our office. If after hours, respond to the ER. Should you experience any significant changes in your wound(s) or have any questions regarding your home care instructions please contact the wound center @ [phone]. If after hours, contact your primary care physician or go to the hospital emergency room. Scribing Attestation I attest, as the nurse, that I scribed these orders for the physician. I've reviewed the clinician's documentation and agree with the evaluation and plan as written. In addition the patient's ulcers demonstrate evidence of non-viable devitalized tissue and they will continue to benefit from sharp debridement to help promote granulation and expedite healing. Electronic Signature(s) Signed By: Date: Rakesh Weathers MD 08/17/2018 13:52:56 Entered By: Rakesh Weathers on 08/17/2018 13:11:12
== END ==
PROVIDERS: PCP Student in an Organized Health Care Education/Training Program; Visit Provider Internal Medicine
DX: E11.621 Type 2 diabetes mellitus with foot ulcer (principal); L97.522 Non-pressure chronic ulcer of other part of left foot with fat layer exposed; L97.512 Non-pressure chronic ulcer of other part of right foot with fat layer exposed; B95.7 Other staphylococcus as the cause of diseases classified elsewhere
CPT/HCPCS: 11042

== ENCOUNTER → 2018-08-23 11:17 | Outpatient (CLI) | payer OTHER, SELFPAY ==
--- NOTE | 2018-08-23 | OV.WND_ITS ---
Progress Note Details Patient Name: Baljit Mckay Patient Number: [id number] PatientPatientDate: 08/23/2018 Clinician: Snow Smith Clinician Cosigner: Sun Beckett Physician / Timber Grader: Rakesh Weathers SUBJECTIVE Chief Complaint This information was obtained from the patient Diabetic ulcers to left and right great toe. Allergies NKDA HPI This information was obtained from the patient 08/23/18. Seen by Dr. Weathers. The patient does not report increased drainage or significant pain associated with the bilateral 1st toe diabetic ulcers since his last visit. 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 He's also not sure when his last A1c was performed or if it was done this year. 08/16/18. Seen by Dr. Weathers. The patient does not report increased drainage or significant pain associated with the bilateral 1st toe diabetic ulcers since his last visit and he's applying topical gentacmicin as recommended to treat the recent coag negative Staph culture. 08/09/18. Seen by Dr. Weathers. The patient does not report increased drainage or significant pain associated with the bilateral 1st toe diabetic ulcers since his last visit and he's applying topical gentacmicin as recommended to treat the recent coag negative Staph culture. 08/02/18. Seen by Dr. Weathers. The patient does not report increased drainage or significant pain associated with the bilateral 1st toe diabetic ulcers since his last visit. He states he did not receive his Rx for doxycycline that was started at the last visit for cellulitis of the right toe and to treat the recent coag negative Staph culture however. 07/27/18. Seen by Dr. Weathers. The patient reports pain in the right 1st toe associated with the chronic diabetic foot ulcer. He does not report increased drainage however at the site nor the left 1st toe DFU since his last visit. 07/19/18. Seen by Dr. Weathers. The patient does not report increased drainage or significant pain associated with the bilateral 1st toe diabetic ulcers since his last visit and he's applying topical gentamicin to treat the recent MSSA positive wound culture. 07/12/18. Seen by Dr. Weathers. The patient does not report increased drainage or significant pain associated with the bilateral 1st toe diabetic ulcers since his last visit. He continues to work 6 days per week which keeps him on his feet for extended periods. 07/05/18. Seen by Dr. Weathers. The patient does not report increased drainage or significant pain associated with the bilateral 1st toe diabetic ulcers since his last visit. 06/28/18. Seen by Dr. Weathers. The patient does not report increased drainage or significant pain associated with the bilateral 1st toe diabetic ulcers since his last visit. He notes he's been using Kerasal ointment to treat the periulcer calluses less frequently and he's had an orthotic added to the right shoe to help 'even the leg length' and possibly relieve some lower back pain he's been having. 06/21/18. Seen by Dr. Weathers. The patient does not report increased drainage or significant pain associated with the bilateral 1st toe diabetic ulcers since his last visit. 06/14/18. Seen by Dr. Weathers. The patient does not report increased drainage or significant pain associated with the bilateral 1st toe diabetic ulcers since his last visit. 06/07/18. Seen by Dr. Weathers. The patient reports he was more active over the past week at work and of note he experienced some pain in the right 1st toe upon removal of his dressing today. Otherwise he does not report increased drainage from either 1st toe diabetic ulcer and states his blood sugars continue to be well controlled. 05/31/18. Seen by Dr. Weathers. The patient does not report increased drainage or pain associated with the bilateral 1st toe diabetic ulcers since his last visit and he's increased is use of this KNIK boots to better facilitate offloading. 05/27/18. Seen by Dr. Weathers. The patient does not report increased drainage or pain associated with the bilateral 1st toe diabetic ulcers since his last visit and he continues to be quite active with work making it difficult to adequately offload the ulcers. He also reports a chronic rash over the distal left lower leg that's been present for about one month. 05/20/18. Seen by Dr. Weathers. The patient does not report increased drainage or pain associated with the bilateral 1st toe diabetic ulcers since his last visit and he continues to be quite active with work and personal activities making it difficult to adequately offload the ulcers. His blood sugars remain well controlled and he's been advised to wear a KNIK boot at all times on the left leg but has not been able to do this. 05/10/18. Seen by Flaco Henley PA-C. The patient reports a rash has developed on his leg under his KNIK boot, but the rash has improved in the past few days as he has not been wearing the KNIK boot. Drainage from his diabetic foot ulcers has not increased. 05/03/18. Seen by Dr. Weathers. The patient states he was at a conference this past weekend and forgot his left lower leg stocking that protects from his KNIK boot rubbing the short. He started to notice an abrasion so stopped wearing the KNIK boot and now feels the left 1st toe diabetic ulcer may have deteriorated and also it got wet in the shower this morning. He also notes some drainage at the site of the recently healed left 1st toe diabetic ulcer. He does not report pain at either site and his blood sugars are historically well controlled over the past 6 months. 04/26/18. Seen by Dr. Weathers. The patient reports being on his feet a lot over the past week at work but he'll be taking the next week off. 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 His culture last week grew MSSA and he's completed a course of doxycycline as of yesterday. He's also not been wearing this KNIK boot or using a knee scooter due to his working more. 04/19/18. Seen by Dr. Weathers. The patient does not report pain associated with the chronic left 1st toe diabetic ulcer since his last visit however he was more active on it over the holiday weekend. The staff however report drainage on the dressing and a significant increase in callus from his last visit. His blood sugars continue to be well controlled around 120 and he's been advised to use his KNIK boot when mobilizing and knee scooter as much as possible. 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 04/12/18. Seen by Dr. Weathers. The patient does not report drainage or pain associated with the great left foot diabetic ulcers since his last visit. 04/05/2018. Seen by Dr. Weathers. The patient is wearing his KNIK boot on the left foot as much as possible to help offload the recurrent and chronic left 1st toe diabetic ulcer. He'll complete his course of doxycycline today that was started at his last for cellulitis of the toe and he's applying topical gentamicin as well. He does not report fevers or feeling unwell nor side effects of the antibiotics. 03/29/2018. Seen by Dr. Weathers. The patient reports some pain and increased drainage as well as redness and swelling of the left 1st toe over the past few days. He does not report fevers however nor other acute issues at this time. 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 03/22/2018. Seen by Dr. Weathers. The patient does not report drainage or pain associated with the great left foot diabetic ulcers since his last visit. He states however that he is not wearing his KNIK boot to offload the sites on alternate days despite my recommendations last week. 03/15/18. Seen by Dr. Weathers. The patient has returned to full-time work schedule and feels may not be wearing his KNIK boots as much as she should noting a significant increase in callus associated with bilateral first toe diabetic ulcers and associated pain. He does not report drainage associated with the ulcers however and we'll extended his visits out to 10 days. . Seen by Dr. Weathers. The patient does not report significant drainage associated with chronic left and right first toe diabetic ulcers since his last visit. He's not wearing his KNIK boot currently to offload the left foot and has started using new orthotic inserts for his diabetic shoe noting the heavy callus may be due to the old othotics wearing down. 02/25/18. Seen by Dr. Weathers. The patient does not report significant drainage associated with chronic left first toe diabetic ulcer since his last visit. 02/18/18. Seen by Dr. Weathers. The patient does not report drainage associated with chronic right or left first toe diabetic ulcers since his last visit and he's applying topical gentamicin as recommended to treat the left 1st toe MSSA positive wound culture taken at the last visit. 02/11/18. Seen by Dr. Weathers. The patient returns due to recurrence of the left 1st toe diabetic ulcer that he states started about 1 week ago when he developing callus fell off and the toe started to drain. He was seen by Dr. Son, podiatry, who subsequently referred the patient back to our clinic. He does not report pain in the toe or fevers and he's wearing his KNIK boot to help offload the site. He's also on Keflex but states a wound culture was not drawn. Of note, he reports callus has reformed over the recently healed right 1st toe diabetic ulcer also. His blood sugars continue to be well controlled with most below 150. 01/17/18. Seen by Flaco Henley PA-C. The patient reports no drainage from his right 1st toe diabetic ulcer since his last dressing change. 01/05/18. Seen by Dr. Weathers. 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 Of note, he also has a new wound over the dorsum of the right foot that occurred following a dog fight that occurred at home where he was stepped on and the dog's claws scratch the foot. He does not report significant pain or drainage associated with this wound. 12/29/17. Seen by Dr. Weathers. The patient does not report drainage or pain associated with the right first toe diabetic ulcers since his last visit. He is wearing his KNIK boot as recommended and is asking if he will be able to return to work soon. 12/22/17. Seen by Dr. Weathers. The patient does not report increased drainage associated with a chronic right first toe diabetic ulcers since his last visit. 12/14/17. Seen by Dr. Weathers. The patient does not report increased drainage associated with a chronic right first toe diabetic ulcers since his last visit and he's wearing his KNIK boot as recommended to offload the ulcer. 12/08/17. Seen by Dr. Weathers. The patient does not report increased drainage associated with a chronic right first toe diabetic ulcers since his last visit. Of note, he states he accidentally wore his left shoe with a sock in the end of the which may result in some bruising at the site of the recently healed first toe diabetic ulcer. 12/01/17. Seen by Dr. Weathers. The patient does not report significant drainage or pain associated with right first toe diabetic ulcer since his last visit. Of note, he 's also stopped applying Kersal to the callus surrounding the recently healed left 1st toe diabetic ulcer despite our recommendations to do so. 11/17/17. Seen by Dr. Weathers. The patient does not report significant drainage or pain associated with right first toe diabetic ulcer since his last visit. 11/10/17. Seen by Dr. Weathers. The patient does not report significant drainage or pain associated with bilateral first toe diabetic ulcers since his last visit. He's been offloading as recommended with both his KNIK boots and a knee scooter. 11/03/17. Seen by Dr. Weathers. The patient does not report increased drainage or pain associated with bilateral first toe diabetic ulcers since last visit. 10/27/17. Seen by Dr. Weathers. The patient reports some increased pain and redness associated with the chronic right first toe diabetic ulcer. He does not report any new issues regarding the left of a foot ulcer and will pick up attendant his right foot chefornak boot in the near future. He is also offloading with a new scooter as recommended 10/20/17. Seen by Dr. Weathers. The patient does not report increased drainage or pain associated with bilateral first toe diabetic ulcers since last visit. 10/13/17. Seen by Dr. Weathers. The patient does not report increased drainage or pain associated with bilateral first toe diabetic ulcers since last visit. Of note, he now has a knee scooter and his left KNIK boot and feels the left 1st toe ulcer has improved significantly with the added offloading measures. 10/06/17. Seen by Dr. Weathers. The patient does not report increased drainage or pain associated with bilateral first toe diabetic ulcers since last visit. Of note, he now has a knee scooter that he's been using to offload the left foot for the past 2 days and he will receive his KNIK boot on Wednesday. 09/29/17. Seen by Dr. Weathers. The patient states that while wearing his left foot offloading shoe he took a fall and feels that it may have traumatized the chronic left first toe diabetic ulcer. He does not report increased pain or drainage from the site nor the right first toe diabetic ulcers since his last visit and states his blood sugars continue to be mostly below 150. He is also awaiting delivery of the left foot chefornak boot as well as his diabetic shoes. Of note, he also admits to being more active that he should be despite our recommendations to maximally offload both ulcers and has not been able to locate an offloading knee scooter as we've recommended. 09/22/17. Seen by Dr. Weathers. The patient does not report increased drainage associated with the bilateral 1st toe diabetic ulcers since his last visit and he's completed his course of doxycycline without reporting adverse side effects. He's also not yet seen his orthortist who will be fitting for at KNIK boot to offload the left foot ulcer as well as providing him with a pair of diabetic shoes. 09/15/17. Seen by Dr. Weahters. The patient's on doxycycline to treat a chronic wound infection of the left 1st toe and he does not report adverse side effects. He's wearing his offloading shoe on the foot as recommended and continues to limit his walking as much as possible. He does not report significant drainage or pain associated with either 1st toe diabetic ulcers and states he's going to schedule and appointment with an painter and body work today as we've been recommending. 09/06/17. Seen by Flaco Henley PA-C. The patient reports increased drainage and continued callous formation from his 1st toe diabetic ulcers. He continues to stay off his feet as much as possible and is working with his insurance company and [employer] to obtain a KNIK offloading boot. 08/31/17. Seen by Flaco Henley PA-C. The patient reports he has been staying off his feet and has been away from work as instructed. He reports decreased drainage from his bilateral diabetic toe ulcers. 08/24/17. Seen by Dr. Weathers. The patient reports being more active over the past week despite being advised to limit his walking considerably to offload the bilateral first toe diabetic ulcers. He does not report increased drainage or pain associated with these ulcers. He also states he will be able to take another month off of work to further facilitate offloading of the ulcers. 08/17/17. Seen by Dr. Weathers. The patient has been offloading both left and right first toe diabetic ulcers for the past week and has taken the entire month of July off of work to better facilitate offloading. 08/10/17. Seen by Dr. Weathers. The patient has been offloading both left and right first toe diabetic ulcers for the past week as recommended and he does not report significant associated pain or drainage from either site. 08/03/17. Seen by Dr. Weathers. The patient has been offloading both left and right first toe diabetic ulcers for the past week and has taken the entire month of July off of work to better facilitate offloading. 07/23/17. Seen by Dr. Weathers. The patient does not report significant drainage associated with chronic bilateral left and right first toe diabetic ulcers since his last visit. He does not report any drainage associated with the left 1st MTPJ diabetic ulcer. 07/20/17. Seen by Dr. Weathers. The patient does not report pain nor significant drainage associated with chronic bilateral left and right first toe diabetic ulcers since his last visit. He is applying topical gentamicin as recommended to the ulcer bases to treat the recent wound infection. He does not report any drainage associated with the left 1st MTPJ diabetic ulcer. 07/16/17. Seen by Dr. Weathers. The patient states that he had a very busy past week in terms of festival and he was on his feet for extended periods. He has increased drainage and callus formation associated with both first toe diabetic ulcers since we last saw him however he does not report any increased drainage or problems regarding the left mid plantar foot diabetic ulcer. He does not report pain in the toes nor fever or feeling unwell. His blood sugars continue to be well controlled consistently below 150. 07/06/17. Seen by Dr. Weathers. The patient does not report pain nor significant drainage associated with chronic bilateral left and right first toe diabetic ulcers since his last visit. He is applying topical gentamicin as recommended in his recent wound culture grew MSSA. He also does not report pain nor drainage associated with the chronic left plantar foot diabetic ulcer. 06/29/17. Seen by Dr. Weathers. The patient reports some pain associated with both first toe diabetic ulcers since his last visit. He does not report increased drainage associated with these nor the left plantar foot diabetic ulcer. He's been seeing us every 2 weeks and feels that the callus formation in the interim has been quite significant. 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 He states his blood sugars are well controlled with most below 150. 06/15/17. Seen by Dr. Weathers. The patient does not report pain nor significant drainage associated with the chronic bilateral first toe diabetic ulcers nor the left plantar foot diabetic ulcer since his last visit. 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 His blood sugars he states are well-controlled with most below 150. 06/01/17. Seen by Dr. Weathers. The patient does not report pain or increased drainage associated with the bilateral, chronic 1st toe diabetic ulcers since his last visit and he continues on doxycycline for the left 1st toe infection noted at his last visit. He does not report adverse side effects and states his blood sugars are mostly below 150. 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 Of note, he reports a new wound over the plantar surface of the left foot that started when he tried to remove a callus earlier this week. 05/18/17. Seen by Dr. Weathers. The patient reports some discomfort associated with the chronic left first toe diabetic ulcer over the past few days however he does not report pain nor increased drainage with the chronic right first toe diabetic ulcer. He continues to work an active job and is on his feet for extended periods however states that he may be able to decrease hours later in the summer. His blood sugars continue to be well controlled with most below 150. 05/12/17. Seen by Flaco Henley PA-C. The patient reports that his neuropathy is worse today with stabbing-type pains occurring in the arches of both feet and radiating to the lateral edges of his feet. He reports that walking on his feet exacerbate the pain and his recent medication change to Cymbalta has helped decrease the pain. He reports no increase in drainage from his bilateral 1st toe diabetic ulcers of the right and left feet. 05/05/17. Seen by Flaco Henley PA-C. The patient reports no increase in drainage from his bilateral 1st toe diabetic ulcers. 04/20/17. Seen by Dr. Weathers. The patient reports pain and drainage associated with the bilateral first toe diabetic ulcers is minimal over the past week and he'll complete his course of moxifloxacin today that's been treating a recent left 1st toe cellulitis. He continues to work a heavy schedule as on his feet for extended periods. He states his blood sugars continue to be mostly below 200. 04/14/17. Seen by Dr. Weathers. The patient feels the pain and drainage associated with the bilateral first toe diabetic ulcers has improved since starting on antibiotics last week. He continues to work a heavy schedule as on his feet for extended periods. He states his blood sugars continue to be mostly below 200. 04/07/17. Seen by Dr. Weathers. The patient reports some pain and increased drainage from the bilateral first toe diabetic ulcers over the past week. He's been working on his feet considerably more over the past few weeks and states his blood sugars are mostly below 200. 03/24/17. Seen by Flaco Henley PA-C. The patient reports good compliance with his diabetes footwear but he also notes blood sugars above 150 this week. Drainage has reportedly been decreasing from his diabetic ulcers of the right and left feet. 03/17/17. Seen by Dr. Weathers. The patient states he's stopped taking his SSRI that was treating the bilateral foot diabetic neuropathic pain as he felt it may have been contributing to his intermittent subjective fevers and chills. He does not report increased drainage or pain associated with the bilateral 1st toe diabetic ulcers since his last visit but states he's been on his feet more due to his job and an increase in tourism as the weather's improving. 02/26/17. Seen by Dr. Weathers. The patient reports increased pain and drainage associated with the left first toe diabetic ulcer but none with the right first toe diabetic ulcer. He's had some subjective fevers and chills for the last 2 weeks but states blood sugars continue to be well controlled with most below 150. 02/19/17. Seen by Dr. Weathers.The patient reports fatigue and intermittent chills but no documented fevers over the past few days. He does not report fevers nor other specific symptoms. He states that there has been no increase in drainage or pain associated with bilateral first diabetic ulcers since his last visit. His blood sugars continue to be mostly below 200. 02/05/17. Seen by Dr. Weathers. The patient does not report pain nor significant drainage associated with the chronic bilateral first toe diabetic ulcers over the past week. He continues applying topical gentamicin as recommended to treat the chronic and recurrent superficial staph infection. 01/29/17. Seen by Dr. Weathers. The patient reports minimal drainage and no pain associated with bilateral first toe diabetic ulcers since his last visit. He has completed his course of Keflex and does not report adverse side effects. He states blood sugars are mostly between 100 and 200.He continues to apply gentamicin ointment also as recommended. 01/22/17. Seen by Dr. Weathers. The patient returns to clinic for bilateral 1st toe diabetic ulcers that have become infected about a week ago and he was placed on Keflex by his PCP. He feels the drainage and redness are improving and he does not report pain in the toes. His blood sugars remain mostly below 150 and he continues to work on his feet a full-time schedule and states he wears his diabetic shoes at all times. 01/05/17. Seen by Flaco Henley PA-C. The patient reports some blood sugars this week above 150. No increase in ulcer drainage is reported today. 12/29/16 Seen by Flaco Henley PA-C. The patient reports stable drainage from his left foot non- pressure ulcer since his last evaluation. 12/22/16 Seen by Flaco Henley PA-C. The patient reports no increase in ulcer drainage from his left foot diabetic ulcer since his last visit. In addition he reports well controlled blood sugars. 12/15/16 Seen by Flaco Henley PA-C. The patient reports no increase in drainage from his left foot diabetic ulcer. His blood sugars have reportedly been below 150 this week but today is blood sugar is noted to be 152. 12/08/16. Seen by Dr. Weathers. The patient's now taking Augmentin for his recent Staph and E. coli positive wound culture taken from the chronic left 1st toe diabetic ulcer. The culture sensitivities however show intermediate sensitivity of the E. coli to Augmentin. The patient feels the toe pain and ulcer drainage have decreased considerably and he states his blood sugars are mostly below 150. He does not report fevers or adverse side effects from the Augmentin. Regarding the right 1st toe diabetic ulcer he does not report pain or significant drainage. 12/01/16 Seen by Flaco Henley PA-C. The patient reports that his left foot diabetic ulcer is much worse with a strong odor reported. 11/17/16 Seen by Flaco Henley PA-C. The patient reports that his blood sugar is likely elevated due to the holidays. He reports no increase in drainage from his DMII ulcers of the right or left 1st toes. 11/03/16. Seen by Dr. Wetahers. The patient reports a new ulcer on the right 1st toe that started about one week ago following his attempt at removing a callus from the site. He states about 3 days ago the ulcer started draining fluid and the toe swelled and turned red. He 's not on antibiotics and does not report fevers or feeling unwell. Regarding his left 1st toe diabetic ulcer, he does not report significant drainage or pain. He states his blood sugars are improving with most below 150 now. 10/20/16. Seen by Dr. Weathers. The patient does not report significant drainage associated with the chronic left 1st toe diabetic ulcer since his last visit. He also states his blood sugars still tend to be over 150 and sometimes in the 200's.He also continues to apply gentamcin for the MSSA positive wound culture taken from the ulcer recently. 10/13/16. Seen by Dr. Weathers. The patient does not report significant drainage associated with the chronic left 1st toe diabetic ulcer since his last visit and he continues applyin gentamcin for the MSSA positive wound culture taken from the ulcer. His blood sugars continue to be above 150 fairly frequently however he notes since decreasing his chronic alcohol intake his glucose seems to be easier to control. 10/06/16 Seen by Flaco Henley PA-C. The patient reports that his neuropathy is severe today. It is described as an intermittent burning/shooting pain, that comes and goes but does not radiate and is centered on his left lateral foot. He does not report any associated changes to his chronic left 1st toe diabetic ulcer such as increased drainage. 09/29/16. Seen by Dr. Weathers. The patient does not report significant drainage associated with the chronic left 1st toe diabetic ulcer since his last visit and he continues on doxycycline for the MSSA positive wound culture taken from the ulcer. He feels the toe redness and swelling have improved since starting antibiotics. He also reports significant improvement in the left foot neuropathic pain since starting on a new antidepressant. 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 His blood sugar is over 200 today and he states its typically been between 100 and 200 although he's not been checking it for the past few days since his glucometer is no working. 09/15/16 Seen by Flaco Henley PA-C. The patient reports decreased neuropathic pain in his LLE and has recently started a new antidepressant medication for this issue though he does not recall the name of the medication. His ulcer drainage has been stable since his last evaluation. 09/01/16. Seen by Dr. Weathers. The patient does not report significant drainage associated with the chronic left 1st toe diabetic ulcer. He does state however his left lateral foot neuropathic pain is increasing and he's working with GAMAL Carter, pain specialist, to address this issue. He also states his blood sugars are typically between 100 to 200. 08/25/16 Seen by Flaco Henley PA-C. The patient reports continued left foot neuropathic pain. He has a pending appointment with Jethro Meehan at the pain clinic for this. His diabetic foot ulcer has resumed draining in the past few days after being closed. 08/18/16 Seen by Flaco Henley PA-C. The patient reports that he has had no drainage from his left 1st toe ulcer since his last evaluation. 08/11/16 Seen by Flaco Henley PA-C. The patient reports that he now has a prescription for lyrica and a schedule to taper off his gabapentin. He has not started taking lyrica though notes that his neuropathic pain is improved this week. His ulcer has had decreased drainage. 08/03/16 Seen by Flaco Henley PA-C. The patient reports that his left leg neuropathic pain, which has been present for months, has decreased in severity recently but still reaches 6/10. It is described as intermittent, non-radiating and stabbing/burning. His left 1st toe ulcer has had stable drainage by his report. 07/28/16 Seen by Flaco Henley PA-C. The patient reports very little drainage from his left 1st toe diabetic ulcer. He does report that his neuropathic pain has worsened and he is using alcohol at times as a painkiller. He has an upcoming appointment with Dr. Son, who has been addressing this issue and he asks about the referral to Jethro Meehan. 07/20/16. Seen by Dr. Weathers. The patient does not report significant drainage associated with the chronic left 1st toe diabetic ulcer over the past week. He states he's seen Dr. Son regarding his diabetic neuropathy in the past but has not discussed the recurrent toe ulcer. He also states he 'walks on this toes' and has been told by other providers in the past his Achilles tendon is 'short'. 07/13/[address] Weathers. The patient states he's been more active over the past few weeks with his job however does not report increased drainage or pain associated with the chronic left 1st toe diabetic ulcer. He's wearing his diabetic shoes as recommended and states his blood sugars have been a bit elevated between 150 and 200 over the past week due to non- compliance with his routine diabetic meal plan. 06/22/[address] Weathers. The patient feels the drainage and left 1st toe erythema have improved considerably since his last visit and he continues on Zyvox that was started during his recent admission for cellulitis associated with the toe ulcer. He states his blood sugars are now mostly below 150 and he's wearing diabetic shoes but not necessarily offloading the toe. 09/12/[address] Weathers. The patient has had his TCC off for the past week and he does not report drainage from the left 1st toe diabetic foot ulcer. His blood sugars are also mostly between 150 and 180. 09/06/[address] Weathers. The patient does not report any problems regarding his left diabetic foot ulcer nor the TCC he's worn since his last visit. His blood sugars are typically between 150 and 200 which is an improvement historically. 06/18/15 Seen by Flaco Henley PA-C. The patient has had no drainage from his wounds since his last visit. 06/11/15 Seen by Flaco Henley PA-C. The patient has had a particularly long work week and has been on his feet a lot. He has been using his diabetic shoes and recently modified inserts. 06/07/[address] Weathers. The patient has two new ulcers on the plantar surface of the right foot and on the left toe that were first noticed about 3 days ago after being on his feet at work for an extended period. He feels they may have occurred as a result of his orthotics not fitting properly. He does not report pain or swelling but does note some redness with clear yellow drainage from the right ulcer. He states his blood sugars are mostly below 150 with a few around 180 and he continues to try to loose weight to help manage his diabetes. 05/20/[address] Weathers. The patient does not report drainage from the left toe ulcer and tolerated the TCC without difficulties. His blood sugars are relatively well controlled below 150 and he's ready to pick up attendant his orthotic today. 05/08/15 Seen by Flaco Henley PA-C. The patient is here today to have a TCC placed. He continues to try and stay off his feet and has not yet returned to work. 05/06/15 Seen by Flaco Henley PA-C. The patient has been off loading his feet using his off loading boots and sitting at home as well as not working. He continues on his antibiotics. 05/02/15 Seen by Flaco Henley PA-C. The patient continues to take time off work and be sedentary in order to offload his feet. He has been applying kerisol to the callouses on his right and left great toes and hydrogel to the wounds. He took his last dose of Augmentin today and reports decreased drainage from the left great toe diabetic ulcer and minimal drainage from the right great toe diabetic ulcer. His feet are sometimes painful but this has decreased since last visit. Blood sugars are running 150-180s in the AM. 04/26/[address] Weathers. The patient does not report increased drainage associated with the bilateral 1st toe diabetic ulcers. He feels the right leg cellulitis is much improved since starting Augmentin and he's been offloading with a cane and my taking time off of work to stay off his feet. His blood sugars are below 150 and he takes only metformin for diabetes. 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 Past Medical History This information was obtained from the patient Patient has a medical history of: Type II Diabetes Diabetic foot ulcers (bilateral 1st toes; Hector grade II) Hyperlipidemia Chronic pain (neuropathic; left lateral foot) Complaints and Symptoms This information was obtained from the patient Patient complains of: General Notes: I have reviewed and concur with the Review of Systems and Past Family Social History documents completed by the clinician, I have reviewed and concur with the Wound Assessment document completed by the clinician Integumentary (Hair/Skin/Nails): Open Sore Musculoskeletal: Assistive Devices, Deformities Neurological: Abnormal Gait, Loss of Protective Sensation Prior Wound History: Drainage, Erythema, Pain Patient denies complaints or symptoms related to: Cardiovascular (Central/Peripheral): Intermittent Claudication, Lower extremity (leg) resting pain, Lower extremity (leg) swelling Constitutional Symptoms (General Health): Chills, Fever Ear/Nose/Mouth/Throat: Hearing Loss / Aid Gastrointestinal (GI): Nausea / Vomiting, Stomach/abdominal pain Hematologic/Lymphatic: Bleeding / Clotting Disorders, Bleeding Tendency Prior Wound History: Bleeding, Malodor Respiratory: Oxygen Use, Shortness of Breath Additional Information Does patient have a history of Cancer? Yes? Complete all questions.: No OBJECTIVE Constitutional Vital signs reviewed and noted. Well developed. Alert. Clean appearing.. Height/ Length: 76 in (193.04 cm), Weight: 265.3 lbs (120.59 kgs), BMI: 32.3, Temperature: 98.4 ?F ( 36.89 ?C), Pulse: 77 bpm, Respiratory Rate: 18 breaths/min, Blood Pressure: 114/70 mmHg, Capillary Blood Glucose: 94 mg/dl, Pulse Oximetry: 100 %. Vital Signs Notes: Glucose per patient. Ears, Nose, Mouth, and Throat: No clinically significant hearing loss on informal examination. Integumentary (Hair, Skin) No periwound erythema, warmth, or significant drainage. No periwound rashes appreciated or noted otherwise.. Refer to appropriate clinician wound documentation for this visit; right and left foot ulcers extend to subcut with bases partially covered with pink granulation, remainder fibrin and slough. Significant amount of callus in the periulcer areas. Wound #9 Left Great Toe is a chronic Hector Grade 2 Diabetic Ulcer and has received a status of Not Healed. Subsequent wound encounter measurements are 1cm length x 0.2cm width x 0.3cm depth, with an area of 0.2 sq cm and a volume of 0.06 cubic cm. No tunneling has been noted. No sinus tract has been noted. No undermining has been noted. There is a small amount of serosanguineous drainage noted which has no odor. The patient reports a wound pain of level 0/10. The wound margin is callus. Wound bed has No epithelialization, No eschar, No slough, Yes pale mcmanus, spongy granulation. The periwound skin moisture is normal. The periwound skin color is normal. The periwound skin exhibited: Callus. The periwound skin did not exhibit: Brawny Induration, Edema, Excoriation, Induration, Crepitus, Fluctuance, Friable, Rash. The temperature of the periwound skin is WNL. Periwound skin does not exhibit signs or symptoms of infection. Local Pulse is Palpable. General Notes: Mcmanus from silver nitrate. Wound #10 Right Great Toe is a chronic Hector Grade 2 Diabetic Ulcer and has received a status of Not Healed. Subsequent wound encounter measurements are 0.1cm length x 0.5cm width x 0.5cm depth, with an area of 0.05 sq cm and a volume of 0.025 cubic cm. No tunneling has been noted. No sinus tract has been noted. No undermining has been noted. There is a scant amount of serous drainage noted which has no odor. The patient reports a wound pain of level 0/10. The wound margin is callus. Wound bed has Yes epithelialization, No eschar, No slough, Yes pink, spongy granulation. The periwound skin moisture is normal. The periwound skin color is normal. The periwound skin exhibited: Callus. The periwound skin did not exhibit: Brawny Induration, Edema, Excoriation, Induration, Crepitus, Fluctuance, Friable, Rash. The temperature of the periwound skin is WNL. Periwound skin does not exhibit signs or symptoms of infection. Local Pulse is Palpable. General Notes: Pain with this wound. Neurological: Cranial nerves grossly intact with symmetric function normal by informal observation.. ASSESSMENT Active Problems ICD-10 (Encounter Diagnosis) E11.621 - Type 2 diabetes mellitus with foot ulcer (Encounter Diagnosis) L97.522 - Non-pressure chronic ulcer of other part of left foot with fat layer exposed (Encounter Diagnosis) L97.512 - Non-pressure chronic ulcer of other part of right foot with fat layer exposed PROCEDURES Wound #9 Wound #9 (Diabetic Ulcer) is located on the left great toe. A skin/subcutaneous tissue level surgical debridement with a total area debrided of 0.2 sq cm was performed by Rakesh Weathers MD. Subcutaneous was removed along with devitalized tissue: slough. The following instrument(s) were used: curette. Pain control was achieved using 4% Lido. A time out was conducted prior to the start of the procedure. A minimal amount of bleeding was controlled with pressure. The procedure was not tolerated well with a pain level of 0 throughout and a pain level of 0 following the procedure. Response to Treatment Comments: Continues to have callus development. May need more off-loading methods, inserts, shoes?. Post Debridement Measurements: 1cm length x 0.2cm width x 0.3cm depth; with an area of 0.2 sq cm and a volume of 0.06 cubic cm; Wound #10 Wound #10 (Diabetic Ulcer) is located on the right great toe. A skin/ subcutaneous tissue level surgical debridement with a total area debrided of 0.05 sq cm was performed by Rakesh Weathers MD. Subcutaneous was removed along with devitalized tissue: callus and slough. The following instrument(s) were used: curette. Pain control was achieved using 4% Lido. A time out was conducted prior to the start of the procedure. A moderate amount of bleeding was controlled with silver nitrate. The patient tolerated the procedure with a pain level of 0 throughout and a pain level of 0 following the procedure. Post Debridement Measurements: 0.1cm length x 0.5cm width x 0.2cm depth; with an area of 0.05 sq cm and a volume of 0.01 cubic cm; Additional Information Muscle fascia or bone removed and sent to pathology?: No Muscle fascia or bone removed and sent to pathology?: No PLAN Wound Orders: Wound #9 Left Great Toe Cleanser Cleanse Wound: - Normal saline and gauze, may use distilled water at home. May Shower. - Keep dressings dry. Topical Treatments Antibiotic/Antimicrobial Ointment/Cream. - Iodosorb. Dressings Cover and secure with: - Optifoam cut to fit, hypafix tape. Change Dressing: - Every other day. Off-Loading Keep weight off: - Left foot as much as possible. Use/Wear when Walking: - [place] boot. Wound #10 Right Great Toe Topical Treatments Antibiotic/Antimicrobial Ointment/Cream. - Iodosorb. Dressings Cover and secure with: - Optifoam cut to fit, hypafix tape. Change Dressing: - Every other day. Off-Loading Keep weight off: - Right foot as much as possible. Use/Wear when Walking: - Custom diabetic shoes. Additional Orders: Follow-Up Appointments Return Appointment: - - One week. Other information: If you develop fever, chills, increased pain, drainage, redness or swelling please call our office. If after hours, respond to the ER. Should you experience any significant changes in your wound(s) or have any questions regarding your home care instructions please contact the wound center @ [phone]. If after hours, contact your primary care physician or go to the hospital emergency room. Scribing Attestation I attest, as the nurse, that I scribed these orders for the physician. I've reviewed the clinician's documentation and agree with the evaluation and plan as written. In addition the patient's ulcers demonstrate evidence of non-viable devitalized tissue and they will continue to benefit from sharp debridement to help promote granulation and expedite healing. Also, the patient will liaise with his PCP regarding checking his A1c. Electronic Signature(s) Signed By: Date: Rakesh Weathers MD 08/24/2018 07:59:58 Entered By: Rakesh Weathers on 08/24/2018 07:54:58
== END ==
PROVIDERS: PCP Student in an Organized Health Care Education/Training Program; Visit Provider Internal Medicine
DX: E11.621 Type 2 diabetes mellitus with foot ulcer (principal); L97.522 Non-pressure chronic ulcer of other part of left foot with fat layer exposed; L97.512 Non-pressure chronic ulcer of other part of right foot with fat layer exposed
CPT/HCPCS: 11042

== ENCOUNTER → 2018-08-30 13:28 | Outpatient (CLI) | payer OTHER, SELFPAY | PROVIDERS: PCP Student in an Organized Health Care Education/Training Program; Visit Provider Internal Medicine | DX: E11.621 Type 2 diabetes mellitus with foot ulcer (principal); L97.522 Non-pressure chronic ulcer of other part of left foot with fat layer exposed; L97.512 Non-pressure chronic ulcer of other part of right foot with fat layer exposed | CPT/HCPCS: 11042 ==

== ENCOUNTER → 2018-09-06 13:08 | Outpatient (CLI) | payer OTHER, SELFPAY | PROVIDERS: PCP Student in an Organized Health Care Education/Training Program; Visit Provider Internal Medicine | DX: E11.621 Type 2 diabetes mellitus with foot ulcer (principal); L97.522 Non-pressure chronic ulcer of other part of left foot with fat layer exposed; L97.512 Non-pressure chronic ulcer of other part of right foot with fat layer exposed | CPT/HCPCS: 11042 ==

== ENCOUNTER → 2018-09-13 13:19 | Outpatient (CLI) | payer OTHER, SELFPAY ==
--- NOTE | 2018-09-13 | OV.WND_ITS ---
Progress Note Details Patient Name: Baljit Mckay Patient Number: [id number] PatientPatientDate: 09/13/2018 Clinician: Ryann Sultana Clinician Cosigner: Geeta Mullins Physician / Blade Boner: Rakesh Weathers SUBJECTIVE Chief Complaint This information was obtained from the patient Diabetic ulcers to left and right great toe. Allergies NKDA HPI This information was obtained from the patient 09/13/18. Seen by Dr. Weathers. The patient does not report increased drainage or significant pain associated with the bilateral 1st toe diabetic ulcers since his last visit. He's wearing his left [place] boot today however notes the insert has not been reviewed or adjusted in about a year. He's also decreasing his work hours soon as one the [employer] he works in is closing down. 09/06/18. Seen by Dr. Weathers. The patient does not report increased drainage or significant pain associated with the bilateral 1st toe diabetic ulcers since his last visit. 08/30/18. Seen by Dr. Weathers. The patient does not report increased drainage or significant pain associated with the bilateral 1st toe diabetic ulcers since his last visit. 08/23/18. Seen by Dr. Weathers. The patient does not report increased drainage or significant pain associated with the bilateral 1st toe diabetic ulcers since his last visit. 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 He's also not sure when his last A1c was performed or if it was done this year. 08/16/18. Seen by Dr. Weathers. The patient does not report increased drainage or significant pain associated with the bilateral 1st toe diabetic ulcers since his last visit and he's applying topical gentacmicin as recommended to treat the recent coag negative Staph culture. 08/09/18. Seen by Dr. Weathers. The patient does not report increased drainage or significant pain associated with the bilateral 1st toe diabetic ulcers since his last visit and he's applying topical gentacmicin as recommended to treat the recent coag negative Staph culture. 08/02/18. Seen by Dr. Weathers. The patient does not report increased drainage or significant pain associated with the bilateral 1st toe diabetic ulcers since his last visit. He states he did not receive his Rx for doxycycline that was started at the last visit for cellulitis of the right toe and to treat the recent coag negative Staph culture however. 07/27/18. Seen by Dr. Weathers. The patient reports pain in the right 1st toe associated with the chronic diabetic foot ulcer. He does not report increased drainage however at the site nor the left 1st toe DFU since his last visit. 07/19/18. Seen by Dr. Weathers. The patient does not report increased drainage or significant pain associated with the bilateral 1st toe diabetic ulcers since his last visit and he's applying topical gentamicin to treat the recent MSSA positive wound culture. 07/12/18. Seen by Dr. Weathers. The patient does not report increased drainage or significant pain associated with the bilateral 1st toe diabetic ulcers since his last visit. He continues to work 6 days per week which keeps him on his feet for extended periods. 07/05/18. Seen by Dr. Weathers. The patient does not report increased drainage or significant pain associated with the bilateral 1st toe diabetic ulcers since his last visit. 06/28/18. Seen by Dr. Weathers. The patient does not report increased drainage or significant pain associated with the bilateral 1st toe diabetic ulcers since his last visit. He notes he's been using Kerasal ointment to treat the periulcer calluses less frequently and he's had an orthotic added to the right shoe to help 'even the leg length' and possibly relieve some lower back pain he's been having. 06/21/18. Seen by Dr. Weathers. The patient does not report increased drainage or significant pain associated with the bilateral 1st toe diabetic ulcers since his last visit. 06/14/18. Seen by Dr. Weathers. The patient does not report increased drainage or significant pain associated with the bilateral 1st toe diabetic ulcers since his last visit. 06/07/18. Seen by Dr. Weathers. The patient reports he was more active over the past week at work and of note he experienced some pain in the right 1st toe upon removal of his dressing today. Otherwise he does not report increased drainage from either 1st toe diabetic ulcer and states his blood sugars continue to be well controlled. 05/31/18. Seen by Dr. Weathers. The patient does not report increased drainage or pain associated with the bilateral 1st toe diabetic ulcers since his last visit and he's increased is use of this [place] boots to better facilitate offloading. 05/27/18. Seen by Dr. Weathers. The patient does not report increased drainage or pain associated with the bilateral 1st toe diabetic ulcers since his last visit and he continues to be quite active with work making it difficult to adequately offload the ulcers. He also reports a chronic rash over the distal left lower leg that's been present for about one month. 05/20/18. Seen by Dr. Weathers. The patient does not report increased drainage or pain associated with the bilateral 1st toe diabetic ulcers since his last visit and he continues to be quite active with work and personal activities making it difficult to adequately offload the ulcers. His blood sugars remain well controlled and he's been advised to wear a [place] boot at all times on the left leg but has not been able to do this. 05/10/18. Seen by Flaco Henley PA-C. The patient reports a rash has developed on his leg under his [place] boot, but the rash has improved in the past few days as he has not been wearing the [place] boot. Drainage from his diabetic foot ulcers has not increased. 05/03/18. Seen by Dr. Weathers. The patient states he was at a conference this past weekend and forgot his left lower leg stocking that protects from his [place] boot rubbing the short. He started to notice an abrasion so stopped wearing the [place] [place] boot and now feels the left 1st toe diabetic ulcer may have deteriorated and also it got wet in the shower this morning. He also notes some drainage at the site of the recently healed left 1st toe diabetic ulcer. He does not report pain at either site and his blood sugars are historically well controlled over the past 6 months. 04/26/18. Seen by Dr. Weathers. The patient reports being on his feet a lot over the past week at work but he'll be taking the next week off. 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 His culture last week grew MSSA and he's completed a course of doxycycline as of yesterday. He's also not been wearing this [place] [place] boot or using a knee scooter due to his working more. 04/19/18. Seen by Dr. Weathers. The patient does not report pain associated with the chronic left 1st toe diabetic ulcer since his last visit however he was more active on it over the holiday weekend. The staff however report drainage on the dressing and a significant increase in callus from his last visit. His blood sugars continue to be well controlled around 120 and he's been advised to use his [place] [place] boot when mobilizing and knee scooter as much as possible. 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 04/12/18. Seen by Dr. Weathers. The patient does not report drainage or pain associated with the great left foot diabetic ulcers since his last visit. 04/05/2018. Seen by Dr. Weathers. The patient is wearing his [place] boot on the left foot as much as possible to help offload the recurrent and chronic left 1st toe diabetic ulcer. He'll complete his course of doxycycline today that was started at his last for cellulitis of the toe and he's applying topical gentamicin as well. He does not report fevers or feeling unwell nor side effects of the antibiotics. 03/29/2018. Seen by Dr. Weathers. The patient reports some pain and increased drainage as well as redness and swelling of the left 1st toe over the past few days. He does not report fevers however nor other acute issues at this time. 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 03/22/2018. Seen by Dr. Weathers. The patient does not report drainage or pain associated with the great left foot diabetic ulcers since his last visit. He states however that he is not wearing his [place] [place] boot to offload the sites on alternate days despite my recommendations last week. 03/15/18. Seen by Dr. Weathers. The patient has returned to full-time work schedule and feels may not be wearing his [place] boots as much as she should noting a significant increase in callus associated with bilateral first toe diabetic ulcers and associated pain. He does not report drainage associated with the ulcers however and we'll extended his visits out to 10 days. . Seen by Dr. Weathers. The patient does not report significant drainage associated with chronic left and right first toe diabetic ulcers since his last visit. He's not wearing his [place] boot currently to offload the left foot and has started using new orthotic inserts for his diabetic shoe noting the heavy callus may be due to the old othotics wearing down. 02/25/18. Seen by Dr. Weathers. The patient does not report significant drainage associated with chronic left first toe diabetic ulcer since his last visit. 02/18/18. Seen by Dr. Weathers. The patient does not report drainage associated with chronic right or left first toe diabetic ulcers since his last visit and he's applying topical gentamicin as recommended to treat the left 1st toe MSSA positive wound culture taken at the last visit. 02/11/18. Seen by Dr. Weathers. The patient returns due to recurrence of the left 1st toe diabetic ulcer that he states started about 1 week ago when he developing callus fell off and the toe started to drain. He was seen by Dr. Son, podiatry, who subsequently referred the patient back to our clinic. He does not report pain in the toe or fevers and he's wearing his [place] boot to help offload the site. He's also on Keflex but states a wound culture was not drawn. Of note, he reports callus has reformed over the recently healed right 1st toe diabetic ulcer also. His blood sugars continue to be well controlled with most below 150. 01/17/18. Seen by Flaco Henley PA-C. The patient reports no drainage from his right 1st toe diabetic ulcer since his last dressing change. 01/05/18. Seen by Dr. Weathers. 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 Of note, he also has a new wound over the dorsum of the right foot that occurred following a dog fight that occurred at home where he was stepped on and the dog's claws scratch the foot. He does not report significant pain or drainage associated with this wound. 12/29/17. Seen by Dr. Weathers. The patient does not report drainage or pain associated with the right first toe diabetic ulcers since his last visit. He is wearing his [place] [place] boot as recommended and is asking if he will be able to return to work soon. 12/22/17. Seen by Dr. Weathers. The patient does not report increased drainage associated with a chronic right first toe diabetic ulcers since his last visit. 12/14/17. Seen by Dr. Weathers. The patient does not report increased drainage associated with a chronic right first toe diabetic ulcers since his last visit and he's wearing his [place] boot as recommended to offload the ulcer. 12/08/17. Seen by Dr. Weathers. The patient does not report increased drainage associated with a chronic right first toe diabetic ulcers since his last visit. Of note, he states he accidentally wore his left shoe with a sock in the end of the which may result in some bruising at the site of the recently healed first toe diabetic ulcer. 12/01/17. Seen by Dr. Weathers. The patient does not report significant drainage or pain associated with right first toe diabetic ulcer since his last visit. Of note, he 's also stopped applying Kersal to the callus surrounding the recently healed left 1st toe diabetic ulcer despite our recommendations to do so. 11/17/17. Seen by Dr. Weathers. The patient does not report significant drainage or pain associated with right first toe diabetic ulcer since his last visit. 11/10/17. Seen by Dr. Weathers. The patient does not report significant drainage or pain associated with bilateral first toe diabetic ulcers since his last visit. He's been offloading as recommended with both his [place] [place] boots and a knee scooter. 11/03/17. Seen by Dr. Weathers. The patient does not report increased drainage or pain associated with bilateral first toe diabetic ulcers since last visit. 10/27/17. Seen by Dr. Weathers. The patient reports some increased pain and redness associated with the chronic right first toe diabetic ulcer. He does not report any new issues regarding the left of a foot ulcer and will sampler pickup his right foot [place] boot in the near future. He is also offloading with a new scooter as recommended 10/20/17. Seen by Dr. Weathers. The patient does not report increased drainage or pain associated with bilateral first toe diabetic ulcers since last visit. 10/13/17. Seen by Dr. Weathers. The patient does not report increased drainage or pain associated with bilateral first toe diabetic ulcers since last visit. Of note, he now has a knee scooter and his left [place] boot and feels the left 1st toe ulcer has improved significantly with the added offloading measures. 10/06/17. Seen by Dr. Weathers. The patient does not report increased drainage or pain associated with bilateral first toe diabetic ulcers since last visit. Of note, he now has a knee scooter that he's been using to offload the left foot for the past 2 days and he will receive his [place] [place] boot on Wednesday. 09/29/17. Seen by Dr. Weathers. The patient states that while wearing his left foot offloading shoe he took a fall and feels that it may have traumatized the chronic left first toe diabetic ulcer. He does not report increased pain or drainage from the site nor the right first toe diabetic ulcers since his last visit and states his blood sugars continue to be mostly below 150. He is also awaiting delivery of the left foot [place] boot as well as his diabetic shoes. Of note, he also admits to being more active that he should be despite our recommendations to maximally offload both ulcers and has not been able to locate an offloading knee scooter as we've recommended. 09/22/17. Seen by Dr. Weathers. The patient does not report increased drainage associated with the bilateral 1st toe diabetic ulcers since his last visit and he's completed his course of doxycycline without reporting adverse side effects. He's also not yet seen his orthortist who will be fitting for at [place] boot to offload the left foot ulcer as well as providing him with a pair of diabetic shoes. 09/15/17. Seen by Dr. Weathers. The patient's on doxycycline to treat a chronic wound infection of the left 1st toe and he does not report adverse side effects. He's wearing his offloading shoe on the foot as recommended and continues to limit his walking as much as possible. He does not report significant drainage or pain associated with either 1st toe diabetic ulcers and states he's going to schedule and appointment with an dynamite cartridge crimper today as we've been recommending. 09/06/17. Seen by Flaco Henley PA-C. The patient reports increased drainage and continued callous formation from his 1st toe diabetic ulcers. He continues to stay off his feet as much as possible and is working with his insurance company and [employer] to obtain a [place] offloading boot. 08/31/17. Seen by Flaco Henley PA-C. The patient reports he has been staying off his feet and has been away from work as instructed. He reports decreased drainage from his bilateral diabetic toe ulcers. 08/24/17. Seen by Dr. Weathers. The patient reports being more active over the past week despite being advised to limit his walking considerably to offload the bilateral first toe diabetic ulcers. He does not report increased drainage or pain associated with these ulcers. He also states he will be able to take another month off of work to further facilitate offloading of the ulcers. 08/17/17. Seen by Dr. Weathers. The patient has been offloading both left and right first toe diabetic ulcers for the past week and has taken the entire month of July off of work to better facilitate offloading. 08/10/17. Seen by Dr. Weathers. The patient has been offloading both left and right first toe diabetic ulcers for the past week as recommended and he does not report significant associated pain or drainage from either site. 08/03/17. Seen by Dr. Weathers. The patient has been offloading both left and right first toe diabetic ulcers for the past week and has taken the entire month of July off of work to better facilitate offloading. 07/23/17. Seen by Dr. Weathers. The patient does not report significant drainage associated with chronic bilateral left and right first toe diabetic ulcers since his last visit. He does not report any drainage associated with the left 1st MTPJ diabetic ulcer. 07/20/17. Seen by Dr. Weathers. The patient does not report pain nor significant drainage associated with chronic bilateral left and right first toe diabetic ulcers since his last visit. He is applying topical gentamicin as recommended to the ulcer bases to treat the recent wound infection. He does not report any drainage associated with the left 1st MTPJ diabetic ulcer. 07/16/17. Seen by Dr. Weathers. The patient states that he had a very busy past week in terms of festival and he was on his feet for extended periods. He has increased drainage and callus formation associated with both first toe diabetic ulcers since we last saw him however he does not report any increased drainage or problems regarding the left mid plantar foot diabetic ulcer. He does not report pain in the toes nor fever or feeling unwell. His blood sugars continue to be well controlled consistently below 150. 07/06/17. Seen by Dr. Weathers. The patient does not report pain nor significant drainage associated with chronic bilateral left and right first toe diabetic ulcers since his last visit. He is applying topical gentamicin as recommended in his recent wound culture grew MSSA. He also does not report pain nor drainage associated with the chronic left plantar foot diabetic ulcer. 06/29/17. Seen by Dr. Weathers. The patient reports some pain associated with both first toe diabetic ulcers since his last visit. He does not report increased drainage associated with these nor the left plantar foot diabetic ulcer. He's been seeing us every 2 weeks and feels that the callus formation in the interim has been quite significant. 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 He states his blood sugars are well controlled with most below 150. 06/15/17. Seen by Dr. Weathers. The patient does not report pain nor significant drainage associated with the chronic bilateral first toe diabetic ulcers nor the left plantar foot diabetic ulcer since his last visit. 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 His blood sugars he states are well-controlled with most below 150. 06/01/17. Seen by Dr. Weathers. The patient does not report pain or increased drainage associated with the bilateral, chronic 1st toe diabetic ulcers since his last visit and he continues on doxycycline for the left 1st toe infection noted at his last visit. He does not report adverse side effects and states his blood sugars are mostly below 150. 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 Of note, he reports a new wound over the plantar surface of the left foot that started when he tried to remove a callus earlier this week. 05/18/17. Seen by Dr. Weathers. The patient reports some discomfort associated with the chronic left first toe diabetic ulcer over the past few days however he does not report pain nor increased drainage with the chronic right first toe diabetic ulcer. He continues to work an active job and is on his feet for extended periods however states that he may be able to decrease hours later in the summer. His blood sugars continue to be well controlled with most below 150. 05/12/17. Seen by Flaco Henley PA-C. The patient reports that his neuropathy is worse today with stabbing-type pains occurring in the arches of both feet and radiating to the lateral edges of his feet. He reports that walking on his feet exacerbate the pain and his recent medication change to Cymbalta has helped decrease the pain. He reports no increase in drainage from his bilateral 1st toe diabetic ulcers of the right and left feet. 05/05/17. Seen by Flaco Henley PA-C. The patient reports no increase in drainage from his bilateral 1st toe diabetic ulcers. 04/20/17. Seen by Dr. Weathers. The patient reports pain and drainage associated with the bilateral first toe diabetic ulcers is minimal over the past week and he'll complete his course of moxifloxacin today that's been treating a recent left 1st toe cellulitis. He continues to work a heavy schedule as on his feet for extended periods. He states his blood sugars continue to be mostly below 200. 04/14/17. Seen by Dr. Weathers. The patient feels the pain and drainage associated with the bilateral first toe diabetic ulcers has improved since starting on antibiotics last week. He continues to work a heavy schedule as on his feet for extended periods. He states his blood sugars continue to be mostly below 200. 04/07/17. Seen by Dr. Weathers. The patient reports some pain and increased drainage from the bilateral first toe diabetic ulcers over the past week. He's been working on his feet considerably more over the past few weeks and states his blood sugars are mostly below 200. 03/24/17. Seen by Flaco Henley PA-C. The patient reports good compliance with his diabetes footwear but he also notes blood sugars above 150 this week. Drainage has reportedly been decreasing from his diabetic ulcers of the right and left feet. 03/17/17. Seen by Dr. Weathers. The patient states he's stopped taking his SSRI that was treating the bilateral foot diabetic neuropathic pain as he felt it may have been contributing to his intermittent subjective fevers and chills. He does not report increased drainage or pain associated with the bilateral 1st toe diabetic ulcers since his last visit but states he's been on his feet more due to his job and an increase in tourism as the weather's improving. 02/26/17. Seen by Dr. Weathers. The patient reports increased pain and drainage associated with the left first toe diabetic ulcer but none with the right first toe diabetic ulcer. He's had some subjective fevers and chills for the last 2 weeks but states blood sugars continue to be well controlled with most below 150. 02/19/17. Seen by Dr. Weathers.The patient reports fatigue and intermittent chills but no documented fevers over the past few days. He does not report fevers nor other specific symptoms. He states that there has been no increase in drainage or pain associated with bilateral first diabetic ulcers since his last visit. His blood sugars continue to be mostly below 200. 02/05/17. Seen by Dr. Weathers. The patient does not report pain nor significant drainage associated with the chronic bilateral first toe diabetic ulcers over the past week. He continues applying topical gentamicin as recommended to treat the chronic and recurrent superficial staph infection. 01/29/17. Seen by Dr. Weathers. The patient reports minimal drainage and no pain associated with bilateral first toe diabetic ulcers since his last visit. He has completed his course of Keflex and does not report adverse side effects. He states blood sugars are mostly between 100 and 200.He continues to apply gentamicin ointment also as recommended. 01/22/17. Seen by Dr. Weathers. The patient returns to clinic for bilateral 1st toe diabetic ulcers that have become infected about a week ago and he was placed on Keflex by his PCP. He feels the drainage and redness are improving and he does not report pain in the toes. His blood sugars remain mostly below 150 and he continues to work on his feet a full-time schedule and states he wears his diabetic shoes at all times. 01/05/17. Seen by Flaco Henley PA-C. The patient reports some blood sugars this week above 150. No increase in ulcer drainage is reported today. 12/29/16 Seen by Flaco Henley PA-C. The patient reports stable drainage from his left foot non- pressure ulcer since his last evaluation. 12/22/16 Seen by Flaco Henley PA-C. The patient reports no increase in ulcer drainage from his left foot diabetic ulcer since his last visit. In addition he reports well controlled blood sugars. 12/15/16 Seen by Flaco Henley PA-C. The patient reports no increase in drainage from his left foot diabetic ulcer. His blood sugars have reportedly been below 150 this week but today is blood sugar is noted to be 152. 12/08/16. Seen by Dr. Weathers. The patient's now taking Augmentin for his recent Staph and E. coli positive wound culture taken from the chronic left 1st toe diabetic ulcer. The culture sensitivities however show intermediate sensitivity of the E. coli to Augmentin. The patient feels the toe pain and ulcer drainage have decreased considerably and he states his blood sugars are mostly below 150. He does not report fevers or adverse side effects from the Augmentin. Regarding the right 1st toe diabetic ulcer he does not report pain or significant drainage. 12/01/16 Seen by Flaco Henley PA-C. The patient reports that his left foot diabetic ulcer is much worse with a strong odor reported. 11/17/16 Seen by Flaco Henley PA-C. The patient reports that his blood sugar is likely elevated due to the holidays. He reports no increase in drainage from his DMII ulcers of the right or left 1st toes. 11/03/16. Seen by Dr. Weathers. The patient reports a new ulcer on the right 1st toe that started about one week ago following his attempt at removing a callus from the site. He states about 3 days ago the ulcer started draining fluid and the toe swelled and turned red. He 's not on antibiotics and does not report fevers or feeling unwell. Regarding his left 1st toe diabetic ulcer, he does not report significant drainage or pain. He states his blood sugars are improving with most below 150 now. 10/20/16. Seen by Dr. Weathers. The patient does not report significant drainage associated with the chronic left 1st toe diabetic ulcer since his last visit. He also states his blood sugars still tend to be over 150 and sometimes in the 200's.He also continues to apply gentamcin for the MSSA positive wound culture taken from the ulcer recently. 10/13/16. Seen by Dr. Weathers. The patient does not report significant drainage associated with the chronic left 1st toe diabetic ulcer since his last visit and he continues applyin gentamcin for the MSSA positive wound culture taken from the ulcer. His blood sugars continue to be above 150 fairly frequently however he notes since decreasing his chronic alcohol intake his glucose seems to be easier to control. 10/06/16 Seen by Flaco Henley PA-C. The patient reports that his neuropathy is severe today. It is described as an intermittent burning/shooting pain, that comes and goes but does not radiate and is centered on his left lateral foot. He does not report any associated changes to his chronic left 1st toe diabetic ulcer such as increased drainage. 09/29/16. Seen by Dr. Weathers. The patient does not report significant drainage associated with the chronic left 1st toe diabetic ulcer since his last visit and he continues on doxycycline for the MSSA positive wound culture taken from the ulcer. He feels the toe redness and swelling have improved since starting antibiotics. He also reports significant improvement in the left foot neuropathic pain since starting on a new antidepressant. 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 His blood sugar is over 200 today and he states its typically been between 100 and 200 although he's not been checking it for the past few days since his glucometer is no working. 09/15/16 Seen by Flaco Henley PA-C. The patient reports decreased neuropathic pain in his LLE and has recently started a new antidepressant medication for this issue though he does not recall the name of the medication. His ulcer drainage has been stable since his last evaluation. 09/01/16. Seen by Dr. Weathers. The patient does not report significant drainage associated with the chronic left 1st toe diabetic ulcer. He does state however his left lateral foot neuropathic pain is increasing and he's working with GAMAL Carter, pain specialist, to address this issue. He also states his blood sugars are typically between 100 to 200. 08/25/16 Seen by Flaco Henley PA-C. The patient reports continued left foot neuropathic pain. He has a pending appointment with Jethro Meehan at the pain clinic for this. His diabetic foot ulcer has resumed draining in the past few days after being closed. 08/18/16 Seen by Flaco Henley PA-C. The patient reports that he has had no drainage from his left 1st toe ulcer since his last evaluation. 08/11/16 Seen by Flaco Henley PA-C. The patient reports that he now has a prescription for lyrica and a schedule to taper off his gabapentin. He has not started taking lyrica though notes that his neuropathic pain is improved this week. His ulcer has had decreased drainage. 08/03/16 Seen by Flaco Henley PA-C. The patient reports that his left leg neuropathic pain, which has been present for months, has decreased in severity recently but still reaches 6/10. It is described as intermittent, non-radiating and stabbing/burning. His left 1st toe ulcer has had stable drainage by his report. 07/28/16 Seen by Flaco Henley PA-C. The patient reports very little drainage from his left 1st toe diabetic ulcer. He does report that his neuropathic pain has worsened and he is using alcohol at times as a painkiller. He has an upcoming appointment with Dr. Sno, who has been addressing this issue and he asks about the referral to Jethro Meehan. 07/20/16. Seen by Dr. Weathers. The patient does not report significant drainage associated with the chronic left 1st toe diabetic ulcer over the past week. He states he's seen Dr. Son regarding his diabetic neuropathy in the past but has not discussed the recurrent toe ulcer. He also states he 'walks on this toes' and has been told by other providers in the past his Achilles tendon is 'short'. 07/13/[address] Weathers. The patient states he's been more active over the past few weeks with his job however does not report increased drainage or pain associated with the chronic left 1st toe diabetic ulcer. He's wearing his diabetic shoes as recommended and states his blood sugars have been a bit elevated between 150 and 200 over the past week due to non- compliance with his routine diabetic meal plan. 06/22/[address] Weathers. The patient feels the drainage and left 1st toe erythema have improved considerably since his last visit and he continues on Zyvox that was started during his recent admission for cellulitis associated with the toe ulcer. He states his blood sugars are now mostly below 150 and he's wearing diabetic shoes but not necessarily offloading the toe. 09/12/[address] Weathers. The patient has had his TCC off for the past week and he does not report drainage from the left 1st toe diabetic foot ulcer. His blood sugars are also mostly between 150 and 180. 09/06/[address] Weathers. The patient does not report any problems regarding his left diabetic foot ulcer nor the TCC he's worn since his last visit. His blood sugars are typically between 150 and 200 which is an improvement historically. 06/18/15 Seen by Flaco Henley PA-C. The patient has had no drainage from his wounds since his last visit. 06/11/15 Seen by Flaco Henley PA-C. The patient has had a particularly long work week and has been on his feet a lot. He has been using his diabetic shoes and recently modified inserts. 06/07/[address] Weathers. The patient has two new ulcers on the plantar surface of the right foot and on the left toe that were first noticed about 3 days ago after being on his feet at work for an extended period. He feels they may have occurred as a result of his orthotics not fitting properly. He does not report pain or swelling but does note some redness with clear yellow drainage from the right ulcer. He states his blood sugars are mostly below 150 with a few around 180 and he continues to try to loose weight to help manage his diabetes. 05/20/[address] Weathers. The patient does not report drainage from the left toe ulcer and tolerated the TCC without difficulties. His blood sugars are relatively well controlled below 150 and he's ready to sampler pickup his orthotic today. 05/08/15 Seen by Flaco Henley PA-C. The patient is here today to have a TCC placed. He continues to try and stay off his feet and has not yet returned to work. 05/06/15 Seen by Flaco Henley PA-C. The patient has been off loading his feet using his off loading boots and sitting at home as well as not working. He continues on his antibiotics. 05/02/15 Seen by Flaco Henley PA-C. The patient continues to take time off work and be sedentary in order to offload his feet. He has been applying kerisol to the callouses on his right and left great toes and hydrogel to the wounds. He took his last dose of Augmentin today and reports decreased drainage from the left great toe diabetic ulcer and minimal drainage from the right great toe diabetic ulcer. His feet are sometimes painful but this has decreased since last visit. Blood sugars are running 150-180s in the AM. 04/26/[address] Weathers. The patient does not report increased drainage associated with the bilateral 1st toe diabetic ulcers. He feels the right leg cellulitis is much improved since starting Augmentin and he's been offloading with a cane and my taking time off of work to stay off his feet. His blood sugars are below 150 and he takes only metformin for diabetes. Past Medical History This information was obtained from the patient Patient has a medical history of: Type II Diabetes Diabetic foot ulcers (bilateral 1st toes; Hector grade II) Hyperlipidemia Chronic pain (neuropathic; left lateral foot) Complaints and Symptoms This information was obtained from the patient Patient complains of: General Notes: I have reviewed and concur with the Review of Systems and Past Family Social History documents completed by the clinician, I have reviewed and concur with the Wound Assessment document completed by the clinician Integumentary (Hair/Skin/Nails): Open Sore Musculoskeletal: Assistive Devices, Deformities Neurological: Abnormal Gait, Loss of Protective Sensation Prior Wound History: Drainage, Erythema, Pain Patient denies complaints or symptoms related to: Cardiovascular (Central/Peripheral): Intermittent Claudication, Lower extremity (leg) resting pain, Lower extremity (leg) swelling Constitutional Symptoms (General Health): Chills, Fever Ear/Nose/Mouth/Throat: Hearing Loss / Aid Gastrointestinal (GI): Nausea / Vomiting, Stomach/abdominal pain Hematologic/Lymphatic: Bleeding / Clotting Disorders, Bleeding Tendency Prior Wound History: Bleeding, Malodor Respiratory: Oxygen Use, Shortness of Breath Additional Information Does patient have a history of Cancer? Yes? Complete all questions.: No OBJECTIVE Constitutional BP normal; Low grade fever; Alert and in no distress. Well developed. Alert. Clean appearing.. Height/Length: 76 in (193.04 cm), Weight: 253 lbs (115 kgs), BMI: 30.8, Temperature: 99.3 ? F (37.39 ?C), Pulse: 103 bpm, Respiratory Rate: 18 breaths/min, Blood Pressure: 133/87 mmHg, Capillary Blood Glucose: 117 mg/dl, Pulse Oximetry: 97 %. Vital Signs Notes: Glucose per patient. Respiratory: No respiratory distress. Even respirations and without use of accessory muscles.. Cardiovascular: Affected extremity exhibits no peripheral edema or cyanosis, is warm, and is well perfused. Capillary refill is less than 2 seconds. Integumentary (Hair, Skin) No periwound erythema, warmth, or significant drainage. No periwound rashes appreciated or noted otherwise.. Refer to appropriate clinician wound documentation for this visit; right and left foot ulcers extend to subcut with bases partially covered with pink granulation, remainder fibrin and slough. Significant amount of callus in the periulcer areas. Wound #9 Left Great Toe is a chronic Hector Grade 2 Diabetic Ulcer and has received a status of Not Healed. Subsequent wound encounter measurements are 1.1cm length x 0.2cm width x 0.3cm depth, with an area of 0.22 sq cm and a volume of 0.066 cubic cm. No tunneling has been noted. No sinus tract has been noted. No undermining has been noted. There is a small amount of serosanguineous drainage noted which has no odor. The patient reports a wound pain of level 0/10. The wound margin is callus. Wound bed has Yes epithelialization, No eschar, No slough, Yes pink, firm granulation. The periwound skin moisture is normal. The periwound skin color is normal. The periwound skin exhibited: Callus. The periwound skin did not exhibit: Brawny Induration, Edema, Excoriation, Induration, Crepitus, Fluctuance, Friable, Rash. The temperature of the periwound skin is WNL. Periwound skin does not exhibit signs or symptoms of infection. Local Pulse is Palpable. Wound #10 Right Great Toe is a chronic Hector Grade 2 Diabetic Ulcer and has received a status of Not Healed. Subsequent wound encounter measurements are 0.4cm length x 0.6cm width x 0.2cm depth, with an area of 0.24 sq cm and a volume of 0.048 cubic cm. No tunneling has been noted. No sinus tract has been noted. No undermining has been noted. There is a small amount of serosanguineous drainage noted which has no odor. The patient reports a wound pain of level 0/10. The wound margin is callus. Wound bed has Yes epithelialization, No eschar, No slough, Yes bright red, pink, firm granulation. The periwound skin moisture is normal. The periwound skin color is normal. The periwound skin exhibited: Callus. The periwound skin did not exhibit: Brawny Induration, Edema, Excoriation, Induration, Crepitus, Fluctuance, Friable, Rash. The temperature of the periwound skin is WNL. Periwound skin does not exhibit signs or symptoms of infection. Local Pulse is Palpable. General Notes: Callus silver nitrated at last visit, causing discoloration. Neurological: Cranial nerves grossly intact with symmetric function normal by informal observation.. ASSESSMENT Active Problems ICD-10 (Encounter Diagnosis) E11.621 - Type 2 diabetes mellitus with foot ulcer (Encounter Diagnosis) L97.522 - Non-pressure chronic ulcer of other part of left foot with fat layer exposed (Encounter Diagnosis) L97.512 - Non-pressure chronic ulcer of other part of right foot with fat layer exposed (Encounter Diagnosis) L84 - Corns and callosities PROCEDURES Wound #9 Wound #9 (Diabetic Ulcer) is located on the left great toe. A skin/subcutaneous tissue level surgical debridement with a total area debrided of 0.2 sq cm was performed by Rakesh Weathers MD. Subcutaneous was removed along with devitalized tissue: callus and exudate. The following instrument(s) were used: curette. Pain control was achieved using 4% Lido. A time out was conducted prior to the start of the procedure. A minimal amount of bleeding was controlled with silver nitrate. The procedure was tolerated well with a pain level of 0 throughout and a pain level of 0 following the procedure. Post Debridement Measurements: 1cm length x 0.2cm width x 0.4cm depth; with an area of 0.2 sq cm and a volume of 0.08 cubic cm; Wound #10 Wound #10 (Diabetic Ulcer) is located on the right great toe. A skin/ subcutaneous tissue level surgical debridement with a total area debrided of 0.3 sq cm was performed by Rakesh Weathers MD. Subcutaneous was removed along with devitalized tissue: callus and exudate. The following instrument(s) were used: curette. Pain control was achieved using 4% Lido. A time out was conducted prior to the start of the procedure. A minimal amount of bleeding was controlled with silver nitrate. The procedure was tolerated well with a pain level of 0 throughout and a pain level of 0 following the procedure. Post Debridement Measurements: 0.5cm length x 0.6cm width x 0.2cm depth; with an area of 0.3 sq cm and a volume of 0.06 cubic cm; Additional Information Muscle fascia or bone removed and sent to pathology?: No Muscle fascia or bone removed and sent to pathology?: No PLAN Wound Orders: Wound #9 Left Great Toe Cleanser Cleanse Wound: - Normal saline and gauze, may use distilled water at home. May Shower. - Keep dressings dry. Topical Treatments Antibiotic/Antimicrobial Ointment/Cream. - Iodosorb. Dressings Cover and secure with: - Optifoam cut to fit, hypafix tape. Change Dressing: - Every other day. Off-Loading Keep weight off: - Both feet as much as possible. Use/Wear when Walking: - [place] boot. Wound #10 Right Great Toe Cleanser Cleanse Wound: - Normal saline and gauze, may use distilled water at home. May Shower. - Keep dressings dry. Topical Treatments Antibiotic/Antimicrobial Ointment/Cream. - Iodosorb. Dressings Cover and secure with: - Optifoam cut to fit, hypafix tape. Change Dressing: - Every other day. Off-Loading Keep weight off: - Both feet as much as possible. Use/Wear when Walking: - Custom diabetic shoe. Additional Orders: Follow-Up Appointments Return Appointment: - - One week. Other information: If you develop fever, chills, increased pain, drainage, redness or swelling please call our office. If after hours, respond to the ER. Should you experience any significant changes in your wound(s) or have any questions regarding your home care instructions please contact the wound center @ [phone]. If after hours, contact your primary care physician or go to the hospital emergency room. Scribing Attestation I attest, as the nurse, that I scribed these orders for the physician. General Notes: Supplies ordered through [facility]. Expect delivery in the next 2-3 days. I've reviewed the clinician's documentation and agree with the evaluation and plan as written. In addition the patient's ulcers demonstrate evidence of non-viable devitalized tissue and they will continue to benefit from sharp debridement to help promote granulation and expedite healing. 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 Electronic Signature(s) Signed By: Date: Rakesh Weathers MD 09/16/2018 07:29:40 Entered By: Rakesh Weathers on 09/16/2018 07:15:22
== END ==
PROVIDERS: PCP Student in an Organized Health Care Education/Training Program; Visit Provider Internal Medicine
DX: E11.621 Type 2 diabetes mellitus with foot ulcer (principal); L97.522 Non-pressure chronic ulcer of other part of left foot with fat layer exposed; L97.512 Non-pressure chronic ulcer of other part of right foot with fat layer exposed; L84 Corns and callosities
CPT/HCPCS: 11042

== ENCOUNTER → 2018-09-20 14:53 | Outpatient (CLI) | payer OTHER, SELFPAY | PROVIDERS: PCP Student in an Organized Health Care Education/Training Program; Visit Provider Internal Medicine | DX: E11.621 Type 2 diabetes mellitus with foot ulcer (principal); L97.522 Non-pressure chronic ulcer of other part of left foot with fat layer exposed; L97.512 Non-pressure chronic ulcer of other part of right foot with fat layer exposed | CPT/HCPCS: 11042 ==

== ENCOUNTER → 2018-09-27 13:03 | Outpatient (CLI) | payer OTHER, SELFPAY | PROVIDERS: PCP Student in an Organized Health Care Education/Training Program; Visit Provider Family Medicine | DX: E11.621 Type 2 diabetes mellitus with foot ulcer (principal); L97.522 Non-pressure chronic ulcer of other part of left foot with fat layer exposed; L97.512 Non-pressure chronic ulcer of other part of right foot with fat layer exposed | CPT/HCPCS: 11042; 99212 ==

== ENCOUNTER → 2018-09-27 14:28 | Outpatient (CLI) | payer OTHER, SELFPAY ==
--- NOTE | 2018-09-27 | DI.RAD.S_ITS ---
PROCEDURE: XR FOOT RT MIN 3V INDICATIONS: DIABETIC FOOT ULCERS TECHNIQUE: 3 views of the foot were acquired. COMPARISON: [facility], , FOOT 3V RIGHT, 06/11/2015, 12:36. FINDINGS: Bones: No fractures or dislocations. No suspicious bony lesions. There is degenerative joint disease at the first tarsometatarsal joint and multiple interphalangeal joints. Calcaneal spurring. Soft tissues: No tibiotalar joint effusion. Achilles tendon appears normal. IMPRESSION: 1. No bony erosion. Early osteomyelitis may not have radiographic findings. If clinical symptoms persist or clinical suspicion for bone infection is high, a triple phase bone scan or MRI with and without contrast is suggested for further evaluation. 2. Degenerative joint disease and calcaneal spurring. Dictated by: Irwin Dahl M.D. on 09/27/2018 at 16:29 Approved by: Irwin Dahl M.D. on 09/27/2018 at 16:32
--- NOTE | 2018-09-27 | DI.RAD.S_ITS ---
PROCEDURE: XR FOOT LT MIN 3V INDICATIONS: DIABETIC FOOT ULCERS TECHNIQUE: 3 views of the foot were acquired. COMPARISON: [facility], , FOOT 3V LEFT, 06/11/2015, 12:36. FINDINGS: Bones: No fractures or dislocations. No suspicious bony lesions. Mild talonavicular joint degeneration and multiple interphalangeal joint degeneration. There is calcaneal spurring. Soft tissues: No tibiotalar joint effusion. Achilles tendon appears normal. IMPRESSION: 1. No bony erosions. If clinical symptoms persist or clinical suspicion for bone infection is high, a triple phase bone scan or MRI with and without contrast is suggested for further evaluation. 2. Degenerative joint disease and calcaneal spurring. Dictated by: Irwin Dahl M.D. on 09/27/2018 at 16:32 Approved by: Irwin Dahl M.D. on 09/27/2018 at 16:34
[2018-09-27 14:55] LABS: Add Manual Diff / Slide Review NO; Basophils Percent Auto 0.3 % (0-2); Eosinophils Percent Auto 1.5 % (2-4); Hematocrit 43.3 % (41-53); Hemoglobin 15.1 g/dL (13.5-17.5); Lymphocytes Percent Auto 37.3 % (25-40); Mean Corpuscular Hemoglobin 33.1 PG (26-34); Mean Corpuscular Volume 94.6 fL (80-100); Neutrophils Absolute Auto 2900 /uL (3000-5900); Neutrophils Percent Auto 51.9 % (50-75); Platelet Count 197 X10^3/uL (150-400); Red Blood Cell Count 4.57 X10^6/uL (4.5-5.9); Red Cell Distribution Width 13.4 % (11.6-14.8); White Blood Cell Count 5.6 X10^3/uL (4.5-11.0)
[2018-09-27 15:13] LABS: Erythrocyte Sedimentation Rate 20 MM/HR (0-15)
[2018-09-27 16:07] LABS: Alanine Aminotransferase 33 IU/L (21-72); Albumin 4.6 g/dL (3.5-5.0); Albumin Globulin Ratio 1.4 (1.0-2.8); Alkaline Phosphatase 82 U/L (38-126); Aspartate Aminotransferase 21 IU/L (17-59); BUN Creatinine Ratio 18.6 (6-22); Bilirubin Total 0.9 mg/dL (0.2-1.3); Blood Urea Nitrogen 13 mg/dL (9-20); C-Reactive Protein Quant < 0.5 mg/dL (<1.0); Calcium 9.3 mg/dL (8.4-10.2); Carbon Dioxide 26 mmol/L (22-32); Chloride 100 mmol/L (98-107); Estimated Glomerular Filt Rate > 60.0 mL/min (>60); Globulin 3.3 g/dL (1.7-4.1); Glucose 175 mg/dL (70-100); HEMOLYSIS < 15 (0-50); Potassium 4.1 mmol/L (3.4-5.1); Sodium 142 mmol/L (137-145); Total Protein 7.9 g/dL (6.3-8.2)
[2018-09-27 16:12] LABS: Prealbumin 33.5 mg/dL (17.6-36.0)
== END ==
PROVIDERS: PCP Student in an Organized Health Care Education/Training Program; Visit Provider Family Medicine
DX: E11.621 Type 2 diabetes mellitus with foot ulcer (principal); L97.522 Non-pressure chronic ulcer of other part of left foot with fat layer exposed; L97.512 Non-pressure chronic ulcer of other part of right foot with fat layer exposed; M19.072 Primary osteoarthritis, left ankle and foot; M19.071 Primary osteoarthritis, right ankle and foot; M77.32 Calcaneal spur, left foot; M77.31 Calcaneal spur, right foot
CPT/HCPCS: 36415; 73630; 80053; 84134; 85025; 85651; 86140

== ENCOUNTER → 2018-10-04 09:58 | Outpatient (CLI) | payer OTHER, SELFPAY | PROVIDERS: PCP Student in an Organized Health Care Education/Training Program; Visit Provider Family Medicine | DX: E11.621 Type 2 diabetes mellitus with foot ulcer (principal); E11.40 Type 2 diabetes mellitus with diabetic neuropathy, unspecified; L97.522 Non-pressure chronic ulcer of other part of left foot with fat layer exposed; L97.512 Non-pressure chronic ulcer of other part of right foot with fat layer exposed | CPT/HCPCS: 11042; 99213 ==

== ENCOUNTER → 2018-10-18 13:58 | Outpatient (CLI) | payer OTHER, SELFPAY | PROVIDERS: PCP Student in an Organized Health Care Education/Training Program; Visit Provider Family Medicine | DX: E11.621 Type 2 diabetes mellitus with foot ulcer (principal); L97.522 Non-pressure chronic ulcer of other part of left foot with fat layer exposed; L97.512 Non-pressure chronic ulcer of other part of right foot with fat layer exposed | CPT/HCPCS: 11042; 99213 ==

== ENCOUNTER → 2018-10-24 13:59 | Outpatient (CLI) | payer OTHER, SELFPAY | PROVIDERS: PCP Student in an Organized Health Care Education/Training Program; Visit Provider Family Medicine | DX: E11.621 Type 2 diabetes mellitus with foot ulcer (principal); E11.40 Type 2 diabetes mellitus with diabetic neuropathy, unspecified; L97.511 Non-pressure chronic ulcer of other part of right foot limited to breakdown of skin; L97.521 Non-pressure chronic ulcer of other part of left foot limited to breakdown of skin | CPT/HCPCS: 11042 ==

== ENCOUNTER → 2018-10-31 13:17 | Outpatient (CLI) | payer OTHER, SELFPAY | PROVIDERS: PCP Student in an Organized Health Care Education/Training Program; Visit Provider Family Medicine | DX: E11.621 Type 2 diabetes mellitus with foot ulcer (principal); L97.522 Non-pressure chronic ulcer of other part of left foot with fat layer exposed; L97.512 Non-pressure chronic ulcer of other part of right foot with fat layer exposed | CPT/HCPCS: 11042 ==

== ENCOUNTER → 2018-10-31 14:27 | Outpatient (CLI) | payer OTHER, SELFPAY ==
--- NOTE | 2018-10-31 | DI.NM.S_ITS ---
PROCEDURE: NM BONE 3 PHASE RADIOPHARMACEUTICAL: 21.5 mCi Tc-99m MDP IV. INDICATIONS: TYPE 2 DIABETES TECHNIQUE: Multiple bone scintigrams were obtained after intravenous injection of Tc-99m MDP, including flow, blood pool, and delayed images centered to the region of interest. COMPARISON: [facility], CR, TOE MINIMUM 2 VIEWS RIGHT, 05/05/2017, 10:20. [facility], CR, TOE MINIMUM 2 VIEWS LEFT, 05/05/2017, 10:20. [facility], CR, XR FOOT RT MIN 3V, 09/27/2018, 14:39. [facility], CR, XR FOOT LT MIN 3V, 09/27/2018, 14:39. FINDINGS: The on the immediate flow images, there is bilateral tracer activity involving the great toe at the level of the IP joint, left slightly greater than right. This appears to be present on the blood pool and delayed phase images, suggesting osteomyelitis. However on the comparison radiograph from 09/27/18 no definite focal osseous destruction is seen. Repeat radiographs could be performed, or if clinically necessary, confirmation with contrast-enhanced forefoot MRI. IMPRESSION: Triple phase positivity involving the great toes bilaterally, although left slightly greater than right raising possibility of osteomyelitis however this is not radiographically evident on the comparison studies as discussed above. Consider repeat radiographs for confirmation.If clinically required further assessment with contrast-enhanced forefoot MRI could be performed. Dictated by: Dario Jean-Baptiste M.D. on 11/01/2018 at 16:12 Approved by: Dario Jean-Baptiste M.D. on 11/01/2018 at 16:22
== END ==
PROVIDERS: PCP Student in an Organized Health Care Education/Training Program; Visit Provider Family Medicine
DX: E11.621 Type 2 diabetes mellitus with foot ulcer (principal); L97.522 Non-pressure chronic ulcer of other part of left foot with fat layer exposed; L97.512 Non-pressure chronic ulcer of other part of right foot with fat layer exposed
CPT/HCPCS: 78315; A9503

== ENCOUNTER → 2018-11-07 09:42 | Outpatient (CLI) | payer OTHER, SELFPAY | PROVIDERS: PCP Student in an Organized Health Care Education/Training Program; Visit Provider Family Medicine | DX: E11.621 Type 2 diabetes mellitus with foot ulcer (principal); E11.40 Type 2 diabetes mellitus with diabetic neuropathy, unspecified; L97.522 Non-pressure chronic ulcer of other part of left foot with fat layer exposed; L97.512 Non-pressure chronic ulcer of other part of right foot with fat layer exposed | CPT/HCPCS: 11042 ==

== ENCOUNTER → 2018-11-16 09:59 | Outpatient (CLI) | payer OTHER, SELFPAY | PROVIDERS: PCP Student in an Organized Health Care Education/Training Program; Visit Provider Family Medicine | DX: E11.621 Type 2 diabetes mellitus with foot ulcer (principal); E11.40 Type 2 diabetes mellitus with diabetic neuropathy, unspecified; L97.522 Non-pressure chronic ulcer of other part of left foot with fat layer exposed; L97.512 Non-pressure chronic ulcer of other part of right foot with fat layer exposed | CPT/HCPCS: 11042 ==

== ENCOUNTER → 2018-11-16 11:33 | Outpatient (CLI) | payer OTHER, SELFPAY ==
--- NOTE | 2018-11-16 | DI.MRI.S_ITS ---
PROCEDURE: MR FOOT RT WO/W CON INDICATIONS: Non-pressure chronic ulcer of other elsa great toes TECHNIQUE: Noncontrast sagittal T1 spin echo and T2 fast spin echo with fat saturation, long-axis T1 spin echo and T2 fast spin echo with fat saturation; short-axis T1 spin echo, proton density fast spin echo, and T2 fast spin echo with fat saturation through the forefoot. Post-contrast short axis, long axis, and sagittal T1 spin echo with fat saturation through the forefoot. COMPARISON: [facility], MR, MR FOOT LT WO/W CON, 11/16/2018, 12:21. FINDINGS: Image quality: Excellent. Bones and joints: No suspicious osseous enhancement. No bone marrow contusions or metatarsal stress fractures. The sesamoid bones appear in expected positions, without internal edema. No metatarsophalangeal joint degeneration. No intraosseous lesions. Soft tissues: No suspicious soft tissue enhancement. The visualized plantar foot muscles demonstrate normal signal and bulk. Visualized flexor and extensor tendons appear intact, without tenosynovitis. The distal insertions of the peroneus brevis and longus tendons appear intact. The principal Lisfranc ligament appears intact. No soft tissue ganglion cysts or bursal fluid collections. Sagittal images demonstrate no evidence for plantar plate tears. IMPRESSION: No abscess or osteomyelitis found. Dictated by: Randy Uriostegui M.D. on 11/16/2018 at 15:52 Approved by: Randy Uriostegui M.D. on 11/16/2018 at 15:54
--- NOTE | 2018-11-16 14:50 | DI.MRI.S_ITS ---
PROCEDURE: MR FOOT LT WO/W CON INDICATIONS: non pressure chronic ulcers of bilateral great toes TECHNIQUE: Noncontrast sagittal T1 spin echo and T2 fast spin echo with fat saturation, long-axis T1 spin echo and T2 fast spin echo with fat saturation; short-axis T1 spin echo, proton density fast spin echo, and T2 fast spin echo with fat saturation through the forefoot. Post-contrast short axis, long axis, and sagittal T1 spin echo with fat saturation through the forefoot. COMPARISON: None. FINDINGS: Image quality: Slightly degraded due to patient motion. Bones and joints: Osteoarthritic changes are noted throughout visualized midfoot and forefoot joints particularly involving first MTP joint and first interphalangeal joint. There is marrow edema throughout first distal phalanx with cortical erosion involving the plantar aspect of first distal phalangeal tuft consistent with osteomyelitis in this area. Subtle intraosseous enhancement in this region is seen. No other area of abnormal marrow signal. No fracture or dislocation. No suspicious bony lesions. Soft tissues: There is ulceration involving medial and plantar aspect of distal left great toe adjacent to first distal phalanx with surrounding subcutaneous soft tissue edema and mild contrast enhancement consistent with cellulitis. No discrete drainable fluid collection is seen. The visualized plantar foot muscles demonstrate normal signal and bulk. Visualized flexor and extensor tendons appear intact, without tenosynovitis. The distal insertions of the peroneus brevis and longus tendons appear intact. The principal Lisfranc ligament appears intact. No soft tissue ganglion cysts or bursal fluid collections. Sagittal images demonstrate no evidence for plantar plate tears. IMPRESSION: 1. Ulceration involving the plantar and medial aspect of first distal phalanx with surrounding soft tissue cellulitis. No discrete drainable fluid collection is seen. 2. Osteomyelitis involving the first distal phalanx with subtle bony erosive changes involving plantar cortex of first distal phalangeal tuft. No other area of osteomyelitis. No fracture or dislocation. Dictated by: Nguyễn Webb M.D. on 11/16/2018 at 14:54 Approved by: Nguyễn Webb M.D. on 11/16/2018 at 15:06
== END ==
PROVIDERS: PCP Student in an Organized Health Care Education/Training Program; Visit Provider Family Medicine
DX: L97.522 Non-pressure chronic ulcer of other part of left foot with fat layer exposed (principal); L97.512 Non-pressure chronic ulcer of other part of right foot with fat layer exposed; M86.8X7 Other osteomyelitis, ankle and foot
CPT/HCPCS: 73720; A9579

== ENCOUNTER → 2018-11-23 16:25 | Outpatient (CLI) | payer OTHER, SELFPAY | PROVIDERS: PCP Student in an Organized Health Care Education/Training Program; Visit Provider Family Medicine | DX: E11.621 Type 2 diabetes mellitus with foot ulcer (principal); L97.521 Non-pressure chronic ulcer of other part of left foot limited to breakdown of skin; L97.511 Non-pressure chronic ulcer of other part of right foot limited to breakdown of skin; M86.172 Other acute osteomyelitis, left ankle and foot | CPT/HCPCS: 11042; 99213 ==

== ENCOUNTER → 2018-11-30 13:28 | Outpatient (CLI) | payer OTHER, SELFPAY | PROVIDERS: PCP Student in an Organized Health Care Education/Training Program; Visit Provider Family Medicine | DX: E11.621 Type 2 diabetes mellitus with foot ulcer (principal); L97.521 Non-pressure chronic ulcer of other part of left foot limited to breakdown of skin; L97.511 Non-pressure chronic ulcer of other part of right foot limited to breakdown of skin; M86.172 Other acute osteomyelitis, left ankle and foot | CPT/HCPCS: 11042 ==

== ENCOUNTER → 2018-12-13 13:01 | Outpatient (CLI) | payer OTHER, SELFPAY | PROVIDERS: PCP Student in an Organized Health Care Education/Training Program; Visit Provider Family Medicine | DX: E11.621 Type 2 diabetes mellitus with foot ulcer (principal); L97.521 Non-pressure chronic ulcer of other part of left foot limited to breakdown of skin; L97.511 Non-pressure chronic ulcer of other part of right foot limited to breakdown of skin; M86.172 Other acute osteomyelitis, left ankle and foot | CPT/HCPCS: 11042 ==

== ENCOUNTER → 2018-12-20 09:53 | Outpatient (CLI) | payer OTHER, SELFPAY | PROVIDERS: PCP Student in an Organized Health Care Education/Training Program; Visit Provider Family Medicine | DX: E11.621 Type 2 diabetes mellitus with foot ulcer (principal); L97.521 Non-pressure chronic ulcer of other part of left foot limited to breakdown of skin; L97.511 Non-pressure chronic ulcer of other part of right foot limited to breakdown of skin | CPT/HCPCS: 11042 ==

== ENCOUNTER → 2018-12-27 11:33 | Outpatient (CLI) | payer OTHER, SELFPAY | PROVIDERS: PCP Student in an Organized Health Care Education/Training Program; Visit Provider Family Medicine | DX: E11.621 Type 2 diabetes mellitus with foot ulcer (principal); L97.521 Non-pressure chronic ulcer of other part of left foot limited to breakdown of skin; L97.511 Non-pressure chronic ulcer of other part of right foot limited to breakdown of skin; M86.172 Other acute osteomyelitis, left ankle and foot | CPT/HCPCS: 11042 ==

== ENCOUNTER → 2019-01-10 10:15 | Outpatient (CLI) | payer OTHER, SELFPAY | PROVIDERS: PCP Student in an Organized Health Care Education/Training Program; Visit Provider Family Medicine | DX: E11.621 Type 2 diabetes mellitus with foot ulcer (principal); M86.172 Other acute osteomyelitis, left ankle and foot; L97.512 Non-pressure chronic ulcer of other part of right foot with fat layer exposed; L97.522 Non-pressure chronic ulcer of other part of left foot with fat layer exposed; R50.9 Fever, unspecified | CPT/HCPCS: 11042 ==

== ENCOUNTER → 2019-01-10 12:08 | Outpatient (CLI) | payer OTHER, SELFPAY ==
[2019-01-10 12:36] LABS: Add Manual Diff / Slide Review NO; Basophils Absolute Auto 0 /uL (0-100); Basophils Percent Auto 0.1 % (0-2); Eosinophils Absolute Auto 200 /uL (0-450); Eosinophils Percent Auto 2.3 % (2-4); Hematocrit 40.2 % (41-53); Hemoglobin 13.9 g/dL (13.5-17.5); Lymphocytes Absolute Auto 2400 /uL (1100-4500); Lymphocytes Percent Auto 31.8 % (25-40); Mean Corpuscular HGB Conc 34.6 % (30-36); Mean Corpuscular Hemoglobin 32.7 PG (26-34); Mean Corpuscular Volume 94.6 fL (80-100); Monocytes Absolute Auto 900 /uL (0-900); Monocytes Percent Auto 12.1 % (3-14); Neutrophils Absolute Auto 4100 /uL (1500-7000); Neutrophils Percent Auto 53.7 % (50-75); Platelet Count 223 X10^3/uL (150-400); Red Blood Cell Count 4.26 X10^6/uL (4.5-5.9); Red Cell Distribution Width 13.5 % (11.6-14.8); White Blood Cell Count 7.6 X10^3/uL (4.5-11.0)
[2019-01-10 12:41] LABS: Hemoglobin A1C% w Est Avg Glu 5.3 % (4.0-6.0)
[2019-01-10 12:54] LABS: C-Reactive Protein Quant 0.8 mg/dL (<1.0)
[2019-01-10 13:08] LABS: Erythrocyte Sedimentation Rate 56 MM/HR (0-15)
== END ==
PROVIDERS: PCP Student in an Organized Health Care Education/Training Program; Visit Provider Family Medicine
DX: E11.621 Type 2 diabetes mellitus with foot ulcer (principal)
CPT/HCPCS: 36415; 83036; 85025; 85651; 86140

== ENCOUNTER → 2019-01-17 13:28 | Outpatient (CLI) | payer OTHER, SELFPAY | PROVIDERS: PCP Student in an Organized Health Care Education/Training Program; Visit Provider Family Medicine | DX: E11.621 Type 2 diabetes mellitus with foot ulcer (principal); L97.512 Non-pressure chronic ulcer of other part of right foot with fat layer exposed; M86.172 Other acute osteomyelitis, left ankle and foot; L97.511 Non-pressure chronic ulcer of other part of right foot limited to breakdown of skin | CPT/HCPCS: 11042 ==

== ENCOUNTER → 2019-01-24 10:01 | Outpatient (CLI) | payer OTHER, SELFPAY | PROVIDERS: PCP Student in an Organized Health Care Education/Training Program; Visit Provider Family Medicine | DX: E11.621 Type 2 diabetes mellitus with foot ulcer (principal); L97.521 Non-pressure chronic ulcer of other part of left foot limited to breakdown of skin; L97.511 Non-pressure chronic ulcer of other part of right foot limited to breakdown of skin | CPT/HCPCS: 11042 ==

== ENCOUNTER → 2019-01-30 14:24 | Outpatient (CLI) | payer OTHER, SELFPAY | PROVIDERS: PCP Student in an Organized Health Care Education/Training Program; Visit Provider Family Medicine | DX: E11.621 Type 2 diabetes mellitus with foot ulcer (principal); L97.521 Non-pressure chronic ulcer of other part of left foot limited to breakdown of skin; L97.511 Non-pressure chronic ulcer of other part of right foot limited to breakdown of skin | CPT/HCPCS: 11042 ==

== ENCOUNTER → 2019-02-07 10:06 | Outpatient (CLI) | payer OTHER, SELFPAY | PROVIDERS: PCP Student in an Organized Health Care Education/Training Program; Visit Provider Family Medicine | DX: E11.621 Type 2 diabetes mellitus with foot ulcer (principal); L97.512 Non-pressure chronic ulcer of other part of right foot with fat layer exposed | CPT/HCPCS: 11042 ==

== ENCOUNTER → 2019-02-14 10:00 | Outpatient (CLI) | payer OTHER, SELFPAY | PROVIDERS: PCP Student in an Organized Health Care Education/Training Program; Visit Provider Family Medicine | DX: E11.621 Type 2 diabetes mellitus with foot ulcer (principal); L97.521 Non-pressure chronic ulcer of other part of left foot limited to breakdown of skin; L97.511 Non-pressure chronic ulcer of other part of right foot limited to breakdown of skin; M86.172 Other acute osteomyelitis, left ankle and foot | CPT/HCPCS: 11042 ==

== ENCOUNTER → 2019-02-21 13:01 | Outpatient (CLI) | payer OTHER, SELFPAY | PROVIDERS: PCP Student in an Organized Health Care Education/Training Program; Visit Provider Family Medicine | DX: E11.621 Type 2 diabetes mellitus with foot ulcer (principal); L97.521 Non-pressure chronic ulcer of other part of left foot limited to breakdown of skin; L97.511 Non-pressure chronic ulcer of other part of right foot limited to breakdown of skin; M86.172 Other acute osteomyelitis, left ankle and foot | CPT/HCPCS: 11042 ==

== ENCOUNTER → 2019-02-27 10:43 | Outpatient (CLI) | payer OTHER, SELFPAY | PROVIDERS: PCP Student in an Organized Health Care Education/Training Program; Visit Provider Family Medicine | DX: E11.621 Type 2 diabetes mellitus with foot ulcer (principal); L97.521 Non-pressure chronic ulcer of other part of left foot limited to breakdown of skin; L97.511 Non-pressure chronic ulcer of other part of right foot limited to breakdown of skin | CPT/HCPCS: 97597; 99203 ==

== ENCOUNTER → 2019-03-06 15:07 | Outpatient (CLI) | payer OTHER, SELFPAY | PROVIDERS: PCP Student in an Organized Health Care Education/Training Program; Visit Provider Podiatrist Primary Podiatric Medicine | DX: E11.621 Type 2 diabetes mellitus with foot ulcer (principal); L97.521 Non-pressure chronic ulcer of other part of left foot limited to breakdown of skin; L97.511 Non-pressure chronic ulcer of other part of right foot limited to breakdown of skin | CPT/HCPCS: 11042; 97597; 99213 ==

== ENCOUNTER → 2019-03-13 10:42 | Outpatient (CLI) | payer OTHER, SELFPAY | PROVIDERS: PCP Student in an Organized Health Care Education/Training Program; Visit Provider Podiatrist Primary Podiatric Medicine | DX: E11.621 Type 2 diabetes mellitus with foot ulcer (principal); E11.40 Type 2 diabetes mellitus with diabetic neuropathy, unspecified; L97.521 Non-pressure chronic ulcer of other part of left foot limited to breakdown of skin; L97.511 Non-pressure chronic ulcer of other part of right foot limited to breakdown of skin | CPT/HCPCS: 11042; 99213 ==

== ENCOUNTER → 2019-03-13 11:07 | Outpatient (CLI) | payer OTHER, SELFPAY ==
--- NOTE | 2019-03-13 | DI.RAD.S_ITS ---
PROCEDURE: XR FOOT RT MIN 3V INDICATIONS: EVALUATE FOR CHARCOT FOOT TECHNIQUE: 3 views of the foot were acquired. COMPARISON: [facility], CR, XR FOOT LT MIN 3V, 09/27/2018, 14:39. [facility], CR, XR FOOT RT MIN 3V, 09/27/2018, 14:39. FINDINGS: Bones: No fractures or dislocations. No suspicious bony lesions. Arthritic spurring is present at the first tarsal-metatarsal articulation, best seen superiorly and medially. Soft tissues: No tibiotalar joint effusion. Achilles tendon appears normal. IMPRESSION: Osteophytic spurring at the superior medial border of the first tarsal-metatarsal articulation and otherwise the study appears normal, free of trauma. Dictated by: Randy Uriostegui M.D. on 03/13/2019 at 11:45 Approved by: Randy Uriostegui M.D. on 03/13/2019 at 11:46
== END ==
PROVIDERS: PCP Student in an Organized Health Care Education/Training Program; Visit Provider Podiatrist Primary Podiatric Medicine
DX: E11.621 Type 2 diabetes mellitus with foot ulcer (principal)
CPT/HCPCS: 73630

== ENCOUNTER → 2019-03-20 09:41 | Outpatient (CLI) | payer OTHER, SELFPAY | PROVIDERS: PCP Student in an Organized Health Care Education/Training Program; Visit Provider Podiatrist Primary Podiatric Medicine | DX: E11.621 Type 2 diabetes mellitus with foot ulcer (principal); L97.511 Non-pressure chronic ulcer of other part of right foot limited to breakdown of skin; L97.521 Non-pressure chronic ulcer of other part of left foot limited to breakdown of skin | CPT/HCPCS: 87070; 87075; 87077; 87186; 87205; 97597; 99213 ==

== ENCOUNTER → 2019-03-27 09:45 | Outpatient (CLI) | payer OTHER, SELFPAY | PROVIDERS: PCP Student in an Organized Health Care Education/Training Program; Visit Provider Podiatrist Primary Podiatric Medicine | DX: E11.621 Type 2 diabetes mellitus with foot ulcer (principal); L97.521 Non-pressure chronic ulcer of other part of left foot limited to breakdown of skin; L97.511 Non-pressure chronic ulcer of other part of right foot limited to breakdown of skin | CPT/HCPCS: 97597 ==

== ENCOUNTER → 2019-04-03 11:14 | Outpatient (CLI) | payer OTHER, SELFPAY | PROVIDERS: PCP Student in an Organized Health Care Education/Training Program; Visit Provider Podiatrist Primary Podiatric Medicine | DX: E11.621 Type 2 diabetes mellitus with foot ulcer (principal); L97.521 Non-pressure chronic ulcer of other part of left foot limited to breakdown of skin; L97.511 Non-pressure chronic ulcer of other part of right foot limited to breakdown of skin | CPT/HCPCS: 11042 ==

== ENCOUNTER → 2019-04-10 13:42 | Outpatient (CLI) | payer OTHER, SELFPAY | PROVIDERS: PCP Student in an Organized Health Care Education/Training Program; Visit Provider Podiatrist Primary Podiatric Medicine | DX: E11.621 Type 2 diabetes mellitus with foot ulcer (principal); L97.511 Non-pressure chronic ulcer of other part of right foot limited to breakdown of skin | CPT/HCPCS: 97597 ==

== ENCOUNTER → 2019-04-24 11:20 | Outpatient (CLI) | payer OTHER, SELFPAY | PROVIDERS: PCP Student in an Organized Health Care Education/Training Program; Visit Provider Podiatrist Primary Podiatric Medicine | DX: E11.621 Type 2 diabetes mellitus with foot ulcer (principal); L97.511 Non-pressure chronic ulcer of other part of right foot limited to breakdown of skin; L97.521 Non-pressure chronic ulcer of other part of left foot limited to breakdown of skin; M79.675 Pain in left toe(s); M79.674 Pain in right toe(s); I80.02 Phlebitis and thrombophlebitis of superficial vessels of left lower extremity | CPT/HCPCS: 97597 ==

== ENCOUNTER 2019-04-24 12:11 | Emergency (ER) | payer OTHER, SELFPAY ==
--- NOTE | 2019-04-24 12:13 | DI.US.S_ITS ---
PROCEDURE: US PERIPH VENOUS LOW EXTREM LT INDICATIONS: REDNESS, SWELLING TECHNIQUE: Real-time imaging, as well as color and pulse Doppler interrogation, were performed of the lower extremity deep veins from the inguinal ligament to the popliteal fossa. COMPARISON: None. FINDINGS: The common femoral, femoral and popliteal veins are normally compressible, and free of intraluminal thrombus. Color and pulse Doppler demonstrate normal phasic intraluminal flow. There is normal augmentation response to distal compression maneuver. Left internal lymph nodes are incidentally noted which are somewhat enlarged and heterogeneous with the largest measuring up to 1.4 cm in short axis. IMPRESSION: 1. No evidence of left lower extremity deep vein thrombosis. 2. Enlarged left inguinal lymph nodes are of uncertain etiology may be related to an infectious or inflammatory process involving the left lower leg. A neoplastic process cannot be excluded. Dictated by: Jorge Holman M.D. on 04/24/2019 at 12:32 Approved by: Jorge Holman M.D. on 04/24/2019 at 12:33
[2019-04-24 12:18] VITALS: BP 127/82; PULSE 75; RESP 18; TEMP 36.7; O2SAT 100; BMI 34.1
--- NOTE | 2019-04-24 12:34 | ED_ITS ---
HPI - Extremity Problem <Darline Hightower PA-C - Last Filed: 04/24/19 20:02> General Chief complaint: Extremity Problem,Nontraumatic Stated complaint: lower left leg ultrasound for dvt Time Seen by Provider: 04/24/19 12:40 Source: patient and old records reviewed (Wound care) Mode of arrival: ambulatory Limitations: no limitations History of Present Illness HPI Narrative: This 38-year-old male is sent by wound care DPM due to lower extremity thrombophlebitis and concern for possible DVT today, ultrasound requested. He is being treated there for chronic toe and foot ulcerations associated with diabetes and neuropathy and was being seen for routine follow-up there. He states that it is not unusual for him to have some swelling around his feet and ankles, but left side was a little bit more swollen today, and Dr. Ureña noticed veins were more swollen in the area and has tenderness along the lower leg and calf. He states that he has chronic pain from his ulcerations, but did not notice the tenderness until she palpated there. He states that he is not having pain or enlarged veins on the right side, which was put into a new cast at that visit a short time ago. He would prefer not to have that removed. He denies any chest pain or dyspnea. He is a nonsmoker. No personal or family history of blood clots, however he did fly here from [place] on Wednesday. Related Data Home Medications Medication Instructions Recorded Confirmed atorvastatin [Lipitor] 40 mg PO HS #0 06/12/16 gabapentin [Neurontin] 1,200 mg PO BID #0 06/12/16 metformin [Glucophage XR] 1,000 mg PO BID #0 06/12/16 venlafaxine 75 mg PO QDAY #0 10/13/16 Previous Rx's Medication Instructions Recorded [COMPOUND CREAM] #120 gm 10/19/16 Allergies Allergy/AdvReac Type Severity Reaction Status Date / Time No Known Drug Allergies Allergy Verified 04/24/19 12:18 Review of Systems <Darline Hightower PA-C - Last Filed: 04/24/19 20:02> Review of Systems ROS Unobtainable: All systems reviewed & are unremarkable except as noted in HPI and below PFSH <Darline Hightower PA-C - Last Filed: 04/24/19 20:02> Medical History (Updated 04/24/19 @ 13:55 by Darline Hightower PA-C) Bilateral lower extremity edema (Chronic) Chronic ulcer of lower extremity (Chronic) Diabetes (Chronic) Hyperlipidemia (Chronic) Neuropathy (Chronic) Chronic low back pain (Inactive) Surgical History (Updated 04/24/19 @ 12:49 by Darline Hightower PA-C) No history of previous surgery (Chronic) Social History Smoking Status: Never smoker Social History Smoking Status: Never smoker Exam <Darline Hightower PA-C - Last Filed: 04/24/19 20:02> Narrative Exam Narrative: GENERAL APPEARANCE: Patient sitting comfortably, in no distress. LUNGS: Clear to auscultation bilaterally. HEART: Rate and rhythm regular without murmur, normal S1 and S2, no S3 or S4. EXTREMITIES: Right lower extremity is bandaged and in a cast. Left mild pedal and bimalleolar edema does not extend to the calf. There are small varicosities and few palpable, ropey veins 1 extending to the mid calf. Moderate tenderness around the ankle and posterior calf. Left foot is warm and pink with brisk cap refill and intact pedal pulses Initial Vital Signs Initial Vital Signs: Vital Signs Temperature 98.0 F 04/24/19 12:18 Pulse Rate 75 04/24/19 12:18 Respiratory Rate 18 04/24/19 12:18 Blood Pressure 127/82 04/24/19 12:18 Pulse Oximetry 100 04/24/19 12:18 <Maddison Lambert MD - Last Filed: 04/24/19 20:25> Initial Vital Signs Initial Vital Signs: Vital Signs Temperature 98.0 F 04/24/19 12:18 Pulse Rate 75 04/24/19 12:18 Respiratory Rate 18 04/24/19 12:18 Blood Pressure 127/82 04/24/19 12:18 Pulse Oximetry 100 04/24/19 12:18 Course <Darline Hightower PA-C - Last Filed: 04/24/19 20:02> Orders Ordered: ED Orders 04/24/19 12:13 perip venous low extrem lt Stat Vital Signs - 8 hr 04/24/19 13:30 Pulse Rate 68 Respiratory Rate 16 Blood Pressure [Left Arm] 124/75 Pulse Oximetry 99 <Maddison Lambert MD - Last Filed: 04/24/19 20:25> Orders Ordered: ED Orders 04/24/19 12:13 US periph venous low extrem lt Stat Vital Signs - 8 hr 04/24/19 13:30 Pulse Rate 68 Respiratory Rate 16 Blood Pressure [Left Arm] 124/75 Pulse Oximetry 99 MDM - Extremity (Nontraumatic) <Darline Hightower PA-C - Last Filed: 04/24/19 20:02> Imaging Data Venous US: Radiologist's impression: Baljit Mckay 38 M 1980 [place] [address] Ultrasound Report Signed Patient: Baljit Mckay DMR#: [id number] : 1980Acct:[id number] Age/Sex: 38 / MDate of Service: 04/24/19 Loc: ED Accession Number: [id number] Procedure: US periph venous low extrem lt Ordering Provider: Maddison Lambert MD PROCEDURE: US PERIPH VENOUS LOW EXTREM LT INDICATIONS: REDNESS, SWELLING TECHNIQUE: Real-time imaging, as well as color and pulse Doppler interrogation, were performed of the lower extremity deep veins from the inguinal ligament to the popliteal fossa. COMPARISON: None. FINDINGS: The common femoral, femoral and popliteal veins are normally compressible, and free of intraluminal thrombus. Color and pulse Doppler demonstrate normal phasic intraluminal flow. There is normal augmentation response to distal compression maneuver. Left internal lymph nodes are incidentally noted which are somewhat enlarged and heterogeneous with the largest measuring up to 1.4 cm in short axis. IMPRESSION: 1. No evidence of left lower extremity deep vein thrombosis. 2. Enlarged left inguinal lymph nodes are of uncertain etiology may be related to an infectious or inflammatory process involving the left lower leg. A neoplastic process cannot be excluded. Dictated by: Jorge Holman M.D. on 04/24/2019 at 12:32 Approved by: Jorge Holman M.D. on 04/24/2019 at 12:33 Discharge Plan Departure Patient Disposition: Home Clinical Impression: Phlebitis of superficial vein of left lower extremity Discharge Date/Time: 04/24/19 14:07 Interventions: ED Discharge Assessment Last Done: 04/24/19 14:06 Instructions: Superficial Thrombophlebitis, DI for Edema Due to Venous Stasis Activity Restrictions/Additional Instructions: Since you have a little bit more swelling than usual in your foot and ankle along with the tender veins, try wearing your compression sock and elevating the leg above your heart as much as possible. You can take your ibuprofen that you already have at home as needed for pain. Your ultrasound did not show any deep blood clot today. You did have some coincidentally noted enlarged lymph nodes near your thigh/groin which might be related to the infections that you have had in the past (it is not clear whether this is a new finding). Please follow-up with your PCP in a few days if this is not improving, and return here as we talked about if you have any acutely worsening symptoms. Also please follow-up with your PCP in the next couple of weeks regarding the enlarged lymph node to determine whether that is new or whether any further testing is needed. Prescriptions: No Action atorvastatin [Lipitor] 40 MG tablet 40 mg PO HS Qty: 0 RF: 0 metformin [Glucophage XR] 500 MG tablet extended release 24 hr 1,000 mg PO BID Qty: 0 RF: 0 gabapentin [Neurontin] 300 MG capsule 1,200 mg PO BID Qty: 0 RF: 0 venlafaxine 75 MG tablet extended release 24hr 75 mg PO QDAY Qty: 0 RF: 0 [COMPOUND CREAM] Qty: 120 RF: 4 Referrals: Carlos Jones MD [Primary Care Provider] - Asha Ureña DPM [Non-Staff] -
[2019-04-24 13:30] VITALS: BP 124/75; PULSE 68; RESP 16; O2SAT 99
== END 2019-04-24 14:07 | disposition home or self-care (01) ==
PROVIDERS: Emergency Provider Internal Medicine; PCP Student in an Organized Health Care Education/Training Program
DX: I80.02 Phlebitis and thrombophlebitis of superficial vessels of left lower extremity (principal)
CPT/HCPCS: 93971; 99282; 99283

== ENCOUNTER → 2019-05-01 11:10 | Outpatient (CLI) | payer OTHER, SELFPAY | PROVIDERS: PCP Student in an Organized Health Care Education/Training Program; Visit Provider Podiatrist Primary Podiatric Medicine | DX: E11.621 Type 2 diabetes mellitus with foot ulcer (principal); L97.521 Non-pressure chronic ulcer of other part of left foot limited to breakdown of skin; L97.511 Non-pressure chronic ulcer of other part of right foot limited to breakdown of skin; M79.672 Pain in left foot; M79.671 Pain in right foot | CPT/HCPCS: 87070; 87075; 87077; 87147; 87186; 87205; 97597 ==

== ENCOUNTER → 2019-05-08 14:00 | Outpatient (CLI) | payer OTHER, SELFPAY | PROVIDERS: PCP Student in an Organized Health Care Education/Training Program; Visit Provider Podiatrist Primary Podiatric Medicine | DX: E11.621 Type 2 diabetes mellitus with foot ulcer (principal); L97.521 Non-pressure chronic ulcer of other part of left foot limited to breakdown of skin; L97.511 Non-pressure chronic ulcer of other part of right foot limited to breakdown of skin; M79.672 Pain in left foot; M79.671 Pain in right foot | CPT/HCPCS: 97597 ==

== ENCOUNTER → 2019-05-15 13:23 | Outpatient (CLI) | payer OTHER, SELFPAY | PROVIDERS: PCP Student in an Organized Health Care Education/Training Program; Visit Provider Podiatrist Primary Podiatric Medicine | DX: E11.621 Type 2 diabetes mellitus with foot ulcer (principal); L97.521 Non-pressure chronic ulcer of other part of left foot limited to breakdown of skin; L97.511 Non-pressure chronic ulcer of other part of right foot limited to breakdown of skin | CPT/HCPCS: 11042; 97597 ==

== ENCOUNTER → 2019-05-22 10:31 | Outpatient (CLI) | payer OTHER, SELFPAY | PROVIDERS: PCP Student in an Organized Health Care Education/Training Program; Visit Provider Podiatrist Primary Podiatric Medicine | DX: E11.621 Type 2 diabetes mellitus with foot ulcer (principal); L97.521 Non-pressure chronic ulcer of other part of left foot limited to breakdown of skin; L97.511 Non-pressure chronic ulcer of other part of right foot limited to breakdown of skin; L89.892 Pressure ulcer of other site, stage 2 | CPT/HCPCS: 97597 ==

== ENCOUNTER → 2019-05-24 12:53 | Outpatient (CLI) | payer OTHER, SELFPAY | PROVIDERS: PCP Student in an Organized Health Care Education/Training Program; Visit Provider Podiatrist Primary Podiatric Medicine | DX: E11.621 Type 2 diabetes mellitus with foot ulcer (principal); L97.521 Non-pressure chronic ulcer of other part of left foot limited to breakdown of skin; L97.511 Non-pressure chronic ulcer of other part of right foot limited to breakdown of skin; L89.892 Pressure ulcer of other site, stage 2 | CPT/HCPCS: 99213 ==

== ENCOUNTER → 2019-05-29 10:39 | Outpatient (CLI) | payer OTHER, SELFPAY | PROVIDERS: PCP Student in an Organized Health Care Education/Training Program; Visit Provider Podiatrist Primary Podiatric Medicine | DX: E11.621 Type 2 diabetes mellitus with foot ulcer (principal); L97.521 Non-pressure chronic ulcer of other part of left foot limited to breakdown of skin; L97.511 Non-pressure chronic ulcer of other part of right foot limited to breakdown of skin; L89.892 Pressure ulcer of other site, stage 2; M79.672 Pain in left foot; M79.671 Pain in right foot | CPT/HCPCS: 97597 ==

== ENCOUNTER → 2019-06-05 15:01 | Outpatient (CLI) | payer OTHER, SELFPAY | PROVIDERS: PCP Student in an Organized Health Care Education/Training Program; Visit Provider Podiatrist Primary Podiatric Medicine | DX: E11.621 Type 2 diabetes mellitus with foot ulcer (principal); L97.521 Non-pressure chronic ulcer of other part of left foot limited to breakdown of skin; L97.511 Non-pressure chronic ulcer of other part of right foot limited to breakdown of skin; L89.892 Pressure ulcer of other site, stage 2 | CPT/HCPCS: 11043; 97597 ==

== ENCOUNTER → 2019-06-06 14:44 | Outpatient (CLI) | payer OTHER, SELFPAY | PROVIDERS: PCP Student in an Organized Health Care Education/Training Program; Visit Provider Family Medicine | DX: E11.621 Type 2 diabetes mellitus with foot ulcer (principal); L97.521 Non-pressure chronic ulcer of other part of left foot limited to breakdown of skin; L97.511 Non-pressure chronic ulcer of other part of right foot limited to breakdown of skin; L89.892 Pressure ulcer of other site, stage 2 | CPT/HCPCS: 29445 ==

== ENCOUNTER → 2019-06-12 10:04 | Outpatient (CLI) | payer OTHER, SELFPAY | PROVIDERS: PCP Student in an Organized Health Care Education/Training Program; Visit Provider Podiatrist Primary Podiatric Medicine | DX: E11.621 Type 2 diabetes mellitus with foot ulcer (principal); E11.40 Type 2 diabetes mellitus with diabetic neuropathy, unspecified; L97.521 Non-pressure chronic ulcer of other part of left foot limited to breakdown of skin; L97.511 Non-pressure chronic ulcer of other part of right foot limited to breakdown of skin; L89.612 Pressure ulcer of right heel, stage 2; M79.675 Pain in left toe(s); M79.674 Pain in right toe(s) | CPT/HCPCS: 97597 ==

== ENCOUNTER → 2019-06-19 10:02 | Outpatient (CLI) | payer OTHER, SELFPAY | PROVIDERS: PCP Student in an Organized Health Care Education/Training Program; Visit Provider Podiatrist Primary Podiatric Medicine | DX: E11.621 Type 2 diabetes mellitus with foot ulcer (principal); L97.511 Non-pressure chronic ulcer of other part of right foot limited to breakdown of skin; L97.521 Non-pressure chronic ulcer of other part of left foot limited to breakdown of skin; L89.892 Pressure ulcer of other site, stage 2 | CPT/HCPCS: 97597; 99213; 99214 ==

== ENCOUNTER 2019-06-19 12:20 | Emergency (ER) | payer OTHER, SELFPAY ==
--- NOTE | 2019-06-19 12:27 | ED.WOUNDLAC ---
HPI - Wound/Laceration <Darline Hightower PA-C - Last Filed: 06/19/19 20:21> General Chief Complaint: Extremity Injury, Lower Stated Complaint: Came from , thinks going to lose Big Toe Time Seen by Provider: 06/19/19 12:27 Source: patient Mode of arrival: ambulatory Limitations: no limitations History of Present Illness HPI narrative: This 38-year-old male diabetic is sent by wound clinic DPM for evaluation of changes in his left great toe. She was concerned about ischemia and need for possible amputation. Patient states that his toe seemed more cold, and macerated today with bluish discoloration versus last time it was dressed 3 days ago. He has had progressively worsening pain in the left lower extremity this week which is not atypical of his nerve pain, but severe enough that he could not work a couple of days ago. He does not have pain in the toe due to neuropathy. He denies any drainage. He denies any new fever. Thinks there might be some increased redness around the wound. He has not had any new swelling in his extremities. He denies chest pain, dyspnea, or other new complaints on systems review. He states that he has been on 3rd round of 2 week course of Bactrim for about 10 days. Related Data Home Medications Medication Instructions Recorded Confirmed atorvastatin [Lipitor] 40 mg PO BEDTIME #0 06/12/16 06/19/19 metformin 1,000 mg PO BID 06/19/19 06/19/19 pregabalin [Lyrica] 100 mg PO BID 06/19/19 06/19/19 sulfamethoxazole-trimethoprim 1 tab PO BID 06/19/19 06/19/19 Allergies Allergy/AdvReac Type Severity Reaction Status Date / Time No Known Drug Allergies Allergy Verified 04/24/19 12:18 Review of Systems <Darline Hightower PA-C - Last Filed: 06/19/19 20:21> Review of Systems ROS Unobtainable: All systems reviewed & are unremarkable except as noted in HPI and below PFSH <Darline Hightower PA-C - Last Filed: 06/19/19 20:21> Medical History Bilateral lower extremity edema (Chronic) Chronic ulcer of lower extremity (Chronic) Diabetes (Chronic) Hyperlipidemia (Chronic) Neuropathy (Chronic) Chronic low back pain (Inactive) Surgical History No history of previous surgery (Chronic) Social History Smoking Status: Never smoker Social History Smoking Status: Never smoker Exam <Darline Hightower PA-C - Last Filed: 06/19/19 20:21> Narrative Exam Narrative: GENERAL APPEARANCE: Patient sitting comfortably, in no distress. LUNGS: Clear to auscultation bilaterally. HEART: Rate and rhythm regular without murmur, normal S1 and S2, no S3 or S4. EXTREMITIES: Bilateral lower extremities trace edema with multiple varicosities. Left and right PT pulses 2+, left PT pulse is triphasic with Doppler. Right DP pulse not assessed due to dressings. Left DP pulse not palpable, easily audible with Doppler, biphasic. The plantar surface of the left great toe is dusky and slightly cool versus the other toes DERMATOLOGIC: Open, somewhat moist, pink/red ulcerations of the left great toe on both the plantar and dorsal surfaces. Somewhat macerated. Not weeping. There is a small amount of serous drainage on bandage. Mild erythema to the mid anterior surface of the foot Initial Vital Signs Initial Vital Signs: Vital Signs Temperature 98.9 F 06/19/19 12:29 Pulse Rate 90 06/19/19 12:29 Respiratory Rate 14 06/19/19 12:29 Blood Pressure 140/84 06/19/19 12:29 Pulse Oximetry 99 06/19/19 12:29 <Josue Fernández DO - Last Filed: 06/20/19 06:50> Initial Vital Signs Initial Vital Signs: Vital Signs Temperature 98.9 F 06/19/19 12:29 Pulse Rate 90 06/19/19 12:29 Respiratory Rate 14 06/19/19 12:29 Blood Pressure 140/84 06/19/19 12:29 Pulse Oximetry 99 06/19/19 12:29 Course <Darline Hightower PA-C - Last Filed: 06/19/19 20:21> Additional Information: I spoke with on-call orthopedist Dr. Parker covering for patient's DPM Dr. Son (she is providing ongoing care and surgery is planned for the right foot already). He agrees that no urgent surgical intervention is needed today. He advised seeing Dr. Son for follow-up tomorrow morning, patient is scheduled for follow-up at 9:00 a.m. and agreeable with this plan. Relayed to Dr. Ureña Orders Ordered: ED Orders 06/19/19 12:39 XR toe LT min 2V Stat 06/19/19 14:50 C-Reactive Protein Quant Stat Complete Blood Count AUTO DIFF Stat Comprehensive Metabolic Panel Stat Erythrocyte Sedimentation Rate Stat Lactate (Lactic Acid) Stat Vital Signs - 8 hr 06/19/19 12:29 06/19/19 15:53 Temperature 98.9 F Pulse Rate 90 87 Respiratory Rate 14 16 Blood Pressure 140/84 Blood Pressure [Right Arm] 119/65 Pulse Oximetry 99 100 <Josue Fernández DO - Last Filed: 06/20/19 06:50> Orders Ordered: ED Orders 06/19/19 12:39 XR toe LT min 2V Stat 06/19/19 14:50 C-Reactive Protein Quant Stat Complete Blood Count AUTO DIFF Stat Comprehensive Metabolic Panel Stat Erythrocyte Sedimentation Rate Stat Lactate (Lactic Acid) Stat Vital Signs - 8 hr 06/19/19 12:29 06/19/19 15:53 Temperature 98.9 F Pulse Rate 90 87 Respiratory Rate 14 16 Blood Pressure 140/84 Blood Pressure [Right Arm] 119/65 Pulse Oximetry 99 100 MDM - Wound/Laceration <Darline Hightower PA-C - Last Filed: 06/19/19 20:21> Lab Data Result diagrams: 06/19/19 14:50 06/19/19 14:50 Lab Results 06/19/19 06/19/19 06/19/19 Range/Units 14:50 14:50 14:50 WBC 8.8 (4.5-11.0) X10^3/uL RBC 3.90 L (4.5-5.9) X10^6/uL Hgb 12.4 L (13.5-17.5) g/dL Hct 36.5 L (41-53) % MCV 93.5 (80-100) fL MCH 31.8 (26-34) PG MCHC 34.0 (30-36) % RDW 13.1 (11.6-14.8) % Plt Count 205 (150-400) X10^3/uL Neut % (Auto) 62.3 (50-75) % Lymph % (Auto) 24.4 L (25-40) % [place] % (Auto) 11.5 (3-14) % Eos % (Auto) 1.4 L (2-4) % Baso % (Auto) 0.4 (0-2) % Neut # (Auto) 5500 (2726-3506) /uL Lymph # (Auto) 2200 (9022-1710) /uL [place] # (Auto) 1000 H (0-900) /uL Eos # (Auto) 100 (0-450) /uL Baso # (Auto) 0 (0-100) /uL ESR 98 H (0-15) MM/HR Sodium 140 (137-145) mmol/L Potassium 4.0 (3.4-5.1) mmol/L Chloride 102 (98-107) mmol/L Carbon Dioxide 28 (22-32) mmol/L BUN 9 (9-20) mg/dL Creatinine 0.60 L (0.66-1.25) mg/dL Estimated GFR > 60.0 (>60) mL/min BUN/Creatinine Ratio 15.0 (6-22) Glucose 89 (70-100) mg/dL Lactate 1.1 (0.7-2.1) mmol/L Calcium 9.2 (8.4-10.2) mg/dL Total Bilirubin 1.1 (0.2-1.3) mg/dL AST 22 (17-59) IU/L ALT 12 L (21-72) IU/L Alkaline Phosphatase 84 (38-126) U/L C-Reactive Protein 7.4 H (<1.0) mg/dL Total Protein 8.8 H (6.3-8.2) g/dL Albumin 4.4 (3.5-5.0) g/dL Globulin 4.4 H (1.7-4.1) g/dL Albumin/Globulin Ratio 1.0 (1.0-2.8) Imaging Data toe: Radiologist's impression: [address] [address] XRay Report Signed Patient: Baljit Mckay [facility]#: [id number] : 1980Acct:[id number] Age/Sex: 38 / MDate of Service: 06/19/19 Loc: ED Accession Number: [id number] Procedure: XR toe LT min 2V Ordering Provider: Darline Hightower P.A-C PROCEDURE: XR TOE LT MIN 2V INDICATIONS: worsening infection TECHNIQUE: 3 views of the great toe(s) acquired. COMPARISON: [facility] [place], CR, XR TOE(S) LEFT, 01/17/2019, 11:16. [facility], CR, XR FOOT RT MIN 3V, 03/13/2019, 11:13. [facility], CR, TOE MINIMUM 2 VIEWS RIGHT, 05/05/2017, 10:20. [facility], CR, TOE MINIMUM 2 VIEWS LEFT, 05/05/2017, 10:20. FINDINGS: Bones: There is a comminuted fracture that involves the distal half of the first proximal phalanx, in an area by plain film previously normal 01/17/19. There is slight osteopenia involving the base of the first distal phalanx, and what appears to be ostiolysis seen on the lateral view along the dorsum of the base of that phalanx. No suspicious bony lesions. Soft tissues: No suspicious soft tissue densities. IMPRESSION: Suspect osteomyelitis in the setting of a presumed pathologic fracture involving the distal aspect of the first proximal phalanx, with additional osteoa since 8 involving the base of the first distal phalanx. No gas in the soft tissues is seen. Dictated by: Randy Uriostegui M.D. on 06/19/2019 at 14:15 Approved by: Randy Uriostegui M.D. on 06/19/2019 at 14:20 <Josue Fernández DO - Last Filed: 06/20/19 06:50> Lab Data Lab Results 06/19/19 06/19/19 06/19/19 Range/Units 14:50 14:50 14:50 WBC 8.8 (4.5-11.0) X10^3/uL RBC 3.90 L (4.5-5.9) X10^6/uL Hgb 12.4 L (13.5-17.5) g/dL Hct 36.5 L (41-53) % MCV 93.5 (80-100) fL MCH 31.8 (26-34) PG MCHC 34.0 (30-36) % RDW 13.1 (11.6-14.8) % Plt Count 205 (150-400) X10^3/uL Neut % (Auto) 62.3 (50-75) % Lymph % (Auto) 24.4 L (25-40) % [place] % (Auto) 11.5 (3-14) % Eos % (Auto) 1.4 L (2-4) % Baso % (Auto) 0.4 (0-2) % Neut # (Auto) 5500 (9227-0078) /uL Lymph # (Auto) 2200 (2195-8837) /uL [place] # (Auto) 1000 H (0-900) /uL Eos # (Auto) 100 (0-450) /uL Baso # (Auto) 0 (0-100) /uL ESR 98 H (0-15) MM/HR Sodium 140 (137-145) mmol/L Potassium 4.0 (3.4-5.1) mmol/L Chloride 102 (98-107) mmol/L Carbon Dioxide 28 (22-32) mmol/L BUN 9 (9-20) mg/dL Creatinine 0.60 L (0.66-1.25) mg/dL Estimated GFR > 60.0 (>60) mL/min BUN/Creatinine Ratio 15.0 (6-22) Glucose 89 (70-100) mg/dL Lactate 1.1 (0.7-2.1) mmol/L Calcium 9.2 (8.4-10.2) mg/dL Total Bilirubin 1.1 (0.2-1.3) mg/dL AST 22 (17-59) IU/L ALT 12 L (21-72) IU/L Alkaline Phosphatase 84 (38-126) U/L C-Reactive Protein 7.4 H (<1.0) mg/dL Total Protein 8.8 H (6.3-8.2) g/dL Albumin 4.4 (3.5-5.0) g/dL Globulin 4.4 H (1.7-4.1) g/dL Albumin/Globulin Ratio 1.0 (1.0-2.8) Discharge Plan Departure Patient Disposition: Home Clinical Impression: Chronic osteomyelitis of toe Qualifiers: Laterality: left Qualified Code(s): M86.672 - Other chronic osteomyelitis, left ankle and foot Diabetic foot ulcer Qualifiers: Diabetic foot ulcer location: toe Diabetes mellitus type: type 2 Laterality: left Non-pressure ulcer stage: with other severity Qualified Code(s): E11.621 - Type 2 diabetes mellitus with foot ulcer Discharge Date/Time: 06/19/19 16:14 Interventions: ED Discharge Assessment Last Done: 06/19/19 16:14 Instructions: DI for Osteomyelitis, DI for Diabetic Foot Ulcer Activity Restrictions/Additional Instructions: I spoke with the orthopedic (bone specialist) physician on-call who agreed that your toe does not need treatment this evening. He does want you to see Dr. Son for follow-up tomorrow morning and you have an appointment scheduled in her and [place] office tomorrow at 9:00 a.m. please continue your usual medicines in the interim. Please continue your usual medications. Thank you for your patience with our busy emergency department today Prescriptions: No Action atorvastatin [Lipitor] 40 MG tablet 40 mg PO BEDTIME Qty: 0 RF: 0 sulfamethoxazole-trimethoprim 800-160 mg tablet 1 tab PO BID RF: 0 metformin 1,000 mg tablet 1,000 mg PO BID RF: 0 Lyrica 100 mg capsule 100 mg PO BID RF: 0 Referrals: Martha Son DPM [Physician] - Carlos Jones MD [Primary Care Provider] - Asha Ureña DPM [Non-Staff] - <Josue Fernández DO - Last Filed: 06/20/19 06:50> Cosign ED Attending Gay Attestation: I was immediately available in the department for consultation. Documentation has been reviewed. I agree with assessment and plan.
[2019-06-19 12:29] VITALS: BP 140/84; PULSE 90; RESP 14; TEMP 37.2; O2SAT 99
--- NOTE | 2019-06-19 12:39 | DI.RAD.S_ITS ---
PROCEDURE: XR TOE LT MIN 2V INDICATIONS: worsening infection TECHNIQUE: 3 views of the great toe(s) acquired. COMPARISON: [facility] [place], CR, XR TOE(S) LEFT, 01/17/2019, 11:16. [facility], CR, XR FOOT RT MIN 3V, 03/13/2019, 11:13. [facility], CR, TOE MINIMUM 2 VIEWS RIGHT, 05/05/2017, 10:20. [facility], CR, TOE MINIMUM 2 VIEWS LEFT, 05/05/2017, 10:20. FINDINGS: Bones: There is a comminuted fracture that involves the distal half of the first proximal phalanx, in an area by plain film previously normal 01/17/19. There is slight osteopenia involving the base of the first distal phalanx, and what appears to be ostiolysis seen on the lateral view along the dorsum of the base of that phalanx. No suspicious bony lesions. Soft tissues: No suspicious soft tissue densities. IMPRESSION: Suspect osteomyelitis in the setting of a presumed pathologic fracture involving the distal aspect of the first proximal phalanx, with additional osteoa since 8 involving the base of the first distal phalanx. No gas in the soft tissues is seen. Dictated by: Randy Uriostegui M.D. on 06/19/2019 at 14:15 Approved by: Randy Uriostegui M.D. on 06/19/2019 at 14:20
--- NOTE | 2019-06-19 12:47 | ED_ITS ---
HPI - Wound/Laceration <Darline Hightower PA-C - Last Filed: 06/19/19 20:21> General Chief Complaint: Extremity Injury, Lower Stated Complaint: Came from , thinks going to lose Big Toe Time Seen by Provider: 06/19/19 12:27 Source: patient Mode of arrival: ambulatory Limitations: no limitations History of Present Illness HPI narrative: This 38-year-old male diabetic is sent by wound clinic DPM for evaluation of changes in his left great toe. She was concerned about ischemia and need for possible amputation. Patient states that his toe seemed more cold, and macerated today with bluish discoloration versus last time it was dressed 3 days ago. He has had progressively worsening pain in the left lower extremity this week which is not atypical of his nerve pain, but severe enough that he could not work a couple of days ago. He does not have pain in the toe due to neuropathy. He denies any drainage. He denies any new fever. Thinks there might be some increased redness around the wound. He has not had any new swelling in his extremities. He denies chest pain, dyspnea, or other new complaints on systems review. He states that he has been on 3rd round of 2 week course of Bactrim for about 10 days. Related Data Home Medications Medication Instructions Recorded Confirmed atorvastatin [Lipitor] 40 mg PO BEDTIME #0 06/12/16 06/19/19 metformin 1,000 mg PO BID 06/19/19 06/19/19 pregabalin [Lyrica] 100 mg PO BID 06/19/19 06/19/19 sulfamethoxazole-trimethoprim 1 tab PO BID 06/19/19 06/19/19 Allergies Allergy/AdvReac Type Severity Reaction Status Date / Time No Known Drug Allergies Allergy Verified 04/24/19 12:18 Review of Systems <Darline Hightower PA-C - Last Filed: 06/19/19 20:21> Review of Systems ROS Unobtainable: All systems reviewed & are unremarkable except as noted in HPI and below PFSH <Darline Hightower PA-C - Last Filed: 06/19/19 20:21> Medical History Bilateral lower extremity edema (Chronic) Chronic ulcer of lower extremity (Chronic) Diabetes (Chronic) Hyperlipidemia (Chronic) Neuropathy (Chronic) Chronic low back pain (Inactive) Surgical History No history of previous surgery (Chronic) Social History Smoking Status: Never smoker Social History Smoking Status: Never smoker Exam <Darline Hightower PA-C - Last Filed: 06/19/19 20:21> Narrative Exam Narrative: GENERAL APPEARANCE: Patient sitting comfortably, in no distress. LUNGS: Clear to auscultation bilaterally. HEART: Rate and rhythm regular without murmur, normal S1 and S2, no S3 or S4. EXTREMITIES: Bilateral lower extremities trace edema with multiple varicosities. Left and right PT pulses 2+, left PT pulse is triphasic with Dopp ler. Right DP pulse not assessed due to dressings. Left DP pulse not palpable, easily audible with Doppler, biphasic. The plantar surface of the left great toe is dusky and slightly cool versus the other toes DERMATOLOGIC: Open, somewhat moist, pink/red ulcerations of the left great toe on both the plantar and dorsal surfaces. Somewhat macerated. Not weeping. There is a small amount of serous drainage on bandage. Mild erythema to the mid anterior surface of the foot Initial Vital Signs Initial Vital Signs: Vital Signs Temperature 98.9 F 06/19/19 12:29 Pulse Rate 90 06/19/19 12:29 Respiratory Rate 14 06/19/19 12:29 Blood Pressure 140/84 06/19/19 12:29 Pulse Oximetry 99 06/19/19 12:29 <Josue Fernández DO - Last Filed: 06/20/19 06:50> Initial Vital Signs Initial Vital Signs: Vital Signs Temperature 98.9 F 06/19/19 12:29 Pulse Rate 90 06/19/19 12:29 Respiratory Rate 14 06/19/19 12:29 Blood Pressure 140/84 06/19/19 12:29 Pulse Oximetry 99 06/19/19 12:29 Course <Darline Hightower PA-C - Last Filed: 06/19/19 20:21> Additional Information: I spoke with on-call orthopedist Dr. Parker covering for patient's DPM Dr. Son (she is providing ongoing care and surgery is planned for the right foot already). He agrees that no urgent surgical intervention is needed today. He advised seeing Dr. Son for follow-up tomorrow morning, patient is scheduled for follow-up at 9:00 a.m. and agreeable with this plan. Relayed to Dr. Ureña Orders Ordered: ED Orders 06/19/19 12:39 XR toe LT min 2V Stat 06/19/19 14:50 C-Reactive Protein Quant Stat Complete Blood Count AUTO DIFF Stat Comprehensive Metabolic Panel Stat Erythrocyte Sedimentation Rate Stat Lactate (Lactic Acid) Stat Vital Signs - 8 hr 06/19/19 12:29 06/19/19 15:53 Temperature 98.9 F Pulse Rate 90 87 Respiratory Rate 14 16 Blood Pressure 140/84 Blood Pressure [Right Arm] 119/65 Pulse Oximetry 99 100 <Josue Fernández DO - Last Filed: 06/20/19 06:50> Orders Ordered: ED Orders 06/19/19 12:39 XR toe LT min 2V Stat 06/19/19 14:50 C-Reactive Protein Quant Stat Complete Blood Count AUTO DIFF Stat Comprehensive Metabolic Panel Stat Erythrocyte Sedimentation Rate Stat Lactate (Lactic Acid) Stat Vital Signs - 8 hr 06/19/19 12:29 06/19/19 15:53 Temperature 98.9 F Pulse Rate 90 87 Respiratory Rate 14 16 Blood Pressure 140/84 Blood Pressure [Right Arm] 119/65 Pulse Oximetry 99 100 MDM - Wound/Laceration <Darline Hightower PA-C - Last Filed: 06/19/19 20:21> Lab Data Result diagrams: 06/19/19 14:50 06/19/19 14:50 Lab Results 06/19/19 06/19/19 06/19/19 Range/Units 14:50 14:50 14:50 WBC 8.8 (4.5-11.0) X10^3/uL RBC 3.90 L (4.5-5.9) X10^6/uL Hgb 12.4 L (13.5-17.5) g/dL Hct 36.5 L (41-53) % MCV 93.5 (80-100) fL MCH 31.8 (26-34) PG MCHC 34.0 (30-36) % RDW 13.1 (11.6-14.8) % Plt Count 205 (150-400) X10^3/uL Neut % (Auto) 62.3 (50-75) % Lymph % (Auto) 24.4 L (25-40) % Fulton % (Auto) 11.5 (3-14) % Eos % (Auto) 1.4 L (2-4) % Baso % (Auto) 0.4 (0-2) % Neut # (Auto) 5500 (6553-6228) /uL Lymph # (Auto) 2200 (1191-2536) /uL [place] # (Auto) 1000 H (0-900) /uL Eos # (Auto) 100 (0-450) /uL Baso # (Auto) 0 (0-100) /uL ESR 98 H (0-15) MM/HR Sodium 140 (137-145) mmol/L Potassium 4.0 (3.4-5.1) mmol/L Chloride 102 (98-107) mmol/L Carbon Dioxide 28 (22-32) mmol/L BUN 9 (9-20) mg/dL Creatinine 0.60 L (0.66-1.25) mg/dL Estimated GFR > 60.0 (>60) mL/min BUN/Creatinine Ratio 15.0 (6-22) Glucose 89 (70-100) mg/dL Lactate 1.1 (0.7-2.1) mmol/L Calcium 9.2 (8.4-10.2) mg/dL Total Bilirubin 1.1 (0.2-1.3) mg/dL AST 22 (17-59) IU/L ALT 12 L (21-72) IU/L Alkaline Phosphatase 84 (38-126) U/L C-Reactive Protein 7.4 H (<1.0) mg/dL Total Protein 8.8 H (6.3-8.2) g/dL Albumin 4.4 (3.5-5.0) g/dL Globulin 4.4 H (1.7-4.1) g/dL Albumin/Globulin Ratio 1.0 (1.0-2.8) Imaging Data toe: Radiologist's impression: [address] [address] XRay Report Signed Patient: Baljit Mckay [facility]#: [id number] : 1980Acct:[id number] Age/Sex: 38 / MDate of Service: 06/19/19 Loc: ED Accession Number: [id number] Procedure: XR toe LT min 2V Ordering Provider: Darline Hightower P.A-C PROCEDURE: XR TOE LT MIN 2V INDICATIONS: worsening infection TECHNIQUE: 3 views of the great toe(s) acquired. COMPARISON: [facility] [place], CR, XR TOE(S) LEFT, 01/17/2019, 11:16. [facility], CR, XR FOOT RT MIN 3V, 03/13/2019, 11:13. [facility], CR, TOE MINIMUM 2 VIEWS RIGHT, 05/05/2017, 10:20. [facility], CR, TOE MINIMUM 2 VIEWS LEFT, 05/05/2017, 10:20. FINDINGS: Bones: There is a comminuted fracture that involves the distal half of the first proximal phalanx, in an area by plain film previously normal 01/17/19. There is slight osteopenia involving the base of the first distal phalanx, and what appears to be ostiolysis seen on the lateral view along the dorsum of the base of that phalanx. No suspicious bony lesions. Soft tissues: No suspicious soft tissue densities. IMPRESSION: Suspect osteomyelitis in the setting of a presumed pathologic fracture involving the distal aspect of the first proximal phalanx, with additional osteoa since 8 involving the base of the first distal phalanx. No gas in the soft tissues is seen. Dictated by: Randy Uriostegui M.D. on 06/19/2019 at 14:15 Approved by: Randy Uriostegui M.D. on 06/19/2019 at 14:20 <Josue Fernández DO - Last Filed: 06/20/19 06:50> Lab Data Lab Results 06/19/19 06/19/19 06/19/19 Range/Units 14:50 14:50 14:50 WBC 8.8 (4.5-11.0) X10^3/uL RBC 3.90 L (4.5-5.9) X10^6/uL Hgb 12.4 L (13.5-17.5) g/dL Hct 36.5 L (41-53) % MCV 93.5 (80-100) fL MCH 31.8 (26-34) PG MCHC 34.0 (30-36) % RDW 13.1 (11.6-14.8) % Plt Count 205 (150-400) X10^3/uL Neut % (Auto) 62.3 (50-75) % Lymph % (Auto) 24.4 L (25-40) % [place] % (Auto) 11.5 (3-14) % Eos % (Auto) 1.4 L (2-4) % Baso % (Auto) 0.4 (0-2) % Neut # (Auto) 5500 (2727-1163) /uL Lymph # (Auto) 2200 (6887-8379) /uL [place] # (Auto) 1000 H (0-900) /uL Eos # (Auto) 100 (0-450) /uL Baso # (Auto) 0 (0-100) /uL ESR 98 H (0-15) MM/HR Sodium 140 (137-145) mmol/L Potassium 4.0 (3.4-5.1) mmol/L Chloride 102 (98-107) mmol/L Carbon Dioxide 28 (22-32) mmol/L BUN 9 (9-20) mg/dL Creatinine 0.60 L (0.66-1.25) mg/dL Estimated GFR > 60.0 (>60) mL/min BUN/Creatinine Ratio 15.0 (6-22) Glucose 89 (70-100) mg/dL Lactate 1.1 (0.7-2.1) mmol/L Calcium 9.2 (8.4-10.2) mg/dL Total Bilirubin 1.1 (0.2-1.3) mg/dL AST 22 (17-59) IU/L ALT 12 L (21-72) IU/L Alkaline Phosphatase 84 (38-126) U/L C-Reactive Protein 7.4 H (<1.0) mg/dL Total Protein 8.8 H (6.3-8.2) g/dL Albumin 4.4 (3.5-5.0) g/dL Globulin 4.4 H (1.7-4.1) g/dL Albumin/Globulin Ratio 1.0 (1.0-2.8) Discharge Plan Departure Patient Disposition: Home Clinical Impression: Chronic osteomyelitis of toe Qualifiers: Laterality: left Qualified Code(s): M86.672 - Other chronic osteomyelitis, left ankle and foot Diabetic foot ulcer Qualifiers: Diabetic foot ulcer location: toe Diabetes mellitus type: type 2 Laterality: left Non-pressure ulcer stage: with other severity Qualified Code(s): E11.621 - Type 2 diabetes mellitus with foot ulcer Discharge Date/Time: 06/19/19 16:14 Interventions: ED Discharge Assessment Last Done: 06/19/19 16:14 Instructions: DI for Osteomyelitis, DI for Diabetic Foot Ulcer Activity Restrictions/Additional Instructions: I spoke with the orthopedic (bone specialist) physician on-call who agreed that your toe does not need treatment this evening. He does want you to see Dr. Son for follow-up tomorrow morning and you have an appointment scheduled in her and [place] office tomorrow at 9:00 a.m. please continue your usual medicines in the interim. Please continue your usual medications. Thank you for your patience with our busy emergency department today Prescriptions: No Action atorvastatin [Lipitor] 40 MG tablet 40 mg PO BEDTIME Qty: 0 RF: 0 sulfamethoxazole-trimethoprim 800-160 mg tablet 1 tab PO BID RF: 0 metformin 1,000 mg tablet 1,000 mg PO BID RF: 0 Lyrica 100 mg capsule 100 mg PO BID RF: 0 Referrals: Martha Son DPM [Physician] - Carlos Jones MD [Primary Care Provider] - Asha Ureña DPM [Non-Staff] - <oJsue Fernández DO - Last Filed: 06/20/19 06:50> Cosign ED Attending Gay Attestation: I was immediately available in the department for consultation. Documentation has been reviewed. I agree with assessment and plan.
[2019-06-19 14:57] LABS: Add Manual Diff / Slide Review NO; Basophils Absolute Auto 0 /uL (0-100); Basophils Percent Auto 0.4 % (0-2); Eosinophils Absolute Auto 100 /uL (0-450); Eosinophils Percent Auto 1.4 % (2-4); Hematocrit 36.5 % (41-53); Hemoglobin 12.4 g/dL (13.5-17.5); Lymphocytes Absolute Auto 2200 /uL (1100-4500); Lymphocytes Percent Auto 24.4 % (25-40); Mean Corpuscular Hemoglobin 31.8 PG (26-34); Mean Corpuscular Volume 93.5 fL (80-100); Monocytes Absolute Auto 1000 /uL (0-900); Monocytes Percent Auto 11.5 % (3-14); Neutrophils Absolute Auto 5500 /uL (1500-7000); Neutrophils Percent Auto 62.3 % (50-75); Platelet Count 205 X10^3/uL (150-400); Red Cell Distribution Width 13.1 % (11.6-14.8); White Blood Cell Count 8.8 X10^3/uL (4.5-11.0)
[2019-06-19 15:06] LABS: Lactate (Lactic Acid) 1.1 mmol/L (0.7-2.1)
[2019-06-19 15:09] LABS: Alanine Aminotransferase 12 IU/L (21-72); Albumin 4.4 g/dL (3.5-5.0); Alkaline Phosphatase 84 U/L (38-126); Aspartate Aminotransferase 22 IU/L (17-59); Bilirubin Total 1.1 mg/dL (0.2-1.3); Blood Urea Nitrogen 9 mg/dL (9-20); C-Reactive Protein Quant 7.4 mg/dL (<1.0); Calcium 9.2 mg/dL (8.4-10.2); Carbon Dioxide 28 mmol/L (22-32); Chloride 102 mmol/L (98-107); Estimated Glomerular Filt Rate > 60.0 mL/min (>60); Globulin 4.4 g/dL (1.7-4.1); Glucose 89 mg/dL (70-100); HEMOLYSIS 35 (0-50); Sodium 140 mmol/L (137-145); Total Protein 8.8 g/dL (6.3-8.2)
[2019-06-19 15:16] LABS: Erythrocyte Sedimentation Rate 98 MM/HR (0-15)
[2019-06-19 15:53] VITALS: BP 119/65; PULSE 87; RESP 16; O2SAT 100
== END 2019-06-19 16:14 | disposition home or self-care (01) ==
PROVIDERS: Emergency Provider Internal Medicine; PCP Student in an Organized Health Care Education/Training Program
DX: M86.672 Other chronic osteomyelitis, left ankle and foot (principal); E11.621 Type 2 diabetes mellitus with foot ulcer
CPT/HCPCS: 36591; 73660; 80053; 83605; 85025; 85651; 86140; 99283; 99284

== ENCOUNTER 2019-06-20 12:02 | Day surgery (SDC) | payer OTHER, SELFPAY ==
--- NOTE | 2019-06-20 | PATH_ITS ---
[facility] Accession Number: [id number] . 01 Material submitted: . toe - GREAT TOE, LEFT FOOT . 01 Clinical history: . . 02 Diagnosis: Amputated Left Great Toe: Acute and chronic inflammation of skin and soft tissue with fibrosis, tissue necrosis, ulceration, and associated severe acute and chronic osteomyelitis. Bone resection margin negative for significant inflammation. MRV/06/23/2019 . 02 Electronically signed: . Douglas Holliday MD, Pathologist NPI- [id number] . 01 Gross description: . Received in formalin, labeled great toe, left foot, ?myelitis, is a disarticulated toe (7.0 cm AP, 3.5 cm SI, 3.7 cm ML). A portion of the toenail is present. The skin and soft tissue are torrez-white and focally black, ulcerated and flaky. The bone is hard and cannot be sliced with a scalpel. Ink code: black-superior, orange-inferior. Section code: (A1) skin and soft tissue resection margins, lead customer service representative; (A2) proximal bone, lead customer service representative serial sections; (A3) flaky and ulcerated tissue, lead customer service representative; (A4) distal bone, lead customer service representative serial section. Note: The bone sections have been decalcified. ([id number]) /MRV . 02 Pathologist provided ICD-10: M86.672 . 02 CPT . 173704, 709681 Performed at: [facility] [address], [place], [place] [id number] MD Reggie Zhou MD Phone: [phone] Performed at: 02 [facility] [id number] [address], [place] [id number] MD Dalila Almeida MD Phone: [phone]
[2019-06-20 14:01] VITALS: BP 131/81; PULSE 106; RESP 16; TEMP 36.9; O2SAT 98; BMI 31.5
--- NOTE | 2019-06-20 15:24 | PM.PREOP ---
Pre-operative Note Interval Note History & Physical reviewed/Exam performed by Physician: Yes Changes to H&P: No
--- NOTE | 2019-06-20 15:25 | PM.OP.1 ---
Operative Date/Time/Diagnoses Date of procedure: 06/20/19 Time of procedure: 15:25 Pre-op diagnosis: Left great toe cellulitis, diabetic ulcer, and fracture Post-op diagnosis: same Procedure & Clinicians Procedure: Left first metatarsophalangeal joint amputation Same procedure as scheduled: Yes Indications: Great toe wound, cellulitis, and significant non-viable tissue with indications of osteomyelitis left great toe. Surgeon: Martha Son Click Yes if Unassisted: Yes Anesthesia Type: General Operative Notes Closure Type: primary Specimen(s): other (1)Aerobic/anaerobic cx Mt1 head, 2)great toe to pathology) Estimated Blood Loss (mL): 30 Blood products transfused: none Tourniquet time (min): 0 Procedure in detail: The patient was brought to the operating room and placed on the operating table in the supine position. The tourniquet was placed about the ankle, left. Well padded appropriately aligned. After induction of general anesthesia the foot and ankle were prepped and draped in the usual aseptic manner. After check of anesthesia a full-thickness circumferential incision was made around the 1st toe. This was then continued into the metatarsophalangeal joint linearly. The toe was carefully disarticulated. The ulceration was able to be included in the disarticulation. The proximal phalanx was palpably fractured as was noted in the preoperative x-rays. This was passed from the table and sent to pathology. Culture swabs were taken for aerobic and anaerobic cultures from the 1st metatarsal head. The area was irrigated with copious amounts of normal sterile saline. Necrotic tissue and any remaining portions of the flexor and extensor tendons in the field were removed. Skin and tissue was revised to allow for appropriate closure. Vessels were cauterized and ligated as necessary. The tourniquet was not inflated during the procedure. 3-0 Vicryl was used subcutaneously for closure and 2-0 and 3-0 nylon for the skin. The area was dressed with a sterile lightly compressive dressing. Complications: none Condition: stable Disposition: PACU Plan for aftercare: Following a period of postoperative monitoring, the patient be discharged home on written and oral postoperative instructions including keeping the dressing dry and intact, avoiding significant ambulation on the foot, and elevating the foot when seated home. DVT prevention techniques have been reviewed. For the 1st postoperative visit the dressing will be changed and close to the 3rd postoperative week we will likely remove the sutures.
[2019-06-20 16:31] VITALS: BP 126/78; RESP 12; TEMP 36.6; O2SAT 98
[2019-06-20] MEDS: CEFAZOLIN 2 GM/100 ML FROZ.PIGGY IV (16:35)
--- NOTE | 2019-06-20 16:35 | SUR.OPER ---
Supine on padded OR bed, head on pillow, arms secured on padded arm boards at <90 degrees abduction, legs uncrossed, safety belt at thigh, gel bump under left hip and thigh, gel pad under right foot and ankle.
[2019-06-20 16:37] VITALS: BP 121/81; PULSE 90; RESP 11; TEMP 36.9; O2SAT 97
[2019-06-20] MEDS: LACTATED RINGERS 1,000 ML 42 ML IV (16:39)
[2019-06-20 16:42] VITALS: PULSE 93; RESP 15; TEMP 36.8; O2SAT 95
[2019-06-20 16:44] VITALS: BP 128/84; PULSE 85; RESP 16; TEMP 36.8; O2SAT 99
[2019-06-20] MEDS: BUPIVACAINE 0.5% (PF) VIAL 30 ML INJ (16:45)
== END 2019-06-20 17:10 | disposition home or self-care (01) ==
PROVIDERS: PCP Student in an Organized Health Care Education/Training Program; Visit Provider Podiatrist
PROC: (CPT 28820; principal; 2019-06-20 15:15)
DX: M86.672 Other chronic osteomyelitis, left ankle and foot (principal); E11.621 Type 2 diabetes mellitus with foot ulcer; M77.51 Other enthesopathy of right foot and ankle; E11.42 Type 2 diabetes mellitus with diabetic polyneuropathy; M20.11 Hallux valgus (acquired), right foot; L97.511 Non-pressure chronic ulcer of other part of right foot limited to breakdown of skin; Z79.84 Long term (current) use of oral hypoglycemic drugs
CPT/HCPCS: 28820; 87070; 87075; 87077; 87205; J0690; J2405; J2704; J2765; J3010

== ENCOUNTER → 2019-06-26 10:04 | Outpatient (CLI) | payer OTHER, SELFPAY | PROVIDERS: PCP Student in an Organized Health Care Education/Training Program; Visit Provider Family Medicine | DX: T81.32XA Disruption of internal operation (surgical) wound, not elsewhere classified, initial encounter (principal); S91.302A Unspecified open wound, left foot, initial encounter; E11.621 Type 2 diabetes mellitus with foot ulcer; L97.511 Non-pressure chronic ulcer of other part of right foot limited to breakdown of skin; L89.892 Pressure ulcer of other site, stage 2; M79.674 Pain in right toe(s); M79.671 Pain in right foot; Z48.02 Encounter for removal of sutures | CPT/HCPCS: 97597; 99212 ==

== ENCOUNTER → 2019-07-03 13:48 | Outpatient (CLI) | payer OTHER, SELFPAY | PROVIDERS: PCP Student in an Organized Health Care Education/Training Program; Visit Provider Podiatrist Primary Podiatric Medicine | DX: E11.621 Type 2 diabetes mellitus with foot ulcer (principal); L97.511 Non-pressure chronic ulcer of other part of right foot limited to breakdown of skin; L89.892 Pressure ulcer of other site, stage 2; T81.32XA Disruption of internal operation (surgical) wound, not elsewhere classified, initial encounter; S91.302A Unspecified open wound, left foot, initial encounter; R60.0 Localized edema | CPT/HCPCS: 97597 ==

== ENCOUNTER → 2019-07-10 10:43 | Outpatient (CLI) | payer OTHER, SELFPAY | PROVIDERS: PCP Student in an Organized Health Care Education/Training Program; Visit Provider Family Medicine | DX: E11.621 Type 2 diabetes mellitus with foot ulcer (principal); E11.40 Type 2 diabetes mellitus with diabetic neuropathy, unspecified; L97.511 Non-pressure chronic ulcer of other part of right foot limited to breakdown of skin; T81.32XA Disruption of internal operation (surgical) wound, not elsewhere classified, initial encounter; S91.302A Unspecified open wound, left foot, initial encounter; L89.622 Pressure ulcer of left heel, stage 2 | CPT/HCPCS: 97597 ==

== ENCOUNTER → 2019-07-17 10:09 | Outpatient (CLI) | payer OTHER, SELFPAY | PROVIDERS: PCP Student in an Organized Health Care Education/Training Program; Visit Provider Podiatrist Primary Podiatric Medicine | DX: E11.621 Type 2 diabetes mellitus with foot ulcer (principal); L97.511 Non-pressure chronic ulcer of other part of right foot limited to breakdown of skin; L89.892 Pressure ulcer of other site, stage 2; T81.32XA Disruption of internal operation (surgical) wound, not elsewhere classified, initial encounter | CPT/HCPCS: 97597 ==

== ENCOUNTER → 2019-07-31 10:11 | Outpatient (CLI) | payer OTHER, SELFPAY | PROVIDERS: PCP Student in an Organized Health Care Education/Training Program; Visit Provider Podiatrist Primary Podiatric Medicine | DX: E11.621 Type 2 diabetes mellitus with foot ulcer (principal); T81.32XD Disruption of internal operation (surgical) wound, not elsewhere classified, subsequent encounter; L97.511 Non-pressure chronic ulcer of other part of right foot limited to breakdown of skin; E11.40 Type 2 diabetes mellitus with diabetic neuropathy, unspecified; L89.892 Pressure ulcer of other site, stage 2; S91.302A Unspecified open wound, left foot, initial encounter | CPT/HCPCS: 97597 ==

== ENCOUNTER → 2019-08-07 10:34 | Outpatient (CLI) | payer OTHER, SELFPAY | PROVIDERS: PCP Student in an Organized Health Care Education/Training Program; Visit Provider Podiatrist Primary Podiatric Medicine | DX: T81.32XD Disruption of internal operation (surgical) wound, not elsewhere classified, subsequent encounter (principal); E11.621 Type 2 diabetes mellitus with foot ulcer; M20.21 Hallux rigidus, right foot | CPT/HCPCS: 11042; 87070; 87075; 87077; 87147; 87186; 87205 ==

== ENCOUNTER → 2019-08-14 10:55 | Outpatient (CLI) | payer OTHER, SELFPAY | PROVIDERS: PCP Student in an Organized Health Care Education/Training Program; Visit Provider Podiatrist Primary Podiatric Medicine | DX: T81.32XD Disruption of internal operation (surgical) wound, not elsewhere classified, subsequent encounter (principal); E11.621 Type 2 diabetes mellitus with foot ulcer; M20.21 Hallux rigidus, right foot; L97.511 Non-pressure chronic ulcer of other part of right foot limited to breakdown of skin | CPT/HCPCS: 97597 ==

== ENCOUNTER → 2019-08-21 10:00 | Outpatient (CLI) | payer OTHER, SELFPAY | PROVIDERS: PCP Student in an Organized Health Care Education/Training Program; Visit Provider Podiatrist Primary Podiatric Medicine | DX: E11.628 Type 2 diabetes mellitus with other skin complications (principal); E11.621 Type 2 diabetes mellitus with foot ulcer; L97.519 Non-pressure chronic ulcer of other part of right foot with unspecified severity; T81.32XD Disruption of internal operation (surgical) wound, not elsewhere classified, subsequent encounter; S91.302A Unspecified open wound, left foot, initial encounter; T81.32XA Disruption of internal operation (surgical) wound, not elsewhere classified, initial encounter; M20.21 Hallux rigidus, right foot; E11.40 Type 2 diabetes mellitus with diabetic neuropathy, unspecified | CPT/HCPCS: 97597 ==

== ENCOUNTER 2019-08-25 06:21 | Day surgery (SDC) | payer OTHER, SELFPAY ==
[2019-08-23 11:56] VITALS: BMI 33.3
--- NOTE | 2019-08-25 | PATH_ITS ---
[facility] Accession Number: [id number] . 01 Material submitted: . toe - RIGHT FOOT GREAT TOE . 01 Clinical history: . TYPE 2 DIABETES MELLITUS WITH FOOT ULCER SUSPECTED OSTEOMYELITIS . 01 Diagnosis: Right Great Toe, Amputation: Actively inflamed chronic ulcer of skin. Focal changes consistent with acute osteomyelitis. Skin, soft tissue and bony resection margins viable. MRV 08/30/2019 1327 Local . 01 Electronically signed: . Soniya Mariee MD, Pathologist NPI- [id number] . 01 Gross description: . Received in formalin, labeled right foot great toe, suspected osteomyelitis, is a disarticulated toe (6.8 cm AP, 2.9 cm SI, 3.2 cm ML). The toenail is present. An ulcerated and eroded area (3.3 x 3.1 cm) involves the central medial inferior aspect 1.4 cm from the superior and 0.2 cm form the inferior skin and soft tissue resection margins. The underlying bone is hard and cannot be sliced with a scalpel. The superior resection margin is inked black and the inferior is orange. Section code: (A1) skin and soft tissue resection margins, customer response representative; (A2) proximal bone, customer response representative serial sections; (A3) ulcerated area, customer response representative serial sections with margins; (A4) bone underlying ulcer, customer response representative serial section. Note: The bone sections have been decalcified. ([id number]) /MRV 08/26/20192037 Local . 01 Pathologist provided ICD-10: E11.621 . 01 CPT . 686981, 428941, 202983 Performed at: 01 [facility] [address], [place], [place] [id number] MD Reggie Zhou MD Phone: [phone]
[2019-08-25 06:59] VITALS: BP 143/90; PULSE 89; RESP 16; TEMP 36.4; O2SAT 99; BMI 33.3
[2019-08-25] MEDS: LACTATED RINGERS 1,000 ML 100 ML IV (07:08)
--- NOTE | 2019-08-25 07:43 | PM.PREOP ---
Pre-operative Note Interval Note History & Physical reviewed/Exam performed by Physician: Yes Changes to H&P: No
--- NOTE | 2019-08-25 07:44 | PM.OP.1 ---
Operative Date/Time/Diagnoses Date of procedure: 08/25/19 Time of procedure: 07:46 Pre-op diagnosis: Right great toe ulceration Post-op diagnosis: same Procedure & Clinicians Procedure: Right great toe amputation Same procedure as scheduled: Yes Indications: Recurrent ulceration right great toe, not responding intermediate accountant for healing using conservative measures. Surgical intervention at this time. Surgeon: Martha Son Click Yes if Unassisted: Yes Anesthesia Type: General Operative Notes Closure Type: primary Specimen(s): other (1. culture swab right first metatarsal phalangeal joint; 2. right great toe to pathology, poss osteomyelitis) Estimated Blood Loss (mL): 20 Blood products transfused: none Tourniquet time (min): 11 Procedure in detail: The patient was brought to the operating room and placed on the operating table in the supine position. The tourniquet was placed about the ankle, right. Well padded appropriately aligned. After induction of general anesthesia the foot and ankle were prepped and draped in the usual aseptic manner. After check of anesthesia a full-thickness circumferential incision was made around the 1st toe at the metatarsophalangeal joint. The toe was carefully disarticulated. The ulceration was able to be included in the disarticulation. This was passed from the table and sent to pathology. Culture swabs were taken for aerobic and anaerobic cultures from the 1st metatarsal phalangeal joint. No abscesses or purulence was noted. Tourniquet was deflated, a prompt hyperemic response was seen to the foot. The area was irrigated with copious amounts of normal sterile saline. Skin was revised and any remaining portions of the flexor and extensor tendons in the field were removed. Skin and tissue was revised to allow for appropriate closure. Vessels were cauterized and ligated as necessary. 3-0, 4-0 Vicryl was used deep and subcutaneously for closure and 3-0 nylon for the skin. The area was dressed with a sterile lightly compressive dressing. Complications: none Post-operative Condition: stable Disposition: PACU Plan for aftercare: Plan: Following a period of postoperative monitoring, the patient be discharged home on written and oral postoperative instructions including keeping the dressing dry and intact, avoiding ambulation on the foot, elevating the foot when seated home. DVT prevention techniques have been reviewed. Finish his course of oral abx as previously directed. He will contact our office for post op appt for this coming , then we will have him contact wound care to verify timing on when he was meant to be seen for his left foot healing wound. Between the two proivders, it is my current estimation that he should be seen on a weekly basis at this time until further healing occurs. Generally suture removal towards the 3rd postoperative week, however this will depend upon healing processes. Wait on new oral abx until cultures returned and seeing how he begins to heal post surgically.
--- NOTE | 2019-08-25 08:10 | SUR.OPER ---
Supine on padded OR bed, head on pillow, arms secured on padded arm boards at <90 degrees abduction, legs uncrossed, safety belt at thigh, tape over blanket over lower legs.
[2019-08-25] MEDS: CEFAZOLIN 2 GM/100 ML FROZ.PIGGY IV (08:15)
[2019-08-25] MEDS: BUPIVACAINE 0.5% (PF) VIAL 30 ML INJ (08:28)
[2019-08-25] MEDS: LIDOCAINE 2% INJ MDV 20 ML INJ (08:30)
[2019-08-25 09:11] VITALS: BP 132/86; PULSE 91; RESP 16; TEMP 37.4; O2SAT 94
[2019-08-25 09:15] VITALS: BP 116/85; PULSE 78; RESP 13; O2SAT 95
[2019-08-25 09:20] VITALS: BP 119/82; PULSE 78; RESP 10; O2SAT 95
[2019-08-25 09:32] VITALS: BP 123/80; PULSE 83; RESP 16; TEMP 36.9; O2SAT 95
== END 2019-08-25 09:39 ==
LOC: OR 06:24
PROVIDERS: PCP Student in an Organized Health Care Education/Training Program; Visit Provider Podiatrist
PROC: (CPT 28820; principal; 2019-08-25 07:45)
DX: E11.621 Type 2 diabetes mellitus with foot ulcer (principal); Z79.84 Long term (current) use of oral hypoglycemic drugs
CPT/HCPCS: 28820; 87070; 87075; 87077; 87205; J0690; J1100; J1885; J2250; J2405; J2704; J3010

== ENCOUNTER → 2019-10-31 14:01 | Outpatient (CLI) | payer OTHER, SELFPAY | PROVIDERS: PCP Student in an Organized Health Care Education/Training Program; Visit Provider Family Medicine | DX: E11.621 Type 2 diabetes mellitus with foot ulcer (principal); L97.511 Non-pressure chronic ulcer of other part of right foot limited to breakdown of skin; T81.31XA Disruption of external operation (surgical) wound, not elsewhere classified, initial encounter; E11.40 Type 2 diabetes mellitus with diabetic neuropathy, unspecified; R60.0 Localized edema | CPT/HCPCS: 11042; 99213 ==

== ENCOUNTER → 2019-10-31 14:54 | Outpatient (CLI) | payer OTHER, SELFPAY ==
--- NOTE | 2019-10-31 | DI.RAD.S_ITS ---
PROCEDURE: XR TOE RT MIN 2V INDICATIONS: rt 2nd toe edema in diabetic with neuropathy TECHNIQUE: 3 views of the second toe(s) acquired. COMPARISON: [facility], , XR FOOT RT MIN 3V, 03/13/2019, 11:13. FINDINGS: Bones: No fractures or dislocations. No suspicious bony lesions. Prior amputation of the first digit from the metatarsal head level. Oblique fracture extends through the base of the second proximal phalanx with mild lateral displacement of the distal fracture component. Soft tissues: No suspicious soft tissue densities. IMPRESSION: Fracture involving the base of the second proximal phalanx. Dictated by: Lalo YOUNG Interpreted: Katlyn Sorensen MD on 10/31/2019 at 17:42 Approved by: Katlyn Sorensen M.D. on 10/31/2019 at 18:37
== END ==
PROVIDERS: Family Provider Student in an Organized Health Care Education/Training Program; PCP Student in an Organized Health Care Education/Training Program; Visit Provider Family Medicine
DX: S92.511A Displaced fracture of proximal phalanx of right lesser toe(s), initial encounter for closed fracture (principal); E11.40 Type 2 diabetes mellitus with diabetic neuropathy, unspecified
CPT/HCPCS: 73660

== ENCOUNTER → 2019-11-08 13:02 | Outpatient (CLI) | payer OTHER, SELFPAY | PROVIDERS: Family Provider Student in an Organized Health Care Education/Training Program; PCP Student in an Organized Health Care Education/Training Program; Visit Provider Family Medicine | DX: E11.621 Type 2 diabetes mellitus with foot ulcer (principal); L97.511 Non-pressure chronic ulcer of other part of right foot limited to breakdown of skin; T81.31XA Disruption of external operation (surgical) wound, not elsewhere classified, initial encounter; S92.531A Displaced fracture of distal phalanx of right lesser toe(s), initial encounter for closed fracture; R60.0 Localized edema; E11.40 Type 2 diabetes mellitus with diabetic neuropathy, unspecified | CPT/HCPCS: 11042; 99213 ==

== ENCOUNTER → 2019-11-14 09:51 | Outpatient (CLI) | payer OTHER, SELFPAY | PROVIDERS: Family Provider Student in an Organized Health Care Education/Training Program; PCP Student in an Organized Health Care Education/Training Program; Visit Provider Family Medicine | DX: E11.621 Type 2 diabetes mellitus with foot ulcer (principal); L97.511 Non-pressure chronic ulcer of other part of right foot limited to breakdown of skin; T81.31XA Disruption of external operation (surgical) wound, not elsewhere classified, initial encounter; S92.531A Displaced fracture of distal phalanx of right lesser toe(s), initial encounter for closed fracture | CPT/HCPCS: 11042 ==

== ENCOUNTER → 2019-11-24 13:18 | Outpatient (CLI) | payer OTHER, SELFPAY | PROVIDERS: Family Provider Student in an Organized Health Care Education/Training Program; PCP Student in an Organized Health Care Education/Training Program; Visit Provider Family Medicine | DX: E11.621 Type 2 diabetes mellitus with foot ulcer (principal); T81.31XA Disruption of external operation (surgical) wound, not elsewhere classified, initial encounter; L97.511 Non-pressure chronic ulcer of other part of right foot limited to breakdown of skin; E11.40 Type 2 diabetes mellitus with diabetic neuropathy, unspecified | CPT/HCPCS: 11042 ==

== ENCOUNTER → 2019-11-28 13:23 | Outpatient (CLI) | payer OTHER, SELFPAY | PROVIDERS: Family Provider Student in an Organized Health Care Education/Training Program; PCP Student in an Organized Health Care Education/Training Program; Visit Provider Family Medicine | DX: E11.621 Type 2 diabetes mellitus with foot ulcer (principal); T81.31XA Disruption of external operation (surgical) wound, not elsewhere classified, initial encounter; L97.511 Non-pressure chronic ulcer of other part of right foot limited to breakdown of skin; E11.40 Type 2 diabetes mellitus with diabetic neuropathy, unspecified; R60.0 Localized edema | CPT/HCPCS: 11042 ==

== ENCOUNTER → 2019-12-05 09:45 | Outpatient (CLI) | payer OTHER, SELFPAY | PROVIDERS: Family Provider Student in an Organized Health Care Education/Training Program; PCP Student in an Organized Health Care Education/Training Program; Visit Provider Family Medicine | DX: E11.621 Type 2 diabetes mellitus with foot ulcer (principal); L97.511 Non-pressure chronic ulcer of other part of right foot limited to breakdown of skin; T81.31XA Disruption of external operation (surgical) wound, not elsewhere classified, initial encounter; E11.40 Type 2 diabetes mellitus with diabetic neuropathy, unspecified; R60.0 Localized edema | CPT/HCPCS: 11042; 87070; 87077; 87147; 87186; 87205 ==

== ENCOUNTER → 2019-12-13 09:44 | Outpatient (CLI) | payer OTHER, SELFPAY | PROVIDERS: Family Provider Student in an Organized Health Care Education/Training Program; PCP Student in an Organized Health Care Education/Training Program; Visit Provider Family Medicine | DX: E11.621 Type 2 diabetes mellitus with foot ulcer (principal); L97.511 Non-pressure chronic ulcer of other part of right foot limited to breakdown of skin; T81.31XA Disruption of external operation (surgical) wound, not elsewhere classified, initial encounter; L08.9 Local infection of the skin and subcutaneous tissue, unspecified | CPT/HCPCS: 11042; 99214 ==

== ENCOUNTER → 2019-12-20 13:17 | Outpatient (CLI) | payer OTHER, SELFPAY | PROVIDERS: Family Provider Student in an Organized Health Care Education/Training Program; PCP Student in an Organized Health Care Education/Training Program; Visit Provider Family Medicine | DX: E11.621 Type 2 diabetes mellitus with foot ulcer (principal); T81.31XA Disruption of external operation (surgical) wound, not elsewhere classified, initial encounter; L97.511 Non-pressure chronic ulcer of other part of right foot limited to breakdown of skin; E11.40 Type 2 diabetes mellitus with diabetic neuropathy, unspecified | CPT/HCPCS: 11042 ==

== ENCOUNTER → 2019-12-27 09:50 | Outpatient (CLI) | payer OTHER, SELFPAY | PROVIDERS: Family Provider Student in an Organized Health Care Education/Training Program; PCP Student in an Organized Health Care Education/Training Program; Referring Provider Podiatrist; Visit Provider Family Medicine | DX: E11.621 Type 2 diabetes mellitus with foot ulcer (principal); L97.511 Non-pressure chronic ulcer of other part of right foot limited to breakdown of skin; T81.31XA Disruption of external operation (surgical) wound, not elsewhere classified, initial encounter; R60.0 Localized edema | CPT/HCPCS: 11042 ==

== ENCOUNTER → 2020-01-02 10:33 | Outpatient (CLI) | payer OTHER, SELFPAY | PROVIDERS: Family Provider Student in an Organized Health Care Education/Training Program; PCP Student in an Organized Health Care Education/Training Program; Referring Provider Podiatrist; Visit Provider Family Medicine | DX: E11.621 Type 2 diabetes mellitus with foot ulcer (principal); L97.511 Non-pressure chronic ulcer of other part of right foot limited to breakdown of skin; T81.31XA Disruption of external operation (surgical) wound, not elsewhere classified, initial encounter; E11.40 Type 2 diabetes mellitus with diabetic neuropathy, unspecified; R60.0 Localized edema | CPT/HCPCS: 11042 ==

== ENCOUNTER → 2020-01-09 13:38 | Outpatient (CLI) | payer OTHER, SELFPAY | PROVIDERS: Family Provider Student in an Organized Health Care Education/Training Program; PCP Student in an Organized Health Care Education/Training Program; Referring Provider Student in an Organized Health Care Education/Training Program; Visit Provider Family Medicine | DX: E11.621 Type 2 diabetes mellitus with foot ulcer (principal); L97.511 Non-pressure chronic ulcer of other part of right foot limited to breakdown of skin; T81.31XA Disruption of external operation (surgical) wound, not elsewhere classified, initial encounter; E11.40 Type 2 diabetes mellitus with diabetic neuropathy, unspecified | CPT/HCPCS: 11042 ==

== ENCOUNTER → 2020-01-16 | Outpatient (CLI) | payer OTHER, SELFPAY | PROVIDERS: Family Provider Student in an Organized Health Care Education/Training Program; PCP Student in an Organized Health Care Education/Training Program; Referring Provider Podiatrist; Visit Provider Family Medicine | DX: E11.621 Type 2 diabetes mellitus with foot ulcer (principal); E11.628 Type 2 diabetes mellitus with other skin complications; S81.801A Unspecified open wound, right lower leg, initial encounter; L97.511 Non-pressure chronic ulcer of other part of right foot limited to breakdown of skin; R60.0 Localized edema | CPT/HCPCS: 99214 ==

== ENCOUNTER → 2020-01-23 10:14 | Outpatient (CLI) | payer OTHER, SELFPAY | PROVIDERS: Family Provider Student in an Organized Health Care Education/Training Program; PCP Student in an Organized Health Care Education/Training Program; Referring Provider Student in an Organized Health Care Education/Training Program; Visit Provider Family Medicine | DX: S91.301A Unspecified open wound, right foot, initial encounter (principal) | CPT/HCPCS: 99213 ==

== ENCOUNTER → 2020-01-30 10:42 | Outpatient (CLI) | payer OTHER, SELFPAY | PROVIDERS: Family Provider Student in an Organized Health Care Education/Training Program; PCP Student in an Organized Health Care Education/Training Program; Referring Provider Student in an Organized Health Care Education/Training Program; Visit Provider Family Medicine | DX: E11.621 Type 2 diabetes mellitus with foot ulcer (principal); L97.511 Non-pressure chronic ulcer of other part of right foot limited to breakdown of skin; L03.115 Cellulitis of right lower limb; B35.4 Tinea corporis; E11.40 Type 2 diabetes mellitus with diabetic neuropathy, unspecified | CPT/HCPCS: 11042; 87070; 87075; 87077; 87102; 87147; 87186; 87205; 99213; 99214 ==

== ENCOUNTER → 2020-02-06 09:41 | Outpatient (CLI) | payer OTHER, SELFPAY | PROVIDERS: Family Provider Student in an Organized Health Care Education/Training Program; PCP Student in an Organized Health Care Education/Training Program; Referring Provider Student in an Organized Health Care Education/Training Program; Visit Provider Family Medicine | DX: E11.621 Type 2 diabetes mellitus with foot ulcer (principal); L97.511 Non-pressure chronic ulcer of other part of right foot limited to breakdown of skin; L89.513 Pressure ulcer of right ankle, stage 3; L03.115 Cellulitis of right lower limb; L30.8 Other specified dermatitis; E11.40 Type 2 diabetes mellitus with diabetic neuropathy, unspecified; M84.477A Pathological fracture, right toe(s), initial encounter for fracture; Z89.411 Acquired absence of right great toe | CPT/HCPCS: 11042; 73630; 99214 ==

== ENCOUNTER → 2020-02-06 10:49 | Outpatient (CLI) | payer OTHER, SELFPAY ==
--- NOTE | 2020-02-06 | DI.RAD.S_ITS ---
PROCEDURE: XR FOOT RT MIN 3V INDICATIONS: RT FOOT TECHNIQUE: 3 views of the foot were acquired. COMPARISON: [facility], CR, XR TOE LT MIN 2V, 06/19/2019, 12:53. [facility], CR, XR FOOT RT MIN 3V, 03/13/2019, 11:13. [facility], CR, XR FOOT LT MIN 3V, 09/27/2018, 14:39. [facility], CR, XR TOE RT MIN 2V, 10/31/2019, 14:59. FINDINGS: Bones: There has been amputation of the first ray from the distal metatarsal bone distally. At the second ray the base of the proximal phalanx is osteolytic at its proximal aspect and also appears fractured with displaced bone fragments through the area of lucency that likely represents active osteomyelitis in this clinical circumstance. Soft tissue swelling is adjacent. Soft tissues: No tibiotalar joint effusion. Achilles tendon appears normal. IMPRESSION: Interval amputation of the great toe from 03/13/19 comparison plain films, and there is a comminuted fracture that likely is pathologic secondary to infection involving ostiolysis and displaced bone fragments at the base of the second proximal phalanx. Dictated by: Randy Uriostegui M.D. on 02/06/2020 at 12:44 Approved by: Randy Uriostegui M.D. on 02/06/2020 at 12:48
== END ==
PROVIDERS: Family Provider Student in an Organized Health Care Education/Training Program; PCP Student in an Organized Health Care Education/Training Program; Referring Provider Family Medicine; Visit Provider Family Medicine
DX: E11.621 Type 2 diabetes mellitus with foot ulcer (principal); L97.511 Non-pressure chronic ulcer of other part of right foot limited to breakdown of skin; M84.477A Pathological fracture, right toe(s), initial encounter for fracture; Z89.411 Acquired absence of right great toe
CPT/HCPCS: 73630

== ENCOUNTER → 2020-02-13 09:47 | Outpatient (CLI) | payer OTHER, SELFPAY | PROVIDERS: Family Provider Student in an Organized Health Care Education/Training Program; PCP Student in an Organized Health Care Education/Training Program; Referring Provider Student in an Organized Health Care Education/Training Program; Visit Provider Family Medicine | DX: E11.621 Type 2 diabetes mellitus with foot ulcer (principal); M86.171 Other acute osteomyelitis, right ankle and foot; L97.511 Non-pressure chronic ulcer of other part of right foot limited to breakdown of skin; L89.513 Pressure ulcer of right ankle, stage 3; L03.115 Cellulitis of right lower limb; L30.8 Other specified dermatitis; E11.40 Type 2 diabetes mellitus with diabetic neuropathy, unspecified | CPT/HCPCS: 11042; 36415; 80048; 87070; 87077; 87147; 87186; 87205; 99214 ==

== ENCOUNTER → 2020-02-13 10:53 | Outpatient (CLI) | payer OTHER, SELFPAY ==
[2020-02-13 14:05] LABS: BUN Creatinine Ratio 16.4 (6-22); Blood Urea Nitrogen 12 mg/dL (9-20); Calcium 9.7 mg/dL (8.4-10.2); Carbon Dioxide 29 mmol/L (22-32); Chloride 104 mmol/L (98-107); Estimated Glomerular Filt Rate > 60.0 mL/min (>60); Glucose 153 mg/dL (70-100); HEMOLYSIS < 15 (0-50); Potassium 4.4 mmol/L (3.4-5.1); Sodium 141 mmol/L (137-145)
== END ==
PROVIDERS: Family Provider Student in an Organized Health Care Education/Training Program; PCP Student in an Organized Health Care Education/Training Program; Referring Provider Family Medicine; Visit Provider Family Medicine
DX: E11.621 Type 2 diabetes mellitus with foot ulcer (principal); L97.511 Non-pressure chronic ulcer of other part of right foot limited to breakdown of skin
CPT/HCPCS: 36415; 80048

== ENCOUNTER → 2020-02-22 11:36 | Outpatient (CLI) | payer OTHER, SELFPAY ==
--- NOTE | 2020-02-22 | DI.RAD.S_ITS ---
PROCEDURE: XR ANKLE RT MIN 3V INDICATIONS: ankle non healing wound eval TECHNIQUE: 3 views of the ankle were acquired. COMPARISON: None. FINDINGS: Bones: No fractures or dislocations. Ankle mortise is normally aligned. No suspicious bony lesions. Soft tissues: A probable soft tissue defect overlies the medial malleolus. No tibiotalar joint effusion. Achilles tendon appears normal. IMPRESSION: Probable medial malleolar soft tissue defect. No discrete bony lesions visualized. Dictated by: Vera Shaw M.D. on 02/22/2020 at 12:46 Approved by: Vera Shaw M.D. on 02/22/2020 at 12:48
--- NOTE | 2020-02-22 | DI.MRI.S_ITS ---
PROCEDURE: MR FOOT RT WO/W CON INDICATIONS: Type 2 diabetes with foot ulcer TECHNIQUE: Noncontrast sagittal T1 spin echo and T2 fast spin echo with fat saturation, long-axis T1 spin echo and T2 fast spin echo with fat saturation; short-axis T1 spin echo, proton density fast spin echo, and T2 fast spin echo with fat saturation through the forefoot. Post-contrast short axis, long axis, and sagittal T1 spin echo with fat saturation through the forefoot. COMPARISON: [facility], MR, MR FOOT RT WO/W CON, 11/16/2018, 12:46. [facility], CR, XR FOOT RT MIN 3V, 02/06/2020, 10:47. FINDINGS: Image quality: Severely degraded by motion artifact Postsurgical changes related amputation of the great toe the level of the first MTP joint. Fragmentation of the base of the second toe proximal phalanx again noted. There is signal change and enhancement present within the dominant proximal phalanx fragment, at the proximal margin which is concerning for osteomyelitis. There is associated loss of the fat signal intensity on T1 weighted pulse sequences. There is also ill-defined enhancement surrounding the third metatarsal head,, with possible cortical loss and narrowed appearance. There is associated marrow edema and findings are suspicious for osteomyelitis. However, evaluation limited by motion artifact TMT joint generation. Soft tissue ulcer/cellulitis along the medial plantar aspect of the forefoot at the level of the first MTP joint. No rim-enhancing abscess identified. Diffuse muscle atrophy. IMPRESSION: Marrow signal changes at the third metatarsal head with surrounding enhancement and suspected cortical loss, which is suspicious for osteomyelitis. This is new since 11/16/18. Additional marrow signal change and enhancement present within the second toe dominant proximal phalanx fragment, which could also be related to infection although technically indeterminate. Severely motion degraded examination Dictated by: Dario Jean-Baptiste M.D. on 02/22/2020 at 12:49 Approved by: Dario Jean-Baptiste M.D. on 02/22/2020 at 13:13
== END ==
PROVIDERS: Family Provider Student in an Organized Health Care Education/Training Program; PCP Student in an Organized Health Care Education/Training Program; Referring Provider Family Medicine; Visit Provider Family Medicine
DX: E11.621 Type 2 diabetes mellitus with foot ulcer (principal); L97.511 Non-pressure chronic ulcer of other part of right foot limited to breakdown of skin; L89.514 Pressure ulcer of right ankle, stage 4; Z89.411 Acquired absence of right great toe
CPT/HCPCS: 73610; 73720

== ENCOUNTER → 2020-02-22 11:38 | Outpatient (CLI) | payer OTHER, SELFPAY | PROVIDERS: Family Provider Student in an Organized Health Care Education/Training Program; PCP Student in an Organized Health Care Education/Training Program; Referring Provider Student in an Organized Health Care Education/Training Program; Visit Provider Family Medicine | DX: E11.621 Type 2 diabetes mellitus with foot ulcer (principal); L97.511 Non-pressure chronic ulcer of other part of right foot limited to breakdown of skin; L89.514 Pressure ulcer of right ankle, stage 4; L03.115 Cellulitis of right lower limb; M86.171 Other acute osteomyelitis, right ankle and foot; L08.9 Local infection of the skin and subcutaneous tissue, unspecified; L30.8 Other specified dermatitis; Z89.411 Acquired absence of right great toe | CPT/HCPCS: 11042; 73610; 73720; 87070; 87075; 87077; 87205; 99214 ==

== ENCOUNTER → 2020-03-07 11:29 | Outpatient (CLI) | payer OTHER, SELFPAY | PROVIDERS: Family Provider Student in an Organized Health Care Education/Training Program; PCP Student in an Organized Health Care Education/Training Program; Referring Provider Student in an Organized Health Care Education/Training Program; Visit Provider Family Medicine | DX: E11.621 Type 2 diabetes mellitus with foot ulcer (principal); L97.515 Non-pressure chronic ulcer of other part of right foot with muscle involvement without evidence of necrosis; L89.514 Pressure ulcer of right ankle, stage 4 | CPT/HCPCS: 11043 ==

== ENCOUNTER → 2020-03-21 10:08 | Outpatient (CLI) | payer OTHER, SELFPAY | PROVIDERS: Family Provider Student in an Organized Health Care Education/Training Program; PCP Student in an Organized Health Care Education/Training Program; Referring Provider Student in an Organized Health Care Education/Training Program; Visit Provider Family Medicine | DX: E11.621 Type 2 diabetes mellitus with foot ulcer (principal); L97.511 Non-pressure chronic ulcer of other part of right foot limited to breakdown of skin; L89.514 Pressure ulcer of right ankle, stage 4; R60.0 Localized edema | CPT/HCPCS: 97597; 99213 ==

== ENCOUNTER → 2020-03-28 10:43 | Outpatient (CLI) | payer OTHER, SELFPAY | PROVIDERS: Family Provider Student in an Organized Health Care Education/Training Program; PCP Student in an Organized Health Care Education/Training Program; Referring Provider Student in an Organized Health Care Education/Training Program; Visit Provider Family Medicine | DX: E11.621 Type 2 diabetes mellitus with foot ulcer (principal); L97.511 Non-pressure chronic ulcer of other part of right foot limited to breakdown of skin; L97.311 Non-pressure chronic ulcer of right ankle limited to breakdown of skin | CPT/HCPCS: 15275; 97597; Q4132 ==

== ENCOUNTER → 2020-04-04 09:59 | Outpatient (CLI) | payer OTHER, SELFPAY | PROVIDERS: Family Provider Student in an Organized Health Care Education/Training Program; PCP Student in an Organized Health Care Education/Training Program; Referring Provider Student in an Organized Health Care Education/Training Program; Visit Provider Family Medicine | DX: E11.621 Type 2 diabetes mellitus with foot ulcer (principal); L97.511 Non-pressure chronic ulcer of other part of right foot limited to breakdown of skin; L89.514 Pressure ulcer of right ankle, stage 4; E11.622 Type 2 diabetes mellitus with other skin ulcer | CPT/HCPCS: 15275; 97597; Q4132 ==

== ENCOUNTER → 2020-04-11 10:30 | Outpatient (CLI) | payer OTHER, SELFPAY | PROVIDERS: Family Provider Student in an Organized Health Care Education/Training Program; PCP Student in an Organized Health Care Education/Training Program; Referring Provider Student in an Organized Health Care Education/Training Program; Visit Provider Family Medicine | DX: E11.621 Type 2 diabetes mellitus with foot ulcer (principal); L97.511 Non-pressure chronic ulcer of other part of right foot limited to breakdown of skin; L89.514 Pressure ulcer of right ankle, stage 4 | CPT/HCPCS: 15275; 97597; Q4132 ==

== ENCOUNTER → 2020-04-18 10:07 | Outpatient (CLI) | payer OTHER, SELFPAY | PROVIDERS: Family Provider Student in an Organized Health Care Education/Training Program; PCP Student in an Organized Health Care Education/Training Program; Referring Provider Student in an Organized Health Care Education/Training Program; Visit Provider Family Medicine | DX: E11.621 Type 2 diabetes mellitus with foot ulcer (principal); L97.511 Non-pressure chronic ulcer of other part of right foot limited to breakdown of skin; L89.514 Pressure ulcer of right ankle, stage 4; E11.40 Type 2 diabetes mellitus with diabetic neuropathy, unspecified | CPT/HCPCS: 15275; 97597; Q4132 ==

== ENCOUNTER → 2020-04-30 10:48 | Outpatient (CLI) | payer OTHER, SELFPAY | PROVIDERS: Family Provider Student in an Organized Health Care Education/Training Program; PCP Student in an Organized Health Care Education/Training Program; Referring Provider Student in an Organized Health Care Education/Training Program; Visit Provider Family Medicine | DX: E11.621 Type 2 diabetes mellitus with foot ulcer (principal); L97.511 Non-pressure chronic ulcer of other part of right foot limited to breakdown of skin; L89.514 Pressure ulcer of right ankle, stage 4; E11.622 Type 2 diabetes mellitus with other skin ulcer | CPT/HCPCS: 15275; 97597; 99213; Q4132 ==

== ENCOUNTER → 2020-05-07 10:24 | Outpatient (CLI) | payer OTHER, SELFPAY | PROVIDERS: Family Provider Student in an Organized Health Care Education/Training Program; PCP Student in an Organized Health Care Education/Training Program; Referring Provider Student in an Organized Health Care Education/Training Program; Visit Provider Family Medicine | DX: E11.621 Type 2 diabetes mellitus with foot ulcer (principal); L89.514 Pressure ulcer of right ankle, stage 4; L97.511 Non-pressure chronic ulcer of other part of right foot limited to breakdown of skin | CPT/HCPCS: 97597 ==

== ENCOUNTER → 2020-05-16 15:46 | Outpatient (CLI) | payer OTHER, SELFPAY | PROVIDERS: Family Provider Student in an Organized Health Care Education/Training Program; PCP Student in an Organized Health Care Education/Training Program; Referring Provider Student in an Organized Health Care Education/Training Program; Visit Provider Family Medicine | DX: E11.43 Type 2 diabetes mellitus with diabetic autonomic (poly)neuropathy (principal); Z48.01 Encounter for change or removal of surgical wound dressing; Z48.89 Encounter for other specified surgical aftercare | CPT/HCPCS: 99212 ==

== ENCOUNTER → 2020-05-30 10:01 | Outpatient (CLI) | payer OTHER, SELFPAY | PROVIDERS: Family Provider Student in an Organized Health Care Education/Training Program; PCP Student in an Organized Health Care Education/Training Program; Referring Provider Student in an Organized Health Care Education/Training Program; Visit Provider Family Medicine | DX: E11.43 Type 2 diabetes mellitus with diabetic autonomic (poly)neuropathy (principal); Z48.01 Encounter for change or removal of surgical wound dressing; Z48.89 Encounter for other specified surgical aftercare | CPT/HCPCS: 99212 ==

== ENCOUNTER 2020-06-07 07:48 | Emergency (ER) | payer OTHER, SELFPAY ==
[2020-06-07 08:06] VITALS: BP 138/94; PULSE 91; RESP 16; TEMP 36.4; O2SAT 97
--- NOTE | 2020-06-07 08:16 | ED.SKABFB ---
HPI - Skin/Abscess/Foreign Bdy General Chief complaint: Skin/Abscess/Foreign Body Stated complaint: infection in right leg Time Seen by Provider: 06/07/20 07:58 Source: patient Mode of arrival: Family Vehicle Limitations: no limitations History of Present Illness HPI narrative: Patient is a 39-year-old [id number] diabetic male with history of toe amputation in September 2019 presenting with redness of his right leg. He says he has had an area of redness there for about a month however yesterday the redness spread and he had fever of 101. It was extremely sensitive to any light touch nothing could be touching his leg. He denies numbness or tingling. He has previously had infections especially related to his toe amputation. However he says that site itself seems to be healing but irritated by take. MD complaint: rash Onset (ago): day(s) (1) Location: RLE Quality: aching and constant Related Data Home Medications Medication Instructions Recorded Confirmed atorvastatin [Lipitor] 40 mg PO BEDTIME #0 06/12/16 08/25/19 metformin 1,000 mg PO BID 06/19/19 08/25/19 pregabalin [Lyrica] 100 mg PO BID 06/19/19 08/25/19 cephalexin 500 mg PO BID 08/25/19 08/25/19 Previous Rx's Medication Instructions Recorded doxycycline hyclate 100 mg PO BID #20 cap 06/07/20 Allergies Allergy/AdvReac Type Severity Reaction Status Date / Time No Known Drug Allergies Allergy Verified 08/25/19 07:11 Review of Systems Review of Systems Narrative: GENERAL:+ fever Denies chills, fatigue, malaise, sweats, travel HEENT: Denies sinus pain, ear pain, sore throat, difficulty swallowing, neck pain RESPIRATORY: Denies dyspnea, cough, wheezing, hemoptysis, sputum. CARDIOVASCULAR: Denies chest pain, palpitations, orthopnea, edema GASTROINTESTINAL: Denies nausea, vomiting, abdominal pain, diarrhea, constipation, melena. : Denies dysuria, frequency, incontinence, hematuria, urinary retention, flank pain. MUSCULOSKELETAL: Denies weakness, joint pain, or bony pain SKIN: See HPI NEUROLOGIC: Denies weakness, dizziness, headache, numbness, change in speech, confusion PSYCHIATRIC: No concerning psychosocial issues. 12 point review of systems is negative except for those stated above and HPI Patient History Medical History Bilateral lower extremity edema (Chronic) Cellulitis (Acute 06/13/16) Chronic low back pain (Inactive) Chronic ulcer of lower extremity (Chronic) Diabetes (Chronic) Diabetic neuropathy (Acute) Diabetic ulcer of right great toe (Acute ~07/2019) History of amputation of toe (Acute 06/20/19) Hyperlipidemia (Chronic) Social History household members: friend(s) Smoking Status: Former smoker alcohol intake: current Smoking Status: Former smoker alcohol intake frequency: a few times a week Substance Use Type: marijuana Exam Initial Vital Signs Initial Vital Signs: Vital Signs Temperature 97.6 F 06/07/20 08:06 Pulse Rate 91 H 06/07/20 08:06 Respiratory Rate 16 06/07/20 08:06 Blood Pressure 138/94 H 06/07/20 08:06 Pulse Oximetry 97 06/07/20 08:06 GENERAL: Well-appearing, well-nourished and in no acute distress. HEENT: Head atraumatic,EOMI, pupils reactive CARDIOVASCULAR: Regular rate and rhythm without murmurs, rubs or gallops. RESPIRATORY: Breath sounds equal bilaterally, no wheezes rales or rhonchi. ABDOMEN: Soft, nontender. Normoactive bowel sounds all 4 quadrants. No guarding or rebound. EXTREMITIES: Normal range of motion, no clubbing or edema. Neurovascularly intact NEUROLOGICAL: Alert and oriented x4.Normal gait and speech. SKIN: Right leg he does have a area of thick scaly or erythema mid lower leg surrounding that is some blanchable erythema is noncircumferential no gross pus toe amputation site appears well minimal erythema at site no gross Course Orders Ordered: ED Orders 06/07/20 08:48 Complete Blood Count AUTO DIFF Stat Comprehensive Metabolic Panel Stat Lactate (Lactic Acid) Stat Procalcitonin Stat 06/07/20 09:10 Blood Culture Stat Discontinued Medications Ceftriaxone Sodium/Dextrose (Rocephin) 1 gm in 50 mls @ 100 mls/hr IV NOW ONE Stop: 06/07/20 08:43 Last Infusion: 06/07/20 09:43 Dose: 0 mls/hr Documented by: Admin: 06/07/20 09:12 Dose: 100 mls/hr Documented by: ROXANA Vital Signs Vital signs: Vital Signs - 8 hr 06/07/20 08:06 06/07/20 09:52 Temperature 97.6 F Pulse Rate 91 H 84 Respiratory Rate 16 16 Blood Pressure 138/94 H 140/86 Pulse Oximetry 97 99 MDM - Skin/Abscess/Foreign Bdy Lab Data Attestation: I reviewed the patient's lab results. Result diagrams: 06/07/20 08:48 06/07/20 08:48 Labs: Lab Results 06/07/20 06/07/20 06/07/20 Range/Units 08:25 08:48 08:48 WBC Cancelled RBC Cancelled Hgb Cancelled Hct Cancelled MCV Cancelled MCH Cancelled MCHC Cancelled RDW Cancelled Plt Count Cancelled Neut % (Auto) Cancelled Lymph % (Auto) Cancelled [place] % (Auto) Cancelled Eos % (Auto) Cancelled Baso % (Auto) Cancelled Neut # (Auto) Cancelled Lymph # (Auto) Cancelled [place] # (Auto) Cancelled Eos # (Auto) Cancelled Baso # (Auto) Cancelled Sodium 137 (137-145) mmol/L Potassium 3.8 (3.4-5.1) mmol/L Chloride 103 (98-107) mmol/L Carbon Dioxide 25 (22-32) mmol/L BUN 10 (9-20) mg/dL Creatinine 0.68 (0.66-1.25) mg/dL Estimated GFR > 60.0 (>60) mL/min BUN/Creatinine Ratio 14.7 (6-22) Glucose 143 H (70-100) mg/dL Lactate (0.7-2.1) mmol/L Calcium 9.6 (8.4-10.2) mg/dL Total Bilirubin 1.5 H (0.2-1.3) mg/dL AST 21 (17-59) IU/L ALT 16 (<50) IU/L Alkaline Phosphatase 112 (38-126) U/L Total Protein 8.3 H (6.3-8.2) g/dL Albumin 4.4 (3.5-5.0) g/dL Globulin 3.9 (1.7-4.1) g/dL Albumin/Globulin Ratio 1.1 (1.0-2.8) Procalcitonin < 0.05 (<0.5) ng/mL 06/07/20 06/07/20 Range/Units 08:48 08:48 WBC 5.4 RBC 4.41 L Hgb 14.5 Hct 41.1 MCV 93.0 MCH 32.8 MCHC 35.3 RDW 13.0 Plt Count 178 Neut % (Auto) 59.3 Lymph % (Auto) 24.4 L [place] % (Auto) 15.4 H Eos % (Auto) 0.7 L Baso % (Auto) 0.2 Neut # (Auto) 3200 Lymph # (Auto) 1300 [place] # (Auto) 800 Eos # (Auto) 0 Baso # (Auto) 0 Sodium (137-145) mmol/L Potassium (3.4-5.1) mmol/L Chloride (98-107) mmol/L Carbon Dioxide (22-32) mmol/L BUN (9-20) mg/dL Creatinine (0.66-1.25) mg/dL Estimated GFR (>60) mL/min BUN/Creatinine Ratio (6-22) Glucose (70-100) mg/dL Lactate 0.9 (0.7-2.1) mmol/L Calcium (8.4-10.2) mg/dL Total Bilirubin (0.2-1.3) mg/dL AST (17-59) IU/L ALT (<50) IU/L Alkaline Phosphatase (38-126) U/L Total Protein (6.3-8.2) g/dL Albumin (3.5-5.0) g/dL Globulin (1.7-4.1) g/dL Albumin/Globulin Ratio (1.0-2.8) Procalcitonin (<0.5) ng/mL [facility] Narrative Medical decision making narrative: Patient does not appear septic he is afebrile without leukocytosis. The redness is actually improved with some Rocephin. I will put him on doxycycline for 10 days. I have given him strict return precautions and to monitor closely Discharge Plan Departure Patient Disposition: Home Clinical Impression: Cellulitis of leg, right Discharge Date/Time: 06/07/20 09:55 Instructions: DI for Cellulitis -- Adult Activity Restrictions/Additional Instructions: *You have been diagnosed with cellulitis right leg *What to do: Antibiotics will take about 48 hours to start working however your blood work today is overall reassuring *Continue to take medications as directed Doxycycline 100 mg twice a day for 10 days *Follow up with your primary care provider in 2-3 days *Return to ER if you should have increased redness, drainage, body aches, fever or any new, worsening or concerning symptoms Prescriptions: New doxycycline hyclate 100 mg capsule 100 mg PO BID Qty: 20 RF: 0 No Action atorvastatin [Lipitor] 40 MG tablet 40 mg PO BEDTIME Qty: 0 RF: 0 metformin 1,000 mg tablet 1,000 mg PO BID RF: 0 pregabalin [Lyrica] 100 mg capsule 100 mg PO BID RF: 0 cephalexin 500 mg Capsule 500 mg PO BID RF: 0 Referrals: Carlos Jones MD [Primary Care Provider] -
[2020-06-07 09:01] LABS: Add Manual Diff / Slide Review NO; Basophils Absolute Auto 0 /uL (0-100); Basophils Percent Auto 0.2 % (0-2); Eosinophils Absolute Auto 0 /uL (0-450); Eosinophils Percent Auto 0.7 % (2-4); Hematocrit 41.1 % (41-53); Hemoglobin 14.5 g/dL (13.5-17.5); Lymphocytes Absolute Auto 1300 /uL (1100-4500); Lymphocytes Percent Auto 24.4 % (25-40); Mean Corpuscular HGB Conc 35.3 % (30-36); Mean Corpuscular Hemoglobin 32.8 PG (26-34); Monocytes Absolute Auto 800 /uL (0-900); Monocytes Percent Auto 15.4 % (3-14); Neutrophils Absolute Auto 3200 /uL (1500-7000); Neutrophils Percent Auto 59.3 % (50-75); Platelet Count 178 X10^3/uL (150-400); Red Blood Cell Count 4.41 X10^6/uL (4.5-5.9); White Blood Cell Count 5.4 X10^3/uL (4.5-11.0)
[2020-06-07 09:11] LABS: Lactate (Lactic Acid) 0.9 mmol/L (0.7-2.1)
[2020-06-07 09:12] LABS: Alanine Aminotransferase 16 IU/L (<50); Albumin 4.4 g/dL (3.5-5.0); Albumin Globulin Ratio 1.1 (1.0-2.8); Alkaline Phosphatase 112 U/L (38-126); Aspartate Aminotransferase 21 IU/L (17-59); BUN Creatinine Ratio 14.7 (6-22); Bilirubin Total 1.5 mg/dL (0.2-1.3); Blood Urea Nitrogen 10 mg/dL (9-20); Calcium 9.6 mg/dL (8.4-10.2); Carbon Dioxide 25 mmol/L (22-32); Chloride 103 mmol/L (98-107); Estimated Glomerular Filt Rate > 60.0 mL/min (>60); Globulin 3.9 g/dL (1.7-4.1); Glucose 143 mg/dL (70-100); HEMOLYSIS < 15 (0-50); Potassium 3.8 mmol/L (3.4-5.1); Sodium 137 mmol/L (137-145); Total Protein 8.3 g/dL (6.3-8.2)
[2020-06-07] MEDS: CEFTRIAXONE 1 GM/50 ML FROZ.PIGGY IV (09:12)
[2020-06-07 09:28] LABS: Procalcitonin < 0.05 ng/mL (<0.5)
--- NOTE | 2020-06-07 09:46 | PC.NURSE ---
Assisted patient in wrapping wound under right big toe area with jonel.
[2020-06-07 09:52] VITALS: BP 140/86; PULSE 84; RESP 16; O2SAT 99
== END 2020-06-07 09:55 | disposition home or self-care (01) ==
PROVIDERS: Emergency Provider Emergency Medicine; Family Provider Student in an Organized Health Care Education/Training Program; PCP Student in an Organized Health Care Education/Training Program
DX: L03.115 Cellulitis of right lower limb (principal); E11.9 Type 2 diabetes mellitus without complications; Z79.4 Long term (current) use of insulin
CPT/HCPCS: 80053; 83605; 84145; 85025; 87040; 96365; 99283; 99284

== ENCOUNTER → 2020-06-13 12:29 | Outpatient (CLI) | payer OTHER, SELFPAY | PROVIDERS: Family Provider Student in an Organized Health Care Education/Training Program; PCP Student in an Organized Health Care Education/Training Program; Referring Provider Student in an Organized Health Care Education/Training Program; Visit Provider Family Medicine | DX: E11.621 Type 2 diabetes mellitus with foot ulcer (principal); L97.511 Non-pressure chronic ulcer of other part of right foot limited to breakdown of skin | CPT/HCPCS: 11042 ==

== ENCOUNTER → 2020-06-27 10:40 | Outpatient (CLI) | payer OTHER, SELFPAY | PROVIDERS: Family Provider Student in an Organized Health Care Education/Training Program; PCP Student in an Organized Health Care Education/Training Program; Referring Provider Student in an Organized Health Care Education/Training Program; Visit Provider Family Medicine | DX: E11.621 Type 2 diabetes mellitus with foot ulcer (principal); L97.511 Non-pressure chronic ulcer of other part of right foot limited to breakdown of skin; L23.9 Allergic contact dermatitis, unspecified cause; L03.116 Cellulitis of left lower limb | CPT/HCPCS: 11042; 87070; 87075; 87077; 87147; 87186; 87205; 99213; 99214 ==

== ENCOUNTER → 2020-07-04 11:15 | Outpatient (CLI) | payer OTHER, SELFPAY | PROVIDERS: Family Provider Student in an Organized Health Care Education/Training Program; PCP Student in an Organized Health Care Education/Training Program; Referring Provider Student in an Organized Health Care Education/Training Program; Visit Provider Family Medicine | DX: E11.621 Type 2 diabetes mellitus with foot ulcer (principal); L97.511 Non-pressure chronic ulcer of other part of right foot limited to breakdown of skin; B35.3 Tinea pedis; B35.4 Tinea corporis | CPT/HCPCS: 97597; 99214 ==

== ENCOUNTER → 2020-07-11 11:51 | Outpatient (CLI) | payer OTHER, SELFPAY | PROVIDERS: Family Provider Student in an Organized Health Care Education/Training Program; PCP Student in an Organized Health Care Education/Training Program; Referring Provider Student in an Organized Health Care Education/Training Program; Visit Provider Family Medicine | DX: E11.621 Type 2 diabetes mellitus with foot ulcer (principal); L97.511 Non-pressure chronic ulcer of other part of right foot limited to breakdown of skin | CPT/HCPCS: 11042 ==

== ENCOUNTER → 2020-07-18 12:18 | Outpatient (CLI) | payer OTHER, SELFPAY | PROVIDERS: Family Provider Student in an Organized Health Care Education/Training Program; PCP Student in an Organized Health Care Education/Training Program; Referring Provider Student in an Organized Health Care Education/Training Program; Visit Provider Family Medicine | DX: E11.621 Type 2 diabetes mellitus with foot ulcer (principal); L97.511 Non-pressure chronic ulcer of other part of right foot limited to breakdown of skin | CPT/HCPCS: 11042 ==

== ENCOUNTER → 2020-07-25 11:46 | Outpatient (CLI) | payer OTHER, SELFPAY | PROVIDERS: Family Provider Student in an Organized Health Care Education/Training Program; PCP Student in an Organized Health Care Education/Training Program; Referring Provider Student in an Organized Health Care Education/Training Program; Visit Provider Family Medicine | DX: E11.621 Type 2 diabetes mellitus with foot ulcer (principal); L97.511 Non-pressure chronic ulcer of other part of right foot limited to breakdown of skin | CPT/HCPCS: 11042 ==

== ENCOUNTER → 2020-08-01 10:29 | Outpatient (CLI) | payer OTHER, SELFPAY | PROVIDERS: Family Provider Student in an Organized Health Care Education/Training Program; PCP Student in an Organized Health Care Education/Training Program; Referring Provider Student in an Organized Health Care Education/Training Program; Visit Provider Family Medicine | DX: E11.621 Type 2 diabetes mellitus with foot ulcer (principal); L97.511 Non-pressure chronic ulcer of other part of right foot limited to breakdown of skin | CPT/HCPCS: 11042; 87070; 87075; 87077; 87147; 87186; 87205 ==

== ENCOUNTER → 2020-08-08 10:16 | Outpatient (CLI) | payer OTHER, SELFPAY | PROVIDERS: Family Provider Student in an Organized Health Care Education/Training Program; PCP Student in an Organized Health Care Education/Training Program; Referring Provider Student in an Organized Health Care Education/Training Program; Visit Provider Family Medicine | DX: E11.621 Type 2 diabetes mellitus with foot ulcer (principal); L08.9 Local infection of the skin and subcutaneous tissue, unspecified; L97.511 Non-pressure chronic ulcer of other part of right foot limited to breakdown of skin; E11.40 Type 2 diabetes mellitus with diabetic neuropathy, unspecified | CPT/HCPCS: 11042; 99214 ==

== ENCOUNTER → 2020-08-21 10:39 | Outpatient (CLI) | payer OTHER, SELFPAY | PROVIDERS: Family Provider Student in an Organized Health Care Education/Training Program; PCP Student in an Organized Health Care Education/Training Program; Referring Provider Student in an Organized Health Care Education/Training Program; Visit Provider Family Medicine | DX: E11.621 Type 2 diabetes mellitus with foot ulcer (principal); L97.511 Non-pressure chronic ulcer of other part of right foot limited to breakdown of skin | CPT/HCPCS: 11042 ==

== ENCOUNTER → 2020-08-27 10:31 | Outpatient (CLI) | payer OTHER, SELFPAY | PROVIDERS: Family Provider Student in an Organized Health Care Education/Training Program; PCP Student in an Organized Health Care Education/Training Program; Referring Provider Student in an Organized Health Care Education/Training Program; Visit Provider Family Medicine | DX: E11.621 Type 2 diabetes mellitus with foot ulcer (principal); L97.511 Non-pressure chronic ulcer of other part of right foot limited to breakdown of skin | CPT/HCPCS: 11042 ==

== ENCOUNTER → 2020-08-29 09:58 | Outpatient (CLI) | payer OTHER, SELFPAY | PROVIDERS: Family Provider Student in an Organized Health Care Education/Training Program; PCP Student in an Organized Health Care Education/Training Program; Referring Provider Student in an Organized Health Care Education/Training Program; Visit Provider Family Medicine | DX: E11.621 Type 2 diabetes mellitus with foot ulcer (principal); L97.511 Non-pressure chronic ulcer of other part of right foot limited to breakdown of skin | CPT/HCPCS: 29445 ==

== ENCOUNTER → 2020-09-05 09:46 | Outpatient (CLI) | payer OTHER, SELFPAY | PROVIDERS: Family Provider Student in an Organized Health Care Education/Training Program; PCP Student in an Organized Health Care Education/Training Program; Referring Provider Student in an Organized Health Care Education/Training Program; Visit Provider Family Medicine | DX: E11.621 Type 2 diabetes mellitus with foot ulcer (principal); L97.511 Non-pressure chronic ulcer of other part of right foot limited to breakdown of skin | CPT/HCPCS: 11042 ==

== ENCOUNTER → 2020-09-12 09:54 | Outpatient (CLI) | payer OTHER, SELFPAY | PROVIDERS: Family Provider Student in an Organized Health Care Education/Training Program; PCP Student in an Organized Health Care Education/Training Program; Referring Provider Student in an Organized Health Care Education/Training Program; Visit Provider Family Medicine | DX: E11.621 Type 2 diabetes mellitus with foot ulcer (principal); L97.511 Non-pressure chronic ulcer of other part of right foot limited to breakdown of skin | CPT/HCPCS: 15275; Q4105 ==

== ENCOUNTER → 2020-09-19 13:18 | Outpatient (CLI) | payer OTHER, SELFPAY | PROVIDERS: Family Provider Student in an Organized Health Care Education/Training Program; PCP Student in an Organized Health Care Education/Training Program; Referring Provider Student in an Organized Health Care Education/Training Program; Visit Provider Family Medicine | DX: E11.621 Type 2 diabetes mellitus with foot ulcer (principal); L97.511 Non-pressure chronic ulcer of other part of right foot limited to breakdown of skin; E11.40 Type 2 diabetes mellitus with diabetic neuropathy, unspecified | CPT/HCPCS: 15275; Q4105 ==

== ENCOUNTER → 2020-09-26 10:26 | Outpatient (CLI) | payer OTHER, SELFPAY | PROVIDERS: Family Provider Student in an Organized Health Care Education/Training Program; PCP Student in an Organized Health Care Education/Training Program; Referring Provider Student in an Organized Health Care Education/Training Program; Visit Provider Family Medicine | DX: E11.621 Type 2 diabetes mellitus with foot ulcer (principal); L97.511 Non-pressure chronic ulcer of other part of right foot limited to breakdown of skin | CPT/HCPCS: 29445 ==

== ENCOUNTER → 2020-10-03 13:38 | Outpatient (CLI) | payer OTHER, SELFPAY | PROVIDERS: Family Provider Student in an Organized Health Care Education/Training Program; PCP Student in an Organized Health Care Education/Training Program; Referring Provider Student in an Organized Health Care Education/Training Program; Visit Provider Family Medicine | DX: E11.43 Type 2 diabetes mellitus with diabetic autonomic (poly)neuropathy (principal) | CPT/HCPCS: 99213 ==

== ENCOUNTER → 2021-01-01 11:23 | Outpatient (CLI) | payer OTHER, SELFPAY | PROVIDERS: Family Provider Student in an Organized Health Care Education/Training Program; PCP Student in an Organized Health Care Education/Training Program; Referring Provider Student in an Organized Health Care Education/Training Program; Visit Provider Family Medicine | DX: E11.621 Type 2 diabetes mellitus with foot ulcer (principal); L97.511 Non-pressure chronic ulcer of other part of right foot limited to breakdown of skin; E11.40 Type 2 diabetes mellitus with diabetic neuropathy, unspecified; Z89.411 Acquired absence of right great toe; Z89.412 Acquired absence of left great toe | CPT/HCPCS: 97597; 99213; 99214 ==

== ENCOUNTER → 2021-01-15 09:53 | Outpatient (CLI) | payer OTHER, SELFPAY | PROVIDERS: Family Provider Student in an Organized Health Care Education/Training Program; PCP Student in an Organized Health Care Education/Training Program; Referring Provider Student in an Organized Health Care Education/Training Program; Visit Provider Family Medicine | DX: E11.621 Type 2 diabetes mellitus with foot ulcer (principal); L97.511 Non-pressure chronic ulcer of other part of right foot limited to breakdown of skin; Z48.01 Encounter for change or removal of surgical wound dressing | CPT/HCPCS: 99213 ==

== ENCOUNTER → 2021-02-07 10:17 | Outpatient (CLI) | payer OTHER, SELFPAY | PROVIDERS: Family Provider Student in an Organized Health Care Education/Training Program; PCP Student in an Organized Health Care Education/Training Program; Referring Provider Student in an Organized Health Care Education/Training Program; Visit Provider Family Medicine | DX: E11.621 Type 2 diabetes mellitus with foot ulcer (principal); L97.511 Non-pressure chronic ulcer of other part of right foot limited to breakdown of skin; L03.115 Cellulitis of right lower limb; R21 Rash and other nonspecific skin eruption; E11.65 Type 2 diabetes mellitus with hyperglycemia; E11.40 Type 2 diabetes mellitus with diabetic neuropathy, unspecified; L03.90 Cellulitis, unspecified | CPT/HCPCS: 36415; 83036; 85025; 87070; 87075; 87077; 87147; 87186; 87205; 97597; 99214 ==

== ENCOUNTER → 2021-02-07 10:48 | Outpatient (CLI) | payer OTHER, SELFPAY ==
[2021-02-07 11:34] LABS: Add Manual Diff / Slide Review NO; Basophils Absolute Auto 0 /uL (0-100); Basophils Percent Auto 0.4 % (0-2); Eosinophils Absolute Auto 100 /uL (0-450); Hemoglobin 15.1 g/dL (13.5-17.5); Lymphocytes Absolute Auto 2200 /uL (1100-4500); Lymphocytes Percent Auto 36.1 % (25-40); Mean Corpuscular HGB Conc 35.1 % (30-36); Mean Corpuscular Hemoglobin 32.7 PG (26-34); Mean Corpuscular Volume 93.1 fL (80-100); Monocytes Absolute Auto 500 /uL (0-900); Monocytes Percent Auto 7.8 % (3-14); Neutrophils Absolute Auto 3200 /uL (1500-7000); Neutrophils Percent Auto 53.7 % (50-75); Platelet Count 169 X10^3/uL (150-400); Red Blood Cell Count 4.61 X10^6/uL (4.5-5.9)
[2021-02-07 11:37] LABS: Hemoglobin A1C% w Est Avg Glu 8.7 % (4.0-6.0)
== END ==
PROVIDERS: Family Provider Student in an Organized Health Care Education/Training Program; PCP Student in an Organized Health Care Education/Training Program; Referring Provider Nurse Practitioner Family; Visit Provider Nurse Practitioner Family
DX: L03.90 Cellulitis, unspecified (principal); E11.621 Type 2 diabetes mellitus with foot ulcer
CPT/HCPCS: 36415; 83036; 85025

== ENCOUNTER → 2021-02-14 09:39 | Outpatient (CLI) | payer OTHER, SELFPAY | PROVIDERS: Family Provider Student in an Organized Health Care Education/Training Program; PCP Student in an Organized Health Care Education/Training Program; Referring Provider Student in an Organized Health Care Education/Training Program; Visit Provider Nurse Practitioner Family | DX: E11.621 Type 2 diabetes mellitus with foot ulcer (principal); L97.512 Non-pressure chronic ulcer of other part of right foot with fat layer exposed; L03.115 Cellulitis of right lower limb; R21 Rash and other nonspecific skin eruption; E11.40 Type 2 diabetes mellitus with diabetic neuropathy, unspecified | CPT/HCPCS: 11042; 99213 ==

== ENCOUNTER → 2021-02-19 11:16 | Outpatient (CLI) | payer OTHER, SELFPAY ==
--- NOTE | 2021-02-19 11:19 | DI.RAD.S_ITS ---
PROCEDURE: XR FOOT RT MIN 3V INDICATIONS: RT MET HEAD DFU 3RD TOE TECHNIQUE: 3 views of the foot were acquired. COMPARISON: [facility], CR, FOOT 3V LEFT, 06/11/2015, 12:36. [facility], CR, XR FOOT RT MIN 3V, 02/06/2020, 10:47. [facility], CR, XR FOOT RT MIN 3V, 03/13/2019, 11:13. FINDINGS: Bones: No fractures or dislocations. No suspicious bony lesions. Note is again made of prior amputation of the 1st ray from the 1st metatarsal head distally. Fracture at the base of the 2nd proximal phalanx shows healing. There is a possible osteolytic process involving the 3rd metatarsal head. Soft tissues: No tibiotalar joint effusion. Achilles tendon appears normal. IMPRESSION: The clinical history provided is abbreviated and is not fully understood. There is an indication of some form of abnormality at the 3rd toe. Trauma to the 3rd toe is not found. Definite osteomyelitis to the 3rd toe is not seen. There has been prior amputation of the 1st toe and healing of a area of fracture at the base of the 2nd proximal phalanx. There is a possible osteomyelitis process involving the 3rd metatarsal head. Follow-up MR scanning with contrast may be warranted. Dictated by: Randy Uriostegui M.D. on 02/19/2021 at 12:18 Approved by: Randy Uriostegui M.D. on 02/19/2021 at 12:22
== END ==
PROVIDERS: Family Provider Student in an Organized Health Care Education/Training Program; PCP Student in an Organized Health Care Education/Training Program; Referring Provider Family Medicine; Visit Provider Family Medicine
DX: L97.512 Non-pressure chronic ulcer of other part of right foot with fat layer exposed (principal); Z89.411 Acquired absence of right great toe
CPT/HCPCS: 73630

== ENCOUNTER → 2021-02-19 13:29 | Outpatient (CLI) | payer OTHER, SELFPAY | PROVIDERS: Family Provider Student in an Organized Health Care Education/Training Program; PCP Student in an Organized Health Care Education/Training Program; Referring Provider Student in an Organized Health Care Education/Training Program; Visit Provider Family Medicine | DX: E11.621 Type 2 diabetes mellitus with foot ulcer (principal); L97.511 Non-pressure chronic ulcer of other part of right foot limited to breakdown of skin; Z89.411 Acquired absence of right great toe; E11.40 Type 2 diabetes mellitus with diabetic neuropathy, unspecified; Z89.412 Acquired absence of left great toe; L08.9 Local infection of the skin and subcutaneous tissue, unspecified; L97.512 Non-pressure chronic ulcer of other part of right foot with fat layer exposed | CPT/HCPCS: 11042; 73630; 99214 ==

== ENCOUNTER → 2021-03-05 09:58 | Outpatient (CLI) | payer OTHER, SELFPAY ==
--- NOTE | 2021-03-05 09:59 | DI.MRI.S_ITS ---
PROCEDURE: MR FOOT RT WO/W CON INDICATIONS: Type 2 diabetes mellitus with foot ulcer TECHNIQUE: Noncontrast coronal T1 spin echo and STIR, sagittal T1 spin echo with fat saturation and STIR, axial T1 spin echo and T2 fast spin echo with fat saturation. After the administration of contrast, axial/sagittal/coronal T1 spin echo with fat saturation through the right foot . COMPARISON: [facility], CR, XR FOOT RT MIN 3V, 02/19/2021, 11:19. [facility], MR, MR FOOT RT WO/W CON, 02/22/2020, 11:59. FINDINGS: Image quality: Excellent. Bones: There is previous amputation of great toe at the level of 1st MTP joint. Marrow edema throughout 3rd proximal phalanx is seen with subtle cortical erosion involving plantar cortex of 3rd proximal phalangeal base. Fairly homogeneous contrast enhancement within 3rd proximal phalanx is also seen consistent with osteomyelitis in this area. No other area of of abnormal marrow signal is seen. No fracture or dislocation. Mild midfoot and forefoot joint osteoarthritic changes are seen. No other area of abnormal intraosseous enhancement. Soft tissues: Full-thickness ulceration involving plantar aspect of 2nd MTP joint is seen with adjacent soft tissue edema and enhancement consistent with cellulitis. No discrete drainable abscess collection is seen. Extensor and flexor tendons of right foot are grossly intact.. The scanned muscles demonstrate normal overall bulk and internal signal. IMPRESSION: 1. Full-thickness ulceration over plantar aspect of forefoot at the level of 2nd MTP joint. Cellulitis in plantar forefoot soft tissue adjacent to 2nd MTP joint without discrete drainable abscess collection. 2. 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 3. Mild forefoot joint osteoarthritis. Prior amputation of great toe at the level of 1st MTP joint. Dictated by: Nguyễn Webb M.D. on 03/05/2021 at 10:23 Approved by: Nguyễn Webb M.D. on 03/05/2021 at 10:40
== END ==
PROVIDERS: Family Provider Student in an Organized Health Care Education/Training Program; PCP Student in an Organized Health Care Education/Training Program; Referring Provider Family Medicine; Visit Provider Family Medicine
DX: E11.621 Type 2 diabetes mellitus with foot ulcer (principal); L97.512 Non-pressure chronic ulcer of other part of right foot with fat layer exposed; L03.115 Cellulitis of right lower limb; M86.9 Osteomyelitis, unspecified; M19.071 Primary osteoarthritis, right ankle and foot; Z89.411 Acquired absence of right great toe
CPT/HCPCS: 73720

== ENCOUNTER → 2021-03-05 13:59 | Outpatient (CLI) | payer OTHER, SELFPAY | PROVIDERS: Family Provider Student in an Organized Health Care Education/Training Program; PCP Student in an Organized Health Care Education/Training Program; Referring Provider Student in an Organized Health Care Education/Training Program; Visit Provider Family Medicine | DX: M86.171 Other acute osteomyelitis, right ankle and foot (principal); E11.621 Type 2 diabetes mellitus with foot ulcer; L97.512 Non-pressure chronic ulcer of other part of right foot with fat layer exposed; L03.115 Cellulitis of right lower limb; M19.071 Primary osteoarthritis, right ankle and foot; Z89.441 Acquired absence of right ankle; L97.511 Non-pressure chronic ulcer of other part of right foot limited to breakdown of skin; E11.40 Type 2 diabetes mellitus with diabetic neuropathy, unspecified; Z89.411 Acquired absence of right great toe; Z89.412 Acquired absence of left great toe | CPT/HCPCS: 11042; 36415; 73720; 80053; 83036; 85025; 85651; 86140; 87070; 87077; 87147; 87185; 87186; 87205; 99214 ==

== ENCOUNTER → 2021-03-05 15:17 | Outpatient (CLI) | payer OTHER, SELFPAY ==
[2021-03-05 15:40] LABS: Add Manual Diff / Slide Review NO; Basophils Absolute Auto 0 /uL (0-100); Basophils Percent Auto 0.5 % (0-2); Eosinophils Absolute Auto 200 /uL (0-450); Eosinophils Percent Auto 2.8 % (2-4); Hematocrit 40.1 % (41-53); Hemoglobin 13.8 g/dL (13.5-17.5); Lymphocytes Absolute Auto 2200 /uL (1100-4500); Lymphocytes Percent Auto 36.3 % (25-40); Mean Corpuscular HGB Conc 34.5 % (30-36); Mean Corpuscular Hemoglobin 31.9 PG (26-34); Mean Corpuscular Volume 92.5 fL (80-100); Monocytes Absolute Auto 700 /uL (0-900); Monocytes Percent Auto 11.1 % (3-14); Neutrophils Absolute Auto 3000 /uL (1500-7000); Neutrophils Percent Auto 49.3 % (50-75); Platelet Count 168 X10^3/uL (150-400); Red Blood Cell Count 4.34 X10^6/uL (4.5-5.9); Red Cell Distribution Width 12.7 % (11.6-14.8)
[2021-03-05 15:53] LABS: Hemoglobin A1C% w Est Avg Glu 8.8 % (4.0-6.0)
[2021-03-05 16:01] LABS: Alanine Aminotransferase 39 IU/L (<50); Albumin 4.1 g/dL (3.5-5.0); Albumin Globulin Ratio 1.3 (1.0-2.8); Alkaline Phosphatase 122 U/L (38-126); Aspartate Aminotransferase 28 IU/L (17-59); BUN Creatinine Ratio 17.9 (6-22); Bilirubin Total 1.1 mg/dL (0.2-1.3); Blood Urea Nitrogen 12 mg/dL (9-20); C-Reactive Protein Quant 3.2 mg/dL (<1.0); Calcium 9.6 mg/dL (8.4-10.2); Carbon Dioxide 25 mmol/L (22-32); Chloride 102 mmol/L (98-107); Estimated Glomerular Filt Rate > 60.0 mL/min (>60); Globulin 3.2 g/dL (1.7-4.1); Glucose 179 mg/dL (70-100); HEMOLYSIS < 15 (0-50); Potassium 3.8 mmol/L (3.4-5.1); Sodium 136 mmol/L (137-145); Total Protein 7.3 g/dL (6.3-8.2)
[2021-03-05 16:10] LABS: Erythrocyte Sedimentation Rate 36 MM/HR (0-15)
== END ==
PROVIDERS: Family Provider Student in an Organized Health Care Education/Training Program; PCP Student in an Organized Health Care Education/Training Program; Referring Provider Family Medicine; Visit Provider Family Medicine
DX: E11.621 Type 2 diabetes mellitus with foot ulcer (principal); L97.512 Non-pressure chronic ulcer of other part of right foot with fat layer exposed
CPT/HCPCS: 36415; 80053; 83036; 85025; 85651; 86140

== ENCOUNTER → 2021-03-12 11:10 | Outpatient (CLI) | payer OTHER, SELFPAY | PROVIDERS: Family Provider Student in an Organized Health Care Education/Training Program; PCP Student in an Organized Health Care Education/Training Program; Referring Provider Student in an Organized Health Care Education/Training Program; Visit Provider Family Medicine | DX: E11.621 Type 2 diabetes mellitus with foot ulcer (principal); L97.512 Non-pressure chronic ulcer of other part of right foot with fat layer exposed; L97.511 Non-pressure chronic ulcer of other part of right foot limited to breakdown of skin; E11.40 Type 2 diabetes mellitus with diabetic neuropathy, unspecified; L03.115 Cellulitis of right lower limb; M86.171 Other acute osteomyelitis, right ankle and foot; Z89.411 Acquired absence of right great toe; Z89.412 Acquired absence of left great toe | CPT/HCPCS: 11042; 87070; 87075; 87077; 87147; 87186; 87205; 99214 ==

== ENCOUNTER → 2021-03-19 15:56 | Outpatient (CLI) | payer OTHER, SELFPAY | PROVIDERS: Family Provider Student in an Organized Health Care Education/Training Program; PCP Student in an Organized Health Care Education/Training Program; Referring Provider Student in an Organized Health Care Education/Training Program; Visit Provider Family Medicine | DX: E11.621 Type 2 diabetes mellitus with foot ulcer (principal); L97.512 Non-pressure chronic ulcer of other part of right foot with fat layer exposed; L97.514 Non-pressure chronic ulcer of other part of right foot with necrosis of bone; L03.115 Cellulitis of right lower limb; E11.40 Type 2 diabetes mellitus with diabetic neuropathy, unspecified; L27.0 Generalized skin eruption due to drugs and medicaments taken internally; M86.171 Other acute osteomyelitis, right ankle and foot; R60.0 Localized edema; M79.674 Pain in right toe(s); Z89.411 Acquired absence of right great toe; Z89.412 Acquired absence of left great toe | CPT/HCPCS: 11042; 99214 ==